=== PATIENT | male | born 1980 | race Caucasian/White ===

== ENCOUNTER 2019-01-29 00:34 | Emergency (ER) | payer OTHER ==
[2019-01-29 01:32] LABS: Absolute Lymphocytes (CBC) 2.3 K/uL (0.7-4.9); Basophils % 0.7 % (0-1.3); Hematocrit 38.7 % (39.6-49.0); Lymphocytes % 13.3 % (15.3-44.8); MPV 9.1 fL (7.6-11.3); RBC Red Blood Cell Count 4.36 M/uL (4.33-5.43)
[2019-01-29 01:44] LABS: Potassium 3.6 mmol/L (3.5-5.1)
[2019-01-29] MEDS ORDERED: PANTOPRAZOLE 40 MG INJ ONE (01:46)
[2019-01-29 01:56] LABS: Urine Blood NEGATIVE (NEG); Urine Glucose NEGATIVE (NEG); Urine Protein 1+ (NEG); Urine Specific Gravity 1.015 (1.005-1.030); Urine pH 8.5 (5.0-7.0)
[2019-01-29] MEDS ORDERED: METOCLOPRAMIDE 10 MG/2mL INJ ONE (01:59)
[2019-01-29 02:20] LABS: Barbiturates NEGATIVE (NEGATIVE); Benzodiazepines POSITIVE (NEGATIVE); Cocaine NEGATIVE (NEGATIVE); METHAMPHETAM NEGATIVE (NEGATIVE); Methadone NEGATIVE (NEGATIVE); Opiates POSITIVE (NEGATIVE); Phencyclidine NEGATIVE (NEGATIVE); THC Cannibis NEGATIVE (NEGATIVE)
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
[2019-01-29 04:40] VITALS: BP 139/108; TEMP 99.5; O2SAT 96
--- NOTE | 2019-01-29 08:23 | RAD REPORT ---
EXAM DESCRIPTION: RAD - Chest Single View - 01/29/2019 2:14 am CLINICAL HISTORY: somnolenty Chest pain. COMPARISON: No comparisons FINDINGS: Portable technique limits examination quality. The lungs are grossly clear. The heart is normal in size. No displaced fractures. IMPRESSION: No acute intrathoracic process suspected.
--- NOTE | 2019-01-29 09:53 | RAD REPORT ---
EXAM DESCRIPTION: CT Abdomen and Pelvis With Intravenous Contrast CLINICAL HISTORY: The patient is 38 years old and is Male; GI BLEED -- VOMITING BLOOD TECHNIQUE: Axial computed tomography images of the abdomen and pelvis with intravenous contrast. S agittal and coronal reformatted images were created and reviewed. This CT exam was performed using one or more of the following dose reduction techniques: automated exposure control, adjustment of t he mA and/or kV according to patient size, and/or use of iterative reconstruction technique. COMPARISON: No relevant prior studies available. FINDINGS: LUNG BASES: Unremarkable. No mass. No consolidation. ABDOMEN: LIVER: There is a diffuse decrease in hepatic parenchymal density, consistent with fatty infiltr ation. The liver is enlarged. GALLBLADDER AND BILE DUCTS: No calcified stones. No ductal dilation. PANCREAS: No ductal dilation. No mass. SPLEEN: Unremarkable. ADRENALS: Unremarkable. No mass. KIDNEYS AND URETERS: Right renal cysts are present, the largest of which measures 2.6 cm. No fol low-up imaging is recommended. The kidneys enhance symmetrically. No hydronephrosis or hydroureter of either kidney. No obstructing renal or ureteral calculus. STOMACH AND BOWEL: The stomach is minimally fluid filled. The small bowel is normal in caliber. A moderate amount of stool is present throughout the colon. There is no mucosal thickening or evidenc e of bowel obstruction. PELVIS: APPENDIX: No findings to suggest acute appendicitis. BLADDER: Unremarkable. No mass. REPRODUCTIVE: Unremarkable as visualized. ABDOMEN and PELVIS: INTRAPERITONEAL SPACE: Unremarkable. No free air. No significant fluid collection. BONES/JOINTS: No acute fracture. SOFT TISSUES: The soft tissues are normal. VASCULATURE: Unremarkable. No abdominal aortic aneurysm. LYMPH NODES: Unremarkable. No enlarged lymph nodes. IMPRESSION: No acute findings on this contrasted CT of the abdomen and pelvis to explain the patient 's symptoms. Electronically signed by: Macarena Argueta MD 01/29/2019 4:23 AM CDT Due to temporary technical issues with the PACS/Fluency reporting system, reports are being signed by the in house radiologist as a courtesy to ensure prompt reporting. The interpreting radiologist is f ully responsible for the content of the report.
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
--- NOTE | 2019-01-29 11:37 | EKG ---
Test Date: 2019-01-29 Test Time: 00:58:46 [employer] Clerk: MAXIM MEASUREMENT RESULTS: Intervals: Rate: 120 MI: 126 QRSD: 84 QT: 322 QTc: 455 Ovalo: P: 71 MI: 126 QRS: 27 T: -11 INTERPRETIVE STATEMENTS: Sinus tachycardia ST & T wave abnormality, consider inferior ischemia Abnormal ECG Compared to ECG 09/30/1997 17:26:00 ST (T wave) deviation now present Possible ischemia now present Sinus rhythm no longer present Electronically Signed On 01-29-19 11:36:18 CDT by Mikael Brewster
== END 2019-01-29 04:25 | disposition home or self-care (01) ==
LOC: ER 00:34
DX: K92.0 Hematemesis (principal); T45.525A Adverse effect of antithrombotic drugs, initial encounter; R94.02 Abnormal brain scan; N28.1 Cyst of kidney, acquired; F17.210 Nicotine dependence, cigarettes, uncomplicated; I10 Essential (primary) hypertension
CPT/HCPCS: 93005; 85025; 80048; 36415; 80320; 86900; 86850; 86901; 82962; 80307 ×8; 81003; 70450; 72125; 74177; 71045; 96375; 96374; 99285; Q9967; J2765; C9113

== ENCOUNTER 2021-10-21 13:00 | Emergency (ER) | payer SELFPAY ==
[2021-10-21] MEDS ORDERED: ROCURONIUM 50 MG/5 ML VIAL IV ONE (13:01)
[2021-10-21] MEDS ORDERED: ETOMIDATE 20 MG/10 ML VIAL IV ONE (13:01)
[2021-10-21] MEDS ORDERED: SUCCINYLCHOLINE 20 MG/ML (10 ML) IV ONE (13:01)
[2021-10-21] MEDS ORDERED: RSI MEDICATION KIT IV ONE ×2 (13:12→13:27)
[2021-10-21] MEDS ORDERED: FENTANYL CITR 100 MCG/2 ML ONE ×3 (13:13→17:28)
[2021-10-21] MEDS ORDERED: MIDAZOLAM HCL 2 MG/2 ML INJ ONE ×4 (13:13→17:27)
[2021-10-21] MEDS ORDERED: propofoL 1,000 MG/100 ML VIAL IV ONE (13:35)
[2021-10-21 13:49] LABS: Absolute Lymphocytes (CBC) 0.8 K/uL (0.7-4.9); Hematocrit 48.1 % (39.6-49.0); Lymphocytes % 3.8 % (15.3-44.8); MCV 80.1 fL (80-100); MPV 8.5 fL (7.6-11.3)
[2021-10-21] MEDS ORDERED: PANTOPRAZOLE 40 MG INJ ONE (13:49)
[2021-10-21 13:52] LABS: Protime INR 0.98
[2021-10-21] MEDS ORDERED: NA CHLORIDE 0.9% 50 ML ONE (14:01)
[2021-10-21] MEDS ORDERED: CEFTRIAXONE 1000 MG/VIAL ONE (14:01)
[2021-10-21 14:07] LABS: Albumin 3.7 g/dL (3.4-5.0); Bilirubin Total 0.6 mg/dL (0.2-1.0); Potassium 4.1 mmol/L (3.5-5.1); Protein, Total 7.7 g/dL (6.4-8.2); Troponin High Sensitivity 26.9 pg/mL (<58.9)
[2021-10-21 14:16] LABS: Urine Blood 3+ (Negative); Urine Glucose Negative (Negative); Urine Protein 2+ (Negative); Urine Specific Gravity 1.015 (1.005-1.030); Urine pH 5.5 (5.0-7.0)
--- NOTE | 2021-10-21 14:23 | RAD REPORT ---
EXAM DESCRIPTION: RAD - Chest Single View - 10/21/2021 2:09 pm CLINICAL HISTORY: POST ETT COMPARISON: Chest Single View dated 01/29/2019 FINDINGS: Lines: Endotracheal tube at the aortic arch. Lungs: Bilateral interstitial and airspace disease, slightly worse on the right . Pleural: No significant pleural effusions or pneumothorax. Cardiac: The heart size is within normal limits. Bones: No acute fractures. Other: IMPRESSION: Bilateral airspace disease which may reflect multifocal pneumonia or pneumonitis such as from aspiration. Edema less likely. The endotracheal tube is in satisfactory position.
[2021-10-21 14:38] LABS: Blood Morphology Comment NOTED (NOT SEEN); Platelet Estimate ADEQ
[2021-10-21] MEDS ORDERED: OCTREOTIDE 500 MCG in NA CHLORIDE 0.9% 500 ML IV SCH (15:00)
[2021-10-21] MEDS ORDERED: PANTOPRAZOLE INJ 80 MG in NA CHLORIDE 0.9% 250 ML IV SCH (15:00)
--- NOTE | 2021-10-21 15:17 | RAD REPORT ---
EXAM DESCRIPTION: CT - Head C Spine Cap Wo Con - 10/21/2021 3:03 pm CLINICAL HISTORY: Hematemesis COMPARISON: No comparisonsNo comparisons TECHNIQUE: CT head without contrast. CT cervical spine without contrast with coronal and sagittal reformatted images. CT chest, abdomen and pelvis with coronal and sagittal reformatted images of the spine. All CT scans are performed using dose optimization technique as appropriate and may include automated exposure control or mA/KV adjustment according to patient size. FINDINGS: CT HEAD WITHOUT CONTRAST: No intracranial hemorrhage, hydrocephalus or extra-axial fluid collection. No acute large vascular te rritory infarct. Air-fluid levels are present within the maxillary sinuses and sphenoid sinuses. The calvarium is intact. CT CERVICAL SPINE WITHOUT CONTRAST: No fracture or subluxation. The prevertebral soft tissues are normal in thickness.Very mild cervical spondylosis . CT CHEST, ABDOMEN, PELVIS: Thorax: Chest Wall: No abnormal mass Lungs: Dependent consolidation. Patchy ground-glass opacities are present within the right upper lobe . Pleura: Mild bilateral effusions. Carina/Mediastinum: No lymphadenopathy. Aorta/Pulmonary Arteries: Unremarkable Heart: Normal size. Abdomen/Pelvis: Liver: No acute abnormality or suspicious lesions. Biliary: No biliary ductal dilatation. Stomach: Distended stomach. Duodenum: No significant focal abnormality. Pancreas: No significant abnormality. Spleen: No significant abnormality. Adrenal: No suspicious lesions. Kidney/ureter: No hydronephrosis. No renal calculi. Retroperitoneum: No retroperitoneal adenopathy. Vascular: No aneurysm. Bowel: No significant focal abnormality. Peritoneum: No ascites or free air. Bladder: The bladder is decompressed around a Phillip catheter. Reproductive: No adnexal masses. Bones: No acute fracture. Other: Right femoral vein catheter present. IMPRESSION: 1. Dependent lung consolidation and scattered ground-glass opacities concerning for aspi ration pneumonitis. 2. No acute intra-abdominal abnormality. 3. No acute intracranial abnormality. 4. No acute fracture traumatic malalignment of cervical spine.
--- NOTE | 2021-10-21 15:43 | EDPHYS ---
Physician Documentation [facility] Name: Noe Hartman Age: 41 yrs Sex: Male : 1980 Arrival Date: 10/21/2021 Time: 13:02 Bed 2 Private MD: ED Physician Uriel Nielson Historical: - PMHx: 10/21 13:11 Hypertension; ss - Immunization history:: Adult Immunizations up to date, Client reports having NOT received the Covid vaccine. - Social history:: Smoking status: Patient reports the use of cigarette tobacco products, smokes three packs cigarettes per day. Vital Signs: 13:05 BP 88 / 67; Pulse 136; Resp 64; ss 14:36 BP 130 / 71; Pulse 154; Pulse Ox 92% on ETT vent; ss 14:37 BP 130 / 71; Pulse 154; Resp 20; Temp 98.6(R); Pulse Ox 92% on ETT vent; odonnell 15:43 BP 118 / 78; Pulse 156; Resp 28; Pulse Ox 94% on 100% FiO2 ETT vent; odonnell 16:08 BP 144 / 88; Pulse 156; Resp 28; Pulse Ox 97% on 100% FiO2 ETT vent; odonnell 16:34 Weight 86.18 kg; Height 5 ft. 10 in. (177.80 cm); odonnell 16:47 BP 131 / 89; Pulse 160; Resp 28; Pulse Ox 92% on 100% FiO2 ETT vent; odonnell 16:34 Body Mass Index 27.26 (86.18 kg, 177.80 cm) odonnell Ventilator: 13:57 Fi02: 100%; Rate: 20min; T.V.: 412ml; Peep: 5cm; ET tube: 7.5 fr (Oral); odonnell MDM: 15:42 Patient medically screened. kdr 10/21 13:34 Order name: CBC with Diff; Complete Time: 15:29 vg1 10/21 13:34 Order name: CMP; Complete Time: 14:31 vg1 10/21 13:34 Order name: Lipase; Complete Time: 14:31 vg1 10/21 13:34 Order name: Type And Screen; Complete Time: 14:31 vg1 10/21 13:34 Order name: Troponin HS; Complete Time: 14:31 vg1 10/21 13:34 Order name: PT-INR; Complete Time: 14:31 vg1 10/21 13:35 Order name: AMMONIA; Complete Time: 14:31 vg1 02 13:35 Order name: Lactate; Complete Time: 15:29 vg1 02 13:35 Order name: Blood Culture Adult (2) 1 10/21 13:42 Order name: SARS-COV-2 RT PCR (Document "Date of Onset" if Symptomatic); Complete Time: eb 16:58 02 13:55 Order name: Manual Differential; Complete Time: 15:29 EDMS 10/21 14:16 Order name: Urine Dipstick-Ancillary; Complete Time: 14:31 EDMS 07 14:35 Order name: CBC with Diff; Complete Time: 16:58 kdr 02 14:37 Order name: ETOH Level; Complete Time: 15:29 kdr 02 13:46 Order name: Chest Single View XRAY; Complete Time: 14:31 ph 07/02 14:37 Order name: UDS; Complete Time: 16:58 kdr 02 14:58 Order name: Head C Spine Cap Wo Con; Complete Time: 15:29 EDMS 02 15:51 Order name: ABG Arterial Blood Gas; Complete Time: 16:58 EDMS 02 13:34 Order name: IV Saline Lock; Complete Time: 13:57 vg1 10/21 13:34 Order name: Labs collected and sent; Complete Time: 13:57 vg1 02 15:41 Order name: Labs - recollect needed: recollect cbc/ getting weird intervals; Complete eb Time: 16:06 Administered Medications: 13:10 Drug: fentaNYL (PF) 25 mcg Route: IVP; Site: left antecubital; odonnell 13:54 Follow up: Response: No adverse reaction odonnell 13:11 Drug: Etomidate 20 mg Route: IVP; Site: left antecubital; odonnell 13:54 Follow up: Response: No adverse reaction odonnell 13:11 Drug: Succinylcholine 100 mg Route: IVP; Site: left antecubital; odonnell 13:54 Follow up: Response: No adverse reaction odonnell 13:18 Drug: fentaNYL (PF) 50 mcg Route: IVP; Site: left antecubital; odonnell 13:54 Follow up: Response: No adverse reaction odonnell 13:18 Drug: Midazolam 2 mg Route: IVP; Site: left antecubital; odonnell 13:54 Follow up: Response: No adverse reaction odonnell 13:19 Drug: Succinylcholine 100 mg Route: IVP; Site: left antecubital; odonnell 13:54 Follow up: Response: No adverse reaction odonnell 13:25 Drug: fentaNYL (PF) 50 mcg Route: IVP; Site: left antecubital; odonnell 13:54 Follow up: Response: No adverse reaction odonnell 13:28 Drug: Midazolam 4 mg Route: IVP; Site: left antecubital; odonnell 13:54 Follow up: Response: No adverse reaction odonnell 13:28 Drug: Succinylcholine 100 mg Route: IVP; Site: left antecubital; odonnell 13:55 Follow up: Response: No adverse reaction odonnell 13:32 Drug: Cipro (ciprofloxacin) 400 mg Volume: 200 ml; Route: IVPB; Infused Over: 60 mins; odonnell Site: right antecubital; 16:07 Follow up: IV Status: Completed infusion odonnell 13:40 Drug: ProTONIX (pantoprazole) 80 mg Route: IVP; Site: left antecubital; odonnell 13:47 Follow up: Response: No adverse reaction odonnell 13:41 Drug: Rocuronium 50 mg Route: IVP; Site: left antecubital; odonnell 13:56 Follow up: Response: No adverse reaction odonnell 14:01 Drug: Rocephin - (cefTRIAXone) 1 grams Route: IVPB; Infused Over: 30 mins; Site: right ph antecubital; 16:35 Follow up: IV Status: Completed infusion odonnell 14:26 Drug: ProTONIX (pantoprazole) 8 mg/hr Route: IV; Rate: 25 ml/hr; Site: right femoral; odonnell 14:41 Drug: Octreotide Infusion (50 mcg/hr) - (Octreotide 500 mcg, NS 0.9% 500 ml) Route: IV; odonnell Rate: 50 ml/hr; Site: right femoral; 15:23 Drug: Rocuronium 100 mg Route: IVP; Site: left antecubital; odonnell 15:52 Follow up: Response: No adverse reaction odonnell 16:07 Drug: Flagyl (metroNIDAZOLE) 500 mg Volume: 100 ml; Route: IVPB; Rate: 200 ml/hr; odonnell Infused Over: 30 mins; Site: right antecubital; 16:07 Follow up: IV Status: Completed infusion odonnell 16:07 Drug: NS 0.9% 1000 ml Route: IV; Rate: 1 bolus; Site: right antecubital; odonnell 16:07 Follow up: IV Status: Completed infusion odonnell 17:18 Drug: Rocuronium 50 mg Route: IVP; Site: left antecubital; odonnell 17:24 Follow up: Response: No adverse reaction odonnell 17:21 Drug: fentaNYL (PF) 50 mcg Route: IVP; Site: left antecubital; odonnell 17:24 Follow up: Response: No adverse reaction odonnell 17:22 Drug: Midazolam 2 mg Route: IVP; Site: left antecubital; odonnell 17:24 Follow up: Response: No adverse reaction odonnell Disposition Summary: 10/21/21 15:42 Transfer Ordered Reason: Higher level of care kdr Condition: Critical kdr Problem: new kdr Symptoms: are unchanged kdr Transfer Location: [facility](10/21/21 17:00) kdr Accepting Physician: Rama(10/21/21 17:49) odonnell Diagnosis - Upper GI Bleed kdr - Altered mental status, unspecified kdr Forms: - Medication Reconciliation Form kdr - SBAR form kdr Signatures: Dispatcher [employer] EDMS Uriel Nielson MD MD kdr Oralia Davis, RN RN ss Esmer Rainey RN RN Sandra Vasquez Victoria RN RN vg1 Cara-StagerMel RN RN odonnell Corrections: (The following items were deleted from the chart) 14:48 14:33 Chest Abdomen Pelvis W Con+CT.RAD.BRZ ordered. EDMS EDMS 14:58 14:48 Chest Abd Pelvis Wo Con ordered. EDMS EDMS 17:00 15:42 x kdr kdr 17:00 15:42 [facility] kdr kdr 17:49 17:00 Ziandrei kdr odonnell
--- NOTE | 2021-10-21 15:43 | ER ---
Nurse's Notes [facility] Name: Noe Hartman Age: 41 yrs Sex: Male : 1980 Arrival Date: 10/21/2021 Time: 13:02 Bed 2 Private MD: Diagnosis: Upper GI Bleed;Altered mental status, unspecified Presentation: 10/21 13:05 Chief complaint: EMS states: abd pain, N/V with black emesis and not feeling well that ss began today. Coronavirus screen: Client denies travel out of the [place] in the last 14 days. Ebola Screen: Patient denies exposure to infectious person. Patient denies travel to an Ebola-affected area in the 21 days before illness onset. Initial Sepsis Screen: Does the patient meet any 2 criteria? RR > 20 per min. Altered Mental Status. HR > 90 bpm. Does the patient have a suspected source of infection? No. Patient's initial sepsis screen is negative. Risk Assessment: Do you want to hurt yourself or someone else? Patient reports no desire to harm self or others. Onset of symptoms was October 21, 2021. Care prior to arrival: IV initiated. 18 GA, in the left forearm. 13:05 Method Of Arrival: EMS: [facility] ss 13:05 Acuity: JOHNSON 1 ss Triage Assessment: 14:01 General: Appears uncomfortable, Behavior is cooperative, anxious. odonnell Historical: - PMHx: 13:11 Hypertension; ss - Immunization history:: Adult Immunizations up to date, Client reports having NOT received the Covid vaccine. - Social history:: Smoking status: Patient reports the use of cigarette tobacco products, smokes three packs cigarettes per day. Screenin:57 Abuse screen: Denies threats or abuse. Denies injuries from another. Nutritional odonnell screening: No deficits noted. Tuberculosis screening: No symptoms or risk factors identified. Fall Risk None identified. Assessment: 13:57 Pain: Complains of pain in abdomen. Neuro: Level of Consciousness is awake, obeys odonnell commands, Oriented to person, place, time, situation. GI: Reports nausea, Pain is 7 out of 10 on a pain scale. vomiting, coffee grounds emesis. Vital Signs: 13:05 BP 88 / 67; Pulse 136; Resp 64; ss 14:36 BP 130 / 71; Pulse 154; Pulse Ox 92% on ETT vent; ss 14:37 BP 130 / 71; Pulse 154; Resp 20; Temp 98.6(R); Pulse Ox 92% on ETT vent; odonnell 15:43 BP 118 / 78; Pulse 156; Resp 28; Pulse Ox 94% on 100% FiO2 ETT vent; odonnell 16:08 BP 144 / 88; Pulse 156; Resp 28; Pulse Ox 97% on 100% FiO2 ETT vent; odonnell 16:34 Weight 86.18 kg; Height 5 ft. 10 in. (177.80 cm); odonnell 16:47 BP 131 / 89; Pulse 160; Resp 28; Pulse Ox 92% on 100% FiO2 ETT vent; odonnell 16:34 Body Mass Index 27.26 (86.18 kg, 177.80 cm) odonnell ED Course: 13:02 Patient arrived in ED. eb 13:06 Triage completed. ss 13:24 Uriel Nielosn MD is Attending Physician. eb 13:47 Mel Choe RN is Primary Nurse. odonnell 13:57 Patient has correct armband on for positive identification. Bed in low position. odonnell 13:57 Assisted provider with central line placement. Set up central line tray. Line placed by blas Nielson MD Dressed with Blood was collected. Inserted saline lock: 18 gauge in right in left antecubital area, using aseptic technique. 14:02 Arm band placed on. odonnell 14:02 Phillip cath inserted, using sterile technique, 16 Fr., by ED staff, balloon inflated. odonnell 14:11 Chest Single View XRAY In Process Unspecified. EDMS 14:43 initiated a transfer with Oswaldo Cueva from the [facility] Transfer Center. eb 15:05 Head C Spine Cap Wo Con In Process Unspecified. EDMS 15:17 per Oswaldo Cueva Transfer Center they will have to decline the patient in transfer/ eb [facility], [facility], [facility] and the [facility] are at capacity/ he called the [facility] and asked if they had beds and they do. Oswaldo says we need to initiate with the hospital because they do not do transfers to that facility. 15:18 initiated a transfer with Ernie from the [facility] in [place]/ Ernie eb will call me back once he knows they do have capacity. 15:26 Ernie from [facility] called/ Dr. Nielson is to call the Attending Dr. Dennis at [phone] Johnson at [phone]. 15:45 initiated a transfer with Nadien from the [facility]. 15:46 Ernie from [facility] was informed that the transfer was denied by the cargoman. 16:03 Nadine from the [facility] called to decline the transfer at [facility]/ she will try [facility]. 16:42 Nadine from [facility] called to decline the patient at the [facility] due to the facility being at capacity. / She will try [facility]. 16:44 intiated a transfer with Kamlesh from the [facility] Transfer Center. 16:53 connected the cargoman director of regional sales for [facility] with Dr. Nielson for patient transfer consultation/. 17:01 administrative approval given by Kamlesh Koehler/ patient has been accepted to [facility] IC [phone]/ Dr. Phelan has accepted the patient in transfer/ report to be called to [phone]. 17:49 Patient transferred, IV remains in place. odonnell Administered Medications: 13:10 Drug: fentaNYL (PF) 25 mcg Route: IVP; Site: left antecubital; odonnell 13:54 Follow up: Response: No adverse reaction odonnell 13:11 Drug: Etomidate 20 mg Route: IVP; Site: left antecubital; odonnell 13:54 Follow up: Response: No adverse reaction odonnell 13:11 Drug: Succinylcholine 100 mg Route: IVP; Site: left antecubital; odonnell 13:54 Follow up: Response: No adverse reaction odonnell 13:18 Drug: fentaNYL (PF) 50 mcg Route: IVP; Site: left antecubital; odonnell 13:54 Follow up: Response: No adverse reaction odonnell 13:18 Drug: Midazolam 2 mg Route: IVP; Site: left antecubital; odonnell 13:54 Follow up: Response: No adverse reaction odonnell 13:19 Drug: Succinylcholine 100 mg Route: IVP; Site: left antecubital; odonnell 13:54 Follow up: Response: No adverse reaction odonnell 13:25 Drug: fentaNYL (PF) 50 mcg Route: IVP; Site: left antecubital; odonnell 13:54 Follow up: Response: No adverse reaction odonnell 13:28 Drug: Midazolam 4 mg Route: IVP; Site: left antecubital; odonnell 13:54 Follow up: Response: No adverse reaction odonnell 13:28 Drug: Succinylcholine 100 mg Route: IVP; Site: left antecubital; odonnell 13:55 Follow up: Response: No adverse reaction odonnell 13:32 Drug: Cipro (ciprofloxacin) 400 mg Volume: 200 ml; Route: IVPB; Infused Over: 60 mins; odonnell Site: right antecubital; 16:07 Follow up: IV Status: Completed infusion odonnell 13:40 Drug: ProTONIX (pantoprazole) 80 mg Route: IVP; Site: left antecubital; odonnell 13:47 Follow up: Response: No adverse reaction odonnell 13:41 Drug: Rocuronium 50 mg Route: IVP; Site: left antecubital; odonnell 13:56 Follow up: Response: No adverse reaction odonnell 14:01 Drug: Rocephin - (cefTRIAXone) 1 grams Route: IVPB; Infused Over: 30 mins; Site: right ph antecubital; 16:35 Follow up: IV Status: Completed infusion odonnell 14:26 Drug: ProTONIX (pantoprazole) 8 mg/hr Route: IV; Rate: 25 ml/hr; Site: right femoral; odonnell 14:41 Drug: Octreotide Infusion (50 mcg/hr) - (Octreotide 500 mcg, NS 0.9% 500 ml) Route: IV; odonnell Rate: 50 ml/hr; Site: right femoral; 15:23 Drug: Rocuronium 100 mg Route: IVP; Site: left antecubital; odonnell 15:52 Follow up: Response: No adverse reaction odonnell 16:07 Drug: Flagyl (metroNIDAZOLE) 500 mg Volume: 100 ml; Route: IVPB; Rate: 200 ml/hr; odonnell Infused Over: 30 mins; Site: right antecubital; 16:07 Follow up: IV Status: Completed infusion odonnell 16:07 Drug: NS 0.9% 1000 ml Route: IV; Rate: 1 bolus; Site: right antecubital; odonnell 16:07 Follow up: IV Status: Completed infusion odonnell 17:18 Drug: Rocuronium 50 mg Route: IVP; Site: left antecubital; odonnell 17:24 Follow up: Response: No adverse reaction odonnell 17:21 Drug: fentaNYL (PF) 50 mcg Route: IVP; Site: left antecubital; odonnell 17:24 Follow up: Response: No adverse reaction odonnell 17:22 Drug: Midazolam 2 mg Route: IVP; Site: left antecubital; odonnell 17:24 Follow up: Response: No adverse reaction odonnell Medication: 13:57 VIS not applicable for this client. odonnell Ventilator: 13:57 Fi02: 100%; Rate: 20min; T.V.: 412ml; Peep: 5cm; ET tube: 7.5 fr (Oral); odonnell Outcome: 15:42 ER care complete, transfer ordered by . kdr 17:48 Transferred by helicopter to [facility]. odonnell 17:48 Condition: stable 17:48 Instructed on the need for transfer. 17:49 Patient left the ED. odonnell Signatures: Dispatcher [employer] EDMS Uriel Nielson MD MD [facility] Oralia Davis RN RN Esmer Rainey RN RN Sandra Vasquez Heather, RN RN Josie Hopikns RN RN kr3 Corrections: (The following items were deleted from the chart) 15:43 14:37 BP 130 / 71; Pulse 154bpm; Resp 20bpm; Pulse Ox 92% ET / Ventilator; kr3 odonnell
[2021-10-21 15:46] LABS: Barbiturates NEGATIVE (NEGATIVE); Benzodiazepines POSITIVE (NEGATIVE); Cocaine NEGATIVE (NEGATIVE); METHAMPHETAM NEGATIVE (NEGATIVE); Methadone NEGATIVE (NEGATIVE); Opiates POSITIVE (NEGATIVE); Phencyclidine NEGATIVE (NEGATIVE); THC Cannibis NEGATIVE (NEGATIVE)
[2021-10-21 15:50] LABS: Arterial Blood Carboxyhemoglob 1.9 % (0-1.5); Blood O2 Saturation 80.7 % (92-98.5)
[2021-10-21] MEDS ORDERED: METRONIDAZOLE 500mg IVPB 500 MG/100 ML BAG IV ONE (16:08)
[2021-10-21 16:30] LABS: Absolute Lymphocytes (CBC) 0.8 K/uL (0.7-4.9); Lymphocytes % 9.8 % (15.3-44.8); MPV 8.5 fL (7.6-11.3); RBC Red Blood Cell Count 5.88 M/uL (4.33-5.43)
[2021-10-21 18:04] VITALS: TEMP 98.6
[2021-10-21 18:09] VITALS: BP 131/89; O2SAT 92
--- NOTE | 2021-10-24 12:49 | EKG ---
Test Date: 2021-10-21 Test Time: 13:09:50 [employer]: [place] MEASUREMENT RESULTS: Intervals: Rate: 135 SC: 120 QRSD: 74 QT: 284 QTc: 426 [place]: P: 83 SC: 120 QRS: 67 T: 30 INTERPRETIVE STATEMENTS: Sinus tachycardia ST abnormality, possible digitalis effect Abnormal ECG Compared to ECG 01/29/2019 00:58:46 Possible ischemia no longer present ST (T wave) deviation still present Electronically Signed On 10-24-21 12:47:41 CDT by Puma Pedroza
== END 2021-10-21 17:49 | disposition short-term general hospital (02) ==
LOC: ER 13:00
DX: K92.2 Gastrointestinal hemorrhage, unspecified (principal); R41.82 Altered mental status, unspecified; F17.210 Nicotine dependence, cigarettes, uncomplicated; I10 Essential (primary) hypertension; Z20.822 Contact with and (suspected) exposure to COVID-19
CPT/HCPCS: 36415; 51702; 70450; 71045; 71250; 72125; 80053; 80307; 80320; 81003; 82140; 82805; 83605; 83690; 84484; 85025; 85610; 86850; 86900; 86901; 87040; 93005; 94002; 94003; 99291; 99292; C9113; J0330; J2250; J2354; J2704; J3010; J3490; J7040; J7050; U0003

== ENCOUNTER → 2023-05-24 | Emergency (ER) | payer SELFPAY ==
[~2023-05-24] MED LIST: POTASSIUM CL SA 10 MEQ TAB PO ONE; TDAP (DIPHTH,PERTUSS(ACELL),TET VAC) 0.5 ML VIAL IMVAC ONE
--- OUTSIDE RECORDS SUMMARY | 2023-05-24 21:05 | XMS REPORT | Continuity of Care Document ---
Author Name Unknown Address [address] [place] [address] [facility] thconnect Address [address] [place] [address] Care Team Providers Care Mental Health Worker Name Role Phone Cara MartinezAzaelRandy Primary Care Physician [phone] Yu Wells DO Attending Clinician [phone] Bruna Quezada LVN Attending Clinician [phone] BLAKE BRIONES Attending Clinician Unavailable Blake Briones MD Attending Clinician [phone] Jessi Sanchez RN Attending Clinician [phone] Doctor Unassigned, [place] Attending Clinician U marci Turner MD, Mike Sahu Attending Clinician BETZAIDA HENAO Attending Clinician Unavailshona Phelan MD, Jim Michaud Attending Clinician [phone] Artur Valencia MD Attending Clinician [phone] Dilcia Campbell MD Attending Clinician + [phone] Betzaida Henao MD Attending Clinician + [phone] Edson Kyle DO Attending Clinician [phone] BLAKE BRIONES Admitting Clinician Unavailable Albaeni MD, Aiham Admitting Clinician ARTRU VALENCIA Admitting Clinician Unavailable Artur Valencia MD Admitting Clinician [phone] Problems Condition Name Condition Details Condition Category Status Onset Date Resolution Date Last Treatment Date Treating Clinician Comments Source Unstable angina Unstable angina Disease Active 2022-04 0- 00:00: 00 [facility] Chest pain, unspecifie d type Chest pain, unspecifie d type Disease Active 2022-04 007 00:00: 00 [facility] Altered mental status, unspecifie d altered mental status type Altered mental status, unspecifie d altered mental status type Disease Active 7 00:00: 00 [facility] Allergies, Adverse Reactions, Alerts Allergy Name Allergy Type Status Severity Reaction(s) Onset Date Inactive Date Treating Clinician Comments Source LORAZEPA M DRUG INGREDI Active High Anxiety 2022-04 008 00:00: 00 [facility] Lorazepa m Drug Intolera nce Active Anxiety 2022-04 008 00:00: 00 [facility] NO KNOWN ALLERGIE S Drug Class Active [facility] Social History Social Habit Start Date Stop Date Quantity Comments Source Sexual orientation U [facility] History of tobacco use Passive smoker [facility] History of Social function 2023-01-28 00:00:00 2023-01-28 00:00:00 [facility] Tobacco use and exposure 2023-01-26 00:00:00 2023-01-26 00:00:00 Smokeless tobacco non-user [facility] Exposure to SARS-CoV-2 (event) 2021-10-16 00:00:00 2021-10-26 18:18:00 Not sure [facility] Sex Assigned At 1980 00:00:00 1980 00:00:00 [facility] Smoking Status Start Date Stop Date Source Smokes tobacco daily 2023-01-26 00:00:00 [facility] Never smoked tobacco [facility] Medications Ordered Medication Name Filled Medication Name Start Date Stop Date Current Medication? Ordering Clinician Indication Dosage Frequency Signature (SIG) Comments Components Source metoprolol succinate XL 25 mg 24 hr tablet 2022-04 00:00: 00 Yes [id number] 25mg Take 1 tablet by mouth in the morning. [facility] metoprolol succinate XL 25 mg 24 hr tablet 2022-04 00:00: 00 Yes [id number] 25mg Take 1 tablet by mouth in the morning. [facility] metoprolol succinate XL 25 mg 24 hr tablet 2022-04 00:00: 00 Yes [id number] 25mg Take 1 tablet by mouth in the morning. [facility] metoprolol succinate XL 25 mg 24 hr tablet 2022-04 00:00: 00 Yes [id number] 25mg Take 1 tablet by mouth in the morning. [facility] dicyclomine 20 mg tablet 2022-04 19:57: 49 Yes 20mg Take 1 tablet by mouth 4 (four) times daily. [facility] melatonin 3 mg tablet 2022-04 19:57: 49 Yes 3mg Take 1 tablet by mouth at bedtime. [facility] Pantoprazol e 40 mg delayed-rel ease suspension 2022-04 19:57: 49 Yes 40mg Take 40 mg by mouth in the morning. [facility] losartan-hy drochloroth iazide 100-25 mg per tablet 2022-04 19:57: 49 Yes 1{tbl} Take 1 tablet by mouth in the morning. [facility] ALPRAZolam 1 mg tablet 2022-04 19:57: 49 Yes 1mg Take 1 tablet by mouth at bedtime as needed (sleep). [facility] traZODone 50 mg tablet 2022-04 19:57: 49 Yes 50mg Take 1 tablet by mouth at bedtime as needed for Insomnia. [facility] dicyclomine 20 mg tablet 2022-04 19:57: 49 Yes 20mg Take 1 tablet by mouth 4 (four) times daily. [facility] melatonin 3 mg tablet 2022-04 19:57: 49 Yes 3mg Take 1 tablet by mouth at bedtime. [facility] Pantoprazol e 40 mg delayed-rel ease suspension 2022-04 19:57: 49 Yes 40mg Take 40 mg by mouth in the morning. [facility] losartan-hy drochloroth iazide 100-25 mg per tablet 2022-04 19:57: 49 Yes 1{tbl} Take 1 tablet by mouth in the morning. [facility] ALPRAZolam 1 mg tablet 2022-04 19:57: 49 Yes 1mg Take 1 tablet by mouth at bedtime as needed (sleep). [facility] traZODone 50 mg tablet 2022-04 19:57: 49 Yes 50mg Take 1 tablet by mouth at bedtime as needed for Insomnia. [facility] dicyclomine 20 mg tablet 2022-04 19:57: 49 Yes 20mg Take 1 tablet by mouth 4 (four) times daily. [facility] melatonin 3 mg tablet 2022-04 19:57: 49 Yes 3mg Take 1 tablet by mouth at bedtime. [facility] Pantoprazol e 40 mg delayed-rel ease suspension 2022-04 19:57: 49 Yes 40mg Take 40 mg by mouth in the morning. [facility] losartan-hy drochloroth iazide 100-25 mg per tablet 2022-04 19:57: 49 Yes 1{tbl} Take 1 tablet by mouth in the morning. [facility] ALPRAZolam 1 mg tablet 2022-04 19:57: 49 Yes 1mg Take 1 tablet by mouth at bedtime as needed (sleep). [facility] traZODone 50 mg tablet 2022-04 19:57: 49 Yes 50mg Take 1 tablet by mouth at bedtime as needed for Insomnia. [facility] dicyclomine 20 mg tablet 2022-04 19:57: 49 Yes 20mg Take 1 tablet by mouth 4 (four) times daily. [facility] melatonin 3 mg tablet 2022-04 19:57: 49 Yes 3mg Take 1 tablet by mouth at bedtime. [facility] Pantoprazol e 40 mg delayed-rel ease suspension 2022-04 19:57: 49 Yes 40mg Take 40 mg by mouth in the morning. [facility] losartan-hy drochloroth iazide 100-25 mg per tablet 2022-04 19:57: 49 Yes 1{tbl} Take 1 tablet by mouth in the morning. [facility] ALPRAZolam 1 mg tablet 2022-04 19:57: 49 Yes 1mg Take 1 tablet by mouth at bedtime as needed (sleep). [facility] traZODone 50 mg tablet 2022-04 19:57: 49 Yes 50mg Take 1 tablet by mouth at bedtime as needed for Insomnia. [facility] metoprolol succinate XL 25 mg 24 hr tablet 2022-04 19:57: 46 01-28 00:00 :00 No 25mg Take 1 tablet by mouth in the morning. [facility] lisinopriL 5 mg tablet 2022-04 19:57: 46 01-28 00:00 :00 No 5mg Take 1 tablet by mouth in the morning. [facility] hydroCHLORO thiazide 25 mg tablet 2022-04 19:57: 46 01-28 00:00 :00 No 25mg Take 1 tablet by mouth in the morning. [facility] metoprolol tartrate 25 mg tablet 2022-04 19:57: 46 01-26 00:00 :00 No 25mg Take 1 tablet by mouth in the morning and 1 tablet in the evening. [facility] magnesium sulfate in water 2 gram/50 mL (4 %) infusion 2 g 2022-04 12:00: 00 01-28 13:47 :00 No 2g 2 g, IV Piggyback, Administer over 60 Minutes, ONCE, 1 dose, On Sat01/28/23 at 0700, Routine [facility] KCL (KLOR-CON M20) tablet 80 mEq 2022-04 12:00: 00 01-28 12:53 :00 No 80meq 80 mEq, Oral, ONCE, 1 dose, On 01/28/23 at 0700, Routine [facility] hydrOXYzine (ATARAX) tablet 25 mg 2022-04 01:00: 00 Yes 25mg 25 mg, Oral, BID, First dose (after last modificati on) on 01/27/23 at 2000, Until Discontinu ed, Routine [facility] atorvastati n 40 mg tablet 2022-04 00:00: 00 Yes [id number] 40mg Take 1 tablet by mouth every evening. [facility] atorvastati n 40 mg tablet 2022-04 00:00: 00 Yes [id number] 40mg Take 1 tablet by mouth every evening. [facility] atorvastati n 40 mg tablet 2022-04 00:00: 00 Yes [id number] 40mg Take 1 tablet by mouth every evening. [facility] atorvastati n 40 mg tablet 2022-04 00:00: 00 Yes [id number] 40mg Take 1 tablet by mouth every evening. [facility] sulfur hexafluorid e microsphr (LUMASON) injection 5 mL 2022-04 15:00: 00 01-27 15:00 :00 No [id number] 5mL 5 mL, Intravenou s, ONCE, 1 dose, On 01/27/23 at 1000, Routine
warehouse team member approving Restricted medication : BLAKE BRIONES [facility] lisinopriL (PRINIVIL,Z ESTRIL) tablet 5 mg 2022-04 14:00: 00 Yes 5mg 5 mg, Oral, DAILY, First dose on 01/27/23 at 0900, Until Discontinu ed, Routine [facility] metoprolol succinate XL (TOPROL XL) tablet 25 mg 2022-04 14:00: 00 Yes 25mg 25 mg, Oral, DAILY, First dose on 01/27/23 at 0900, Until Discontinu ed, Routine [facility] foLIC acid (FOLATE) tablet 1 mg 2022-04 14:00: 00 Yes 1mg 1 mg, Oral, DAILY, First dose on 01/27/23 at 0900, Until Discontinu ed, Routine [facility] thiamine (VITAMIN B1) tablet 100 mg 2022-04 14:00: 00 Yes 100mg 100 mg, Oral, DAILY, First dose on 01/27/23 at 0900, Until Discontinu ed, Routine [facility] KCL (KLOR-CON M20) tablet 40 mEq 2022-04 08:15: 00 01-27 07:39 :00 No 40meq 40 mEq, Oral, ONCE, 1 dose, On 01/27/23 at 0315, Routine [facility] melatonin (MELATIN) tablet 3 mg 2022-04 02:00: 00 Yes 3mg 3 mg, Oral, QHS, First dose on 01/26/23 at 2100, Until Discontinu ed, Routine [facility] hydrOXYzine (ATARAX) tablet 10 mg 2022-04 20:49: 00 01-27 13:06 :40 No 10mg 10 mg, Oral, Q6HPRN, Starting on 01/26/23 at 1549, Until 01/27/23 at 0806, Routine, Anxiety [facility] furosemide (LASIX) injection 40 mg 2022-04 15:00: 00 01-26 13:48 :24 No 40mg 40 mg, Slow IV Push, DAILY, First dose on 01/26/23 at 1000, Until Discontinu ed, Routine [facility] oxazepam (SERAX) capsule 15 mg 2022-04 14:13: 35 Yes 15mg 15 mg, Oral, Q4HPRN, Starting on 01/26/23 at 0913, Until Discontinu ed, Routine, Only while awake for DBP equal to or greater than 100, HR equal to or greater than 100. [facility] pantoprazol e (PROTONIX) EC tablet 40 mg 2022-04 14:00: 00 Yes 40mg 40 mg, Oral, DAILY, First dose on 01/26/23 at 0900, Until Discontinu ed, Routine [facility] aspirin chewable tablet 81 mg 2022-04 14:00: 00 Yes 81mg 81 mg, Oral, DAILY, First dose on 01/26/23 at 0900, Until Discontinu ed, Routine [facility] metoprolol tartrate (LOPRESSOR) tablet 25 mg 2022-04 14:00: 00 01-26 17:41 :11 No 25mg 25 mg, Oral, BID, First dose on 01/26/23 at 0900, Until Discontinu ed, Routine [facility] heparin 25,000 Units/250 mL (Premixed Bag) in 0.45 % NS 2022-04 12:59: 58 01-26 13:48 :15 No 12U/kg/ h 12 Units/kg/h r ?79.8 kg (9.576 mL/hr, rounded to 9.58 mL/hr), IV Infusion, TITRATE, Parameters in Admin. Instr., Starting on 01/26/23 at 0759
CA UTION - If LMWH given in ER, AVOID bolus and start next dose/drip 12 hrs after ER dosage.&nb sp; M ust program rate using programmab le infusion pump.&nbsp ; Parris ck with the ordering provider first prior to any administra tion should the patient be on existing/a dditional anticoagul ant therapy.&n bsp; Range, Dosing and Testing&nb sp; - aPTT < 40: & nbsp;Bolus 3000 units, increase rate 100 units/hr.& nbsp;- aPTT 40-49:&nbs p; In crease rate 50 units/hr. - aPTT 50-70:&nbs p; NO CHANGE.&nb sp;- aPTT 71-85:&nbs p; De crease rate 50 units/hr.& nbsp;- aPTT 86-100:&nb sp; H old 30 minutes, decrease rate 100 units/hr.& nbsp;- aPTT 101-150:&n bsp; Hold 60 minutes, decrease rate 150 units/hr.& nbsp;- aPTT > 150: Hold 60 minutes, decrease rate 300 units/hr.& nbsp;&nbsp ;Check aPTT 6 hours after initiation , then Q6H after every change, aPTT Q12H once therapeuti c levels are reached.&n bsp; DO NOT ADJUST INITIAL BOLUS OR INITIAL INFUSION RATE.
[facility] atorvastati n (LIPITOR) tablet 80 mg 2022-04 12:30: 00 Yes 80mg 80 mg, Oral, QPM, First dose on 01/26/23 at 0730, Until Discontinu ed, Routine
warehouse team member approving Restricted medication : STEPHANIE [facility] nitroglycer in (NITROSTAT) sublingual tablet 0.4 mg 2022-04 12:23: 12 Yes .4mg 0.4 mg, Sublingual , Q5MIN PRN, Starting on 01/26/23 at 0723, Until Discontinu ed, Routine, Chest pain [facility] heparin (1,000 unit/mL, 10 mL vial) for Rebolusing 2022-04 12:23: 12 Yes 3000U FOR REBOLUSING , Starting on 01/26/23 at 0723, Until Discontinu ed, Routine
Dosing based on aPTT testing parameters (refer to continuous heparin drip order).
[facility] acetaminoph en (TYLENOL) tablet 650 mg 2022-04 12:23: 12 Yes 650mg 650 mg, Oral, Q6HPRN, Starting on 01/26/23 at 0723, Until Discontinu ed, Routine, Pain (scale 1-3) [facility] lisinopriL 5 mg tablet 10-29 00:00: 00 01-28 04:59 :00 No [id number] 5mg Take 1 tablet by mouth daily for 90 days. [facility] metoprolol succinate XL 25 mg 24 hr tablet 10-29 00:00: 00 01-28 04:59 :00 No [id number] 25mg Take 1 tablet by mouth daily for 90 days. [facility] lisinopriL 5 mg tablet 2021-0 7-10 00:00: 00 01-28 04:59 :00 No [id number] 5mg Take 1 tablet by mouth daily for 90 days. [facility] metoprolol succinate XL 25 mg 24 hr tablet 2021-0 7-10 00:00: 00 01-28 04:59 :00 No [id number] 25mg Take 1 tablet by mouth daily for 90 days. [facility] lisinopriL 5 mg tablet 2021-0 7-10 00:00: 00 01-28 04:59 :00 No [id number] 5mg Take 1 tablet by mouth daily for 90 days. [facility] metoprolol succinate XL 25 mg 24 hr tablet 2021-0 7-10 00:00: 00 01-28 04:59 :00 No [id number] 25mg Take 1 tablet by mouth daily for 90 days. [facility] lisinopriL 5 mg tablet 2021-0 7-10 00:00: 00 01-28 04:59 :00 No [id number] 5mg Take 1 tablet by mouth daily for 90 days. [facility] metoprolol succinate XL 25 mg 24 hr tablet 2021-0 7-10 00:00: 00 01-28 04:59 :00 No [id number] 25mg Take 1 tablet by mouth daily for 90 days. [facility] lisinopriL 5 mg tablet 2021-0 7-10 00:00: 00 01-28 04:59 :00 No [id number] 5mg Take 1 tablet by mouth daily for 90 days. [facility] metoprolol succinate XL 25 mg 24 hr tablet 2021-0 7-10 00:00: 00 01-28 04:59 :00 No [id number] 25mg Take 1 tablet by mouth daily for 90 days. [facility] lisinopriL 5 mg tablet 2021-0 7-10 00:00: 00 01-28 04:59 :00 No [id number] 5mg Take 1 tablet by mouth daily for 90 days. [facility] metoprolol succinate XL 25 mg 24 hr tablet 10-29 00:00: 00 01-28 04:59 :00 No [id number] 25mg Take 1 tablet by mouth daily for 90 days. [facility] lisinopriL 5 mg tablet 10-29 00:00: 00 01-28 04:59 :00 No [id number] 5mg Take 1 tablet by mouth daily for 90 days. [facility] metoprolol succinate XL 25 mg 24 hr tablet 10-29 00:00: 00 01-28 04:59 :00 No [id number] 25mg Take 1 tablet by mouth daily for 90 days. [facility] ALPRAZOLAM (XANAX ORAL) 10-28 15:59: 04 10-28 00:00 :00 No .5mg Take 0.5 mg by mouth as needed. [facility] lidocaine (LIDODERM) 5 % (700 mg/patch) patch 1 Patch 10-28 02:15: 00 10-28 14:05 :00 No 1{patch } 1 Patch, Topical, Administer over 12 Hours, ONCE, 1 dose, On Sat10/27/21 at 2115, Routine [facility] hydroCHLORO thiazide 25 mg tablet 10-28 00:00: 00 01-27 04:59 :00 No [id number] 25mg Take 1 tablet by mouth daily for 90 days. [facility] pantoprazol e 40 mg EC tablet 10-28 00:00: 00 01-27 04:59 :00 No [id number] 40mg Take 1 tablet by mouth daily for 90 days. [facility] hydroCHLORO thiazide 25 mg tablet 10-28 00:00: 00 01-27 04:59 :00 No [id number] 25mg Take 1 tablet by mouth daily for 90 days. [facility] pantoprazol e 40 mg EC tablet 10-28 00:00: 01-27 04:59 :00 No [id number] 40mg Take 1 tablet by mouth daily for 90 days. [facility] hydroCHLORO thiazide 25 mg tablet 10-28 00:00: 00 01-27 04:59 :00 No [id number] 25mg Take 1 tablet by mouth daily for 90 days. [facility] pantoprazol e 40 mg EC tablet 10-28 00:00: 00 01-27 04:59 :00 No [id number] 40mg Take 1 tablet by mouth daily for 90 days. [facility] hydroCHLORO thiazide 25 mg tablet 10-28 00:00: 00 01-27 04:59 :00 No [id number] 25mg Take 1 tablet by mouth daily for 90 days. [facility] pantoprazol e 40 mg EC tablet 10-28 00:00: 01-27 04:59 :00 No [id number] 40mg Take 1 tablet by mouth daily for 90 days. [facility] hydroCHLORO thiazide 25 mg tablet 10-28 00:00: 00 01-27 04:59 :00 No [id number] 25mg Take 1 tablet by mouth daily for 90 days. [facility] pantoprazol e 40 mg EC tablet 10-28 00:00: 00 01-27 04:59 :00 No [id number] 40mg Take 1 tablet by mouth daily for 90 days. [facility] hydroCHLORO thiazide 25 mg tablet 10-28 00:00: 00 01-27 04:59 :00 No [id number] 25mg Take 1 tablet by mouth daily for 90 days. [facility] pantoprazol e 40 mg EC tablet 10-28 00:00: 00 01-27 04:59 :00 No [id number] 40mg Take 1 tablet by mouth daily for 90 days. [facility] hydroCHLORO thiazide 25 mg tablet 10-28 00:00: 00 01-27 04:59 :00 No [id number] 25mg Take 1 tablet by mouth daily for 90 days. [facility] pantoprazol e 40 mg EC tablet 10-28 00:00: 00 01-27 04:59 :00 No [id number] 40mg Take 1 tablet by mouth daily for 90 days. [facility] dicyclomine 20 mg tablet 10-28 00:00: 00 11-28 04:59 :00 No [id number] 20mg Take 1 tablet by mouth 4 (four) times daily for 30 days. [facility] dicyclomine 20 mg tablet 10-28 00:00: 00 11-28 04:59 :00 No [id number] 20mg Take 1 tablet by mouth 4 (four) times daily for 30 days. [facility] melatonin 3 mg tablet 10-28 00:00: 00 11-28 04:59 :00 No [id number] 3mg Take 1 tablet by mouth at bedtime for 30 days. [facility] melatonin 3 mg tablet 10-28 00:00: 00 11-28 04:59 :00 No [id number] 3mg Take 1 tablet by mouth at bedtime for 30 days. [facility] dicyclomine 20 mg tablet 10-28 00:00: 00 11-28 04:59 :00 No [id number] 20mg Take 1 tablet by mouth 4 (four) times daily for 30 days. [facility] melatonin 3 mg tablet 10-28 00:00: 00 11-28 04:59 :00 No [id number] 3mg Take 1 tablet by mouth at bedtime for 30 days. [facility] dicyclomine 20 mg tablet 10-28 00:00: 00 11-28 04:59 :00 No [id number] 20mg Take 1 tablet by mouth 4 (four) times daily for 30 days. [facility] melatonin 3 mg tablet 10-28 00:00: 00 11-28 04:59 :00 No [id number] 3mg Take 1 tablet by mouth at bedtime for 30 days. [facility] dicyclomine 20 mg tablet 10-28 00:00: 00 11-28 04:59 :00 No [id number] 20mg Take 1 tablet by mouth 4 (four) times daily for 30 days. [facility] melatonin 3 mg tablet 10-28 00:00: 00 11-28 04:59 :00 No [id number] 3mg Take 1 tablet by mouth at bedtime for 30 days. [facility] dicyclomine 20 mg tablet 10-28 00:00: 00 11-28 04:59 :00 No [id number] 20mg Take 1 tablet by mouth 4 (four) times daily for 30 days. [facility] melatonin 3 mg tablet 10-28 00:00: 00 11-28 04:59 :00 No [id number] 3mg Take 1 tablet by mouth at bedtime for 30 days. [facility] lidocaine 5 % (700 mg/patch) patch 10-28 00:00: 00 10-29 04:59 :00 No [id number] 1{patch } Apply 1 Patch to area(s) once now for 1 dose. [facility] metoprolol succinate XL (TOPROL XL) tablet 25 mg 10-27 14:00: 00 Yes 25mg 25 mg, Oral, DAILY, First dose (after last modificati on) on Sat10/27/21 at 0900, Until Discontinu ed, Routine [facility] KCL (KLOR-CON M20) tablet 40 mEq 10-27 11:45: 00 10-27 11:11 :00 No 40meq 40 mEq, Oral, ONCE, 1 dose, On Sat10/27/21 at 0645, Routine [facility] lidocaine (LIDODERM) 5 % (700 mg/patch) patch 1 Patch 10-27 06:15: 00 10-27 17:28 :00 No 1{patch } 1 Patch, Topical, Administer over 12 Hours, ONCE, 1 dose, On Sat10/27/21 at 0115, Routine [facility] ampicillin- sulbactam (UNASYN) 3 g in NaCl 0.9% (NS) 100 mL MINI-BAG 10-27 02:00: 00 10-27 02:03 :00 No 3g 3 g, IV Piggyback, Q6H ABX, 1 dose, First dose (after last modificati on) on Sat10/26/21 at 2100, Administer over 30 Minutes, 100 mL
Reas on for Anti-Infec tive: Documented Infection< br>Documen julio cesar Infection Site: Respirator y
Durat ion of Therapy: 7 days [facility] lidocaine (LIDODERM) 5 % (700 mg/patch) patch 1 Patch 10-26 19:30: 00 10-27 05:06 :18 No 1{patch } 1 Patch, Topical, Administer over 12 Hours, ONCE, 1 dose, On Sat10/26/21 at 1430, Routine [facility] KCL (KLOR-CON M20) tablet 40 mEq 10-26 15:45: 00 10-26 15:04 :00 No 40meq 40 mEq, Oral, ONCE, 1 dose, On Sat10/26/21 at 1045, Routine [facility] lisinopriL (PRINIVIL,Z ESTRIL) tablet 5 mg 10-26 15:15: 00 Yes 5mg 5 mg, Oral, DAILY, First dose on Sat10/26/21 at 1015, Until Discontinu ed, Routine [facility] potassium chloride 20 mEq/100 mL (KCL) 20 mEq/100 mL RTU IVPB 20 mEq 10-26 13:30: 00 10-26 14:33 :09 No 20meq 20 mEq, IV Piggyback, Q2H ES, 2 doses, First dose on Sat10/26/21 at 0830, Last dose on Sat10/26/21 at 1030, 100 mL [facility] lidocaine (LIDODERM) 5 % (700 mg/patch) patch 1 Patch 10-26 10:30: 00 10-26 22:01 :00 No 1{patch } 1 Patch, Topical, Administer over 12 Hours, ONCE, 1 dose, On Sat10/26/21 at 0530, Routine [facility] simethicone (GAS RELIEF (SIMETHICON E)) 40 mg/0.6 mL drops 80 mg 10-26 06:00: 00 Yes 80mg 80 mg, Oral, PC+HS, First dose on Sat10/26/21 at 0100, Until Discontinu ed, Routine [facility] melatonin (MELATIN) tablet 3 mg 10-26 04:00: 00 Yes 3mg 3 mg, Oral, QHS, First dose on Sat10/25/21 at 2300, Until Discontinu ed, Routine [facility] dicyclomine (BENTYL) tablet 20 mg 10-26 04:00: 00 Yes 20mg 20 mg, Oral, QID, First dose on Sat10/25/21 at 2300, Until Discontinu ed, [facility]XANAX[facility] 0.5 mg 10-26 01:19: 00 10-26 02:05 :00 No .5mg 0.5 mg, Oral, ONCE, 1 dose, On Sat10/25/21 at 2030, Routine [facility] acetaminoph en (TYLENOL) tablet 650 mg 10-25 20:41: 15 Yes 650mg 650 mg, Oral, Q6HPRN, Starting on Sat10/25/21 at 1541, Until Discontinu ed, Routine, Temp > 38.5 C [facility] KCL (KLOR-CON M20) tablet 40 mEq 10-25 20:15: 00 10-25 19:45 :00 No 40meq 40 mEq, Oral, ONCE, 1 dose, On Sat10/25/21 at 1515, Routine [facility] potassium chloride in water (KCL) 40 mEq/100 mL 40 mEq piggyback 10-25 06:45: 00 10-25 13:10 :00 No 40meq 40 mEq, IV Piggyback, ONCE, 1 dose, On Sat10/25/21 at 0145 [facility] KCL (KLOR-CON M20) tablet 40 mEq 10-25 06:45: 00 10-25 09:10 :00 No 40meq 40 mEq, Oral, ONCE, 1 dose, On Sat10/25/21 at 0145, Routine [facility] acetaminoph en ADULT (OFIRMEV) injection 1,000 mg 10-25 03:30: 00 10-25 03:08 :00 No 1000mg 1,000 mg, IV Infusion, at 400 mL/hr Administer over 15 Minutes, ONCE, 1 dose, On Sat10/24/21 at 2230, Routine
Indicatio n: Non-periop erative Patient
Approved by: Per Policy (NPO Status) [facility] LORazepam (ATIVAN) injection 0.5 mg 10-25 03:30: 00 10-25 02:53 :00 No .5mg 0.5 mg, Slow IV Push, ONCE, 1 dose, On Sat10/24/21 at 2230, Routine
Is the medication being used for status epilepticu s? No [facility] proMETHazin e (PHENERGAN) 12.5 mg in NS 50 mL IV piggyback (CNR) 10-25 02:45: 00 10-25 02:25 :00 No 12.5mg 12.5 mg, IV Piggyback, at 200 mL/hr Administer over 15 Minutes, ONCE NOW, 1 dose, On Sat10/24/21 at 2145, Routine [facility] pantoprazol e (PROTONIX) EC tablet 40 mg 10-25 01:00: 00 Yes 40mg 40 mg, Oral, BID, First dose on Sat10/24/21 at 2000, Until Discontinu ed, Routine [facility] metoprolol succinate XL (TOPROL XL) tablet 12.5 mg 10-24 22:15: 00 10-26 15:13 :00 No 12.5mg 12.5 mg, Oral, DAILY, First dose on Sat10/24/21 at 1715, Until Discontinu ed, Routine [facility] ALPRAZolam (XANAX) tablet 0.5 mg 10-24 21:25: 17 Yes .5mg 0.5 mg, Oral, TIDPRN, Starting on Sat10/24/21 at 1625, Until Discontinu ed, agitation [facility] potassium chloride in water (KCL) 40 mEq/100 mL 40 mEq piggyback 10-24 11:45: 00 10-24 14:57 :00 No 40meq 40 mEq, IV Piggyback, ONCE, 1 dose, On Sat10/24/21 at 0645 [facility] sodium chloride 7% (HYPER-VANESSA) nebulizer solution 4 mL 10-24 05:00: 00 10-24 23:31 :00 No 4mL 4 mL, Inhalation , BID, First dose on Sat10/24/21 at 0000, Until Discontinu ed, Routine [facility] FENTanyl PF (SUBLIMAZE (PF)) injection 50 mcg 10-24 03:30: 00 10-24 02:46 :00 No 50ug 50 mcg, Slow IV Push, ONCE, 1 dose, On Sat10/23/21 at 2230, Routine [facility] midazolam (VERSED) injection 1 mg 10-24 02:40: 30 10-24 08:34 :00 No 1mg 1 mg, IV Push, PRN - SEE INSTRUCTIO NS, 2 doses, Starting on Sat10/23/21 at 2140, Until Discontinu ed, Routine, Anxiety, Agitation [facility] acetaminoph en ADULT (OFIRMEV) injection 1,000 mg 10-24 02:16: 26 10-24 23:31 :00 No 1000mg 1,000 mg, IV Infusion, at 400 mL/hr Administer over 15 Minutes, BIDPRN, Starting on Sat10/23/21 at 2116, Until Sat10/24/21 at 1831, Routine, Needed for fever
I ndication: Non-periop erative Patient
Approved by: Per Policy (NPO Status) [facility] HYDROcodone -acetaminop hen (HYCET) 7.5-325 mg/15 mL solution 2.5 mg 10-23 23:30: 00 10-23 23:42 :00 No 2.5mg 2.5 mg, Enteral, ONCE, 1 dose, On Sat10/23/21 at 1830, Routine [facility] sulfur hexafluorid e microsphr (LUMASON) injection 5 mL 10-23 16:45: 00 10-23 16:45 :00 No [id number] 5mL 5 mL, Intravenou s, ONCE, 1 dose, On Sat10/23/21 at 1145, Routine
warehouse team member approving Restricted medication : BENEDICT BRANCH [facility] meropenem (MERREM) 1,000 mg in NaCl 0.9% (NS) 50 mL MINI-BAG 10-23 11:00: 00 10-25 05:56 :35 No 1000mg 1,000 mg, IV Piggyback, Q12H ABX, First dose on Sat10/23/21 at 0600, Until Discontinu ed, Administer over 3 Hours, 50 mL
Rest ricted use approved by: YUAN 8TH FLOOR
R joe for Anti-Infec tive: Empiric Therapy for Suspected Infection< br>Empiric Therapy Site: Blood
D uration of therapy: 7 days [facility] lactated ringers IV infusion 1,000 mL 10-23 00:45: 00 10-22 23:44 :00 No 1000mL at 999 mL/hr, 1,000 mL, Intravenou s, ONCE, 1 dose, On Sat10/22/21 at 1945, Routine [facility] vancomycin 1,250 mg in NaCl 0.9% (NS) 250 mL VIAL-MATE IV piggyback 10-22 23:30: 00 10-24 21:27 :41 No 15mg/kg 1,250 mg (rounded from 1,200 mg = 15 mg/kg ?80 kg), IV Piggyback, Q24H ABX, First dose on Sat10/22/21 at 1830, Until Discontinu ed, Administer over 90 Minutes, 250 mL
Reas on for Anti-Infec tive: Empiric Therapy for Suspected Infection< br>Empiric Therapy Site: Blood
D uration of therapy: 7 days [facility] meropenem (MERREM) 1,000 mg in NaCl 0.9% (NS) 50 mL MINI-BAG 10-22 23:30: 00 10-22 23:19 :00 No 1000mg 1,000 mg, IV Piggyback, ONCE, 1 dose, On Sat10/22/21 at 1830, Administer over 30 Minutes, 50 mL
Rest ricted use approved by: YUAN 8TH FLOOR
R joe for Anti-Infec tive: Empiric Therapy for Suspected Infection< br>Empiric Therapy Site: Blood
D uration of therapy: 7 days [facility] acetaminoph en ADULT (OFIRMEV) injection 1,000 mg 10-22 19:59: 14 10-23 19:58 :14 No 1000mg 1,000 mg, IV Infusion, at 400 mL/hr Administer over 15 Minutes, BIDPRN, Starting on Sat10/22/21 at 1459, Until Sat10/23/21 at 1458, Routine, Needed for fever
I ndication: Non-periop erative Patient
Approved by: Per Policy (NPO Status) [facility] ipratropium -albuteroL (DUONEB) 0.5 mg-3 mg(2.5 mg base)/3 mL nebulizer solution 3 mL 10-22 19:00: 00 10-24 23:41 :43 No 3mL 3 mL, Inhalation , TID, First dose on Sat10/22/21 at 1400, Until Discontinu ed, Routine [facility] lactated ringers IV infusion 1,000 mL 10-22 15:15: 00 10-22 15:06 :00 No 1000mL at 999 mL/hr, 1,000 mL, IV Infusion, ONCE, 1 dose, On Sat10/22/21 at 1015, Routine [facility] azithromyci n (ZITHROMAX) 500 mg in NaCl 0.9% (NS) 250 mL VIAL-MATE IV piggyback 10-22 15:15: 00 10-22 22:28 :15 No 500mg 500 mg, IV Piggyback, Q24H ABX, 2 doses, First dose on Sat10/22/21 at 1015, Last dose on Sat10/23/21 at 1015, Administer over 60 Minutes, 250 mL
Reas on for Anti-Infec tive: Documented Infection& lt;br>Docu mented Infection Site: Respirator y
Durat ion of Therapy: 7 days [facility] cefTRIAXone (ROCEPHIN) 1,000 mg in NaCl 0.9% (NS) 50 mL MINI-BAG 10-22 15:15: 00 10-22 22:28 :15 No 1000mg 1,000 mg, Intravenou s, Q24H ABX, 4 doses, First dose on Sat10/22/21 at 1015, Last dose on Sat10/25/21 at 1015, Administer over 30 Minutes, 50 mL
Reas on for Anti-Infec tive: Documented Infection& lt;br>Docu mented Infection Site: Respirator y
Durat ion of Therapy: 7 days [facility] magnesium sulfate in water 2 gram/50 mL (4 %) infusion 2 g 10-22 15:00: 00 10-22 17:50 :00 No 2g 2 g, IV Piggyback, Administer over 60 Minutes, Q1H, 2 doses, First dose on Sat10/22/21 at 1000, Last dose on Sat10/22/21 at 1100, Routine [facility] artificial tears(hypro mellose) (ISOPTO-TEA RS) 0.5 % ophthalmic drops 2 Drop 10-22 14:11: 27 Yes 2[drp] 2 Drop, Both Eyes, PRN, Starting on Sat10/22/21 at 0911, Until Discontinu ed, Routine, Dry eyes [facility] lactated ringers IV infusion 1,000 mL 10-22 13:45: 00 10-22 14:06 :25 No 1000mL at 125 mL/hr, 1,000 mL, IV Infusion, CONTINUOUS , Starting on [place] 10/22/21 at 0845, Until [place] 10/22/21 at 0906, Routine [facility] ampicillin- sulbactam (UNASYN) 1.5 g in NaCl 0.9% (NS) 50 mL MINI-BAG 10-22 13:30: 00 10-22 14:17 :28 No 1.5g 1.5 g, IV Piggyback, Q6H ABX, First dose on [place] 10/22/21 at 0830, Until Discontinu ed, Administer over 30 Minutes, 50 mL
Reas on for Anti-Infec tive: Documented Infection< br>Documen julio cesar Infection Site: Respirator y
Durat ion of Therapy: 7 days [facility] lactated ringers IV infusion 1,000 mL 10-22 04:15: 00 10-22 05:00 :00 No 1000mL at 999 mL/hr, 1,000 mL, Intravenou s, ONCE, 1 dose, On 10/21/21 at 2315, Routine [facility] lactated ringers IV infusion 1,000 mL 10-22 02:45: 00 10-22 03:38 :00 No 1000mL at 999 mL/hr, 1,000 mL, IV Infusion, ONCE, 1 dose, On 10/21/21 at 2145, Routine [facility] NORepinephr ine 16 mg in NS 250 mL infusion RTU 10-22 02:41: 53 10-24 21:14 :31 No .05ug/k g/min 0.05-1.5 mcg/kg/min ?80 kg (3.75-112. 5 mL/hr), IV Infusion, TITRATE, MAP Goal > or = 65 mmHg, Starting on 10/21/21 at 2141
In itiate titration at 0.05 mcg/kg/min . &nb sp;Increas e by 0.1 mcg/kg/min every 30 seconds to 5 minutes as needed to reach and maintain goal blood pressure.& nbsp;&nbsp ;Maximum dose = 1.5 mcg/kg/min . &nb sp;If goal not maintained at maximum allowed dose, contact prescriber .
[facility] lactated ringers IV infusion 1,000 mL 10-22 02:30: 00 10-22 01:38 :51 No 1000mL at 999 mL/hr, 1,000 mL, IV Infusion, CONTINUOUS , Starting on 10/21/21 at 0, Until 10/21/21 at 2037, Routine [facility] acetaminoph en ADULT (OFIRMEV) injection 1,000 mg 10-22 02:00: 00 10-22 01:19 :00 No 1000mg 1,000 mg, IV Infusion, at 400 mL/hr Administer over 15 Minutes, ONCE, 1 dose, On 10/21/21 at 2100, Routine
Indicatio n: Non-periop erative Patient
Approved by: Per Policy (NPO Status) [facility] sodium chloride 7% (HYPER-VANESSA) nebulizer solution 4 mL 10-22 01:45: 00 10-22 14:12 :29 No 4mL 4 mL, Inhalation , BID, First dose on 10/21/21 at 2044, Until Discontinu ed, Routine [facility] fentaNYL PF (SUBLIMAZE) STD 2,500 mcg in NaCl 0.9% (NS) 250 mL infusion RTU 10-22 01:19: 39 10-23 16:25 :38 No 25ug/h 25-200 mcg/hr (2.5-20 mL/hr), IV Infusion, TITRATE, CPOT/Pain Scale Goals Determined by Provider, Starting on 10/21/21 at 2018
In itiate infusion at 25 mcg/hr. Titrate by 25 mcg/hr every 1 minute to 15 minutes to identified goal pain and/or sedation scores. Maximum dose = 200 mcg/hr. If goal not maintained at maximum allowed dose, contact prescriber .
[facility] midazolam (VERSED) STD 50mg in NaCl 0.9% (NS) 50 mL infusion RTU 10-22 01:15: 08 10-23 16:25 :38 No 1mg/h 1-10 mg/hr (1-10 mL/hr), IV Infusion, TITRATE, Sedation-R ASS score (0 to -1), Sedation-R ASS score (-2 to -3), Starting on 10/21/21 at 2014
In itiate infusion at 1 mg/hr and titrate by 1 mg/hr every 3 minutes to 10 minutes to goal sedation score. Maximum dose = 10 mg/hr.&nbs p; If goal not maintained at maximum allowed dose, contact prescriber .
[facility] meropenem (MERREM) 1,000 mg in NaCl 0.9% (NS) 50 mL MINI-BAG 10-22 01:00: 00 10-22 02:08 :00 No 1000mg 1,000 mg, IV Piggyback, ONCE, 1 dose, On 10/21/21 at 1999, Administer over 30 Minutes, 50 mL
Rest ricted use approved by: YUAN 8TH FLOOR
R joe for Anti-Infec tive: Empiric Therapy for Suspected Infection< br>Empiric Therapy Site: Blood
D uration of therapy: 7 days [facility] vancomycin (VANCOCIN) 1,000 mg in NaCl 0.9% (NS) 250 mL VIAL-MATE IV piggyback 10-22 01:00: 00 10-22 03:09 :00 No 1000mg 1,000 mg, IV Piggyback, ONCE, 1 dose, On 10/21/21 at 1999, Administer over 60 Minutes, 250 mL
Reas on for Anti-Infec tive: Documented Infection< br>Documen julio cesar Infection Site: Abdominal< br>Duratio n of Therapy: 7 days [facility] lactated ringers IV infusion 1,000 mL 10-22 00:45: 10-22 01:04 :00 No 1000mL at 999 mL/hr, 1,000 mL, Intravenou s, ONCE, 1 dose, On 10/21/21 at 1945, Routine [facility] dexMEDEtomi dine 200 mcg in 0.9 % NaCl 50 mL (PRECEDEX) RTU IV infusion 10-22 00:36: 46 10-24 21:10 :24 No .2ug/kg /h 0.2-1.5 mcg/kg/hr ?1 kg (0.05-0.37 5 mL/hr, rounded to 0.05-0.38 mL/hr), IV Infusion, TITRATE, Sedation-R ASS score (0 to -1), Starting on 10/21/21 at 1936
In itiate infusion at 0.2 mcg/kg/hr and titrate by 0.1 mcg/kg/hr every 30 minutes to goal sedation score. Maximum dose = 1.5 mcg/kg/hr. If goal not maintained at maximum allowed dose, contact prescriber .
[facility] midazolam (VERSED) injection 2 mg 10-22 00:18: 33 10-23 16:25 :38 No 2mg 2 mg, Slow IV Push, Q1HPRN, Starting on 10/21/21 at 1918, Until 10/23/21 at 1125, Routine, Agitation [facility] acetaminoph en-codeine 300-30 mg tablet 2018-04 00:00: 00 10-28 00:00 :00 No [id number] 1{tbl} Take 1 tablet by mouth every 6 (six) hours as needed for Pain (scale 4-6) for up to 30 doses. [facility] ibuprofen 800 mg tablet 2018-04 00:00: 00 10-28 00:00 :00 No [id number] 800mg Take 1 tablet by mouth every 6 (six) hours as needed for Pain (scale 4-6) for up to 30 doses. [facility] ondansetron 4 mg disintegrat ing tablet 2016-04 00:00: 00 10-28 00:00 :00 No 4mg Take 1 tablet by mouth every 8 (eight) hours as needed for Nausea and Vomiting (N/V). [facility] acetaminoph en-codeine 300-30 mg tablet 2016-04 00:00: 00 10-28 00:00 :00 No 1{tbl} Take 1 tablet by mouth every 4 (four) hours as needed for Pain (scale 7-10). [facility] naproxen sodium (ANAPROX DS) 550 mg tablet 2016-04 00:00: 00 10-28 00:00 :00 No 550mg Take 1 tablet by mouth 2 (two) times daily with meals. [facility] Immunizations Ordered Immunization Name Filled Immunization Name Date Status Comments Source TDAP (ADACEL) VACCINE 2019-01-25 00:00:00 Completed [facility] TDAP (ADACEL) VACCINE 2019-01-25 00:00:00 Completed [facility] TDAP (ADACEL) VACCINE 2019-01-25 00:00:00 Completed [facility] TDAP (ADACEL) VACCINE 2019-01-25 00:00:00 Completed [facility] TDAP (ADACEL) VACCINE 2019-01-25 00:00:00 Completed [facility] TDAP (ADACEL) VACCINE 2019-01-25 00:00:00 Completed [facility] TDAP (ADACEL) VACCINE 2019-01-25 00:00:00 Completed [facility] TDAP (ADACEL) VACCINE Unknown Completed [facility] TDAP (ADACEL) VACCINE Unknown Completed [facility] TDAP (ADACEL) VACCINE Unknown Completed [facility] TDAP (ADACEL) VACCINE Unknown Completed [facility] TDAP (ADACEL) VACCINE Unknown Completed [facility] Vital Signs Vital Name Observation Time Observation Value Comments S ource Systolic blood pressure 2023-01-28 19:58:00 127 mm[Hg] [facility] Diastolic blood pressure 2023-01-28 19:58:00 87 mm[Hg] [facility] Respiratory rate 2023-01-28 19:58:00 10 /min [facility] Oxygen saturation in Arterial blood by Pulse oximetry 2023-01-28 19:58:00 99 /min [facility] Heart rate 2023-01-28 18:51:46 58 /min [facility] Body temperature 2023-01-28 16:21:00 35.83 [place] [facility] Body weight 2023-01-28 08:07:00 82.373 kg actual wt on the regular scale [facility] BMI 2023-01-28 08:07:00 26.06 kg/m2 [facility] Body height 2023-01-27 02:37:00 177.8 cm [facility] Systolic blood pressure 2021-10-28 16:26:00 151 mm[Hg] [facility] Diastolic blood pressure 2021-10-28 16:26:00 88 mm[Hg] [facility] Heart rate 2021-10-28 16:26:00 93 /min [facility] Body temperature 2021-10-28 16:26:00 37.39 [place] [facility] Respiratory rate 2021-10-28 16:26:00 18 /min [facility] Oxygen saturation in Arterial blood by Pulse oximetry 2021-10-28 16:26:00 94 /min [facility] Body height 2021-10-26 15:35:00 177.8 cm [facility] Body weight 2021-10-26 15:35:00 79.833 kg [facility] BMI 2021-10-26 15:35:00 25.25 kg/m2 [facility] Procedures Procedure Date / Time Performed Performing Clinician Source ACTIVATED PARTIAL THRMPLAS POORNIMA 2023-01-28 21:28:00 Luna Alba [facility] CATH PROCEDURE LOG 2023-01-28 18:55:48 Blake Briones [facility] MAGNESIUM 2023-01-28 16:42:00 Luna Alba [facility] BASIC METABOLIC PANEL (NA, K, CL, CO2, GLUCOSE, BUN, CREATININE, CA) 2023-01-28 16:42:00 Luna Alba [facility] MAGNESIUM 2023-01-28 09:47:00 Luna Alba [facility] BASIC METABOLIC PANEL (NA, K, CL, CO2, GLUCOSE, BUN, CREATININE, CA) 2023-01-28 09:47:00 Luna Alba Isela [facility] CBC WITH DIFF 2023-01-28 09:47:00 Luna Alba Isela [facility] URINALYSIS 2023-01-27 21:34:00 Yu Wells [facility] CBC WITHOUT DIFF 2023-01-27 21:15:00 Luna Alba [facility] BLOOD CULTURE SCREEN 2023-01-27 15:09:00 Rafaela Wells [facility] TROPONIN I 2023-01-27 15:09:00 Yu Wells [facility] EBV-MONONUCLEOSIS SCREEN 2023-01-27 15:09:00 Baudilio nagel [facility] GALV ONLY - INFLUENZA A B RSV PCR 2023-01-27 15:09:00 Russell [facility] PROCALCITONIN 2023-01-27 15:09:00 Russell [facility] COVID-19 (ID NOW RAPID TESTING) 2023-01-27 15:09:00 Russell [facility] LAB ONLY COVID INTERPRETATION 2023-01-27 15:09:00 Russell [facility] TRANSTHORACIC ECHO (TTE) COMPLETE W/ CONTRAST 2023-01-27 14:54:42 Russell [facility] MAGNESIUM 2023-01-27 06:23:00 Yu Wells [facility] TROPONIN I 2023-01-27 06:23:00 Yu Wells [facility] BASIC METABOLIC PANEL (NA, K, CL, CO2, GLUCOSE, BUN, CREATININE, CA) 2023-01-27 06:23:00 Russell [facility] SEDIMENTATION RATE 2023-01-27 06:23:00 Karnkowska, Bar [facility] CBC WITH DIFF 2023-01-27 06:23:00 Russell [facility] URINE DRUG (IMMUNOASSAY) - COMPREHENSIVE DRUG SCREEN 2023-01-27 01:25:00 Russell [facility] TROPONIN I 2023-01-26 22:40:00 Yu Wells [facility] XR CHEST 1 VW 2023-01-26 19:22:00 Russell [facility] HB ECG ROUTINE & RHYTHM STRIP 2023-01-26 12:58:32 Russell [facility] TROPONIN I 2023-01-26 12:50:00 Yu Wells [facility] THYROID STIMULATING HORMONE 2023-01-26 12:50:00 Russell [facility] HEPATIC FUNCTION PANEL ([id number]) (ALB,T.PRO,BILI T,BU/BC,ALT,AST,ALK PHOS) 2023-01-26 12:50:00 Russell [facility] BASIC METABOLIC PANEL (NA, K, CL, CO2, GLUCOSE, BUN, CREATININE, CA) 2023-01-26 12:50:00 Russell [facility] LIPID PANEL ([id number])(TOTAL CHOLESTEROL, TRIGLYCERIDES, HDL) 2023-01-26 12:50:00 Russell [facility] ETHANOL 2023-01-26 12:50:00 Yu Wells [facility] CBC WITH DIFF 2023-01-26 12:50:00 Russell [facility] GLYCOSYLATED HEMOGLOBIN (A1C) 2023-01-26 12:50:00 Russell [facility] PROTHROMBIN TIME / INR 2023-01-26 12:50:00 Russell [facility] ACTIVATED PARTIAL THRMPLAS POORNIMA 2023-01-26 12:50:00 Russell [facility] N-TERMINAL PRO-BNP 2023-01-26 12:50:00 Ihsan Wells [facility] LOW-DENSITY LIPOPROTEIN, DIRECT 2023-01-26 12:50:00 Yu Wells [facility] EXTERNAL PROVIDER RECORDS 2021-11-09 05:01:00 Do ctor Unassigned, [place] [facility] BASIC METABOLIC PANEL (NA, K, CL, CO2, GLUCOSE, BUN, CREATININE, CA) 2021-10-28 09:41:00 Mike Turner [facility] CBC WITHOUT DIFF 2021-10-28 09:41:00 Daniel Turner [facility] PROTEIN CREAT RATIO URINE RANDOM 2021-10-27 16:45:00 [facility] 2021-10-27 16:45:00 Ang [facility] FECAL PATHOGENS BY PCR 2021-10-27 13:23:00 Hernando Eric [facility] BASIC METABOLIC PANEL (NA, K, CL, CO2, GLUCOSE, BUN, CREATININE, CA) 2021-10-27 10:51:00 Lara Fry [facility] MAGNESIUM 2021-10-26 10:31:00 Rick Eric [facility] BASIC METABOLIC PANEL (NA, K, CL, CO2, GLUCOSE, BUN, CREATININE, CA) 2021-10-26 10:31:00 Rick Eric [facility] CBC WITHOUT DIFF 2021-10-26 10:31:00 Rick Eric [facility] FECES CULTURE 2021-10-26 02:32:[address] [facility] MAGNESIUM 2021-10-25 16:47:00 [facility] BASIC METABOLIC PANEL (NA, K, CL, CO2, GLUCOSE, BUN, CREATININE, CA) 2021-10-25 16:47:00 Agus [facility] CLOSTRIDIUM DIFFICILE TOXIN 2021-10-25 11:35:00 Warren Crowder [facility] CBC WITH DIFF 2021-10-25 10:35:[address] [facility] MAGNESIUM 2021-10-25 04:44:00 Vel [facility] BASIC METABOLIC PANEL (NA, K, CL, CO2, GLUCOSE, BUN, CREATININE, CA) 2021-10-25 04:44:00 Vel [facility] AC PANEL 20 + LACTIC ACID 2021-10-25 04:44:00 Ana Crowder [facility] XR CHEST 1 VW 2021-10-25 04:14:00 Vel [facility] XR KUB 2021-10-25 04:14:00 Agus [facility] CERVICAL SPINE WO CONTRAST 2021-10-24 16:24:24 Agus [facility] CT HEAD WO CONTRAST 2021-10-24 16:03:35 Rich Goldsmith [facility] MAGNESIUM 2021-10-24 09:22:00 Rick Eric [facility] BASIC METABOLIC PANEL (NA, K, CL, CO2, GLUCOSE, BUN, CREATININE, CA) 2021-10-24 09:22:00 Rick Eric [facility] CBC WITHOUT DIFF 2021-10-24 09:22:00 Rick Eric [facility] SPUTUM CULTURE 2021-10-23 22:44:00 Rick Eric [facility] CBC WITHOUT DIFF 2021-10-23 20:33:00 Rick Eric [facility] TRANSTHORACIC ECHO (TTE) COMPLETE W/ CONTRAST 2021-10-23 16:30:53 Meera Ayers [facility] MAGNESIUM 2021-10-23 08:46:00 Rick Eric [facility] BASIC METABOLIC PANEL (NA, K, CL, CO2, GLUCOSE, BUN, CREATININE, CA) 2021-10-23 08:46:00 Rick Eric [facility] CBC WITHOUT DIFF 2021-10-23 08:46:00 Rick Eric [facility] AC PANEL 20 + LACTIC ACID 2021-10-23 08:45:00 Azeb Deshpande [facility] TROPONIN I 2021-10-23 05:22:00 Rick Eric [facility] TROPONIN I 2021-10-22 23:07:00 Rick Eric [facility] CBC WITHOUT DIFF 2021-10-22 23:07:00 Eric Reid [facility] TROPONIN I 2021-10-22 16:48:00 Rick Eric [facility] VANCOMYCIN RANDOM LEVEL 2021-10-22 16:48:00 Arabella Eric [facility] CBC WITHOUT DIFF 2021-10-22 16:48:00 Eric Reid [facility] AC PANEL 20 + LACTIC ACID 2021-10-22 15:02:00 Charlee [facility] HB ECG ROUTINE & RHYTHM STRIP 2021-10-22 13:43:44 Rick Eric [facility] PHOSPHORUS 2021-10-22 12:15:00 Eric Reid [facility] MAGNESIUM 2021-10-22 12:15:00 Franklin Eric [facility] BASIC METABOLIC PANEL (NA, K, CL, CO2, GLUCOSE, BUN, CREATININE, CA) 2021-10-22 12:15:[address] [facility] URINE DRUG (IMMUNOASSAY) - COMPREHENSIVE DRUG SCREEN 2021-10-22 10:59:[address] [facility] TROPONIN I 2021-10-22 10:53:00 [facility] CBC WITHOUT DIFF 2021-10-22 10:53:00 Eric Reid [facility] AC PANEL 20 + LACTIC ACID 2021-10-22 06:28:00 [facility] 2021-10-22 06:19:00 [facility] CBC WITHOUT DIFF 2021-10-22 06:19:00 Franklin Eric [facility] RESPIRATORY PANEL BY PCR 2021-10-22 04:50:00 Lanny Reid [facility] URINE CULTURE 2021-10-22 02:56:00 Meera Ayers [facility] AC PANEL 20 + LACTIC ACID 2021-10-22 02:29:00 Meera Ayers [facility] CREATINE KINASE 2021-10-22 00:50:00 [facility] 2021-10-22 00:50:00 Meera Ayers [facility] ETHANOL 2021-10-22 00:50:00 Rich Goldsmith [facility] CBC WITHOUT DIFF 2021-10-22 00:50:00 [facility] ACTIVATED PARTIAL THRMPLAS POORNIMA 2021-10-22 00:50:00 Meera Ayers [facility] FIBRINOGEN 2021-10-22 00:50:00 Meera Ayers [facility] URINE DRUG (IMMUNOASSAY) - COMPREHENSIVE DRUG SCREEN 2021-10-22 00:43[facility] 2021-10-22 00:43:00 Meera Ayers [facility] CREATININE, URINE RANDOM 2021-10-22 00:43:00 Miriam [facility] [facility] UREA NITROGEN, URINE RANDOM 2021-10-22 00:43:00 Eitan Ayersssica [facility] SODIUM, URINE RANDOM 2021-10-22 00:43:00 Myah Ayers [facility] URINE DRUG (LCMSMS) - SYNTHETIC OPIATES PANEL 2021-10-22 00:43:00 [facility] URINE DRUG (LCMSMS) - BENZODIAZEPINES PANEL 2021-10-22 00:43:00 [facility] COVID-19 (MOLECULAR TESTING NUCLEIC ACID AMPLIFICATION) 2021-10-22 00:42:00 Franklin Eric [facility] LAB ONLY COVID INTERPRETATION 2021-10-22 00:42:[address] [facility] COVID-19 (ID NOW RAPID TESTING) 2021-10-22 00:41:00 Franklin Eric [facility] LAB ONLY COVID INTERPRETATION 2021-10-22 00:41:00 Eric Reid [facility] MRSA / MSSA SCREEN BY PCR, ASH 2021-10-22 00:38:00 Andria [facility] BLOOD CULTURE SCREEN 2021-10-22 00:29:00 Myah Ayers [facility] XR ABDOMEN 1 VW 2021-10-22 00:10:00 Rick Eric [facility] XR CHEST 1 VW 2021-10-22 00:10:00 Andria [facility] MAGNESIUM 2021-10-22 00:07:00 Andria [facility] TROPONIN I 2021-10-22 00:07:00 Andria [facility] HEPATIC FUNCTION PANEL (50588) (ALB,T.PRO,BILI T,BU/BC,ALT,AST,ALK PHOS) 2021-10-22 00:07:00 Andria [facility] BASIC METABOLIC PANEL (NA, K, CL, CO2, GLUCOSE, BUN, CREATININE, CA) 2021-10-22 00:07:00 Andria [facility] CBC WITH DIFF 2021-10-22 00:07:00 Andria [facility] PROTHROMBIN TIME / INR 2021-10-22 00:07:00 Chichi Ayers [facility] ABG+COOX+NA+K+GLU+CA2+ 2021-10-21 23:52:00 Jim Nelson [facility] Encounters Start Date/Time End Date/Time Encounter Type Admission Type Attending Clinicians Care Facility Care Department Encounter ID Source 2023-02-11 00:00:00 2023-02-11 00:00:00 Yu Boothe [facility] .2.840.114 350.1.13.10 4.2.7.2.686 [id number] [facility] 2023-01-29 00:00:00 2023-01-29 00:00:00 Transition of Care Bruna Quezada .2.840.114 350.1.13.10 4.2.7.2.686 [id number] [facility] 2023-01-26 07:11:00 2023-01-28 19:57:00 Inpatient U [facility] [id number] [facility] 2023-01-26 07:11:00 2023-01-28 19:57:00 Hospital Encounter Blake Briones [facility] 1.2.840.114 350.1.13.10 4.2.7.2.686 [id number] [facility] 2021-12-11 00:00:00 2021-12-11 00:00:00 Patient Outreach LauraJessi CASTILLO JULIANNILIANA 1.2.840.114 350.1.13.10 4.2.7.2.686 [id number] [facility] 2021-11-12 00:00:00 2021-11-12 00:00:00 Patient Secure Msg Doctor Unassigned, [place] [facility] 1.2.840.114 350.1.13.10 4.2.7.2.686 [id number] [facility] 2021-11-09 00:00:00 2021-11-09 00:00:00 Orders Only Doctor Unassigned, [place] [facility] 1.2.840.114 350.1.13.10 4.2.7.2.686 [id number] [facility] 2021-11-07 00:00:00 2021-11-07 00:00:00 Mike Leonard [facility] 1.2.840.114 350.1.13.10 4.2.7.2.686 [id number] [facility] 2021-11-06 00:00:00 2021-11-06 00:00:00 Transition of Care Bruna Quezada 1.2.840.114 350.1.13.10 4.2.7.2.686 [id number] [facility] 2021-11-03 00:00:00 2021-11-03 00:00:00 Patient Outreach Jessi Sanchez 1.2.840.114 350.1.13.10 4.2.7.2.686 [id number] [facility] 2021-10-31 00:00:00 2021-10-31 00:00:00 Transition of Care Bruna Quezada 1.2.840.114 350.1.13.10 4.2.7.2.686 [id number] [facility] 2021-10-21 18:30:00 2021-10-28 16:39:00 Inpatient U BETZAIDA HENAO [facility] [id number] [facility] 2021-10-21 18:30:00 2021-10-28 16:39:00 Hospital Encounter Jim Phelan, Artur Campbell, Dilcia Henao, Betzaida Kyle, [facility] 1.2.840.114 350.1.13.10 4.2.7.2.686 [id number] [facility] Results Test Description Test Time Test Comments Results Result Co mments Source [facility] (NA, K, CL, CO2, GLUCOSE, BUN, CREATININE, CA)2023-01-28 10:27:59* Test Item Value Reference Range Interpretation Comme nts NA (test code = 1922123100) 142 mmol/L 135-145 K (test code = 3617302282) 3.2 mmol/L 3.5-5.0 L CL (test code = 8081818880) 112 mmol/L 98-108 H CO2 TOTAL (test code = 3268295962) 26 mmol/L 23-31 AGAP (test code = 4775341442) 4 2-16 BUN (test code = 9511336554) 24 mg/dL 7-23 H GLUCOSE (test code = 9888997558) 89 mg/dL 70-110 CREATININE (test code = 4213085391) 0.93 mg/dL 0.60-1.25 CALCIUM (test code = 5709277946) 8.3 mg/dL 8.6-10.6 L eGFR (test code = 7769443342) 88.3 mL/min/1.73m2 JENNIFER (test code = JENNIFER) Association of Glomerular Filtration Rate (GFR) and Staging of Kidney Disease* + --+ --+ ------+| GFR (mL/min/1.73 m2) ?| With Kidney Damage ?| ?Without Kidney Damage+ --------+ --------+ +| ?>90 ?| ?Stage one ?| ? Normal ?+ ---+ ---+ -------+| ?60-89 ?| ?Stage two ?| ? Decreased GFR ? + --+ --+ ------+| ?30-59 ?| ?Stage three ?| ? Stage three ? + --+ --+ ------+| ?15-29 ?| ?Stage four ? | ? Stage four ?+ ---+ ---+ -------+| ?<15 (or dialysis) ? ?| ?Stage five ? | ? Stage five ?+ ---+ ---+ -------+ *Each stage assumes the associated GFR level has been in effect for at least three months. ?Stages 1 to 5, with or without kidney disease, indicate chronic kidney disease. Notes: Determination of stages one and two (with eGFR >59mL/min/1.73 m2) requires estimation of kidney damage for at least three months as defined by structural or functional abnormalities of the kidney, manifested by either:Pathological abnormalities or Markers of kidney damage (including abnormalities in the composition of the blood or urine or abnormalities in imaging tests). Lab Interpretation (test code = 50049-7) Abnormal [facility] WITH [id number] 10:11:15* Test Item Value Reference Range Interpretation Comme nts WBC (test code = 6690-2) 10.03 See_Comment [Automated NeuMoDx Molecular] The system which generated this result transmitted reference range: 4.20 - 10.70 10*3/?L. The reference range was not used to interpret this result as normal/abnormal. RBC (test code = 789-8) 4.27 See_Comment [Automated messa ge] The system which generated this result transmitted reference range: 4.26 - 5.52 10*6/?L. The reference range was not used to interpret this result as normal/abnormal. HGB (test code = 718-7) 12.8 g/dL 12.2-16.4 HCT (test code = 4544-3) 40.1 % 38.4-49.3 MCV (test code = 787-2) 93.9 fL 81.7-95.6 MCH (test code = 785-6) 30.0 pg 26.1-32.7 MCHC (test code = 786-4) 31.9 g/dL 31.2-35.0 RDW-SD (test code = 64752-9) 57.8 fL 38.5-51.6 H RDW-CV (test code = 788-0) 16.5 % 12.1-15.4 H PLT (test code = 777-3) 204 See_Comment [Automated messa ge] The system which generated this result transmitted reference range: 150 - 328 10*3/?L. The reference range was not used to interpret this result as normal/abnormal. MPV (test code = 09352-3) 10.1 fL 9.8-13.0 NRBC/100 WBC (test code = 2190575889) 0.0 See_Comment [Automated BuddyBet ssage] The system which generated this result transmitted reference range: 0.0 - 10.0 /100 WBCs. The reference range was not used to interpret this result as normal/abnormal. NRBC x10^3 (test code = 4938807148) See_Comment [Automated ActiveEona ge] The system which generated this result transmitted reference range: 10*3/?L. The reference range was not used to interpret this result as normal/abnormal. GRAN MAT (NEUT) % (test code = 770-8) 63.2 % IMM GRAN % (test code = 6481915456) 0.40 % LYMPH % (test code = 736-9) 27.1 % MONO % (test code = 5905-5) 6.9 % EOS % (test code = 713-8) 1.7 % BASO % (test code = 706-2) 0.7 % GRAN MAT x10^3(ANC) (test code = 5365768726) 6.34 10*3/uL 1.99-6.95 IMM GRAN x10^3 (test code = 6449076214) 0.04 10*3/uL 0.00-0.06 LYMPH x10^3 (test code = 731-0) 2.72 10*3/uL 1.09-3.23 MONO x10^3 (test code = 742-7) 0.69 10*3/uL 0.36-1.02 EOS x10^3 (test code = 711-2) 0.17 10*3/uL 0.06-0.53 BASO x10^3 (test code = 704-7) 0.07 10*3/uL 0.01-0.09 Lab Interpretation (test code = 52957-2) [facility]23-[facility]27 19:45:52* Test Item Value Reference Range Interpretation Comme nts Height (test code = 3508504330) 70 in Weight (test code = 6190629684) 175 lbs Systolic BP (test code = 6916083956) 124 mmHg Diastolic BP (test code = 5094331469) 84 mmHg Heart Rate (test code = 7865901361) 67 bpm BSA (test code = 6869436475) 1.97 m2 LVIDD (test code = 1963967941) 5.10 cm Left Ventricular End Diastolic Volume by Teichholz Method (test code = 6244352) 121.1 mL IVS (test code = 5985286809) 0.77 cm Interventricular Septum Diastolic Thickness by 2D (test code = 5439148) 0.77 cm LVPWD (test code = 3278647406) 0.77 cm PW (test code = 8346369729) 0.77 cm 0.6-1.1 EF(Teich) (test code = 0588666722) 46.40 % LVIDS (test code = 3794126070) 3.90 cm Left Ventricular End Systolic Volume by Teichholz Method (test code = 2737034) 65.0 mL FS (test code = 6999569457) 23 % EF - 2D (test code = 91314186) 46.40 % LVOT diameter (test code = 9420758745) 1.82 cm LVOT area (test code = 2200815845) 2.60 cm2 Ao root diam (test code = 0024430630) 3.10 cm Aortic root (test code = 6040457817) 3.1 cm Ao root annulus (test code = 2578175101) 3.1 cm LA size (test code = 9322409654) 2.6 cm ACS (test code = 2345779681) 1.92 cm PV REGURGITATION PEAK GRADIENT (test code = 1150153531) 10.6 mmHg MV Peak E Jose (test code = 9184555392) 69.0 cm/s MV Peak A Jose (test code = 8989015141) 67.3 cm/s E/A ratio (test code = 2809206316) 1.03 ratio E wave decelartion time (test code = 0406930861) 0.17 s MV E/e' septal (test code = 7495065924) 9.5 cm/s LVOT stroke volume (test code = 9017736421) 53.00 cm3 LVOT peak jose (test code = 2664904772) 90.4 cm/s LVOT mn grad (test code = 2854051188) 1.6 mmHg AV LVOT peak gradient (test code = 1883313345) 3.3 mmHg LVOT peak VTI (test code = 7020564111) 20.3 cm LV V1 mean (test code = 2934312886) 57.70 cm/s Aortic valve mean velocity (test code = 0583952939) 71.7 cm/s Ao peak jose (test code = 2782918767) 108.6 cm/s Ao VTI (test code = 2102278403) 21.0 cm AV area by cont VTI (test code = 6322856997) 2.5 cm2 AV area peak jose (test code = 2826627685) 2.2 cm2 Ao max PG (test code = 8445371070) 4.70 mm[Hg] AV peak gradient (test code = 0637483967) 4.7 mmHg AV valve area (test code = 5907620016) 2.50 cm2 AV mean gradient (test code = 6265846551) 2.35 mmHg Tapse (test code = 5929568764) 2.26 cm LAV(MOD-sp4) (test code = 1891717878) 53.50 mL LA Volume Index (BP) (test code = 0151073743) 28.7 mL/m2 LA volume (BP) (test code = 2305438251) 56.7 mL LAV(MOD-sp2) (test code = 5291350777) 47.40 mL IVC Diam Exp(MM) (test code = 6881136969) 1.31 cm IVC Diam Ins(MM) (test code = 1352567337) 0.49 cm Radiology Study observation (narrative) (test code = 24480-0) JENNIFER (test code = JENNIFER) ?Left?Ventricle: Left ventricle size is normal. Normal wall thickness. Normal wall motion. Low normal systolic function with a visually estimated EF of 50 - 55%. Normal diastolic function. ?Right?Ventricle: Right ventricle size is normal. Normal systolic function. Left VentricleLeft ventricle size is normal. Normal wall thickness. Normal wall motion. Low normal systolic function with a visually estimated EF of 50 - 55%. Normal diastolic function.Right VentricleRight ventricle size is normal. Normal systolic function.Left AtriumLeft atrium size is normal.Right AtriumRight atrium size is normal.IVC/SVCIVC diameter is less than or equal to 21 mm and decreases greater than 50% during inspiration; therefore the estimated right atrial pressure is normal (~0-5 mmHg). SVC was not assessed.Mitral ValveMitral valve structure is normal. Trace transvalvular regurgitation. No stenosis.Tricuspid ValveTricuspid valve structure is normal. Trace transvalvular regurgitation. Insufficient tricuspid regurgitation jet to estimate RVSP . No stenosis.Aortic ValveAortic valve opens well. Trace transvalvular regurgitation. No hemodynamically significant .Pulmonic ValveNot well visualized.Ascending AortaNot well visualized.Pericardium No pericardial effusion.Study DetailsStudy quality was adequate. A complete echocardiogram was performed using 2D, color flow Doppler and spectral Doppler. The apical, parasternal and subcostal views were obtained. 5 mL of Lumason ultrasound enhancing agent used. [facility] METABOLIC PANEL (NA, K, CL, CO2, GLUCOSE, BUN, CREATININE, CA)2021-10-28 10:23:41* Test Item Value Reference Range Interpretation Comme nts NA (test code = 6311946721) 144 mmol/L 135-145 K (test code = 0458358427) 3.3 mmol/L 3.5-5.0 L CL (test code = 9603465108) 113 mmol/L 98-108 H CO2 TOTAL (test code = 5963232925) 23 mmol/L 23-31 AGAP (test code = 0323867279) 2-16 BUN (test code = 9230351871) 16 mg/dL 7-23 GLUCOSE (test code = 1528581754) 94 mg/dL 70-110 CREATININE (test code = 2499947409) 1.11 mg/dL 0.60-1.25 CALCIUM (test code = 6940955067) 8.9 mg/dL 8.6-10.6 eGFR (test code = 9882976455) mL/min/1.73m2 JENNIFER (test code = JENNIFER) Association of Glomerular Filtration Rate (GFR) and Staging of Kidney Disease* + --+ --+ ------+| GFR (mL/min/1.73 m2) ?| With Kidney Damage ?| ?Without Kidney Damage+ --------+ --------+ +| ?>90 ?| ?Stage one ?| ? Normal ?+ ---+ ---+ -------+| ?60-89 ?| ?Stage two ?| ? Decreased GFR ? + --+ --+ ------+| ?30-59 ?| ?Stage three ?| ? Stage three ? + --+ --+ ------+| ?15-29 ?| ?Stage four ? | ? Stage four ?+ ---+ ---+ -------+| ?<15 (or dialysis) ? ?| ?Stage five ? | ? Stage five ?+ ---+ ---+ -------+ *Each stage assumes the associated GFR level has been in effect for at least three months. ?Stages 1 to 5, with or without kidney disease, indicate chronic kidney disease. Notes: Determination of stages one and two (with eGFR >59mL/min/1.73 m2) requires estimation of kidney damage for at least three months as defined by structural or functional abnormalities of the kidney, manifested by either:Pathological abnormalities or Markers of kidney damage (including abnormalities in the composition of the blood or urine or abnormalities in imaging tests). Lab Interpretation (test code = 11415-4) Abnormal [facility] WITHOUT [id number] 10:16:39* Test Item Value Reference Range Interpretation Comme nts WBC (test code = 6690-2) See_Comment [Automated message] The system which generated this result transmitted reference range: 4.20 - 10.70 10*3/?L. The reference range was not used to interpret this result as normal/abnormal. RBC (test code = 789-8) See_Comment L [Automated message] The system which generated this result transmitted reference range: 4.26 - 5.52 10*6/?L. The reference range was not used to interpret this result as normal/abnormal. HGB (test code = 718-7) 9.7 g/dL 12.2-16.4 L HCT (test code = 4544-3) 29.7 % 38.4-49.3 L MCH (test code = 785-6) 26.0 pg 26.1-32.7 L MCV (test code = 787-2) 79.6 fL 81.7-95.6 L MCHC (test code = 786-4) 32.7 g/dL 31.2-35.0 PLT (test code = 777-3) See_Comment H [Automated message] The system which generated this result transmitted reference range: 150 - 328 10*3/?L. The reference range was not used to interpret this result as normal/abnormal. MPV (test code = 74871-5) 11.5 fL 9.8-13.0 RDW-CV (test code = 788-0) 19.2 % 12.1-15.4 H RDW-SD (test code = 88808-9) 51.7 fL 38.5-51.6 H NRBC x10^3 (test code = 9532277159) <0.01 See_Comment [Automated messa ge] The system which generated this result transmitted reference range: 10*3/?L. The reference range was not used to interpret this result as normal/abnormal. NRBC/100 WBC (test code = 5499279628) See_Comment [Automated messa ge] The system which generated this result transmitted reference range: 0.0 - 10.0 /100 WBCs. The reference range was not used to interpret this result as normal/abnormal. IPF % (test code = 9803124293) Lab Interpretation (test code = 22659-6) Abnormal [facility] METABOLIC PANEL (NA, K, CL, CO2, GLUCOSE, BUN, CREATININE, CA)2021-10-27 12:14:18* Test Item Value Reference Range Interpretation Comme nts NA (test code = 2549718312) 141 mmol/L 135-145 K (test code = 4884507690) 4.4 mmol/L 3.5-5.0 Slight hemolysis CL (test code = 8393899516) 115 mmol/L 98-108 H CO2 TOTAL (test code = 5750973105) 13 mmol/L 23-31 L AGAP (test code = 4225926790) 2-16 BUN (test code = 4327820291) 18 mg/dL 7-23 Slight hemolysis GLUCOSE (test code = 1687375906) 84 mg/dL 70-110 CREATININE (test code = 9545220693) 1.12 mg/dL 0.60-1.25 CALCIUM (test code = 6263577030) 9.2 mg/dL 8.6-10.6 eGFR (test code = 2639155898) mL/min/1.73m2 JENNIFER (test code = JENNIFER) Association of Glomerular Filtration Rate (GFR) and Staging of Kidney Disease* + -----+ --------+ +| GFR (mL/min/1.73 m2) ?| With Kidney Damage ?| ?Without Kidney Damage+ +------- +---- --+| ?>90 ?| ?Stage one ?| ? Normal ?+ ------+ ---------+--------- +| ?60-89 ?| ?Stage two ?| ? Decreased GFR ? + -----+ --------+ +| ?30-59 ?| ?Stage three ?| ? Stage three ? + -----+ --------+ +| ?15-29 ?| ?Stage four ? | ? Stage four ?+ ------+ ---------+--------- +| ?<15 (or dialysis) ? ?| ?Stage five ? | ? Stage five ?+ ------+ ---------+--------- + *Each stage assumes the associated GFR level has been in effect for at least three months. ?Stages 1 to 5, with or without kidney disease, indicate chronic kidney disease. Notes: Determination of stages one and two (with eGFR >59mL/min/1.73 m2) requires estimation of kidney damage for at least three months as defined by structural or functional abnormalities of the kidney, manifested by either:Pathological abnormalities or Markers of kidney damage (including abnormalities in the composition of the blood or urine or abnormalities in imaging tests). Lab Interpretation (test code = 99235-9) Abnormal [facility] Culture - Peripheral Vein # 02:01:33* Test Item Value Reference Range Interpretation Comme [facility] Blood Culture-Aerobic (test code = 55398-0) No organisms isolated No growth Previous preliminary verified result was Culture In Progress on 10/22/2021 at 0001 CDTPrevious preliminary verified result was No growth at 24 hours on 10/22/2021 at 2101 CDTPrevious preliminary verified result was No growth at 48 hours on 10/23/2021 at 2101 CDTPrevious preliminary verified result was No growth at 72 hours on 10/24/2021 at 2101 CDT Blood Culture-Anaerobic (test code = 13160-0) No organisms isolated No growth Previous preliminary verified result was Culture In Progress on 10/22/2021 at 0001 CDTPrevious preliminary verified result was No growth at 24 hours on 10/22/2021 at 2101 CDTPrevious preliminary verified result was No growth at 48 hours on 10/23/2021 at 2101 CDTPrevious preliminary verified result was No growth at 72 hours on 10/24/2021 at 2101 CDT Lab Interpretation (test code = 76693-1) Normal [facility] Culture - Peripheral [id number] 02:01:32* Test Item Value Reference Range Interpretation Comme [facility] Blood Culture-Aerobic (test code = 68307-2) No organisms isolated No growth Previous preliminary verified result was Culture In Progress on 10/22/2021 at 0001 CDTPrevious preliminary verified result was No growth at 24 hours on 10/22/2021 at 2101 CDTPrevious preliminary verified result was No growth at 48 hours on 10/23/2021 at 2101 CDTPrevious preliminary verified result was No growth at 72 hours on 10/24/2021 at 2101 CDT Blood Culture-Anaerobic (test code = 86446-6) No organisms isolated No growth Previous preliminary verified result was Culture In Progress on 10/22/2021 at 0001 CDTPrevious preliminary verified result was No growth at 24 hours on 10/22/2021 at 2101 CDTPrevious preliminary verified result was No growth at 48 hours on 10/23/2021 at 2101 CDTPrevious preliminary verified result was No growth at 72 hours on 10/24/2021 at 2101 CDT Lab Interpretation (test code = 95926-6) [facility] 11:12:08* Test Item Value Reference Range Interpretation Comme nts MAGNESIUM (test code = 4906527166) 2.0 mg/dL 1.7-2.4 Lab Interpretation (test cod e = 40898-7) Normal [facility] (NA, K, CL, CO2, GLUCOSE, BUN, CREATININE, CA)2021-10-26 11:12:07* Test Item Value Reference Range Interpretation Comme nts NA (test code = 4571322279) 146 mmol/L 135-145 H K (test code = 8439334694) 3.3 mmol/L 3.5-5.0 L CL (test code = 3685461117) 117 mmol/L 98-108 H CO2 TOTAL (test code = 5250497358) 25 mmol/L 23-31 AGAP (test code = 4547211573) 2-16 BUN (test code = 3027936773) 19 mg/dL 7-23 GLUCOSE (test code = 5170146717) 96 mg/dL 70-110 CREATININE (test code = 2442687652) 1.25 mg/dL 0.60-1.25 CALCIUM (test code = 1192210924) 9.3 mg/dL 8.6-10.6 eGFR (test code = 9754167269) mL/min/1.73m2 JENNIFER (test code = JENNIFER) Association of Glomerular Filtration Rate (GFR) and Staging of Kidney Disease* + --+ --+ ------+| GFR (mL/min/1.73 m2) ?| With Kidney Damage ?| ?Without Kidney Damage+ --------+ --------+ +| ?>90 ?| ?Stage one ?| ? Normal ?+ ---+ ---+ -------+| ?60-89 ?| ?Stage two ?| ? Decreased GFR ? + --+ --+ ------+| ?30-59 ?| ?Stage three ?| ? Stage three ? + --+ --+ ------+| ?15-29 ?| ?Stage four ? | ? Stage four ?+ ---+ ---+ -------+| ?<15 (or dialysis) ? ?| ?Stage five ? | ? Stage five ?+ ---+ ---+ -------+ *Each stage assumes the associated GFR level has been in effect for at least three months. ?Stages 1 to 5, with or without kidney disease, indicate chronic kidney disease. Notes: Determination of stages one and two (with eGFR >59mL/min/1.73 m2) requires estimation of kidney damage for at least three months as defined by structural or functional abnormalities of the kidney, manifested by either:Pathological abnormalities or Markers of kidney damage (including abnormalities in the composition of the blood or urine or abnormalities in imaging tests). Lab Interpretation (test code = 30628-8) Abnormal [facility] WITHOUT [id number] 10:51:05* Test Item Value Reference Range Interpretation Comme nts WBC (test code = 6690-2) See_Comment H [Automated message] The system which generated this result transmitted reference range: 4.20 - 10.70 10*3/?L. The reference range was not used to interpret this result as normal/abnormal. RBC (test code = 789-8) See_Comment L [Automated message] The system which generated this result transmitted reference range: 4.26 - 5.52 10*6/?L. The reference range was not used to interpret this result as normal/abnormal. HGB (test code = 718-7) 9.8 g/dL 12.2-16.4 L HCT (test code = 4544-3) 29.4 % 38.4-49.3 L MCH (test code = 785-6) 25.9 pg 26.1-32.7 L MCV (test code = 787-2) 77.6 fL 81.7-95.6 L MCHC (test code = 786-4) 33.3 g/dL 31.2-35.0 PLT (test code = 777-3) See_Comment [Automated message] The system which generated this result transmitted reference range: 150 - 328 10*3/?L. The reference range was not used to interpret this result as normal/abnormal. MPV (test code = 91802-1) 10.9 fL 9.8-13.0 RDW-CV (test code = 788-0) 18.9 % 12.1-15.4 H RDW-SD (test code = 43020-2) 51.5 fL 38.5-51.6 NRBC x10^3 (test code = 3945738289) See_Comment [Automated ActiveEona ge] The system which generated this result transmitted reference range: 10*3/?L. The reference range was not used to interpret this result as normal/abnormal. NRBC/100 WBC (test code = 3417625408) See_Comment [Automated [employer]Eona ge] The system which generated this result transmitted reference range: 0.0 - 10.0 /100 WBCs. The reference range was not used to interpret this result as normal/abnormal. IPF % (test code = 1429747099) Lab Interpretation (test code = 55004-7) Abnormal [facility] METABOLIC PANEL (NA, K, CL, CO2, GLUCOSE, BUN, CREATININE, CA)2021-10-25 18:19:54* Test Item Value Reference Range Interpretation Comme nts NA (test code = 1254459718) 148 mmol/L 135-145 H K (test code = 1426469236) 3.5 mmol/L 3.5-5.0 Slight hemolysis CL (test code = 3223097206) 118 mmol/L 98-108 H CO2 TOTAL (test code = 5098256478) 25 mmol/L 23-31 AGAP (test code = 5216754017) 2-16 BUN (test code = 0666478173) 24 mg/dL 7-23 H Slight hemolysis GLUCOSE (test code = 6938070194) 107 mg/dL 70-110 CREATININE (test code = 8744892938) 1.32 mg/dL 0.60-1.25 H CALCIUM (test code = 9085053538) 9.3 mg/dL 8.6-10.6 eGFR (test code = 8620815737) mL/min/1.73m2 JENNIFER (test code = JENNIFER) Association of Glomerular Filtration Rate (GFR) and Staging of Kidney Disease* + -----+ --------+ +| GFR (mL/min/1.73 m2) ?| With Kidney Damage ?| ?Without Kidney Damage+ +------- +---- --+| ?>90 ?| ?Stage one ?| ? Normal ?+ ------+ ---------+--------- +| ?60-89 ?| ?Stage two ?| ? Decreased GFR ? + -----+ --------+ +| ?30-59 ?| ?Stage three ?| ? Stage three ? + -----+ --------+ +| ?15-29 ?| ?Stage four ? | ? Stage four ?+ ------+ ---------+--------- +| ?<15 (or dialysis) ? ?| ?Stage five ? | ? Stage five ?+ ------+ ---------+--------- + *Each stage assumes the associated GFR level has been in effect for at least three months. ?Stages 1 to 5, with or without kidney disease, indicate chronic kidney disease. Notes: Determination of stages one and two (with eGFR >59mL/min/1.73 m2) requires estimation of kidney damage for at least three months as defined by structural or functional abnormalities of the kidney, manifested by either:Pathological abnormalities or Markers of kidney damage (including abnormalities in the composition of the blood or urine or abnormalities in imaging tests). Lab Interpretation (test code = 10988-1) [facility]:19[facility]* Test Item Value Reference Range Interpretation Comme nts MAGNESIUM (test code = 3757264096) 2.3 mg/dL 1.7-2.4 Slight hemolysis Lab Interpretation (test code = 26937-6) Normal [facility] WITH [id number] 11:26:06* Test Item Value Reference Range Interpretation Comme nts WBC (test code = 6690-2) See_Comment H [Automated message] The system which generated this result transmitted reference range: 4.20 - 10.70 10*3/?L. The reference range was not used to interpret this result as normal/abnormal. RBC (test code = 789-8) See_Comment L [Automated message] The system which generated this result transmitted reference range: 4.26 - 5.52 10*6/?L. The reference range was not used to interpret this result as normal/abnormal. HGB (test code = 718-7) 10.2 g/dL 12.2-16.4 L HCT (test code = 4544-3) 30.4 % 38.4-49.3 L MCV (test code = 787-2) 77.7 fL 81.7-95.6 L MCH (test code = 785-6) 26.1 pg 26.1-32.7 MCHC (test code = 786-4) 33.6 g/dL 31.2-35.0 RDW-SD (test code = 99360-4) 51.6 fL 38.5-51.6 RDW-CV (test code = 788-0) 19.3 % 12.1-15.4 H PLT (test code = 777-3) See_Comment [Automated message] The system which generated this result transmitted reference range: 150 - 328 10*3/?L. The reference range was not used to interpret this result as normal/abnormal. MPV (test code = 13808-0) 11.7 fL 9.8-13.0 NRBC/100 WBC (test code = 5433998718) See_Comment [Automated message] The system which generated this result transmitted reference range: 0.0 - 10.0 /100 WBCs. The reference range was not used to interpret this result as normal/abnormal. NRBC x10^3 (test code = 4271841719) <0.01 See_Comment [Automated message] The system which generated this result transmitted reference range: 10*3/?L. The reference range was not used to interpret this result as normal/abnormal. GRAN MAT (NEUT) % (test code = 770-8) 86.4 % IMM GRAN % (test code = 9334970268) 0.50 % LYMPH % (test code = 736-9) 7.2 % MONO % (test code = 5905-5) 4.8 % EOS % (test code = 713-8) 0.8 % BASO % (test code = 706-2) 0.3 % GRAN MAT x10^3(ANC) (test code = 6765932902) 15.13 10*3/uL 1.99-6.95 H IMM GRAN x10^3 (test code = 4420079228) 0.09 10*3/uL 0.00-0.06 H LYMPH x10^3 (test code = 731-0) 1.27 10*3/uL 1.09-3.23 MONO x10^3 (test code = 742-7) 0.85 10*3/uL 0.36-1.02 EOS x10^3 (test code = 711-2) 0.14 10*3/uL 0.06-0.53 BASO x10^3 (test code = 704-7) 0.05 10*3/uL 0.01-0.09 TARGET CELLS (test code = 41159-1) 2+ See_Comment A [Automated message] The system which generated this result transmitted reference range: (none). The reference range was not used to interpret this result as normal/abnormal. DOHLE BODIES (test code = 7792-5) Present A Lab Interpretation (test code = 36698-1) Abnormal [facility] METABOLIC PANEL (NA, K, CL, CO2, GLUCOSE, BUN, CREATININE, CA)2021-10-25 05:26:46* Test Item Value Reference Range Interpretation Comme nts NA (test code = 7709608368) 148 mmol/L 135-145 H K (test code = 6024831545) 3.0 mmol/L 3.5-5.0 L CL (test code = 9499313105) 118 mmol/L 98-108 H CO2 TOTAL (test code = 3712353658) 25 mmol/L 23-31 AGAP (test code = 6213498989) 2-16 BUN (test code = 8563318690) 28 mg/dL 7-23 H GLUCOSE (test code = 0511729620) 103 mg/dL 70-110 CREATININE (test code = 5193671871) 1.50 mg/dL 0.60-1.25 H CALCIUM (test code = 7033577850) 9.2 mg/dL 8.6-10.6 eGFR (test code = 1814875159) mL/min/1.73m2 JENNIFER (test code = JENNIFER) Association of Glomerular Filtration Rate (GFR) and Staging of Kidney Disease* + --+ --+ ------+| GFR (mL/min/1.73 m2) ?| With Kidney Damage ?| ?Without Kidney Damage+ --------+ --------+ +| ?>90 ?| ?Stage one ?| ? Normal ?+ ---+ ---+ -------+| ?60-89 ?| ?Stage two ?| ? Decreased GFR ? + --+ --+ ------+| ?30-59 ?| ?Stage three ?| ? Stage three ? + --+ --+ ------+| ?15-29 ?| ?Stage four ? | ? Stage four ?+ ---+ ---+ -------+| ?<15 (or dialysis) ? ?| ?Stage five ? | ? Stage five ?+ ---+ ---+ -------+ *Each stage assumes the associated GFR level has been in effect for at least three months. ?Stages 1 to 5, with or without kidney disease, indicate chronic kidney disease. Notes: Determination of stages one and two (with eGFR >59mL/min/1.73 m2) requires estimation of kidney damage for at least three months as defined by structural or functional abnormalities of the kidney, manifested by either:Pathological abnormalities or Markers of kidney damage (including abnormalities in the composition of the blood or urine or abnormalities in imaging tests). Lab Interpretation (test code = 31335-2) [facility] 05:26:46* Test Item Value Reference Range Interpretation Comme nts MAGNESIUM (test code = 3074209428) 2.5 mg/dL 1.7-2.4 H Lab Interpretation (test cod e = 72152-8) [facility] + Lactic [id number] 04:56:07* Test Item Value Reference Range Interpretation Comme nts PH (test code = 2) 7.35-7.45 H PCO2 (test code = 4238750976) See_Comment L [Automated [employer]] The system which generated this result transmitted reference range: 35 - 45 mmHg. The reference range was not used to interpret this result as normal/abnormal. PO2 (test code = 5208301534) See_Comment L [Automated messa ge] The system which generated this result transmitted reference range: 80 - 100 mmHg. The reference range was not used to interpret this result as normal/abnormal. HCO3 (test code = 3218653462) See_Comment [Automated messa ge] The system which generated this result transmitted reference range: 22 - 26 mEq/L. The reference range was not used to interpret this result as normal/abnormal. BE (test code = 7305730038) See_Comment [Automated messa ge] The system which generated this result transmitted reference range: -3.0 - 3.0 mEq/L. The reference range was not used to interpret this result as normal/abnormal. THB (test code = 1422932248) 11.3 g/dL 13.5-18.0 L %O2HB (test code = 4659811256) 92.8 % 94.0-99.0 L %COHB ART (test code = 4217640510) 0.8 % 0.0-1.5 %METHB ART (test code = 7994814676) 0.3 % 0.4-1.5 L VOL%O2 ART (test code = 6907421520) 14.8 % 15.0-23.0 L NA (test code = 9746514145) 148 mmol/L 135-145 H K+ (test code = 4553608011) 3.1 mmol/L 3.5-5.0 L AC CA IONZ (test code = 7042134244) 5.20 mg/dL 4.50-5.30 GLUCOSE (test code = 8853010853) 99 mg/dL 70-110 LACTIC ACID (test code = 3957698516) 1.41 mmol/L 0.50-2.20 Lab Interpretation (test code = 43146-4) [facility] (NA, K, CL, CO2, GLUCOSE, BUN, CREATININE, CA)2021-10-24 10:27:09* Test Item Value Reference Range Interpretation Comme nts NA (test code = 6530967024) 149 mmol/L 135-145 H K (test code = 1179821838) 3.2 mmol/L 3.5-5.0 L CL (test code = 7310577467) 118 mmol/L 98-108 H CO2 TOTAL (test code = 1141752107) 23 mmol/L 23-31 AGAP (test code = 1616420824) 2-16 BUN (test code = 9980280730) 29 mg/dL 7-23 H GLUCOSE (test code = 9965209064) 125 mg/dL 70-110 H CREATININE (test code = 0110240267) 1.57 mg/dL 0.60-1.25 H CALCIUM (test code = 8529424315) 8.3 mg/dL 8.6-10.6 L eGFR (test code = 6551953498) mL/min/1.73m2 JENNIFER (test code = JENINFER) Association of Glomerular Filtration Rate (GFR) and Staging of Kidney Disease* + --+ --+ ------+| GFR (mL/min/1.73 m2) ?| With Kidney Damage ?| ?Without Kidney Damage+ --------+ --------+ +| ?>90 ?| ?Stage one ?| ? Normal ?+ ---+ ---+ -------+| ?60-89 ?| ?Stage two ?| ? Decreased GFR ? + --+ --+ ------+| ?30-59 ?| ?Stage three ?| ? Stage three ? + --+ --+ ------+| ?15-29 ?| ?Stage four ? | ? Stage four ?+ ---+ ---+ -------+| ?<15 (or dialysis) ? ?| ?Stage five ? | ? Stage five ?+ ---+ ---+ -------+ *Each stage assumes the associated GFR level has been in effect for at least three months. ?Stages 1 to 5, with or without kidney disease, indicate chronic kidney disease. Notes: Determination of stages one and two (with eGFR >59mL/min/1.73 m2) requires estimation of kidney damage for at least three months as defined by structural or functional abnormalities of the kidney, manifested by either:Pathological abnormalities or Markers of kidney damage (including abnormalities in the composition of the blood or urine or abnormalities in imaging tests). Lab Interpretation (test code = 89122-1) [facility] 10:27:09* Test Item Value Reference Range Interpretation Comme nts MAGNESIUM (test code = 6112330488) 2.6 mg/dL 1.7-2.4 H Lab Interpretation (test cod e = 17879-9) Abnormal [facility] WITHOUT [id number] 09:52:04* Test Item Value Reference Range Interpretation Comme nts WBC (test code = 6690-2) See_Comment H [Automated message] The system which generated this result transmitted reference range: 4.20 - 10.70 10*3/?L. The reference range was not used to interpret this result as normal/abnormal. RBC (test code = 789-8) See_Comment L [Automated message] The system which generated this result transmitted reference range: 4.26 - 5.52 10*6/?L. The reference range was not used to interpret this result as normal/abnormal. HGB (test code = 718-7) 10.4 g/dL 12.2-16.4 L HCT (test code = 4544-3) 32.0 % 38.4-49.3 L MCH (test code = 785-6) 25.9 pg 26.1-32.7 L MCV (test code = 787-2) 79.6 fL 81.7-95.6 L MCHC (test code = 786-4) 32.5 g/dL 31.2-35.0 PLT (test code = 777-3) See_Comment [Automated message] The system which generated this result transmitted reference range: 150 - 328 10*3/?L. The reference range was not used to interpret this result as normal/abnormal. MPV (test code = 53758-5) 10.9 fL 9.8-13.0 RDW-CV (test code = 788-0) 18.7 % 12.1-15.4 H RDW-SD (test code = 69331-1) 53.1 fL 38.5-51.6 H NRBC x10^3 (test code = 8804653154) <0.01 See_Comment [Automated messa ge] The system which generated this result transmitted reference range: 10*3/?L. The reference range was not used to interpret this result as normal/abnormal. NRBC/100 WBC (test code = 1367417709) See_Comment [Automated messa ge] The system which generated this result transmitted reference range: 0.0 - 10.0 /100 WBCs. The reference range was not used to interpret this result as normal/abnormal. IPF % (test code = 4467759018) Lab Interpretation (test code = 56999-8) Abnormal [facility] WITHOUT [id number] 20:47:29* Test Item Value Reference Range Interpretation Comme nts WBC (test code = 6690-2) See_Comment H [Automated message] The system which generated this result transmitted reference range: 4.20 - 10.70 10*3/?L. The reference range was not used to interpret this result as normal/abnormal. RBC (test code = 789-8) See_Comment L [Automated message] The system which generated this result transmitted reference range: 4.26 - 5.52 10*6/?L. The reference range was not used to interpret this result as normal/abnormal. HGB (test code = 718-7) 10.8 g/dL 12.2-16.4 L HCT (test code = 4544-3) 32.2 % 38.4-49.3 L MCH (test code = 785-6) 26.7 pg 26.1-32.7 MCV (test code = 787-2) 79.7 fL 81.7-95.6 L MCHC (test code = 786-4) 33.5 g/dL 31.2-35.0 PLT (test code = 777-3) See_Comment [Automated message] The system which generated this result transmitted reference range: 150 - 328 10*3/?L. The reference range was not used to interpret this result as normal/abnormal. MPV (test code = 05051-3) 10.2 fL 9.8-13.0 RDW-CV (test code = 788-0) 18.8 % 12.1-15.4 H RDW-SD (test code = 63334-7) 53.3 fL 38.5-51.6 H NRBC x10^3 (test code = 1543355182) <0.01 See_Comment [Automated messa ge] The system which generated this result transmitted reference range: 10*3/?L. The reference range was not used to interpret this result as normal/abnormal. NRBC/100 WBC (test code = 2159844839) See_Comment [Automated messa ge] The system which generated this result transmitted reference range: 0.0 - 10.0 /100 WBCs. The reference range was not used to interpret this result as normal/abnormal. IPF % (test code = 5611731581) Lab Interpretation (test code = 49481-8) [facility]normal [facility]2021-[facility]-23 19:51:27* Test Item Value Reference Range Interpretation Comme nts Height (test code = 9242578805) in Weight (test code = 2239332666) lbs Systolic BP (test code = 1949657044) mmHg Diastolic BP (test code = 0261881366) mmHg Heart Rate (test code = 1059684955) bpm LVOT stroke volume (test code = 7441284921) 36.50 cm3 EF(Teich) (test code = 5818633241) 36.50 % LVIDD (test code = 3085376548) 4.90 cm LVIDS (test code = 6092019302) 4.10 cm IVS (test code = 5937862162) 0.84 cm LVPWD (test code = 6409230386) 0.85 cm LVOT diameter (test code = 8068020139) 2.05 cm FS (test code = 3215207445) 18 % MV Peak E Jose (test code = 3657085702) 59.6 cm/s MV Peak A Jose (test code = 3058362009) 58.6 cm/s E/A ratio (test code = 1464315202) ratio E wave decelartion time (test code = 0104233805) 0.13 s MV E/e' septal (test code = 5624911624) 7.2 cm/s LA Volume Index (BP) (test code = 9492214473) 19.2 mL/m2 LA volume (BP) (test code = 0220377312) 38.0 mL LVOT peak jose (test code = 8104492014) 61.0 cm/s LVOT mn grad (test code = 7832319132) mmHg BSA (test code = 3836421069) 1.98 m2 LA size (test code = 3212234903) 3.4 cm LAV(MOD-sp2) (test code = 6160162880) 28.30 mL LAV(MOD-sp4) (test code = 7214590429) 43.40 mL TASV (test code = 9680326038) 11.5 cm/s Tapse (test code = 7221136541) 1.66 cm AV LVOT peak gradient (test code = 7590647909) mmHg LVOT peak VTI (test code = 3611801244) 11.0 cm LV V1 mean (test code = 1794727363) 39.60 cm/s TR Peak Jose (test code = 3516728130) 191.8 cm/s Triscuspid Valve Regurgitation Peak Gradient (test code = 4259634090) mmHg Ao root annulus (test code = 0585884884) 3.3 cm Ao root diam (test code = 7108469685) 3.30 cm Aortic root (test code = 5420811471) 3.3 cm PW (test code = 4385175883) 0.85 cm 0.6-1.1 EF - 2D (test code = 51491962) 36.50 % Interventricular Septum Diastolic Thickness by 2D (test code = 0219580) 0.84 cm Aortic valve mean velocity (test code = 8206180133) 60.7 cm/s Ao peak jose (test code = 9977050949) 97.7 cm/s Ao VTI (test code = 9663914439) 16.9 cm AV area by cont VTI (test code = 1844607915) 2.2 cm2 AV area peak jose (test code = 0654067579) 2.1 cm2 Ao max PG (test code = 2201283450) 3.80 mm[Hg] AV peak gradient (test code = 5493009116) mmHg AV valve area (test code = 8893107026) 2.16 cm2 AV mean gradient (test code = 4630414350) mmHg LV Diastolic Volume (BP) (test code = 4020276258) 143.4 mL EF(MOD-bp) (test code = 2046784216) 40.30 % LV Systolic Volume (BP) (test code = 1218614295) 85.6 mL SV(MOD-bp) (test code = 2820078254) 57.70 mL EF (test code = 1981535393) 40 % Left Ventricular Stroke Volume by 2-D Biplane-MOD (test code = 0392969) 57.7 mL Radiology Study observation (narrative) (test code = 24839-1) JENNIFER (test code = JENNIFER) ?Left?Ventricle: Left ventricle size is normal. Normal wall thickness. Moderate global hypokinesis present. Moderately reduced systolic function with a visually estimated EF of 35 - 40%. Unable to assess diastolic function due to poor image quality. ?Right?Ventricle: Right ventricle size is normal. Normal systolic function. ?Tricuspid?Valve: Insufficient tricuspid regurgitation jet to estimate RVSP.Mild transvalvular regurgitation. ?Aorta: Sinus of Valsalva is normal in size. ?Pericardium: Trivial pericardial effusion present. [facility] METABOLIC PANEL (NA, K, CL, CO2, GLUCOSE, BUN, CREATININE, CA)2021-10-23 09:19:36* Test Item Value Reference Range Interpretation Comme nts NA (test code = 3058356790) 144 mmol/L 135-145 K (test code = 8695804441) 3.7 mmol/L 3.5-5.0 CL (test code = 3344873248) 114 mmol/L 98-108 H CO2 TOTAL (test code = 9167013680) 23 mmol/L 23-31 AGAP (test code = 8758001560) 2-16 BUN (test code = 0622390420) 38 mg/dL 7-23 H GLUCOSE (test code = 0629092043) 154 mg/dL 70-110 H CREATININE (test code = 8050892834) 2.05 mg/dL 0.60-1.25 H CALCIUM (test code = 5636019535) 7.8 mg/dL 8.6-10.6 L eGFR (test code = 0668876068) mL/min/1.73m2 JENNIFER (test code = JENNIFER) Association of Glomerular Filtration Rate (GFR) and Staging of Kidney Disease* + --+ --+ ------+| GFR (mL/min/1.73 m2) ?| With Kidney Damage ?| ?Without Kidney Damage+ --------+ --------+ +| ?>90 ?| ?Stage one ?| ? Normal ?+ ---+ ---+ -------+| ?60-89 ?| ?Stage two ?| ? Decreased GFR ? + --+ --+ ------+| ?30-59 ?| ?Stage three ?| ? Stage three ? + --+ --+ ------+| ?15-29 ?| ?Stage four ? | ? Stage four ?+ ---+ ---+ -------+| ?<15 (or dialysis) ? ?| ?Stage five ? | ? Stage five ?+ ---+ ---+ -------+ *Each stage assumes the associated GFR level has been in effect for at least three months. ?Stages 1 to 5, with or without kidney disease, indicate chronic kidney disease. Notes: Determination of stages one and two (with eGFR >59mL/min/1.73 m2) requires estimation of kidney damage for at least three months as defined by structural or functional abnormalities of the kidney, manifested by either:Pathological abnormalities or Markers of kidney damage (including abnormalities in the composition of the blood or urine or abnormalities in imaging tests). Lab Interpretation (test code = 39292-7) [facility] 09:19:36* Test Item Value Reference Range Interpretation Comme nts MAGNESIUM (test code = 2949577520) 2.9 mg/dL 1.7-2.4 H Lab Interpretation (test cod e = 47302-3) Abnormal [facility] WITHOUT [id number] 08:52:54* Test Item Value Reference Range Interpretation Comme nts WBC (test code = 6690-2) See_Comment H [Automated message] The system which generated this result transmitted reference range: 4.20 - 10.70 10*3/?L. The reference range was not used to interpret this result as normal/abnormal. RBC (test code = 789-8) See_Comment [Automated message] The system which generated this result transmitted reference range: 4.26 - 5.52 10*6/?L. The reference range was not used to interpret this result as normal/abnormal. HGB (test code = 718-7) 11.1 g/dL 12.2-16.4 L HCT (test code = 4544-3) 34.7 % 38.4-49.3 L MCH (test code = 785-6) 25.9 pg 26.1-32.7 L MCV (test code = 787-2) 81.1 fL 81.7-95.6 L MCHC (test code = 786-4) 32.0 g/dL 31.2-35.0 PLT (test code = 777-3) See_Comment [Automated message] The system which generated this result transmitted reference range: 150 - 328 10*3/?L. The reference range was not used to interpret this result as normal/abnormal. MPV (test code = 01833-3) 10.2 fL 9.8-13.0 RDW-CV (test code = 788-0) 19.2 % 12.1-15.4 H RDW-SD (test code = 92860-4) 55.0 fL 38.5-51.6 H NRBC x10^3 (test code = 8533222901) <0.01 See_Comment [Automated messa ge] The system which generated this result transmitted reference range: 10*3/?L. The reference range was not used to interpret this result as normal/abnormal. NRBC/100 WBC (test code = 8297753270) See_Comment [Automated messa ge] The system which generated this result transmitted reference range: 0.0 - 10.0 /100 WBCs. The reference range was not used to interpret this result as normal/abnormal. IPF % (test code = 7484978946) Lab Interpretation (test code = 64804-8) [facility] + Lactic [id number] 08:51:54* Test Item Value Reference Range Interpretation Comme nts PH (test code = 2) 7.35-7.45 PCO2 (test code = 6373432830) See_Comment [Automated messa ge] The system which generated this result transmitted reference range: 35 - 45 mmHg. The reference range was not used to interpret this result as normal/abnormal. PO2 (test code = 5385702244) See_Comment [Automated messa ge] The system which generated this result transmitted reference range: 80 - 100 mmHg. The reference range was not used to interpret this result as normal/abnormal. HCO3 (test code = 8326087912) See_Comment L [Automated messa ge] The system which generated this result transmitted reference range: 22 - 26 mEq/L. The reference range was not used to interpret this result as normal/abnormal. BE (test code = 6860618431) See_Comment L [Automated messa ge] The system which generated this result transmitted reference range: -3.0 - 3.0 mEq/L. The reference range was not used to interpret this result as normal/abnormal. THB (test code = 3538277605) 12.1 g/dL 13.5-18.0 L %O2HB (test code = 6325172348) 96.2 % 94.0-99.0 %COHB ART (test code = 2257541478) 0.4 % 0.0-1.5 %METHB ART (test code = 0249407949) 0.3 % 0.4-1.5 L VOL%O2 ART (test code = 7230158910) 16.5 % 15.0-23.0 NA (test code = 7638332219) 142 mmol/L 135-145 K+ (test code = 4971070675) 3.7 mmol/L 3.5-5.0 AC CA IONZ (test code = 4645355299) 4.60 mg/dL 4.50-5.30 GLUCOSE (test code = 4598155281) 155 mg/dL 70-110 H LACTIC ACID (test code = 9865770997) 1.78 mmol/L 0.50-2.20 Lab Interpretation (test code = 59161-4) [facility] [id number] 06:04:07* Test Item Value Reference Range Interpretation Comments TROPONIN I (test code = 2781386119) 0.162 ng/mL See_Comment H [Automated message] The system which generated this result transmitted reference range: <=0.034. The reference range was not used to interpret this result as normal/abnormal. JENNIFER (test code = JENNIFER) Reference (Normal) Range (defined by the 99th percentile reference limit): <= 0.034 ng/mL Note: Cardiac troponin begins to rise 3-4 hours after the onset of ischemia. Repeat in 4-6 hours if the sample was drawn within 3-4 hours of the onset of the symptom and found normal. Diagnosis of myocardial injury is made with acute changes in cTn concentrations with at least one serial sample above the 99th percentile upper reference limit (URL), taken together with the patient's clinical presentation. Biotin has been reported to cause a negative bias, interpret results relative to patient's use of biotin. Lab Interpretation (test code = 92211-5) [facility]normal [facility] [id number] 23:40:33* Test Item Value Reference Range Interpretation Comments TROPONIN I (test code = 5559412057) 0.258 ng/mL See_Comment H [Automated message] The system which generated this result transmitted reference range: <=0.034. The reference range was not used to interpret this result as normal/abnormal. JENNIFER (test code = JENNIFER) Reference (Normal) Range (defined by the 99th percentile reference limit): <= 0.034 ng/mL Note: Cardiac troponin begins to rise 3-4 hours after the onset of ischemia. Repeat in 4-6 hours if the sample was drawn within 3-4 hours of the onset of the symptom and found normal. Diagnosis of myocardial injury is made with acute changes in cTn concentrations with at least one serial sample above the 99th percentile upper reference limit (URL), taken together with the patient's clinical presentation. Biotin has been reported to cause a negative bias, interpret results relative to patient's use of biotin. Lab Interpretation (test code = 31186-9) [facility] [id number] 23:27:50* Test Item Value Reference Range Interpretation Comme nts WBC (test code = 6690-2) See_Comment H [Automated message] The system which generated this result transmitted reference range: 4.20 - 10.70 10*3/?L. The reference range was not used to interpret this result as normal/abnormal. RBC (test code = 789-8) See_Comment [Automated message] The system which generated this result transmitted reference range: 4.26 - 5.52 10*6/?L. The reference range was not used to interpret this result as normal/abnormal. HGB (test code = 718-7) 11.3 g/dL 12.2-16.4 L HCT (test code = 4544-3) 34.4 % 38.4-49.3 L MCH (test code = 785-6) 26.2 pg 26.1-32.7 MCV (test code = 787-2) 79.8 fL 81.7-95.6 L MCHC (test code = 786-4) 32.8 g/dL 31.2-35.0 PLT (test code = 777-3) See_Comment [Automated message] The system which generated this result transmitted reference range: 150 - 328 10*3/?L. The reference range was not used to interpret this result as normal/abnormal. MPV (test code = 38832-4) 10.2 fL 9.8-13.0 RDW-CV (test code = 788-0) 18.6 % 12.1-15.4 H RDW-SD (test code = 24991-8) 52.1 fL 38.5-51.6 H NRBC x10^3 (test code = 3667656494) <0.01 See_Comment [Automated [employer]] The system which generated this result transmitted reference range: 10*3/?L. The reference range was not used to interpret this result as normal/abnormal. NRBC/100 WBC (test code = 3167599303) See_Comment [Automated [employer]] The system which generated this result transmitted reference range: 0.0 - 10.0 /100 WBCs. The reference range was not used to interpret this result as normal/abnormal. IPF % (test code = 5599406384) Lab Interpretation (test code = 43042-2) [facility]normal [facility] [id number] 18:28:38* Test Item Value Reference Range Interpretation Comments TROPONIN I (test code = 3090269782) 0.251 ng/mL See_Comment H [Automated message] The system which generated this result transmitted reference range: <=0.034. The reference range was not used to interpret this result as normal/abnormal. JENNIFER (test code = JENNIFER) Reference (Normal) Range (defined by the 99th percentile reference limit): <= 0.034 ng/mL Note: Cardiac troponin begins to rise 3-4 hours after the onset of ischemia. Repeat in 4-6 hours if the sample was drawn within 3-4 hours of the onset of the symptom and found normal. Diagnosis of myocardial injury is made with acute changes in cTn concentrations with at least one serial sample above the 99th percentile upper reference limit (URL), taken together with the patient's clinical presentation. Biotin has been reported to cause a negative bias, interpret results relative to patient's use of biotin. Lab Interpretation (test code = 84689-5) [facility]normal [facility] CampusVancomycin Random Clktj4503-66-12 18:19:57* Test Item Value Reference Range Interpretation Comme nts VANCO RANDOM (test code = 9606666583) 7.6 ug/mL [facility] [id number] 16:55:38* Test Item Value Reference Range Interpretation Comme nts WBC (test code = 6690-2) See_Comment H [Automated message] The system which generated this result transmitted reference range: 4.20 - 10.70 10*3/?L. The reference range was not used to interpret this result as normal/abnormal. RBC (test code = 789-8) See_Comment [Automated message] The system which generated this result transmitted reference range: 4.26 - 5.52 10*6/?L. The reference range was not used to interpret this result as normal/abnormal. HGB (test code = 718-7) 11.7 g/dL 12.2-16.4 L HCT (test code = 4544-3) 35.5 % 38.4-49.3 L MCH (test code = 785-6) 26.6 pg 26.1-32.7 MCV (test code = 787-2) 80.7 fL 81.7-95.6 L MCHC (test code = 786-4) 33.0 g/dL 31.2-35.0 PLT (test code = 777-3) See_Comment [Automated message] The system which generated this result transmitted reference range: 150 - 328 10*3/?L. The reference range was not used to interpret this result as normal/abnormal. MPV (test code = 23916-1) 9.9 fL 9.8-13.0 RDW-CV (test code = 788-0) 18.9 % 12.1-15.4 H RDW-SD (test code = 65539-8) 53.5 fL 38.5-51.6 H NRBC x10^3 (test code = 6263362257) <0.01 See_Comment [Automated messa ge] The system which generated this result transmitted reference range: 10*3/?L. The reference range was not used to interpret this result as normal/abnormal. NRBC/100 WBC (test code = 5529964885) See_Comment [Automated messa ge] The system which generated this result transmitted reference range: 0.0 - 10.0 /100 WBCs. The reference range was not used to interpret this result as normal/abnormal. IPF % (test code = 8174684870) Lab Interpretation (test code = 93502-9) [facility]normal [facility] + Lactic [id number] 15:11:13* Test Item Value Reference Range Interpretation Comme nts PH (test code = 2) 7.35-7.45 PCO2 (test code = 1197238229) See_Comment [Automated messa ge] The system which generated this result transmitted reference range: 35 - 45 mmHg. The reference range was not used to interpret this result as normal/abnormal. PO2 (test code = 5037499408) See_Comment L [Automated messa ge] The system which generated this result transmitted reference range: 80 - 100 mmHg. The reference range was not used to interpret this result as normal/abnormal. HCO3 (test code = 6489170793) See_Comment [Automated messa ge] The system which generated this result transmitted reference range: 22 - 26 mEq/L. The reference range was not used to interpret this result as normal/abnormal. BE (test code = 8017687781) See_Comment [Automated messa ge] The system which generated this result transmitted reference range: -3.0 - 3.0 mEq/L. The reference range was not used to interpret this result as normal/abnormal. THB (test code = 1051253040) 12.2 g/dL 13.5-18.0 L %O2HB (test code = 6482215798) 91.4 % 94.0-99.0 L %COHB ART (test code = 4837382933) 0.8 % 0.0-1.5 %METHB ART (test code = 3436351725) 0.0 % 0.4-1.5 L VOL%O2 ART (test code = 0601534906) 15.7 % 15.0-23.0 NA (test code = 8290445769) 140 mmol/L 135-145 K+ (test code = 8267423043) 4.1 mmol/L 3.5-5.0 AC CA IONZ (test code = 3319346157) 4.40 mg/dL 4.50-5.30 L GLUCOSE (test code = 5438192152) 130 mg/dL 70-110 H LACTIC ACID (test code = 7288493925) 2.21 mmol/L 0.50-2.20 H Lab Interpretation (test code = 60846-7) [facility]normal [facility] [id number] 12:38:20* Test Item Value Reference Range Interpretation Comments TROPONIN I (test code = 3078111894) 0.128 ng/mL See_Comment H [Automated message] The system which generated this result transmitted reference range: <=0.034. The reference range was not used to interpret this result as normal/abnormal. JENNIFER (test code = JENNIFER) Reference (Normal) Range (defined by the 99th percentile reference limit): <= 0.034 ng/mL Note: Cardiac troponin begins to rise 3-4 hours after the onset of ischemia. Repeat in 4-6 hours if the sample was drawn within 3-4 hours of the onset of the symptom and found normal. Diagnosis of myocardial injury is made with acute changes in cTn concentrations with at least one serial sample above the 99th percentile upper reference limit (URL), taken together with the patient's clinical presentation. Biotin has been reported to cause a negative bias, interpret results relative to patient's use of biotin. Lab Interpretation (test code = 64834-9) [facility]normal [facility] [id number] 12:08:41* Test Item Value Reference Range Interpretation Comme nts WBC (test code = 6690-2) See_Comment H [Automated message] The system which generated this result transmitted reference range: 4.20 - 10.70 10*3/?L. The reference range was not used to interpret this result as normal/abnormal. RBC (test code = 789-8) See_Comment [Automated message] The system which generated this result transmitted reference range: 4.26 - 5.52 10*6/?L. The reference range was not used to interpret this result as normal/abnormal. HGB (test code = 718-7) 12.0 g/dL 12.2-16.4 L HCT (test code = 4544-3) 37.1 % 38.4-49.3 L MCH (test code = 785-6) 26.3 pg 26.1-32.7 MCV (test code = 787-2) 81.2 fL 81.7-95.6 L MCHC (test code = 786-4) 32.3 g/dL 31.2-35.0 PLT (test code = 777-3) See_Comment [Automated message] The system which generated this result transmitted reference range: 150 - 328 10*3/?L. The reference range was not used to interpret this result as normal/abnormal. MPV (test code = 55888-8) 10.7 fL 9.8-13.0 RDW-CV (test code = 788-0) 19.3 % 12.1-15.4 H RDW-SD (test code = 67724-2) 54.9 fL 38.5-51.6 H NRBC x10^3 (test code = 8571822823) <0.01 See_Comment [Automated [employer]] The system which generated this result transmitted reference range: 10*3/?L. The reference range was not used to interpret this result as normal/abnormal. NRBC/100 WBC (test code = 4889265956) See_Comment [Automated [employer]] The system which generated this result transmitted reference range: 0.0 - 10.0 /100 WBCs. The reference range was not used to interpret this result as normal/abnormal. IPF % (test code = 4657482357) Lab Interpretation (test code = 46208-8) Abnormal [facility] [id number] 07:08:43* Test Item Value Reference Range Interpretation Comments TROPONIN I (test code = 4776632451) 0.061 ng/mL See_Comment H [Automated message] The system which generated this result transmitted reference range: <=0.034. The reference range was not used to interpret this result as normal/abnormal. JENNIFER (test code = JENNIFER) Reference (Normal) Range (defined by the 99th percentile reference limit): <= 0.034 ng/mL Note: Cardiac troponin begins to rise 3-4 hours after the onset of ischemia. Repeat in 4-6 hours if the sample was drawn within 3-4 hours of the onset of the symptom and found normal. Diagnosis of myocardial injury is made with acute changes in cTn concentrations with at least one serial sample above the 99th percentile upper reference limit (URL), taken together with the patient's clinical presentation. Biotin has been reported to cause a negative bias, interpret results relative to patient's use of biotin. Lab Interpretation (test code = 44909-1) Abnormal [facility] WITHOUT [id number] 06:34:57* Test Item Value Reference Range Interpretation Comme nts WBC (test code = 6690-2) See_Comment [Automated message] The system which generated this result transmitted reference range: 4.20 - 10.70 10*3/?L. The reference range was not used to interpret this result as normal/abnormal. RBC (test code = 789-8) See_Comment [Automated message] The system which generated this result transmitted reference range: 4.26 - 5.52 10*6/?L. The reference range was not used to interpret this result as normal/abnormal. HGB (test code = 718-7) 12.1 g/dL 12.2-16.4 L HCT (test code = 4544-3) 37.1 % 38.4-49.3 L MCH (test code = 785-6) 26.4 pg 26.1-32.7 MCV (test code = 787-2) 80.8 fL 81.7-95.6 L MCHC (test code = 786-4) 32.6 g/dL 31.2-35.0 PLT (test code = 777-3) See_Comment [Automated message] The system which generated this result transmitted reference range: 150 - 328 10*3/?L. The reference range was not used to interpret this result as normal/abnormal. MPV (test code = 88051-4) 10.0 fL 9.8-13.0 RDW-CV (test code = 788-0) 19.2 % 12.1-15.4 H RDW-SD (test code = 32206-5) 54.9 fL 38.5-51.6 H NRBC x10^3 (test code = 5297995586) <0.01 See_Comment [Automated messa ge] The system which generated this result transmitted reference range: 10*3/?L. The reference range was not used to interpret this result as normal/abnormal. NRBC/100 WBC (test code = 6526176420) See_Comment [Automated messa ge] The system which generated this result transmitted reference range: 0.0 - 10.0 /100 WBCs. The reference range was not used to interpret this result as normal/abnormal. IPF % (test code = 6144588899) Lab Interpretation (test code = 30464-7) [facility]normal [facility] + Lactic [id number] 06:31:36* Test Item Value Reference Range Interpretation Comme nts PH (test code = 2) 7.35-7.45 L PCO2 (test code = 9062033213) See_Comment [Automated messa ge] The system which generated this result transmitted reference range: 35 - 45 mmHg. The reference range was not used to interpret this result as normal/abnormal. PO2 (test code = 0739675780) See_Comment [Automated messa ge] The system which generated this result transmitted reference range: 80 - 100 mmHg. The reference range was not used to interpret this result as normal/abnormal. HCO3 (test code = 4053910610) See_Comment [Automated messa ge] The system which generated this result transmitted reference range: 22 - 26 mEq/L. The reference range was not used to interpret this result as normal/abnormal. BE (test code = 7034805960) See_Comment [Automated messa ge] The system which generated this result transmitted reference range: -3.0 - 3.0 mEq/L. The reference range was not used to interpret this result as normal/abnormal. THB (test code = 3434045455) 12.8 g/dL 13.5-18.0 L %O2HB (test code = 1055889961) 95.6 % 94.0-99.0 %COHB ART (test code = 6237494438) 0.7 % 0.0-1.5 %METHB ART (test code = 7517333372) 0.1 % 0.4-1.5 L VOL%O2 ART (test code = 5618271346) 17.3 % 15.0-23.0 NA (test code = 6026008140) 141 mmol/L 135-145 K+ (test code = 6511938094) 4.3 mmol/L 3.5-5.0 AC CA IONZ (test code = 4751643410) 4.40 mg/dL 4.50-5.30 L GLUCOSE (test code = 7763463969) 139 mg/dL 70-110 H LACTIC ACID (test code = 8728427042) 2.54 mmol/L 0.50-2.20 H Lab Interpretation (test code = 23886-2) [facility]normal [facility]ETHANOL2022-[facility] 04:16:53* Test Item Value Reference Range Interpretation Comme nts ALCOHOL (test code = 2125252469) <10 mg/dL JENNIFER (test code = JENNIFER) Toxic Greater than or equal to 80 mg/dL. NOTE: Whole blood values are approximately 10% to 15% lower than serum and plasma. [facility] + Lactic Qnux6315-65-63 02:32:20* Test Item Value Reference Range Interpretation Comme nts PH (test code = 2) 7.35-7.45 L PCO2 (test code = 4033581699) See_Comment [Automated messa ge] The system which generated this result transmitted reference range: 35 - 45 mmHg. The reference range was not used to interpret this result as normal/abnormal. PO2 (test code = 7395293402) See_Comment H [Automated messa ge] The system which generated this result transmitted reference range: 80 - 100 mmHg. The reference range was not used to interpret this result as normal/abnormal. HCO3 (test code = 8267595557) See_Comment L [Automated messa ge] The system which generated this result transmitted reference range: 22 - 26 mEq/L. The reference range was not used to interpret this result as normal/abnormal. BE (test code = 8688352257) See_Comment L [Automated messa ge] The system which generated this result transmitted reference range: -3.0 - 3.0 mEq/L. The reference range was not used to interpret this result as normal/abnormal. THB (test code = 0262685941) 12.7 g/dL 13.5-18.0 L %O2HB (test code = 2584573327) 98.2 % 94.0-99.0 %COHB ART (test code = 0269699524) 0.4 % 0.0-1.5 %METHB ART (test code = 5113268993) 0.1 % 0.4-1.5 L VOL%O2 ART (test code = 8964892283) 17.8 % 15.0-23.0 NA (test code = 5801799899) 139 mmol/L 135-145 K+ (test code = 0650257660) 4.0 mmol/L 3.5-5.0 AC CA IONZ (test code = 5375333548) 4.40 mg/dL 4.50-5.30 L GLUCOSE (test code = 3091283855) 121 mg/dL 70-110 H LACTIC ACID (test code = 5861633985) 2.29 mmol/L 0.50-2.20 H Lab Interpretation (test code = 26932-4) [facility]normal [facility]usaPTT2022-07-[facility] 01:16:16* Test Item Value Reference Range Interpretation Comme nts APTT Patient (test code = 3173-2) See_Comment [Automated messa ge] The system which generated this result transmitted reference range: 26 - 36 Seconds. The reference range was not used to interpret this result as normal/abnormal. Lab Interpretation (test code = 65461-8) Normal [facility] CampusFibrinogen Emcza6539-69-89 01:16:16* Test Item Value Reference Range Interpretation Comme [facility] Fibrinogen (test code = 3238802273) 391 mg/dL 167-453 Lab Interpretation (test cod e = 42014-9) Normal [facility] CampusCREATINE JPUMBK3709-80-65 01:13:01* Test Item Value Reference Range Interpretation Comme nts CK (test code = 8073144398) 443 U/L 33-194 H Lab Interpretation (test cod e = 05343-1) Abnormal [facility] CampusLIPASE2022-07-03 01:13:01* Test Item Value Reference Range Interpretation Comme nts LIPASE (test code = 8556387315) 21 U/L 0-220 Lab Interpretation (test cod e = 68475-9) Normal [facility] CampusProfile / Ksbswbzr8440-67-82 01:05:20* Test Item Value Reference Range Interpretation Comme nts WBC (test code = 6690-2) See_Comment [Automated message] The system which generated this result transmitted reference range: 4.20 - 10.70 10*3/?L. The reference range was not used to interpret this result as normal/abnormal. RBC (test code = 789-8) See_Comment [Automated message] The system which generated this result transmitted reference range: 4.26 - 5.52 10*6/?L. The reference range was not used to interpret this result as normal/abnormal. HGB (test code = 718-7) 13.5 g/dL 12.2-16.4 HCT (test code = 4544-3) 42.5 % 38.4-49.3 MCH (test code = 785-6) 25.9 pg 26.1-32.7 L MCV (test code = 787-2) 81.6 fL 81.7-95.6 L MCHC (test code = 786-4) 31.8 g/dL 31.2-35.0 PLT (test code = 777-3) See_Comment [Automated message] The system which generated this result transmitted reference range: 150 - 328 10*3/?L. The reference range was not used to interpret this result as normal/abnormal. MPV (test code = 99068-8) 10.0 fL 9.8-13.0 RDW-CV (test code = 788-0) 19.4 % 12.1-15.4 H RDW-SD (test code = 42248-3) 54.6 fL 38.5-51.6 H NRBC x10^3 (test code = 9294565162) <0.01 See_Comment [Automated messa ge] The system which generated this result transmitted reference range: 10*3/?L. The reference range was not used to interpret this result as normal/abnormal. NRBC/100 WBC (test code = 0503098248) See_Comment [Automated messa ge] The system which generated this result transmitted reference range: 0.0 - 10.0 /100 WBCs. The reference range was not used to interpret this result as normal/abnormal. IPF % (test code = 6413899292) Lab Interpretation (test code = 05184-5) Abnormal [facility] with Ltdazsyvockr0373-56-01 00:56:25* Test Item Value Reference Range Interpretation Comme nts WBC (test code = 6690-2) See_Comment L [Automated message] The system which generated this result transmitted reference range: 4.20 - 10.70 10*3/?L. The reference range was not used to interpret this result as normal/abnormal. RBC (test code = 789-8) See_Comment [Automated message] The system which generated this result transmitted reference range: 4.26 - 5.52 10*6/?L. The reference range was not used to interpret this result as normal/abnormal. HGB (test code = 718-7) 14.0 g/dL 12.2-16.4 HCT (test code = 4544-3) 43.7 % 38.4-49.3 MCV (test code = 787-2) 81.8 fL 81.7-95.6 MCH (test code = 785-6) 26.2 pg 26.1-32.7 MCHC (test code = 786-4) 32.0 g/dL 31.2-35.0 RDW-SD (test code = 61763-7) 55.3 fL 38.5-51.6 H RDW-CV (test code = 788-0) 19.5 % 12.1-15.4 H PLT (test code = 777-3) See_Comment [Automated message] The system which generated this result transmitted reference range: 150 - 328 10*3/?L. The reference range was not used to interpret this result as normal/abnormal. MPV (test code = 79981-3) 9.8 fL 9.8-13.0 NRBC/100 WBC (test code = 9230039675) See_Comment [Automated message] The system which generated this result transmitted reference range: 0.0 - 10.0 /100 WBCs. The reference range was not used to interpret this result as normal/abnormal. NRBC x10^3 (test code = 5226544375) <0.01 See_Comment [Automated message] The system which generated this result transmitted reference range: 10*3/?L. The reference range was not used to interpret this result as normal/abnormal. GRAN MAT (NEUT) % (test code = 770-8) 86.5 % IMM GRAN % (test code = 4907069557) 0.60 % LYMPH % (test code = 736-9) 6.7 % MONO % (test code = 5905-5) 5.6 % EOS % (test code = 713-8) 0.0 % BASO % (test code = 706-2) 0.6 % GRAN MAT x10^3(ANC) (test code = 7868344572) 3.10 10*3/uL 1.99-6.95 IMM GRAN x10^3 (test code = 7257318627) <0.03 0.00-0.06 LYMPH x10^3 (test code = 731-0) 0.24 10*3/uL 1.09-3.23 L MONO x10^3 (test code = 742-7) 0.20 10*3/uL 0.36-1.02 L EOS x10^3 (test code = 711-2) <0.03 0.06-0.53 L BASO x10^3 (test code = 704-7) <0.03 0.01-0.09 BANDS (test code = 2207211741) MARKED INCREASED A Lab Interpretation (test code = 09537-1) [facility]normal [facility]TR[facility] [id number] 00:44:19* Test Item Value Reference Range Interpretation Comments TROPONIN I (test code = 0916414794) 0.037 ng/mL See_Comment H [Automated message] The system which generated this result transmitted reference range: <=0.034. The reference range was not used to interpret this result as normal/abnormal. JENNIFER (test code = JENNIFER) Reference (Normal) Range (defined by the 99th percentile reference limit): <= 0.034 ng/mL Note: Cardiac troponin begins to rise 3-4 hours after the onset of ischemia. Repeat in 4-6 hours if the sample was drawn within 3-4 hours of the onset of the symptom and found normal. Diagnosis of myocardial injury is made with acute changes in cTn concentrations with at least one serial sample above the 99th percentile upper reference limit (URL), taken together with the patient's clinical presentation. Biotin has been reported to cause a negative bias, interpret results relative to patient's use of biotin. Lab Interpretation (test code = 87459-8) Abnormal [facility] CampusProthrombin Time / [id number] 00:35:38* Test Item Value Reference Range Interpretation Comme nts PROTIME PATIENT (test code = 5964-2) See_Comment [Automated [employer]] The system which generated this result transmitted reference range: 10.1 - 12.6 Seconds. The reference range was not used to interpret this result as normal/abnormal. INR (test code = 6301-6) Normal INR <1.1; Warfarin Therapeutic range 2.0 to 3.0 or 2.5 to 3.5, depending upon the indications. Lab Interpretation (test code = 61561-7) Normal [facility] Metabolic Panel (NA, K, CL, CO2, Glucose, BUN, Creatinine, CA)2021-10-22 00:28:57* Test Item Value Reference Range Interpretation Comme nts NA (test code = 8663759211) 142 mmol/L 135-145 K (test code = 0884562787) 4.5 mmol/L 3.5-5.0 CL (test code = 9332368981) 110 mmol/L 98-108 H CO2 TOTAL (test code = 4798438503) 21 mmol/L 23-31 L AGAP (test code = 8084639566) 2-16 BUN (test code = 8628915374) 46 mg/dL 7-23 H GLUCOSE (test code = 7842066756) 144 mg/dL 70-110 H CREATININE (test code = 5052293762) 3.90 mg/dL 0.60-1.25 H CALCIUM (test code = 1721480361) 8.0 mg/dL 8.6-10.6 L eGFR (test code = 7896588909) mL/min/1.73m2 JENNIFER (test code = JENNIFER) Association of Glomerular Filtration Rate (GFR) and Staging of Kidney Disease* + --+ --+ ------+| GFR (mL/min/1.73 m2) ?| With Kidney Damage ?| ?Without Kidney Damage+ --------+ --------+ +| ?>90 ?| ?Stage one ?| ? Normal ?+ ---+ ---+ -------+| ?60-89 ?| ?Stage two ?| ? Decreased GFR ? + --+ --+ ------+| ?30-59 ?| ?Stage three ?| ? Stage three ? + --+ --+ ------+| ?15-29 ?| ?Stage four ? | ? Stage four ?+ ---+ ---+ -------+| ?<15 (or dialysis) ? ?| ?Stage five ? | ? Stage five ?+ ---+ ---+ -------+ *Each stage assumes the associated GFR level has been in effect for at least three months. ?Stages 1 to 5, with or without kidney disease, indicate chronic kidney disease. Notes: Determination of stages one and two (with eGFR >59mL/min/1.73 m2) requires estimation of kidney damage for at least three months as defined by structural or functional abnormalities of the kidney, manifested by either:Pathological abnormalities or Markers of kidney damage (including abnormalities in the composition of the blood or urine or abnormalities in imaging tests). Lab Interpretation (test code = 63810-0) [facility]normal [facility] [id number] 00:28:57* Test Item Value Reference Range Interpretation Comme nts MAGNESIUM (test code = 6555778234) 1.9 mg/dL 1.7-2.4 Lab Interpretation (test cod e = 17579-6) Normal [facility] (ALB, T.PRO, BILI T, BU/BC, ALT, AST, ALK, PHOS)2021-10-22 00:28:57* Test Item Value Reference Range Interpretation Comme nts TOTAL BILI (test code = 9807979733) 0.4 mg/dL 0.1-1.1 BILI UNCON (test code = 5030395318) 0.3 mg/dL 0.1-1.1 BILI CONJ (test code = 1671700104) 0.0 mg/dL 0.0-0.3 T PROTEIN (test code = 9053616389) 6.6 g/dL 6.3-8.2 ALBUMIN (test code = 9313764411) 3.7 g/dL 3.5-5.0 ALK PHOS (test code = 3326932316) 49 U/L 34-122 ALTv (test code = 1742-6) 22 U/L 5-50 AST(SGOT) (test code = 0570418847) 32 U/L 13-40 Lab Interpretation (test cod e = 93080-0) Normal [facility]+COOX+NA+K+GLU+CA2+2021-10-22 00:01:49* Test Item Value Reference Range Interpretation Comme nts PH (test code = 2) 7.35-7.45 LL PCO2 (test code = 1802050237) See_Comment H [Automated messa ge] The system which generated this result transmitted reference range: 35 - 45 mmHg. The reference range was not used to interpret this result as normal/abnormal. PO2 (test code = 9080458094) See_Comment L [Automated messa ge] The system which generated this result transmitted reference range: 80 - 100 mmHg. The reference range was not used to interpret this result as normal/abnormal. HCO3 (test code = 6959736911) See_Comment [Automated messa ge] The system which generated this result transmitted reference range: 22 - 26 mEq/L. The reference range was not used to interpret this result as normal/abnormal. BE (test code = 9733341291) See_Comment L [Automated messa ge] The system which generated this result transmitted reference range: -3.0 - 3.0 mEq/L. The reference range was not used to interpret this result as normal/abnormal. THB (test code = 7264868103) 15.2 g/dL 13.5-18.0 %O2HB (test code = 4685349674) 84.9 % 94.0-99.0 L %COHB ART (test code = 6376346795) 1.4 % 0.0-1.5 %METHB ART (test code = 9763988700) 0.2 % 0.4-1.5 L VOL%O2 ART (test code = 8232614431) 18.1 % 15.0-23.0 NA (test code = 9054317622) 141 mmol/L 135-145 K+ (test code = 3737441172) 4.7 mmol/L 3.5-5.0 AC CA IONZ (test code = 9398809015) 4.80 mg/dL 4.50-5.30 GLUCOSE (test code = 3483693494) 151 mg/dL 70-110 H Lab Interpretation (test code = 15149-7) Abnormal [facility]"
[2023-05-24 21:52] LABS: Absolute Lymphocytes (CBC) 3.8 K/uL (0.7-4.9); Hematocrit 48.5 % (39.6-49.0); Lymphocytes % 28.4 % (15.3-44.8); MCV 89.1 fL (80-100); MPV 8.1 fL (7.6-11.3); Platelets 293 thou/uL (152-406); RBC Red Blood Cell Count 5.44 M/uL (4.33-5.43)
[2023-05-24 21:58] LABS: ALT/SGPT 47 U/L (16-61); AST/SGOT 19 U/L (15-37); Albumin 4.2 g/dL (3.4-5.0); Alkaline Phosphatase 105 U/L (45-117); BUN Blood Urea Nitrogen 15 mg/dL (7-18); Bicarbonate 26 mEq/L (21-32); Bilirubin Direct < 0.1 mg/dL (0-0.2); Bilirubin Indirect, Calculated ND mg/dL (0.2-0.8); Bilirubin Total 0.2 mg/dL (0.2-1.0); Glomerular Filtration Rate 90 ml/min (=/>90); Glucose Level 98 mg/dL (74-106); Potassium 3.1 mEq/L (3.5-5.1); Protein, Total 7.8 g/dL (6.4-8.2); Sodium Level 142 mEq/L (136-145)
--- NOTE | 2023-05-24 22:04 | RAD REPORT ---
EXAM DESCRIPTION: Shanique Single View05/24/2023 9:57 pm CLINICAL HISTORY: Chest pain COMPARISON: 2022 FINDINGS: Area scarring left lung base. The lungs appear clear of acute infiltrate. The heart is normal size IMPRESSION: No acute abnormalities displayed
[2023-05-24 22:06] LABS: Protime INR 0.95
--- NOTE | 2023-05-24 22:18 | RAD REPORT ---
EXAM DESCRIPTION: CT - Head C Spine Mpr Wo Con - 05/24/2023 10:08 pm CLINICAL HISTORY: Head and neck injury status post fall. Head and neck pain COMPARISON: January 2023 TECHNIQUE: Computed axial tomography of the head and cervical spine was obtained. Sagittal and coronal reconstruction was performed. All CT scans are performed using dose optimization technique as appropriate and may include automated exposure control or mA/KV adjustment according to patient size. FINDINGS: Left parietal scalp hematoma. An intracranial bleed is not seen. The ventricles are normal in caliber. No significant hypodensity within the brain. An extra-axial fluid collection is not noted. Fluid within the visualized sinuses and mastoids is not seen A cervical fracture is not visualized. No dislocation is noted. IMPRESSION: No acute intracranial abnormality is seen. A cervical fracture is not visualized. If the patient continues to have symptoms to suggest intracranial /spinal cord pathology then MRI wou ld be recommended
--- NOTE | 2023-05-24 22:19 | RAD REPORT ---
EXAM DESCRIPTION: RAD - Pelvis - 05/24/2023 9:57 pm CLINICAL HISTORY: Pelvic pain status post injury FINDINGS: No fracture or dislocation is seen. If the patient continues to have symptoms to suggest an occult fracture then MRI would be recommended
[2023-05-24 22:21] LABS: Barbiturates NEGATIVE (NEGATIVE); Benzodiazepines POSITIVE (NEGATIVE); Cocaine NEGATIVE (NEGATIVE); METHAMPHETAM NEGATIVE (NEGATIVE); Methadone NEGATIVE (NEGATIVE); Opiates NEGATIVE (NEGATIVE); Phencyclidine NEGATIVE (NEGATIVE); THC Cannibis NEGATIVE (NEGATIVE)
--- NOTE | 2023-05-24 23:30 | ER ---
Nurse's Notes [facility] Name: Noe Hartman Age: 42 yrs Sex: Male : 1980 Arrival Date: 05/24/2023 Time: 20:59 Bed IW10 Private MD: Diagnosis: Alcohol abuse with intoxication;Hypokalemia;Unspecified injury of head, initial encounter;Abrasion of right ear Presentation: 05/24 21:05 Chief complaint: EMS states: Patient fell down and hit the back of his head and has a jw7 laceration to his right ear. Coronavirus screen: At this time, the client does not indicate any symptoms associated with coronavirus-19. Ebola Screen: No symptoms or risks identified at this time. Initial Sepsis Screen: Does the patient meet any 2 criteria? No. Patient's initial sepsis screen is negative. Does the patient have a suspected source of infection? No. Patient's initial sepsis screen is negative. Risk Assessment: Do you want to hurt yourself or someone else? Patient reports no desire to harm self or others. Onset of symptoms was May 24, 2023. Care prior to arrival: IV initiated. in the right forearm. 21:05 Method Of Arrival: EMS: [place] [address] 21:05 Acuity: JOHNSON 3 jw7 Triage Assessment: 21:05 General: Appears in no apparent distress. comfortable, Behavior is calm, cooperative. jw7 Pain: Denies pain. EENT: Laceration to right ear. Neuro: Level of Consciousness is awake, alert, obeys commands, Oriented to person, place. Cardiovascular: Capillary refill < 3 seconds Patient's skin is warm and dry. Respiratory: Airway is patent Trachea midline Respiratory effort is even, unlabored, Respiratory pattern is regular, symmetrical. GI: Abdomen is flat, non-distended. : No deficits noted. No signs and/or symptoms were reported regarding the genitourinary system. Derm: Skin is healthy with good turgor, Skin is dry, Skin is normal, Skin temperature is warm Wound noted right ear Wound is laceration. Musculoskeletal: Circulation, motion, and sensation intact. Range of motion: intact in all extremities. Historical: - Allergies: 21:40 No Known Allergies; jw7 - Home Meds: 21:40 Metoprolol Tartrate Oral [Active]; pantoprazole oral [Active]; Trazodone Oral [Active]; jw7 - PMHx: 21:40 Hypertension; Myocardial infarction; Kidney disease; jw7 - PSHx: 21:40 Appendectomy; jw7 - Immunization history:: Adult Immunizations unknown. - Social history:: Smoking status: Patient reports the use of cigarette tobacco products, smokes two packs cigarettes per day. Patient uses alcohol, on a daily basis. Patient/guardian denies using street drugs. - History obtained from: EMS. Screenin:05 [facility] ED Fall Risk Assessment (Adult) History of falling in the last 3 months, jw7 including since admission Yes- single mechanical fall (1 pt) Confusion or Disorientation No (0 pts) Intoxicated or Sedated Yes (3 pts) Impaired Gait Yes (1 pt) Mobility Assist Device Used No (0 pt) Altered Elimination No (0 pt) Score/Fall Risk Level 3 or more points = High Risk Oriented to surroundings, Maintained a safe environment, Educated pt \T\ family on fall prevention, incl call for assistance when getting out of bed, Provided non-skid footwear. Abuse screen: Denies threats or abuse. Denies injuries from another. Nutritional screening: No deficits noted. Tuberculosis screening: No symptoms or risk factors identified. Assessment: 21:10 General: See Triage Assessment. jw7 22:00 Reassessment: Patient appears in no apparent distress at this time. No changes from jw7 previously documented assessment. Patient and/or family updated on plan of care and expected duration. Pain level reassessed. Patient is alert, oriented x 3, equal unlabored respirations, skin warm/dry/pink. 22:10 Reassessment: Pt adamant about smoking a cigarette, IV removed. jw7 22:20 Reassessment: Pt Returned to Room. jw7 23:00 Reassessment: Patient appears in no apparent distress at this time. No changes from jw7 previously documented assessment. Patient and/or family updated on plan of care and expected duration. Pain level reassessed. Patient is alert, oriented x 3, equal unlabored respirations, skin warm/dry/pink. 23:04 Reassessment: Called Deb Hartman (sister) per pt request to inform them of jb4 pending discharge and for pt ride home. 05/25 00:03 Reassessment: Patient appears in no apparent distress at this time. No changes from jw7 previously documented assessment. Patient and/or family updated on plan of care and expected duration. Pain level reassessed. Patient is alert, oriented x 3, equal unlabored respirations, skin warm/dry/pink. Vital Signs: 05/24 21:05 BP 122 / 78; Pulse 87; Resp 19 S; Temp 98.3(TE); Pulse Ox 93% on R/A; Weight 80.74 kg; jw7 Height 5 ft. 10 in. ; Pain 0/10; 22:15 BP 112 / 73; Pulse 84; Resp 25 S; Pulse Ox 94% on R/A; jw7 23:40 BP 99 / 73; Pulse 87; Resp 14 S; Pulse Ox 96% on R/A; jw7 21:05 Body Mass Index 25.54 (80.74 kg, 177.8 cm) jw7 21:05 Pain Scale: Adult [facility] ED Course: 21:02 Patient arrived in ED. as6 21:03 Brent Verma is Attending Physician. ci 21:05 Arm band placed on. jw7 21:05 Patient has correct armband on for positive identification. Bed in low position. Call [facility] light in reach. Side rails up X2. 21:37 LizsDaina, RN is Primary Nurse. jw7 21:40 Triage completed. jw7 21:59 XRAY Chest (1 view) In Process Unspecified. EDMS 21:59 XRAY Pelvis In Process Unspecified. EDMS 22:10 CT Head C Spine In Process Unspecified. EDMS 02/ 00:05 No provider procedures requiring assistance completed. IV discontinued, intact, jw7 bleeding controlled, No redness/swelling at site. Pressure dressing applied. 00:06 Provided Education on: Discharge and ETOH . [facility] Administered Medications: 05/24 22:52 Not Given (Product Out of Stock): tetanus-diphtheria toxoidadult 0.5 ml IM once; [facility] Provide Vaccine Information Statement (VIS). 23:00 Drug: Potassium Chloride PO 40 mEq PO once Route: PO; tm6 05/25 00:05 Follow up: Response: No adverse reaction [facility] 05/24 23:00 Drug: Boostrix Tdap IM 0.5 ml IM once; as a single dose Route: IM; Site: right deltoid; 6 05/25 00:05 Follow up: Response: No adverse reaction jw7 Medication: 00:06 VIS not applicable for this client. Vaccine Information Statement (VIS) provided today. jw7 Questions and/or concerns addressed. VIS edition date: November 25, 2020. Outcome: 05/24 23:29 Discharge ordered by . ci 05/25 00:05 Discharged to home ambulatory, with family, jw7 Condition: stable Discharge instructions given to patient, family, Instructed on discharge instructions, follow up and referral plans. Demonstrated understanding of instructions, follow-up care, 00:09 Patient left the ED. jw7 Signatures: Dispatcher [employer] EDMS Robert Mccracken RN RN jb4 Anup Velasquez RN RN as6 Daina Grullon RN RN jw7 Brent Verma Tawney, RN RN tm6 Corrections: (The following items were deleted from the chart) 05/24 21:23 21:20 Immunization history: Last tetanus immunization: ci ci 21:46 21:40 General: Appears in no apparent distress. comfortable, Behavior is calm, jw7 cooperative, jw7 :46 21:40 Pain: Denies pain. jw7 jw7 21:46 21:40 EENT: Laceration to right ear. jw7 jw7 21:46 21:40 Neuro: Level of Consciousness is awake, alert, obeys commands, Oriented to 7 person, place, jw7 :46 21:40 Cardiovascular: Capillary refill < 3 seconds Patient's skin is warm and dry. jw7 jw7 21:46 21:40 Respiratory: Airway is patent Trachea midline Respiratory effort is even, jw7 unlabored, Respiratory pattern is regular, symmetrical, jw7 :46 21:40 GI: Abdomen is flat, non-distended, jw7 jw7 21:46 21:40 : No deficits noted. No signs and/or symptoms were reported regarding the jw7 genitourinary system. jw7 :46 21:40 Derm: Skin is healthy with good turgor, Skin is dry, Skin is normal, Skin jw7 temperature is warm Wound noted right ear Wound is laceration jw7 21:46 21:40 Musculoskeletal: Circulation, motion, and sensation intact. Range of motion: jw7 intact in all extremities, jw7 02/03 00:03 02/02 22:10 Reassessment: Pt Returned to Room jw7 jw7
--- NOTE | 2023-05-24 23:30 | EDPHYS ---
Physician Documentation [facility] Name: Noe Hartman Age: 42 yrs Sex: Male : 1980 Arrival Date: 05/24/2023 Time: 20:59 Bed IW10 Private MD: ED Physician Brent Verma HPI: 05/24 21:20 This 42 yrs old Male presents to ER via Unassigned with complaints of Intoxication. ci 21:20 Patient is a 42-year-old male with PMH hypertension, CHF, CAD, alcoholism, RI, GI bleed ci who presents with intoxication. Patient's found patient on the floor intoxicated, was on the floor for about an hour. Noted hematoma to head. Patient did not want to come to the hospital and was combative with EMS. Patient is intoxicated, denies any complaints.. Historical: - Allergies: 21:40 No Known Allergies; jw7 - Home Meds: 21:40 Metoprolol Tartrate Oral [Active]; pantoprazole oral [Active]; Trazodone Oral [Active]; jw7 - PMHx: 21:40 Hypertension; Myocardial infarction; Kidney disease; jw7 - PSHx: 21:40 Appendectomy; jw7 - Immunization history:: Adult Immunizations unknown. - Social history:: Smoking status: Patient reports the use of cigarette tobacco products, smokes two packs cigarettes per day. Patient uses alcohol, on a daily basis. Patient/guardian denies using street drugs. - History obtained from: EMS. ROS: 21:20 Constitutional: Negative for fever, chills, and weight loss, ci 21:20 Constitutional: Negative for body aches, fatigue, fever, 21:20 ENT: Positive for 21:20 Cardiovascular: Negative for chest pain, edema, orthopnea, 21:20 Respiratory: Negative for cough, shortness of breath, wheezing, 21:20 Abdomen/GI: Negative for abdominal pain, nausea, vomiting, and diarrhea, 21:20 Skin: Positive for abrasion(s), 21:20 Neuro: Positive for Vital Signs: 21:05 BP 122 / 78; Pulse 87; Resp 19 S; Temp 98.3(TE); Pulse Ox 93% on R/A; Weight 80.74 kg; jw7 Height 5 ft. 10 in. ; Pain 0/10; 22:15 BP 112 / 73; Pulse 84; Resp 25 S; Pulse Ox 94% on R/A; jw7 23:40 BP 99 / 73; Pulse 87; Resp 14 S; Pulse Ox 96% on R/A; jw7 21:05 Body Mass Index 25.54 (80.74 kg, 177.8 cm) jw7 21:05 Pain Scale: Adult jw7 MDM: 21:03 Patient medically screened. ci 02/02 21:05 Order name: Basic Metabolic Panel; Complete Time: 22:01 ci 02/02 22:01 Interpretation: K 3.1. ci 02/02 21:05 Order name: CBC with Diff; Complete Time: 22:01 ci 02/02 22:01 Interpretation: WBC 13.20. ci 02/02 21:05 Order name: ETOH Level; Complete Time: 22:01 ci 02/02 22:01 Interpretation: ETOH 300. ci 02/02 21:05 Order name: Hepatic Function; Complete Time: 22:01 ci 02 21:05 Order name: PT-INR; Complete Time: 22:47 ci 0202 21:05 Order name: Ptt, Activated; Complete Time: 22:47 ci 02/02 21:05 Order name: Urine Drug Screen; Complete Time: 22:47 ci 02/02 22:47 Interpretation: BZO POSITIVE. ci 02/ 21:05 Order name: CT Head C Spine; Complete Time: 22:47 ci 02/02 22:47 Interpretation: Per Radiologist's finding(s): IMPRESSION: No acute intracranial ci abnormality is seen. 05/24 21:05 Order name: XRAY Chest (1 view); Complete Time: 22:47 ci 0202 22:48 Interpretation: No acute disease. ci 02/02 21:05 Order name: XRAY Pelvis; Complete Time: 22:47 ci 0202 22:48 Interpretation: No acute disease. ci 02/02 21:05 Order name: EKG; Complete Time: 21:06 ci 02 21:05 Order name: EKG - Nurse/Tech; Complete Time: 21:42 ci 02/02 21:05 Order name: IV Saline Lock; Complete Time: 21:31 ci 02 21:05 Order name: Labs collected and sent; Complete Time: 21:31 ci 05/24 21:05 Order name: Suicide Screening ([place]); Complete Time: 21:42 ci 02 21:05 Order name: Cardiac monitoring; Complete Time: 21:31 ci 02 21:05 Order name: O2 Per Protocol; Complete Time: 21:31 ci 05/24 21:05 Order name: O2 Sat Monitoring; Complete Time: 21:31 ci Administered Medications: 22:52 Not Given (Product Out of Stock): tetanus-diphtheria toxoidadult 0.5 ml IM once; jw7 Provide Vaccine Information Statement (VIS). 23:00 Drug: Potassium Chloride PO 40 mEq PO once Route: PO; tm6 05/25 00:05 Follow up: Response: No adverse reaction jw7 05/24 23:00 Drug: Boostrix Tdap IM 0.5 ml IM once; as a single dose Route: IM; Site: right deltoid; tm6 05/25 00:05 Follow up: Response: No adverse reaction jw7 Disposition Summary: 05/24/23 23:29 Discharge Ordered Notes: Location: Home ci Problem: chronic ci Symptoms: are unchanged ci Condition: Stable ci Diagnosis - Alcohol abuse with intoxication ci - Hypokalemia ci - Unspecified injury of head, initial encounter ci - Abrasion of right ear ci Followup: ci - With: Private Physician - When: 1 - 2 days - Reason: Recheck today's complaints, Re-evaluation by your physician Discharge Instructions: - Discharge Summary Sheet ci - Alcohol Intoxication, Autj-up-Izsp ci - Abrasion, [id number]-Fodx ci - Head Injury, Adult, Ebfd-cz-Umah ci - Hypokalemia ci Forms: - Medication Reconciliation Form ci - Thank You Letter ci - Antibiotic Education ci - Prescription Opioid Use ci - Patient Portal Instructions ci - Leadership Thank You Letter ci Signatures: Dispatcher [employer] Daina Brock RN RN jw7 Brent Verma Tawney RN RN tm6 Corrections: (The following items were deleted from the chart) 05/24 21:23 21:20 Immunization history: Last tetanus immunization: ci ci
[2023-05-25 00:57] VITALS: BP 99/73; TEMP 98.3; O2SAT 96
--- NOTE | 2023-05-27 15:07 | EKG ---
Test Date: 2023-05-24 Test Time: 21:40:21 [employer] Technical Officer: MEASUREMENT RESULTS: Intervals: Rate: 83 AR: 146 QRSD: 78 QT: 396 QTc: 465 [place]: P: 80 AR: 146 QRS: 53 T: 40 INTERPRETIVE STATEMENTS: Normal sinus rhythm Normal ECG Compared to ECG 01/26/2023 00:58:01 ST (T wave) deviation no longer present Electronically Signed On 05-27-23 15:01:36 DETAILER by Puma Pedroza
== END ==
LOC: ER 20:59
DX: F10.229 Alcohol dependence with intoxication, unspecified (principal); E87.6 Hypokalemia; S00.411A Abrasion of right ear, initial encounter; S00.93XA Contusion of unspecified part of head, initial encounter; F17.210 Nicotine dependence, cigarettes, uncomplicated
CPT/HCPCS: 36415; 70450; 71045; 72125; 72170; 80048; 80076; 80307; 82077; 85025; 85610; 85730; 93005

== ENCOUNTER → 2023-07-13 | Emergency (ER) | payer SELFPAY ==
[~2023-07-13] MED LIST changes: +NICOTINE 21 MG/PAT TD ONE; -POTASSIUM CL SA 10 MEQ TAB PO ONE; +Ringers Lactate 1,000 ML IV ONE; -TDAP (DIPHTH,PERTUSS(ACELL),TET VAC) 0.5 ML VIAL IMVAC ONE
--- OUTSIDE RECORDS SUMMARY | 2023-07-13 02:08 | XMS REPORT | Continuity of Care Document ---
Author Name Unknown Address [address] [facility] [address] [place] [address] [facility] thconnect Address [address] [facility] [place] [address] Care Team Providers Care Online Community Manager Name Role Phone Casper Martinez Primary Care Physician [phone] Vikas De La Vega Attending Clinician UnavailYu Moreira DO Attending Clinician [phone] Bruna Quezada LVN Attending Clinician [phone] ROMA BRIONES Attending Clinician Unavailable Roma Briones MD Attending Clinician [phone] Jessi Sanchez RN Attending Clinician [phone] Doctor Unassigned, [place] Attending Clinician Castillo Turner MD, Mike Sahu Attending Clinician LUKAS HENAO Attending Clinician Unavailshona Phelan MD, Jim Michaud Attending Clinician [phone] Artur Valencia MD Attending Clinician [phone] Dilcia Campbell MD Attending Clinician +- [phone] Lukas Henao MD Attending Clinician + [phone] Edson Kyle DO Attending Clinician [phone] Physician, No Primary or Family Admitting Clinic larissa Unavailable ROMA BRIONES Admitting Clinician Unavailable Roma Briones MD Admitting Clinician [phone] ARTUR VALENCIA Admitting Clinician Unavailable Artur Valencia MD Admitting Clinician [phone] Payers Payer Name Policy Type Policy Number Effective Date Expirati on Date Source Problems Condition Name Condition Details Condition Category Status Onset Date Resolution Date Last Treatment Date Treating Clinician Comments Source Unstable angina Unstable angina Disease Active 2022-04 0 00:00: 00 [facility] Chest pain, unspecifie d type Chest pain, unspecifie d type Disease Active 2022-04 0 00:00: 00 [facility] Altered mental status, unspecifie d altered mental status type Altered mental status, unspecifie d altered mental status type Disease Active 7 00:00: 00 [facility] Allergies, Adverse Reactions, Alerts Allergy Name Allergy Type Status Severity Reaction(s) Onset Date Inactive Date Treating Clinician Comments Source No Allergy Informat ion Availabl e DA Active U 3-05 00:00: 00 JULEE morillo [facility] LORAZEPA M DRUG INGREDI Active High Anxiety 2022-04 0 00:00: 00 [facility] Lorazepa m Drug Intolera nce Active Anxiety 2022-04 0 00:00: 00 [facility] NO KNOWN ALLERGIE S Drug Class Active [facility] Social History Social Habit Start Date Stop Date Quantity Comments Source [facility] of tobacco use Passive smoker [facility] History of Social function 2023-01-28 00:00:00 2023-01-28 00:00:00 [facility] Tobacco use and exposure 2023-01-26 00:00:00 2023-01-26 00:00:00 Smokeless tobacco non-user [facility] Exposure to SARS-CoV-2 (event) 2021-10-16 00:00:00 2021-10-26 18:18:00 Not sure [facility] Sex Assigned At 1980 00:00:00 1980 00:00:00 [facility] Smoking Status Start Date Stop Date Source Smokes tobacco daily 2023-01-26 00:00:00 [facility] Never smoked tobacco [facility] Medications Ordered Medication Name Filled Medication Name Start Date Stop Date Current Medication? Ordering Clinician Indication Dosage Frequency Signature (SIG) Comments Components Source metoprolol succinate XL 25 mg 24 hr tablet 2022-04 00:00: 00 Yes [id number] 25mg Take 1 tablet by mouth in the morning. [facility] metoprolol succinate XL 25 mg 24 hr tablet 2022-04 00:00: 00 Yes [id number] 25mg Take 1 tablet by mouth in the morning. [facility] metoprolol succinate XL 25 mg 24 hr tablet 2022-04 00:00: 00 Yes [id number] 25mg Take 1 tablet by mouth in the morning. [facility] metoprolol succinate XL 25 mg 24 hr tablet 2022-04 00:00: 00 Yes [id number] 25mg Take 1 tablet by mouth in the morning. [facility] dicyclomine 20 mg tablet 2022-04 19:57: 49 Yes 20mg Take 1 tablet by mouth 4 (four) times daily. [facility] melatonin 3 mg tablet 2022-04 19:57: 49 Yes 3mg Take 1 tablet by mouth at bedtime. [facility] Pantoprazol e 40 mg delayed-rel ease suspension 2022-04 19:57: 49 Yes 40mg Take 40 mg by mouth in the morning. [facility] losartan-hy drochloroth iazide 100-25 mg per tablet 2022-04 19:57: 49 Yes 1{tbl} Take 1 tablet by mouth in the morning. [facility] ALPRAZolam 1 mg tablet 2022-04 19:57: 49 Yes 1mg Take 1 tablet by mouth at bedtime as needed (sleep). [facility] traZODone 50 mg tablet 2022-04 19:57: 49 Yes 50mg Take 1 tablet by mouth at bedtime as needed for Insomnia. [facility] dicyclomine 20 mg tablet 2022-04 19:57: 49 Yes 20mg Take 1 tablet by mouth 4 (four) times daily. [facility] melatonin 3 mg tablet 2022-04 19:57: 49 Yes 3mg Take 1 tablet by mouth at bedtime. [facility] Pantoprazol e 40 mg delayed-rel ease suspension 2022-04 19:57: 49 Yes 40mg Take 40 mg by mouth in the morning. [facility] losartan-hy drochloroth iazide 100-25 mg per tablet 2022-04 19:57: 49 Yes 1{tbl} Take 1 tablet by mouth in the morning. [facility] ALPRAZolam 1 mg tablet 2022-04 19:57: 49 Yes 1mg Take 1 tablet by mouth at bedtime as needed (sleep). [facility] traZODone 50 mg tablet 2022-04 19:57: 49 Yes 50mg Take 1 tablet by mouth at bedtime as needed for Insomnia. [facility] dicyclomine 20 mg tablet 2022-04 19:57: 49 Yes 20mg Take 1 tablet by mouth 4 (four) times daily. [facility] melatonin 3 mg tablet 2022-04 19:57: 49 Yes 3mg Take 1 tablet by mouth at bedtime. [facility] Pantoprazol e 40 mg delayed-rel ease suspension 2022-04 19:57: 49 Yes 40mg Take 40 mg by mouth in the morning. [facility] losartan-hy drochloroth iazide 100-25 mg per tablet 2022-04 19:57: 49 Yes 1{tbl} Take 1 tablet by mouth in the morning. [facility] ALPRAZolam 1 mg tablet 2022-04 19:57: 49 Yes 1mg Take 1 tablet by mouth at bedtime as needed (sleep). [facility] traZODone 50 mg tablet 2022-04 19:57: 49 Yes 50mg Take 1 tablet by mouth at bedtime as needed for Insomnia. [facility] dicyclomine 20 mg tablet 2022-04 19:57: 49 Yes 20mg Take 1 tablet by mouth 4 (four) times daily. [facility] melatonin 3 mg tablet 2022-04 19:57: 49 Yes 3mg Take 1 tablet by mouth at bedtime. [facility] Pantoprazol e 40 mg delayed-rel ease suspension 2022-04 19:57: 49 Yes 40mg Take 40 mg by mouth in the morning. [facility] losartan-hy drochloroth iazide 100-25 mg per tablet 2022-04 19:57: 49 Yes 1{tbl} Take 1 tablet by mouth in the morning. [facility] ALPRAZolam 1 mg tablet 2022-04 19:57: 49 Yes 1mg Take 1 tablet by mouth at bedtime as needed (sleep). [facility] traZODone 50 mg tablet 2022-04 19:57: 49 Yes 50mg Take 1 tablet by mouth at bedtime as needed for Insomnia. [facility] metoprolol succinate XL 25 mg 24 hr tablet 2022-04 19:57: 46 01-28 00:00 :00 No 25mg Take 1 tablet by mouth in the morning. [facility] lisinopriL 5 mg tablet 2022-04 19:57: 46 01-28 00:00 :00 No 5mg Take 1 tablet by mouth in the morning. [facility] hydroCHLORO thiazide 25 mg tablet 2022-04 19:57: 46 01-28 00:00 :00 No 25mg Take 1 tablet by mouth in the morning. [facility] metoprolol tartrate 25 mg tablet 2022-04 19:57: 46 01-26 00:00 :00 No 25mg Take 1 tablet by mouth in the morning and 1 tablet in the evening. [facility] magnesium sulfate in water 2 gram/50 mL (4 %) infusion 2 g 2022-04 12:00: 00 01-28 13:47 :00 No 2g 2 g, IV Piggyback, Administer over 60 Minutes, ONCE, 1 dose, On Sat01/28/23 at 0700, Routine [facility] KCL (KLOR-CON M20) tablet 80 mEq 2022-04 12:00: 00 01-28 12:53 :00 No 80meq 80 mEq, Oral, ONCE, 1 dose, On Sat01/28/23 at 0700, Routine [facility] hydrOXYzine (ATARAX) tablet 25 mg 2022-04 01:00: 00 Yes 25mg 25 mg, Oral, BID, First dose (after last modificati on) on Sat01/27/23 at 2000, Until Discontinu ed, Routine [facility] atorvastati n 40 mg tablet 2022-04 00:00: 00 Yes [id number] 40mg Take 1 tablet by mouth every evening. [facility] atorvastati n 40 mg tablet 2022-04 00:00: 00 Yes [id number] 40mg Take 1 tablet by mouth every evening. [facility] atorvastati n 40 mg tablet 2022-04 00:00: 00 Yes [id number] 40mg Take 1 tablet by mouth every evening. [facility] atorvastati n 40 mg tablet 2022-04 00:00: 00 Yes [id number] 40mg Take 1 tablet by mouth every evening. [facility] sulfur hexafluorid e microsphr (LUMASON) injection 5 mL 2022-04 15:00: 00 01-27 15:00 :00 No [id number] 5mL 5 mL, Intravenou s, ONCE, 1 dose, On Sat01/27/23 at 1000, Routine
service member approving Restricted medication : ROMA BRIONES [facility] lisinopriL (PRINIVIL,Z ESTRIL) tablet 5 mg 2022-04 008 14:00: 00 Yes 5mg 5 mg, Oral, DAILY, First dose on 01/27/23 at 0900, Until Discontinu ed, Routine [facility] metoprolol succinate XL (TOPROL XL) tablet 25 mg 2022-04 008 14:00: 00 Yes 25mg 25 mg, Oral, DAILY, First dose on 01/27/23 at 0900, Until Discontinu ed, Routine [facility] foLIC acid (FOLATE) tablet 1 mg 2022-04 008 14:00: 00 Yes 1mg 1 mg, Oral, DAILY, First dose on 01/27/23 at 0900, Until Discontinu ed, Routine [facility] thiamine (VITAMIN B1) tablet 100 mg 2022-04 0 14:00: 00 Yes 100mg 100 mg, Oral, DAILY, First dose on 01/27/23 at 0900, Until Discontinu ed, Routine [facility] KCL (KLOR-CON M20) tablet 40 mEq 2022-0408 08:15: 00 01-27 07:39 :00 No 40meq 40 mEq, Oral, ONCE, 1 dose, On 01/27/23 at 0315, Routine [facility] melatonin (MELATIN) tablet 3 mg 2022-04 008 02:00: 00 Yes 3mg 3 mg, Oral, QHS, First dose on 01/26/23 at 2100, Until Discontinu ed, Routine [facility] hydrOXYzine (ATARAX) tablet 10 mg 2022-04 007 20:49: 00 01-27 13:06 :40 No 10mg 10 mg, Oral, Q6HPRN, Starting on 01/26/23 at 1549, Until 01/27/23 at 0806, Routine, Anxiety [facility] furosemide (LASIX) injection 40 mg 2022-04 0-07 15:00: 00 01-26 13:48 :24 No 40mg 40 mg, Slow IV Push, DAILY, First dose on 01/26/23 at 1000, Until Discontinu ed, Routine [facility] oxazepam (SERAX) capsule 15 mg 2022-04 14:13: 35 Yes 15mg 15 mg, Oral, Q4HPRN, Starting on 01/26/23 at 0913, Until Discontinu ed, Routine, Only while awake for DBP equal to or greater than 100, HR equal to or greater than 100. [facility] pantoprazol e (PROTONIX) EC tablet 40 mg 2022-04 14:00: 00 Yes 40mg 40 mg, Oral, DAILY, First dose on 01/26/23 at 0900, Until Discontinu ed, Routine [facility] aspirin chewable tablet 81 mg 2022-04 14:00: 00 Yes 81mg 81 mg, Oral, DAILY, First dose on 01/26/23 at 0900, Until Discontinu ed, Routine [facility] metoprolol tartrate (LOPRESSOR) tablet 25 mg 2022-04 14:00: 00 01-26 17:41 :11 No 25mg 25 mg, Oral, BID, First dose on 01/26/23 at 0900, Until Discontinu ed, Routine [facility] heparin 25,000 Units/250 mL (Premixed Bag) in [...] ADJUST INITIAL BOLUS OR INITIAL INFUSION RATE.
[facility] atorvastati n (LIPITOR) tablet 80 mg 2022-04 12:30: 00 Yes 80mg 80 mg, Oral, QPM, First dose on 01/26/23 at 0730, Until Discontinu ed, Routine
service member approving Restricted medication : MCAWHITE [facility] nitroglycer in (NITROSTAT) sublingual tablet 0.4 mg 2022-04 12:23: 12 Yes .4mg 0.4 mg, Sublingual , Q5MIN PRN, Starting on 01/26/23 at 0723, Until Discontinu ed, Routine, Chest pain [facility] heparin (1,000 unit/mL, 10 mL vial) for Rebolusing 2022-04 12:23: 12 Yes 3000U FOR REBOLUSING , Starting on 01/26/23 at 0723, Until Discontinu ed, Routine
Dosing based on aPTT testing parameters (refer to continuous heparin drip order).
[facility] acetaminoph en (TYLENOL) tablet 650 mg 2022-04 12:23: 12 Yes 650mg 650 mg, Oral, Q6HPRN, Starting on 01/26/23 at 0723, Until Discontinu ed, Routine, Pain (scale 1-3) [facility] lisinopriL 5 mg tablet 0 7-10 00:00: 00 01-28 04:59 :00 No [id number] 5mg Take 1 tablet by mouth daily for 90 days. [facility] metoprolol succinate XL 25 mg 24 hr tablet 10-29 00:00: 00 01-28 04:59 :00 No [id number] 25mg Take 1 tablet by mouth daily for 90 days. [facility] lisinopriL 5 mg tablet 10-29 00:00: 00 01-28 04:59 :00 No [id number] 5mg Take 1 tablet by mouth daily for 90 days. [facility] metoprolol succinate XL 25 mg 24 hr tablet 10-29 00:00: 00 01-28 04:59 :00 No [id number] 25mg Take 1 tablet by mouth daily for 90 days. [facility] lisinopriL 5 mg tablet 0 10-29 00:00: 00 01-28 04:59 :00 No [id number] 5mg Take 1 tablet by mouth daily for 90 days. [facility] metoprolol succinate XL 25 mg 24 hr tablet 0 10 00:00: 00 01-28 04:59 :00 No [id number] 25mg Take 1 tablet by mouth daily for 90 days. [facility] lisinopriL 5 mg tablet 0 10 00:00: 00 01-28 04:59 :00 No [id number] 5mg Take 1 tablet by mouth daily for 90 days. [facility] metoprolol succinate XL 25 mg 24 hr tablet 0 7-10 00:00: 00 01-28 04:59 :00 No [id number] 25mg Take 1 tablet by mouth daily for 90 days. [facility] lisinopriL 5 mg tablet 2022-0 7-10 00:00: 00 2022- 10-09 04:59 :00 No [id number] 5mg Take 1 tablet by mouth daily for 90 days. [facility] metoprolol succinate XL 25 mg 24 hr tablet 10-29 00:00: 00 01-28 04:59 :00 No [id number] 25mg Take 1 tablet by mouth daily for 90 days. [facility] lisinopriL 5 mg tablet 10-29 00:00: 00 01-28 04:59 :00 No [id number] 5mg Take 1 tablet by mouth daily for 90 days. [facility] metoprolol succinate XL 25 mg 24 hr tablet 10-29 00:00: 00 01-28 04:59 :00 No [id number] 25mg Take 1 tablet by mouth daily for 90 days. [facility] lisinopriL 5 mg tablet 10-29 00:00: 00 01-28 04:59 :00 No [id number] 5mg Take 1 tablet by mouth daily for 90 days. [facility] metoprolol succinate XL 25 mg 24 hr tablet 10-29 00:00: 00 01-28 04:59 :00 No [id number] 25mg Take 1 tablet by mouth daily for 90 days. [facility] ALPRAZOLAM (XANAX ORAL) 10-28 15:59: 04 10-28 00:00 :00 No .5mg Take 0.5 mg by mouth as needed. [facility] lidocaine (LIDODERM) 5 % (700 mg/patch) patch 1 Patch 10-28 02:15: 00 10-28 14:05 :00 No 1{patch } 1 Patch, Topical, Administer over 12 Hours, ONCE, 1 dose, On Sat10/27/21 at 2115, Routine [facility] hydroCHLORO thiazide 25 mg tablet 10-28 00:00: 00 01-27 04:59 :00 No [id number] 25mg Take 1 tablet by mouth daily for 90 days. [facility] pantoprazol e 40 mg EC tablet 10-28 00:00: 00 01-27 04:59 :00 No [id number] 40mg Take 1 tablet by mouth daily for 90 days. [facility] hydroCHLORO thiazide 25 mg tablet 10-28 00:00: 00 01-27 04:59 :00 No [id number] 25mg Take 1 tablet by mouth daily for 90 days. [facility] pantoprazol e 40 mg EC tablet 10-28 00:00: 00 01-27 04:59 :00 No [id number] 40mg Take 1 tablet by mouth daily for 90 days. [facility] hydroCHLORO thiazide 25 mg tablet 10-28 00:00: 00 01-27 04:59 :00 No [id number] 25mg Take 1 tablet by mouth daily for 90 days. [facility] pantoprazol e 40 mg EC tablet 10-28 00:00: 00 01-27 04:59 :00 No [id number] 40mg Take 1 tablet by mouth daily for 90 days. [facility] hydroCHLORO thiazide 25 mg tablet 10-28 00:00: 00 01-27 04:59 :00 No [id number] 25mg Take 1 tablet by mouth daily for 90 days. [facility] pantoprazol e 40 mg EC tablet 10-28 00:00: 00 01-27 04:59 :00 No [id number] 40mg Take 1 tablet by mouth daily for 90 days. [facility] hydroCHLORO thiazide 25 mg tablet 10-28 00:00: 00 01-27 04:59 :00 No [id number] 25mg Take 1 tablet by mouth daily for 90 days. [facility] pantoprazol e 40 mg EC tablet 10-28 00:00: 00 01-27 04:59 :00 No [id number] 40mg Take 1 tablet by mouth daily for 90 days. [facility] hydroCHLORO thiazide 25 mg tablet 10-28 00:00: 00 01-27 04:59 :00 No [id number] 25mg Take 1 tablet by mouth daily for 90 days. [facility] pantoprazol e 40 mg EC tablet 10-28 00:00: 00 01-27 04:59 :00 No [id number] 40mg Take 1 tablet by mouth daily for 90 days. [facility] hydroCHLORO thiazide 25 mg tablet 10-28 00:00: 00 01-27 04:59 :00 No [id number] 25mg Take 1 tablet by mouth daily for 90 days. [facility] pantoprazol e 40 mg EC tablet 10-28 00:00: 00 01-27 04:59 :00 No [id number] 40mg Take 1 tablet by mouth daily for 90 days. [facility] dicyclomine 20 mg tablet 10-28 00:00: 00 11-28 04:59 :00 No [id number] 20mg Take 1 tablet by mouth 4 (four) times daily for 30 days. [facility] dicyclomine 20 mg tablet 10-28 00:00: 00 11-28 04:59 :00 No [id number] 20mg Take 1 tablet by mouth 4 (four) times daily for 30 days. [facility] melatonin 3 mg tablet 10-28 00:00: 00 11-28 04:59 :00 No [id number] 3mg Take 1 tablet by mouth at bedtime for 30 days. [facility] melatonin 3 mg tablet 10-28 00:00: 00 11-28 04:59 :00 No [id number] 3mg Take 1 tablet by mouth at bedtime for 30 days. [facility] dicyclomine 20 mg tablet 10-28 00:00: 00 11-28 04:59 :00 No [id number] 20mg Take 1 tablet by mouth 4 (four) times daily for 30 days. [facility] melatonin 3 mg tablet 10-28 00:00: 00 11-28 04:59 :00 No [id number] 3mg Take 1 tablet by mouth at bedtime for 30 days. [facility] dicyclomine 20 mg tablet 10-28 00:00: 00 11-28 04:59 :00 No [id number] 20mg Take 1 tablet by mouth 4 (four) times daily for 30 days. [facility] melatonin 3 mg tablet 10-28 00:00: 00 11-28 04:59 :00 No [id number] 3mg Take 1 tablet by mouth at bedtime for 30 days. [facility] dicyclomine 20 mg tablet 10-28 00:00: 00 11-28 04:59 :00 No [id number] 20mg Take 1 tablet by mouth 4 (four) times daily for 30 days. [facility] melatonin 3 mg tablet 10-28 00:00: 00 11-28 04:59 :00 No [id number] 3mg Take 1 tablet by mouth at bedtime for 30 days. [facility] dicyclomine 20 mg tablet 10-28 00:00: 00 11-28 04:59 :00 No [id number] 20mg Take 1 tablet by mouth 4 (four) times daily for 30 days. [facility] melatonin 3 mg tablet 10-28 00:00: 00 11-28 04:59 :00 No [id number] 3mg Take 1 tablet by mouth at bedtime for 30 days. [facility] lidocaine 5 % (700 mg/patch) patch 10-28 00:00: 00 10-29 04:59 :00 No [id number] 1{patch } Apply 1 Patch to area(s) once now for 1 dose. [facility] metoprolol succinate XL (TOPROL XL) tablet 25 mg 10-27 14:00: 00 Yes 25mg 25 mg, Oral, DAILY, First dose (after last modificati on) on Sat10/27/21 at 0900, Until Discontinu ed, Routine [facility] KCL (KLOR-CON M20) tablet 40 mEq 10-27 11:45: 00 10-27 11:11 :00 No 40meq 40 mEq, Oral, ONCE, 1 dose, On Sat10/27/21 at 0645, Routine [facility] lidocaine (LIDODERM) 5 % (700 mg/patch) patch 1 Patch 10-27 06:15: 00 10-27 17:28 :00 No 1{patch } 1 Patch, Topical, Administer over 12 Hours, ONCE, 1 dose, On Sat10/27/21 at 0115, Routine [facility] ampicillin- sulbactam (UNASYN) 3 g in NaCl [...] ion of Therapy: 7 days [facility] lidocaine (LIDODERM) 5 % (700 mg/patch) patch 1 Patch 10-26 19:30: 00 10-27 05:06 :18 No 1{patch } 1 Patch, Topical, Administer over 12 Hours, ONCE, 1 dose, On Sat10/26/21 at 1430, Routine [facility] KCL (KLOR-CON M20) tablet 40 mEq 10-26 15:45: 00 10-26 15:04 :00 No 40meq 40 mEq, Oral, ONCE, 1 dose, On Sat10/26/21 at 1045, Routine [facility] lisinopriL (PRINIVIL,Z ESTRIL) tablet 5 mg 10-26 15:15: 00 Yes 5mg 5 mg, Oral, DAILY, First dose on Sat10/26/21 at 1015, Until Discontinu ed, Routine [facility] potassium chloride 20 mEq/100 mL (KCL) 20 mEq/100 mL RTU IVPB 20 mEq 10-26 13:30: 00 10-26 14:33 :09 No 20meq 20 mEq, IV Piggyback, Q2H ES, 2 doses, First dose on Sat10/26/21 at 0830, Last dose on Sat10/26/21 at 1030, 100 mL [facility] lidocaine (LIDODERM) 5 % (700 mg/patch) patch 1 Patch 10-26 10:30: 00 10-26 22:01 :00 No 1{patch } 1 Patch, Topical, Administer over 12 Hours, ONCE, 1 dose, On Sat10/26/21 at 0530, Routine [facility] simethicone (GAS RELIEF (SIMETHICON E)) 40 mg/0.6 mL drops 80 mg 10-26 06:00: 00 Yes 80mg 80 mg, Oral, PC+HS, First dose on Sat10/26/21 at 0100, Until Discontinu ed, Routine [facility] melatonin (MELATIN) tablet 3 mg 10-26 04:00: 00 Yes 3mg 3 mg, Oral, QHS, First dose on Sat10/25/21 at 2300, Until Discontinu ed, Routine [facility] dicyclomine (BENTYL) tablet 20 mg 10-26 04:00: 00 Yes 20mg 20 mg, Oral, QID, First dose on Sat10/25/21 at 2300, Until Discontinu ed, Routine [facility] ALPRAZolam (XANAX) tablet 0.5 mg 10-26 01:19: 00 10-26 02:05 :00 No .5mg 0.5 mg, Oral, ONCE, 1 dose, On Sat10/25/21 at 2030, Routine [facility] acetaminoph en (TYLENOL) tablet 650 mg 10-25 20:41: 15 Yes 650mg 650 mg, Oral, Q6HPRN, Starting on Sat10/25/21 at 1541, Until Discontinu ed, Routine, Temp > 38.5 C [facility] KCL (KLOR-CON M20) tablet 40 mEq 10-25 20:15: 00 10-25 19:45 :00 No 40meq 40 mEq, Oral, ONCE, 1 dose, On Sat10/25/21 at 1515, Routine [facility] potassium chloride in water (KCL) 40 mEq/100 mL 40 mEq piggyback 10-25 06:45: 00 10-25 13:10 :00 No 40meq 40 mEq, IV Piggyback, ONCE, 1 dose, On Sat10/25/21 at 0145 [facility] KCL (KLOR-CON M20) tablet 40 mEq 10-25 06:45: 00 10-25 09:10 :00 No 40meq 40 mEq, Oral, ONCE, 1 dose, On Sat10/25/21 at 0145, Routine [facility] acetaminoph en ADULT (OFIRMEV) injection 1,000 mg 10-25 03:30: 00 10-25 03:08 :00 No 1000mg 1,000 mg, IV Infusion, at 400 mL/hr Administer over 15 Minutes, ONCE, 1 dose, On Sat10/24/21 at 2230, Routine
Indicatio n: Non-periop erative Patient
Approved by: Per Policy (NPO Status) [facility] LORazepam (ATIVAN) injection 0.5 mg 10-25 03:30: 00 10-25 02:53 :00 No .5mg 0.5 mg, Slow IV Push, ONCE, 1 dose, On Sat10/24/21 at 2230, Routine
Is the medication being used for status epilepticu s? No [facility] proMETHazin e (PHENERGAN) 12.5 mg in NS 50 mL IV piggyback (CNR) 10-25 02:45: 00 10-25 02:25 :00 No 12.5mg 12.5 mg, IV Piggyback, at 200 mL/hr Administer over 15 Minutes, ONCE NOW, 1 dose, On Sat10/24/21 at 2145, Routine [facility] pantoprazol e (PROTONIX) EC tablet 40 mg 10-25 01:00: 00 Yes 40mg 40 mg, Oral, BID, First dose on Sat10/24/21 at 2000, Until Discontinu ed, Routine [facility] metoprolol succinate XL (TOPROL XL) tablet 12.5 mg 10-24 22:15: 00 10-26 15:13 :00 No 12.5mg 12.5 mg, Oral, DAILY, First dose on Sat10/24/21 at 1715, Until Discontinu ed, Routine [facility] ALPRAZolam (XANAX) tablet 0.5 mg 10-24 21:25: 17 Yes .5mg 0.5 mg, Oral, TIDPRN, Starting on Sat10/24/21 at 1625, Until Discontinu ed, agitation [facility] potassium chloride in water (KCL) 40 mEq/100 mL 40 mEq piggyback 10-24 11:45: 00 10-24 14:57 :00 No 40meq 40 mEq, IV Piggyback, ONCE, 1 dose, On Sat10/24/21 at 0645 [facility] sodium chloride 7% (HYPER-VANESSA) nebulizer solution 4 mL 10-24 05:00: 00 10-24 23:31 :00 No 4mL 4 mL, Inhalation , BID, First dose on Sat10/24/21 at 0000, Until Discontinu ed, Routine [facility] FENTanyl PF (SUBLIMAZE (PF)) injection 50 mcg 10-24 03:30: 00 10-24 02:46 :00 No 50ug 50 mcg, Slow IV Push, ONCE, 1 dose, On Sat10/23/21 at 2230, Routine [facility] midazolam (VERSED) injection 1 mg 10-24 02:40: 30 10-24 08:34 :00 No 1mg 1 mg, IV Push, PRN - SEE INSTRUCTIO NS, 2 doses, Starting on Sat10/23/21 at 2140, Until Discontinu ed, Routine, Anxiety, Agitation [facility] acetaminoph en ADULT (OFIRMEV) injection 1,000 mg 10-24 02:16: 26 10-24 23:31 :00 No 1000mg 1,000 mg, IV Infusion, at 400 mL/hr Administer over 15 Minutes, BIDPRN, Starting on Sat10/23/21 at 2116, Until Sat10/24/21 at 1831, Routine, Needed for fever
I ndication: Non-periop erative Patient
Approved by: Per Policy (NPO Status) [facility] HYDROcodone -acetaminop hen (HYCET) 7.5-325 mg/15 mL solution 2.5 mg 10-23 23:30: 00 10-23 23:42 :00 No 2.5mg 2.5 mg, Enteral, ONCE, 1 dose, On Sat10/23/21 at 1830, Routine [facility] sulfur hexafluorid e microsphr (LUMASON) injection 5 mL 10-23 16:45: 00 10-23 16:45 :00 No [id number] 5mL 5 mL, Intravenou s, ONCE, 1 dose, On Sat10/23/21 at 1145, Routine
service member approving Restricted medication : BENEDICT BRANCH [facility] meropenem (MERREM) 1,000 mg in NaCl 0.9% [...] Blood
D uration of therapy: 7 days [facility] lactated ringers IV infusion 1,000 mL 10-23 00:45: 00 10-22 23:44 :00 No 1000mL at 999 mL/hr, 1,000 mL, Intravenou s, ONCE, 1 dose, On Sat10/22/21 at 1945, Routine [facility] vancomycin 1,250 mg in NaCl 0.9% (NS) [...] Blood
D uration of therapy: 7 days [facility] meropenem (MERREM) 1,000 mg in NaCl 0.9% [...] Blood
D uration of therapy: 7 days [facility] acetaminoph en ADULT (OFIRMEV) injection 1,000 mg 10-22 19:59: 14 10-23 19:58 :14 No 1000mg 1,000 mg, IV Infusion, at 400 mL/hr Administer over 15 Minutes, BIDPRN, Starting on Sat10/22/21 at 1459, Until Sat10/23/21 at 1458, Routine, Needed for fever
I ndication: Non-periop erative Patient
Approved by: Per Policy (NPO Status) [facility] ipratropium -albuteroL (DUONEB) 0.5 mg-3 mg(2.5 mg base)/3 mL nebulizer solution 3 mL 10-22 19:00: 00 10-24 23:41 :43 No 3mL 3 mL, Inhalation , TID, First dose on Sat10/22/21 at 1400, Until Discontinu ed, Routine [facility] lactated ringers IV infusion 1,000 mL 10-22 15:15: 00 10-22 15:06 :00 No 1000mL at 999 mL/hr, 1,000 mL, IV Infusion, ONCE, 1 dose, On Sat10/22/21 at 1015, Routine [facility] azithromyci n (ZITHROMAX) 500 mg in NaCl [...] y
Durat ion of Therapy: 7 days [facility] cefTRIAXone (ROCEPHIN) 1,000 mg in NaCl 0.9% [...] y
Durat ion of Therapy: 7 days [facility] magnesium sulfate in water 2 gram/50 mL (4 %) infusion 2 g 10-22 15:00: 00 10-22 17:50 :00 No 2g 2 g, IV Piggyback, Administer over 60 Minutes, Q1H, 2 doses, First dose on Sat10/22/21 at 1000, Last dose on Sat10/22/21 at 1100, Routine [facility] artificial tears(hypro mellose) (ISOPTO-TEA RS) 0.5 % ophthalmic drops 2 Drop 10-22 14:11: 27 Yes 2[drp] 2 Drop, Both Eyes, PRN, Starting on Sat10/22/21 at 0911, Until Discontinu ed, Routine, Dry eyes [facility] lactated ringers IV infusion 1,000 mL 10-22 13:45: 00 10-22 14:06 :25 No 1000mL at 125 mL/hr, 1,000 mL, IV Infusion, CONTINUOUS , Starting on Sat10/22/21 at 0845, Until Sat10/22/21 at 0906, Routine [facility] ampicillin- sulbactam (UNASYN) 1.5 g in NaCl 0.9% (NS) 50 mL MINI-BAG 10-22 13:30: 00 10-22 14:17 :28 No 1.5g 1.5 g, IV Piggyback, Q6H ABX, First dose on Sat10/22/21 at 0830, Until Discontinu ed, Administer over 30 Minutes, 50 mL
Reas on for Anti-Infec tive: Documented Infection< br>Documen julio cesar Infection Site: Respirator y
Durat ion of Therapy: 7 days [facility] lactated ringers IV infusion 1,000 mL 10-22 04:15: 00 10-22 05:00 :00 No 1000mL at 999 mL/hr, 1,000 mL, Intravenou s, ONCE, 1 dose, On 10/21/21 at 2315, Routine [facility] lactated ringers IV infusion 1,000 mL 10-22 02:45: 00 10-22 03:38 :00 No 1000mL at 999 mL/hr, 1,000 mL, IV Infusion, ONCE, 1 dose, On 10/21/21 at 2144, Routine [facility] NORepinephr ine 16 mg in NS 250 mL infusion RTU 10-22 02:41: 53 10-24 21:14 :31 No .05ug/k g/min 0.05-1.5 mcg/kg/min ?80 kg (3.75-112. 5 mL/hr), IV Infusion, TITRATE, MAP Goal > or = 65 mmHg, Starting on 10/21/21 at 2140
In itiate titration at 0.05 mcg/kg/min . &nb sp;Increas e by 0.1 mcg/kg/min every 30 seconds to 5 minutes as needed to reach and maintain goal blood pressure.& nbsp;&nbsp ;Maximum dose = 1.5 mcg/kg/min . &nb sp;If goal not maintained at maximum allowed dose, contact prescriber .
[facility] lactated ringers IV infusion 1,000 mL 10-22 02:30: 00 10-22 01:38 :51 No 1000mL at 999 mL/hr, 1,000 mL, IV Infusion, CONTINUOUS , Starting on 10/21/21 at 2129, Until 10/21/21 at 2037, Routine [facility] acetaminoph en ADULT (OFIRMEV) injection 1,000 mg 10-22 02:00: 00 10-22 01:19 :00 No 1000mg 1,000 mg, IV Infusion, at 400 mL/hr Administer over 15 Minutes, ONCE, 1 dose, On 10/21/21 at 2100, Routine
Indicatio n: Non-periop erative Patient
Approved by: Per Policy (NPO Status) [facility] sodium chloride 7% (HYPER-VANESSA) nebulizer solution 4 mL 10-22 01:45: 00 10-22 14:12 :29 No 4mL 4 mL, Inhalation , BID, First dose on 10/21/21 at 2044, Until Discontinu ed, Routine [facility] fentaNYL PF (SUBLIMAZE) STD 2,500 mcg in [...] at maximum allowed dose, contact prescriber .
[facility] midazolam (VERSED) STD 50mg in NaCl 0.9% [...] at maximum allowed dose, contact prescriber .
[facility] meropenem (MERREM) 1,000 mg in NaCl 0.9% (NS) 50 mL MINI-BAG 10-22 01:00: 00 10-22 02:08 :00 No 1000mg 1,000 mg, IV Piggyback, ONCE, 1 dose, On 10/21/21 at 2000, Administer over 30 Minutes, 50 mL
Rest ricted use approved by: YUAN 8TH FLOOR
R joe for Anti-Infec tive: Empiric Therapy for Suspected Infection< br>Empiric Therapy Site: Blood
D uration of therapy: 7 days [facility] vancomycin (VANCOCIN) 1,000 mg in NaCl 0.9% (NS) 250 mL VIAL-MATE IV piggyback 10-22 01:00: 00 10-22 03:09 :00 No 1000mg 1,000 mg, IV Piggyback, ONCE, 1 dose, On 10/21/21 at 2000, Administer over 60 Minutes, 250 mL
Reas on for Anti-Infec tive: Documented Infection< br>Documen julio cesar Infection Site: Abdominal< br>Duratio n of Therapy: 7 days [facility] lactated ringers IV infusion 1,000 mL 10-22 00:45: 00 10-22 01:04 :00 No 1000mL at 999 mL/hr, 1,000 mL, Intravenou s, ONCE, 1 dose, On 10/21/21 at 1945, Routine [facility] dexMEDEtomi dine 200 mcg in 0.9 % [...] at maximum allowed dose, contact prescriber .
[facility] midazolam (VERSED) injection 2 mg 10-22 00:18: 33 10-23 16:25 :38 No 2mg 2 mg, Slow IV Push, Q1HPRN, Starting on 10/21/21 at 1918, Until 10/23/21 at 1125, Routine, Agitation [facility] acetaminoph en-codeine 300-30 mg tablet 2018-04 006 00:00: 00 10-28 00:00 :00 No [id number] 1{tbl} Take 1 tablet by mouth every 6 (six) hours as needed for Pain (scale 4-6) for up to 30 doses. [facility] ibuprofen 800 mg tablet 2018-04 00:00: 00 10-28 00:00 :00 No [id number] 800mg Take 1 tablet by mouth every 6 (six) hours as needed for Pain (scale 4-6) for up to 30 doses. [facility] ondansetron 4 mg disintegrat ing tablet 2016-04 00:00: 00 10-28 00:00 :00 No 4mg Take 1 tablet by mouth every 8 (eight) hours as needed for Nausea and Vomiting (N/V). [facility] acetaminoph en-codeine 300-30 mg tablet 2016-04 00:00: 00 10-28 00:00 :00 No 1{tbl} Take 1 tablet by mouth every 4 (four) hours as needed for Pain (scale 7-10). [facility] naproxen sodium (ANAPROX DS) 550 mg tablet 2016-04 00:00: 00 10-28 00:00 :00 No 550mg Take 1 tablet by mouth 2 (two) times daily with meals. [facility] Immunizations Ordered Immunization Name Filled Immunization Name Date Status Comments Source TDAP (ADACEL) VACCINE 2019-01-25 00:00:00 Completed [facility] TDAP (ADACEL) VACCINE 2019-01-25 00:00:00 Completed [facility] TDAP (ADACEL) VACCINE 2019-01-25 00:00:00 Completed [facility] TDAP (ADACEL) VACCINE 2019-01-25 00:00:00 Completed [facility] TDAP (ADACEL) VACCINE 2019-01-25 00:00:00 Completed [facility] TDAP (ADACEL) VACCINE 2019-01-25 00:00:00 Completed [facility] TDAP (ADACEL) VACCINE 2019-01-25 00:00:00 Completed [facility] TDAP (ADACEL) VACCINE Unknown Completed [facility] TDAP (ADACEL) VACCINE Unknown Completed [facility] TDAP (ADACEL) VACCINE Unknown Completed [facility] TDAP (ADACEL) VACCINE Unknown Completed [facility] TDAP (ADACEL) VACCINE Unknown Completed [facility] Vital Signs Vital Name Observation Time Observation Value Comments Delano tracey Systolic blood pressure 2023-01-28 19:58:00 127 mm[Hg] [facility] Diastolic blood pressure 2023-01-28 19:58:00 87 mm[Hg] [facility] Respiratory rate 2023-01-28 19:58:00 10 /min [facility] Oxygen saturation in Arterial blood by Pulse oximetry 2023-01-28 19:58:00 99 /min [facility] Heart rate 2023-01-28 18:51:46 58 /min [facility] Body temperature 2023-01-28 16:21:00 35.83 Coty [facility] Body weight 2023-01-28 08:07:00 82.373 kg actual wt on the regular scale [facility] BMI 2023-01-28 08:07:00 26.06 kg/m2 [facility] Body height 2023-01-27 02:37:00 177.8 cm [facility] Systolic blood pressure 2021-10-28 16:26:00 151 mm[Hg] [facility] Diastolic blood pressure 2021-10-28 16:26:00 88 mm[Hg] [facility] Heart rate 2021-10-28 16:26:00 93 /min [facility] Body temperature 2021-10-28 16:26:00 37.39 Coty [facility] Respiratory rate 2021-10-28 16:26:00 18 /min [facility] Oxygen saturation in Arterial blood by Pulse oximetry 2021-10-28 16:26:00 94 /min [facility] Body height 2021-10-26 15:35:00 177.8 cm [facility] Body weight 2021-10-26 15:35:00 79.833 kg [facility] BMI 2021-10-26 15:35:00 25.25 kg/m2 [facility] Procedures Procedure Date / Time Performed Performing Clinician Source ACTIVATED PARTIAL THRMPLAS POORNIMA 2023-01-28 21:28:00 Luna Alba [facility] CATH PROCEDURE LOG 2023-01-28 18:55:48 Roma Briones [facility] MAGNESIUM 2023-01-28 16:42:00 Luna Alba [facility] BASIC METABOLIC PANEL (NA, K, CL, CO2, GLUCOSE, BUN, CREATININE, CA) 2023-01-28 16:42:00 Luna Alba Isela [facility] MAGNESIUM 2023-01-28 09:47:00 Luna Alba Isela [facility] BASIC METABOLIC PANEL (NA, K, CL, CO2, GLUCOSE, BUN, CREATININE, CA) 2023-01-28 09:47:00 Luna Alba Isela [facility] CBC WITH DIFF 2023-01-28 09:47:00 Luna Alba Isela [facility] URINALYSIS 2023-01-27 21:34:00 Yu Wells [facility] CBC WITHOUT DIFF 2023-01-27 21:15:00 Luna Alba Isela [facility] BLOOD CULTURE SCREEN 2023-01-27 15:09[facility]-27 15:09:00 Yu Wells [facility] EBV-MONONUCLEOSIS SCREEN 2023-01-27 15:09:00 Baudilio nagel [facility] GALV ONLY - INFLUENZA A B RSV PCR 2023-01-27 15:09:00 Russell [facility] PROCALCITONIN 2023-01-27 15:09:00 Russell [facility] COVID-19 (ID NOW RAPID TESTING) 2023-01-27 15:09:00 Russell [facility] LAB ONLY COVID INTERPRETATION 2023-01-27 15:09:00 Russell [facility] TRANSTHORACIC ECHO (TTE) COMPLETE W/ CONTRAST 2023-01-27 14:54:42 Russell [facility] MAGNESIUM 2023-01-27 06:23:00 Yu Wells [facility] TROPONIN I 2023-01-27 06:23:00 Russell Yu [facility] BASIC METABOLIC PANEL (NA, K, CL, CO2, GLUCOSE, BUN, CREATININE, CA) 2023-01-27 06:23:00 Russell [facility] SEDIMENTATION RATE 2023-01-27 06:23:00 Ihsan Wells [facility] CBC WITH DIFF 2023-01-27 06:23:00 Russell [facility] URINE DRUG (IMMUNOASSAY) - COMPREHENSIVE DRUG SCREEN 2023-01-27 01:25:00 Russell [facility] TROPONIN I 2023-01-26 22:40:00 Russell [facility] XR CHEST 1 VW 2023-01-26 19:22:00 Russell [facility] HB ECG ROUTINE & RHYTHM STRIP 2023-01-26 12:58:32 Russell [facility] TROPONIN I 2023-01-26 12:50:00 Russell [facility] THYROID STIMULATING HORMONE 2023-01-26 12:50:00 Russell [facility] HEPATIC FUNCTION PANEL (69043) (ALB,T.PRO,BILI T,BU/BC,ALT,AST,ALK PHOS) 2023-01-26 12:50:00 Russell [facility] BASIC METABOLIC PANEL (NA, K, CL, CO2, GLUCOSE, BUN, CREATININE, CA) 2023-01-26 12:50:00 Russell [facility] LIPID PANEL ([id number])(TOTAL CHOLESTEROL, TRIGLYCERIDES, HDL) 2023-01-26 12:50:00 Russell [facility] ETHANOL 2023-01-26 12:50:00 Yu Wells [facility] CBC WITH DIFF 2023-01-26 12:50:00 Russell [facility] GLYCOSYLATED HEMOGLOBIN (A1C) 2023-01-26 12:50:00 Russell [facility] PROTHROMBIN TIME / INR 2023-01-26 12:50:00 Russell [facility] ACTIVATED PARTIAL THRMPLAS POORNIMA 2023-01-26 12:50:00 Russell [facility] N-TERMINAL PRO-BNP 2023-01-26 12:50:00 Ihsan Wells [facility] LOW-DENSITY LIPOPROTEIN, DIRECT 2023-01-26 12:50:00 Russell [facility] EXTERNAL PROVIDER RECORDS 2021-11-09 05:01:00 Do ctor Unassigned, [place] [facility] BASIC METABOLIC PANEL (NA, K, CL, CO2, GLUCOSE, BUN, CREATININE, CA) 2021-10-28 09:41:00 Mike Turner [facility] CBC WITHOUT DIFF 2021-10-28 09:41:00 Daniel Turner [facility] PROTEIN CREAT RATIO URINE RANDOM 2021-10-27 16:45:00 [facility] 2021-10-27 16:45:00 Ang [facility] FECAL PATHOGENS BY PCR 2021-10-27 13:23:00 Hernando Eric [facility] BASIC METABOLIC PANEL (NA, K, CL, CO2, GLUCOSE, BUN, CREATININE, CA) 2021-10-27 10:51:00 Lara Fry [facility] MAGNESIUM 2021-10-26 10:31:00 Rick Eric [facility] BASIC METABOLIC PANEL (NA, K, CL, CO2, GLUCOSE, BUN, CREATININE, CA) 2021-10-26 10:31:00 Rick Eric [facility] CBC WITHOUT DIFF 2021-10-26 10:31:00 Rick Eric [facility] FECES CULTURE 2021-10-26 02:32:00 Agus [facility] MAGNESIUM 2021-10-25 16:47:00 [facility] BASIC METABOLIC PANEL (NA, K, CL, CO2, GLUCOSE, BUN, CREATININE, CA) 2021-10-25 16:47:00 Agus [facility] CLOSTRIDIUM DIFFICILE TOXIN 2021-10-25 11:35:00 Vel [facility] CBC WITH DIFF 2021-10-25 10:35:00 Agus [facility] MAGNESIUM 2021-10-25 04:44:00 Vel [facility] BASIC METABOLIC PANEL (NA, K, CL, CO2, GLUCOSE, BUN, CREATININE, CA) 2021-10-25 04:44:00 Vel [facility] AC PANEL 20 + LACTIC ACID 2021-10-25 04:44:00 Ana Crowder [facility] XR CHEST 1 VW 2021-10-25 04:14:00 Vel [facility] XR KUB 2021-10-25 04:14:[facility] CONTRAST 2021-10-24 16:24:[address] [facility] [address] HEAD WO CONTRAST 2021-10-24 16:03:35 Rich Goldsmith [facility] MAGNESIUM 2021-10-24 09:22:00 Rick Eric [facility] BASIC METABOLIC PANEL (NA, K, CL, CO2, GLUCOSE, BUN, CREATININE, CA) 2021-10-24 09:22:00 Rick Eric [facility] CBC WITHOUT DIFF 2021-10-24 09:22:00 Rick Eric [facility] SPUTUM CULTURE 2021-10-23 22:44:00 Rick Eric [facility] CBC WITHOUT DIFF 2021-10-23 20:33:00 Rick Eric [facility] TRANSTHORACIC ECHO (TTE) COMPLETE W/ CONTRAST 2021-10-23 16:30:53 [facility] 2021-10-23 08:46:00 Rick Eric [facility] BASIC METABOLIC PANEL (NA, K, CL, CO2, GLUCOSE, BUN, CREATININE, CA) 2021-10-23 08:46:00 Rick Eric [facility] CBC WITHOUT DIFF 2021-10-23 08:46:00 Rick Eric [facility] AC PANEL 20 + LACTIC ACID 2021-10-23 08:45:00 [facility] 2021-10-23 05:22:00 Rick Eric [facility] TROPONIN I 2021-10-22 23:07:00 iRck Eric [facility] CBC WITHOUT DIFF 2021-10-22 23:07:00 Eric Reid [facility] TROPONIN I 2021-10-22 16:48:00 Rick Eric [facility] VANCOMYCIN RANDOM LEVEL 2021-10-22 16:48:00 Arabella Eric [facility] CBC WITHOUT DIFF 2021-10-22 16:48:00 [facility] AC PANEL 20 + LACTIC ACID 2021-10-22 15:02:00 Azeb Deshpande [facility] HB ECG ROUTINE & RHYTHM STRIP 2021-10-22 13:43:44 Rick Eric [facility] PHOSPHORUS 2021-10-22 12:15:00 Eric Reid [facility] MAGNESIUM 2021-10-22 12:15:00 Eric Ried [facility] BASIC METABOLIC PANEL (NA, K, CL, CO2, GLUCOSE, BUN, CREATININE, CA) 2021-10-22 12:15:00 Franklin [facility] URINE DRUG (IMMUNOASSAY) - COMPREHENSIVE DRUG SCREEN 2021-10-22 10:59:00 Franklin [facility] TROPONIN I 2021-10-22 10:53:00 Meera Ayers [facility] CBC WITHOUT DIFF 2021-10-22 10:53:00 Franklin Eric [facility] AC PANEL 20 + LACTIC ACID 2021-10-22 06:28:00 Azeb Deshpande [facility] TROPONIN I 2021-10-22 06:19:00 Meera Ayers [facility] CBC WITHOUT DIFF 2021-10-22 06:19:00 Eric Reid [facility] RESPIRATORY PANEL BY PCR 2021-10-22 04:50:00 Lanny Reid [facility] URINE CULTURE 2021-10-22 02:56:00 Meera Ayers [facility] AC PANEL 20 + LACTIC ACID 2021-10-22 02:29:00 Meera Ayers [facility] CREATINE KINASE 2021-10-22 00:50:00 [facility] 2021-10-22 00:50:00 Meera Ayers [facility] ETHANOL 2021-10-22 00:50:00 Rich Goldsmith [facility] CBC WITHOUT DIFF 2021-10-22 00:50:00 [facility] ACTIVATED PARTIAL THRMPLAS POORNIMA 2021-10-22 00:50:00 Meera Ayers [facility] FIBRINOGEN 2021-10-22 00:50:00 [facility] URINE DRUG (IMMUNOASSAY) - COMPREHENSIVE DRUG SCREEN 2021-10-22 00:43:00 [facility] 2021-10-22 00:43:00 Meera Ayers [facility] CREATININE, URINE RANDOM 2021-10-22 00:43:00 Miriam Ayers [facility] UREA NITROGEN, URINE RANDOM 2021-10-22 00:43:00 Meera Ayers [facility] SODIUM, URINE RANDOM 2021-10-22 00:43:00 Myah Ayers [facility] URINE DRUG (LCMSMS) - SYNTHETIC OPIATES PANEL 2021-10-22 00:43:00 Rich Goldsmith [facility] URINE DRUG (LCMSMS) - BENZODIAZEPINES PANEL 2021-10-22 00:43:00 Rich Goldsmith [facility] COVID-19 (MOLECULAR TESTING NUCLEIC ACID AMPLIFICATION) 2021-10-22 00:42:00 Franklin [facility] LAB ONLY COVID INTERPRETATION 2021-10-22 00:42:00 Franklin [facility] COVID-19 (ID NOW RAPID TESTING) 2021-10-22 00:41:00 Franklin Eric [facility] LAB ONLY COVID INTERPRETATION 2021-10-22 00:41:00 Franklin [facility] MRSA / MSSA SCREEN BY PCR, NARES 2021-10-22 00:38:00 Eitan Ayersssica [facility] BLOOD CULTURE SCREEN 2021-10-22 00:29:00 Myah Ayers [facility] XR ABDOMEN 1 VW 2021-10-22 00:10:00 Rick Eric [facility] XR CHEST 1 VW 2021-10-22 00:10:00 Meera Ayers [facility] MAGNESIUM 2021-10-22 00:07:00 [facility] TROPONIN I 2021-10-22 00:07:00 [facility] HEPATIC FUNCTION PANEL ([id number]) (ALB,T.PRO,BILI T,BU/BC,ALT,AST,ALK PHOS) 2021-10-22 00:07:00 Meera Ayers [facility] BASIC METABOLIC PANEL (NA, K, CL, CO2, GLUCOSE, BUN, CREATININE, CA) 2021-10-22 00:07:00 Meera Ayers [facility] CBC WITH DIFF 2021-10-22 00:07:00 Andria [facility] PROTHROMBIN TIME / INR 2021-10-22 00:07:00 Chichi Ayers [facility] ABG+COOX+NA+K+GLU+CA2+ 2021-10-21 23:52:00 Jim Nelson [facility] Encounters Start Date/Time End Date/Time Encounter Type Admission Type Attending Clinicians Care Facility Care Department Encounter ID Source 2023-06-25 22:02:00 2023-06-26 22:42:00 [id number] 2023-02-11 00:00:00 2023-02-11 00:00:[address] [facility] [id number] [facility] 2023-01-29 00:00:00 2023-01-29 00:00:00 Transition of Care Bruna Quezada [id number] [facility] 2023-01-26 07:11:00 2023-01-28 19:57:00 Inpatient U [facility] [id number] [facility] 2023-01-26 07:11:00 2023-01-28 19:57:00 [facility] [id number] [id number] [facility] 2021-12-11 00:00:00 2021-12-11 00:00:00 Patient Outreach Jessi Sanchez [id number] [facility] 2021-11-12 00:00:00 2021-11-12 00:00:00 Patient Secure Msg Doctor Unassigned, [place] [facility] [id number] [facility] 2021-11-09 00:00:00 2021-11-09 00:00:00 Orders Only Doctor Unassigned, [place] [facility] [id number] [facility] 2021-11-07 00:00:00 2021-11-07 00:00:[address] [facility] [id number] [facility] 2021-11-06 00:00:00 2021-11-06 00:00:00 Transition of Care Bruna Quezada 1.2.840.114 350.1.13.10 4.2.7.2.686 [id number] [facility] 2021-11-03 00:00:00 2021-11-03 00:00:00 Patient Outreach Jessi Sanchez 1.2.840.114 350.1.13.10 4.2.7.2.686 [id number] [facility] 2021-10-31 00:00:00 2021-10-31 00:00:00 Transition of Care Bruna Quezada 1.2.840.114 350.1.13.10 4.2.7.2.686 [id number] [facility] 2021-10-21 18:30:00 2021-10-28 16:39:00 [address] [facility] AISHA [id number] [facility] 2021-10-21 18:30:00 2021-10-28 16:39:00 Hospital Encounter Jim Phelan, Artur Campbell, Dilcia Henao, Lukas Kyle, Edson [facility] 1.20.114 350.1.13.10 4.2.7.2.686 [id number] [facility] Results Test Description Test Time Test Comments Results Result Co mments Source [id number] 07:57:00* Test Item Value Reference Range Interpretation Comme nts ALCOHOL (test code = ALC) 0.24 gm/dL 0.00-0.00 H ETHYL ALCOHOL RATNA RON - INTERPRETATION: 0.050 GM/DL - NOT INTOXICATED 0.100 GM/DL - INTOXICATED 0.350-0.450 GM/DL - SEVERELY INTOXICATED 0.550 GM/DL- FATAL INTOXICATION HEPATIC FUNCTION PANEL [id number] 07:47:00* Test Item Value Reference Range Interpretation Comme nts TOTAL PROTEIN (test code = PROT) 8.2 gm/dL 6.4-8.2 N ALBUMIN (test code = ALB) 4.5 gm/dl 3.2-4.7 N BILIRUBIN TOTAL (test code = BILT) 0.3 mg/dl 0.0-1.0 N BILIRUBIN DIRECT (test code = BILD) 0.1 mg/dl 0.0-0.3 N SGOT/AST (test code = AST) 26 Units/L 15-37 N SGPT/ALT (test code = ALT) 54 Units/L 12.0-78.0 N ALKALINE PHOSPHATASE TOTAL ( test code = ALKP) 83 Units/L 50.0-136.0 N [id number] 07:41:00* Test Item Value Reference Range Interpretation Comme nts ACETAMINOPHEN (test code = ACET) <2.0 mcg/ml 10.0-30.0 L Result is in Microgram per milliliter. [id number] 07:41:00* Test Item Value Reference Range Interpretation Comme nts SALICYLATE (test code = VANESSA) 13.4 mg/dl 2.8-20.0 N CBC W/AUTO [id number] 02:52:00* Test Item Value Reference Range Interpretation Comme nts WHITE BLOOD CELL (test code = WBC) 18.2 K/mm3 4.5-11.0 H RED BLOOD CELL (test code = RBC) 5.68 M/mm3 4.40-5.90 N HEMOGLOBIN (test code = HGB) 16.5 gm/dL 13.0-17.0 N HEMATOCRIT (test code = HCT) 49.1 % 36.0-48.0 H MEAN CELL VOLUME (test code = MCV) 86.4 UM3 80.0-94.0 N MEAN CELL HGB (test code = MCH) 29.0 UUG 25.5-32.5 N MEAN CELL HGB CONCETRATION (test code = MCHC) 33.6 gm/dL 29.0-35.5 N RED CELL DISTRIBUTION WIDTH (test code = RDW) 17.9 % 11.5-15.0 H RED CELL DISTRIBUTION WIDTH SD (test code = RDW-SD) 53.6 fL 34.8-50.2 H PLATELET COUNT (test code = PLT) 348 K/mm3 150-400 N MEAN PLATELET VOLUME (test code = MPV) 9.7 fl 7.4-10.4 N NEUTROPHIL % (test code = NT%) 54.9 % 49.0-76.0 N IMMATURE GRANULOCYTE % (test code = IG%) 0.8 % 0.0-0.4 H LYMPHOCYTE % (test code = LY%) 36.0 % 23.0-38.0 N MANY APPEAR ATYPICAL/REACTIVE LYMPHS ON CBC SMEAR SCAN MONOCYTE % (test code = MO%) 5.3 % 1.0-10.0 N EOSINOPHIL % (test code = EO%) 2.3 % 1.0-5.0 N BASOPHIL % (test code = BA%) 0.7 % 0.0-1.0 N NUCLEATED RBC % (test code = NRBC%) 0.0 % 0.0-0.1 N NEUTROPHIL # (test code = NT#) 10.0 K/mm3 2.4-6.3 H IMMATURE GRANULOCYTE # (test code = IG#) 0.15 x10 3/uL 0.00-0.07 H LYMPHOCYTE # (test code = LY#) 6.6 K/mm3 1.2-4.0 H MONOCYTE # (test code = MO#) 1.0 K/mm3 0.0-0.6 H EOSINOPHIL # (test code = EO#) 0.4 K/MM3 0.0-0.7 N BASOPHIL # (test code = BA#) 0.1 K/mm3 0.0-0.2 N NUCLEATED RBC # (test code = NRBC#) 0.00 X10 3uL 0.00-0.01 N MORPHOLOGY COMMENT (test code = MOC) NM PLATELET ESTIMATE (test code = PLTEST) ADQ DRUGS OF ABUSE SCREEN [id number] 00:10:00* Test Item Value Reference Range Interpretation Comments URN COCAINE (test code = COCAURN) NEGATIVE NEGATIVE Cocaine cut-off concentration: 300 ng/mL URN CANNABINOIDS (test code = CANNABURN) NEGATIVE NEGATIVE Cannabinoids cut -off concentration: 50 ng/mL URN AMPHETAMINE (test code = AMPHETURN) NEGATIVE NEGATIVE Amphetamine cut- off concentration: 1000 ng/mL URN BARBITURATE (test code = BARBITURN) NEGATIVE NEGATIVE Barbiturate cut- off concentration: 200 ng/mL URN BENZODIAZEPINE (test code = BENZOURN) POSITIVE NEGATIVE A UNCONFIRMED INIT IAL SCREENING ONLY; SUGGEST ADDITIONALCONFIRMATORY TESTING.Benzodiazepine cut-off concentration: 200 ng/mL URN OPIATES (test code = OPIATURN) NEGATIVE NEGATIVE Opiates cut-off concentration: 2000 ng/mL URN PHENCYCLIDINE (PCP) (test code = PHENCURN) NEGATIVE NEGATIVE Phencyclidine(PC P) cut-off concentration: 25 ng/ml URN METHADONE (test code = METHAURN) NEGATIVE NEGATIVE Methadone cut-o ff concentration: 300 ng/mL WHAT DRUGS HAVE BEEN TAKEN? [id number] 10:28:00* Test Item Value Reference Range Interpretation Comme nts MAGNESIUM (test code = 0344362963) 1.8 mg/dL 1.7-2.4 Lab Interpretation (test cod e = 49273-7) [facility] (NA, K, CL, CO2, GLUCOSE, BUN, CREATININE, CA)2023-01-28 10:27:59* Test Item Value Reference Range Interpretation Comme nts NA (test code = 9826708977) 142 mmol/L 135-145 K (test code = 2998305052) 3.2 mmol/L 3.5-5.0 L CL (test code = 7474133235) 112 mmol/L 98-108 H CO2 TOTAL (test code = 7011228459) 26 mmol/L 23-31 AGAP (test code = 9885523687) 4 2-16 BUN (test code = 5779636585) 24 mg/dL 7-23 H GLUCOSE (test code = 5134501106) 89 mg/dL 70-110 CREATININE (test code = 4602594753) 0.93 mg/dL 0.60-1.25 CALCIUM (test code = 2051817842) 8.3 mg/dL 8.6-10.6 L eGFR (test code = 7393560192) 88.3 mL/min/1.73m2 JENNIFER (test code = JENNIFER) [...] imaging tests). Lab Interpretation (test code = 41881-9) Abnormal [facility] acute hospital WITH [id number] 10:11:15* Test Item Value Reference Range Interpretation Comme nts WBC (test code = 6690-2) 10.03 See_Comment [Automated [employer]] The system which generated this result transmitted [...] 31.9 g/dL 31.2-35.0 RDW-SD (test code = 89501-7) 57.8 fL 38.5-51.6 H RDW-CV (test code = 788-0) 16.5 % 12.1-15.4 H PLT (test code = 777-3) 204 See_Comment [Automated messa ge] The system which generated this result transmitted reference range: 150 - 328 10*3/?L. The reference range was not used to interpret this result as normal/abnormal. MPV (test code = 52250-4) 10.1 fL 9.8-13.0 NRBC/100 WBC (test code = 8919282460) 0.0 See_Comment [Automated [employer]] The system which generated this result transmitted reference range: 0.0 - 10.0 /100 WBCs. The reference range was not used to interpret this result as normal/abnormal. NRBC x10^3 (test code = 1250407062) See_Comment [Automated [employer] ge] The system which generated this result transmitted reference range: 10*3/?L. The reference range was not used to interpret this result as normal/abnormal. GRAN MAT (NEUT) % (test code = 770-8) 63.2 % IMM GRAN % (test code = 8376402814) 0.40 % LYMPH % (test code = 736-9) 27.1 % MONO % (test code = 5905-5) 6.9 % EOS % (test code = 713-8) 1.7 % BASO % (test code = 706-2) 0.7 % GRAN MAT x10^3(ANC) (test code = 6979786746) 6.34 10*3/uL 1.99-6.95 IMM GRAN x10^3 (test code = 8614959818) 0.04 10*3/uL 0.00-0.06 LYMPH x10^3 (test code = 731-0) 2.72 10*3/uL 1.09-3.23 MONO x10^3 (test code = 742-7) 0.69 10*3/uL 0.36-1.02 EOS x10^3 (test code = 711-2) 0.17 10*3/uL 0.06-0.53 BASO x10^3 (test code = 704-7) 0.07 10*3/uL 0.01-0.09 Lab Interpretation (test code = 19203-1) [facility] 19:45:52* Test Item Value Reference Range Interpretation Comme nts Height (test code = 2854022923) 70 in Weight (test code = 1998302735) 175 lbs Systolic BP (test code = 4437415122) 124 mmHg Diastolic BP (test code = 7152764974) 84 mmHg Heart Rate (test code = 7323115083) 67 bpm BSA (test code = 9871204318) 1.97 m2 LVIDD (test code = 8435784847) 5.10 cm Left Ventricular End Diastolic Volume by Teichholz Method (test code = 9502981) 121.1 mL IVS (test code = 3980965140) 0.77 cm Interventricular Septum Diastolic Thickness by 2D (test code = 2635159) 0.77 cm LVPWD (test code = 4694415047) 0.77 cm PW (test code = 4249964448) 0.77 cm 0.6-1.1 EF(Teich) (test code = 0105519168) 46.40 % LVIDS (test code = 6590980361) 3.90 cm Left Ventricular End Systolic Volume by Teichholz Method (test code = 0293997) 65.0 mL FS (test code = 3792179376) 23 % EF - 2D (test code = 55018717) 46.40 % LVOT diameter (test code = 6641682106) 1.82 cm LVOT area (test code = 5042985907) 2.60 cm2 Ao root diam (test code = 6783427129) 3.10 cm Aortic root (test code = 4191992888) 3.1 cm Ao root annulus (test code = 3904587202) 3.1 cm LA size (test code = 2106852864) 2.6 cm ACS (test code = 0258679504) 1.92 cm PV REGURGITATION PEAK GRADIENT (test code = 5968345689) 10.6 mmHg MV Peak E Otis (test code = 0411756116) 69.0 cm/s MV Peak A Otis (test code = 2480077262) 67.3 cm/s E/A ratio (test code = 6347585332) 1.03 ratio E wave decelartion time (test code = 2888064759) 0.17 s MV E/e' septal (test code = 9705364808) 9.5 cm/s LVOT stroke volume (test code = 7726752697) 53.00 cm3 LVOT peak tois (test code = 5890769436) 90.4 cm/s LVOT mn grad (test code = 7488162650) 1.6 mmHg AV LVOT peak gradient (test code = 7824051488) 3.3 mmHg LVOT peak VTI (test code = 1424322980) 20.3 cm LV V1 mean (test code = 8731843790) 57.70 cm/s Aortic valve mean velocity (test code = 3278613001) 71.7 cm/s Ao peak otis (test code = 3800039256) 108.6 cm/s Ao VTI (test code = 9701052619) 21.0 cm AV area by cont VTI (test code = 7920429047) 2.5 cm2 AV area peak otis (test code = 9390180001) 2.2 cm2 Ao max PG (test code = 3023821828) 4.70 mm[Hg] AV peak gradient (test code = 0083286757) 4.7 mmHg AV valve area (test code = 3990032068) 2.50 cm2 AV mean gradient (test code = 5669947765) 2.35 mmHg Tapse (test code = 8747391053) 2.26 cm LAV(MOD-sp4) (test code = 1220376711) 53.50 mL LA Volume Index (BP) (test code = 3316044864) 28.7 mL/m2 LA volume (BP) (test code = 1685993309) 56.7 mL LAV(MOD-sp2) (test code = 0869505890) 47.40 mL IVC Diam Exp(MM) (test code = 7916537494) 1.31 cm IVC Diam Ins(MM) (test code = 1845848874) 0.49 cm Radiology Study observation (narrative) (test code = 20737-2) JENNIFER (test code = JENNIFER) ?Left?Ventricle: Left [...] mL of Lumason ultrasound enhancing agent used. [facility] METABOLIC PANEL (NA, K, CL, CO2, GLUCOSE, BUN, CREATININE, CA)2021-10-28 10:23:41* Test Item Value Reference Range Interpretation Comme nts NA (test code = 7369931414) 144 mmol/L 135-145 K (test code = 8157193357) 3.3 mmol/L 3.5-5.0 L CL (test code = 6973404068) 113 mmol/L 98-108 H CO2 TOTAL (test code = 7219750426) 23 mmol/L 23-31 AGAP (test code = 4625740072) 2-16 BUN (test code = 7170254112) 16 mg/dL 7-23 GLUCOSE (test code = 1869329463) 94 mg/dL 70-110 CREATININE (test code = 1030127512) 1.11 mg/dL 0.60-1.25 CALCIUM (test code = 0422116465) 8.9 mg/dL 8.6-10.6 eGFR (test code = 6373710550) mL/min/1.73m2 JENNIFER (test code = JENNIFER) Association [...] imaging tests). Lab Interpretation (test code = 72810-8) Abnormal General acute hospital WITHOUT [id number] 10:16:39* Test Item Value Reference Range Interpretation [...] result as normal/abnormal. MPV (test code = 39280-1) 11.5 fL 9.8-13.0 RDW-CV (test code = 788-0) 19.2 % 12.1-15.4 H RDW-SD (test code = 61048-0) 51.7 fL 38.5-51.6 H NRBC x10^3 (test code = 5319781701) <0.01 See_Comment [Automated messa ge] The system which generated this result transmitted reference range: 10*3/?L. The reference range was not used to interpret this result as normal/abnormal. NRBC/100 WBC (test code = 6411349420) See_Comment [Automated messa ge] The system which generated this result transmitted reference range: 0.0 - 10.0 /100 WBCs. The reference range was not used to interpret this result as normal/abnormal. IPF % (test code = 2568668628) Lab Interpretation (test code = 86478-1) Abnormal [facility] METABOLIC PANEL (NA, K, CL, CO2, GLUCOSE, BUN, CREATININE, CA)2021-10-27 12:14:18* Test Item Value Reference Range Interpretation Comme nts NA (test code = 1214667855) 141 mmol/L 135-145 K (test code = 3690736527) 4.4 mmol/L 3.5-5.0 Slight hemolysis CL (test code = 6319849335) 115 mmol/L 98-108 H CO2 TOTAL (test code = 3115611305) 13 mmol/L 23-31 L AGAP (test code = 7217099225) 2-16 BUN (test code = 4674205384) 18 mg/dL 7-23 Slight hemolysis GLUCOSE (test code = 6663075006) 84 mg/dL 70-110 CREATININE (test code = 7755926722) 1.12 mg/dL 0.60-1.25 CALCIUM (test code = 0922850443) 9.2 mg/dL 8.6-10.6 eGFR (test code = 9047790390) mL/min/1.73m2 JENNIFER (test code = JENNIFER) Association [...] imaging tests). Lab Interpretation (test code = 71106-2) Abnormal [facility] Culture - Peripheral Vein # 02:01:33* Test Item Value Reference Range Interpretation Comme [facility]-Aerobic (test code = 39320-3) No organisms isolated No growth Previous preliminary [...] 2101 CDT Blood Culture-Anaerobic (test code = 77506-1) No organisms isolated No growth Previous preliminary [...] 2101 CDT Lab Interpretation (test code = 84944-1) Normal [facility] Culture - Peripheral [id number] 02:01:32* Test Item Value Reference Range Interpretation Comme [facility] Blood Culture-Aerobic (test code = 65240-3) No organisms isolated No growth Previous preliminary [...] 2101 CDT Blood Culture-Anaerobic (test code = 05444-4) No organisms isolated No growth Previous preliminary [...] 2101 CDT Lab Interpretation (test code = 42646-2) [facility] 11:12:08* Test Item Value Reference Range Interpretation Comme nts MAGNESIUM (test code = 7569793995) 2.0 mg/dL 1.7-2.4 Lab Interpretation (test cod e = 83806-5) [facility] (NA, K, CL, CO2, GLUCOSE, BUN, CREATININE, CA)2021-10-26 11:12:07* Test Item Value Reference Range Interpretation Comme nts NA (test code = 2361149627) 146 mmol/L 135-145 H K (test code = 7791744529) 3.3 mmol/L 3.5-5.0 L CL (test code = 6915062928) 117 mmol/L 98-108 H CO2 TOTAL (test code = 7066244107) 25 mmol/L 23-31 AGAP (test code = 3767299450) 2-16 BUN (test code = 7049964791) 19 mg/dL 7-23 GLUCOSE (test code = 9473730109) 96 mg/dL 70-110 CREATININE (test code = 4224383994) 1.25 mg/dL 0.60-1.25 CALCIUM (test code = 9332525195) 9.3 mg/dL 8.6-10.6 eGFR (test code = 9810578026) mL/min/1.73m2 JENNIFER (test code = JENNIFER) Association [...] imaging tests). Lab Interpretation (test code = 46613-3) [facility] [id number] 10:51:05* Test Item Value Reference Range Interpretation [...] result as normal/abnormal. MPV (test code = 90210-0) 10.9 fL 9.8-13.0 RDW-CV (test code = 788-0) 18.9 % 12.1-15.4 H RDW-SD (test code = 43345-1) 51.5 fL 38.5-51.6 NRBC x10^3 (test code = 7232252490) See_Comment [Automated messa ge] The system which generated this result transmitted reference range: 10*3/?L. The reference range was not used to interpret this result as normal/abnormal. NRBC/100 WBC (test code = 7923870527) See_Comment [Automated [employer]] The system which generated this result transmitted reference range: 0.0 - 10.0 /100 WBCs. The reference range was not used to interpret this result as normal/abnormal. IPF % (test code = 9823081576) Lab Interpretation (test code = 78625-2) Abnormal [facility] METABOLIC PANEL (NA, K, CL, CO2, GLUCOSE, BUN, CREATININE, CA)2021-10-25 18:19:54* Test Item Value Reference Range Interpretation Comme nts NA (test code = 9767564247) 148 mmol/L 135-145 H K (test code = 8090805095) 3.5 mmol/L 3.5-5.0 Slight hemolysis CL (test code = 4372864494) 118 mmol/L 98-108 H CO2 TOTAL (test code = 2253243837) 25 mmol/L 23-31 AGAP (test code = 1175973219) 2-16 BUN (test code = 5209496210) 24 mg/dL 7-23 H Slight hemolysis GLUCOSE (test code = 5226608514) 107 mg/dL 70-110 CREATININE (test code = 3235661657) 1.32 mg/dL 0.60-1.25 H CALCIUM (test code = 1869439220) 9.3 mg/dL 8.6-10.6 eGFR (test code = 5535313636) mL/min/1.73m2 JENNIFER (test code = JENNIFER) Association [...] imaging tests). Lab Interpretation (test code = 13726-2) [facility] 18:19:54* Test Item Value Reference Range Interpretation Comme nts MAGNESIUM (test code = 7330302337) 2.3 mg/dL 1.7-2.4 Slight hemolysis Lab Interpretation (test code = 79728-9) Normal [facility] acute hospital WITH [id number] 11:26:06* Test Item Value Reference Range Interpretation [...] 33.6 g/dL 31.2-35.0 RDW-SD (test code = 20363-6) 51.6 fL 38.5-51.6 RDW-CV (test code = 788-0) 19.3 % 12.1-15.4 H PLT (test code = 777-3) See_Comment [Automated message] The system which generated this result transmitted reference range: 150 - 328 10*3/?L. The reference range was not used to interpret this result as normal/abnormal. MPV (test code = 76620-6) 11.7 fL 9.8-13.0 NRBC/100 WBC (test code = 1903102296) See_Comment [Automated message] The system which generated this result transmitted reference range: 0.0 - 10.0 /100 WBCs. The reference range was not used to interpret this result as normal/abnormal. NRBC x10^3 (test code = 5684036521) <0.01 See_Comment [Automated message] The system which generated this result transmitted reference range: 10*3/?L. The reference range was not used to interpret this result as normal/abnormal. GRAN MAT (NEUT) % (test code = 770-8) 86.4 % IMM GRAN % (test code = 4985887145) 0.50 % LYMPH % (test code = 736-9) 7.2 % MONO % (test code = 5905-5) 4.8 % EOS % (test code = 713-8) 0.8 % BASO % (test code = 706-2) 0.3 % GRAN MAT x10^3(ANC) (test code = 1747344085) 15.13 10*3/uL 1.99-6.95 H IMM GRAN x10^3 (test code = 2079916499) 0.09 10*3/uL 0.00-0.06 H LYMPH x10^3 (test code = 731-0) 1.27 10*3/uL 1.09-3.23 MONO x10^3 (test code = 742-7) 0.85 10*3/uL 0.36-1.02 EOS x10^3 (test code = 711-2) 0.14 10*3/uL 0.06-0.53 BASO x10^3 (test code = 704-7) 0.05 10*3/uL 0.01-0.09 TARGET CELLS (test code = 85325-5) 2+ See_Comment A [Automated message] The system which generated this result transmitted reference range: (none). The reference range was not used to interpret this result as normal/abnormal. DOHLE BODIES (test code = 7792-5) Present A Lab Interpretation (test code = 06676-0) Abnormal [facility] METABOLIC PANEL (NA, K, CL, CO2, GLUCOSE, BUN, CREATININE, CA)2021-10-25 05:26:46* Test Item Value Reference Range Interpretation Comme nts NA (test code = 7722698419) 148 mmol/L 135-145 H K (test code = 4042860198) 3.0 mmol/L 3.5-5.0 L CL (test code = 2937419199) 118 mmol/L 98-108 H CO2 TOTAL (test code = 0573325775) 25 mmol/L 23-31 AGAP (test code = 7197725604) 2-16 BUN (test code = 1811246609) 28 mg/dL 7-23 H GLUCOSE (test code = 1530863784) 103 mg/dL 70-110 CREATININE (test code = 5112619225) 1.50 mg/dL 0.60-1.25 H CALCIUM (test code = 3401789823) 9.2 mg/dL 8.6-10.6 eGFR (test code = 6672162433) mL/min/1.73m2 JENNIFER (test code = JENNIFER) Association [...] imaging tests). Lab Interpretation (test code = 51071-4) [facility] 05:26:46* Test Item Value Reference Range Interpretation Comme nts MAGNESIUM (test code = 6631552289) 2.5 mg/dL 1.7-2.4 H Lab Interpretation (test cod e = 91628-9) [facility] + Lactic [id number] 04:56:07* Test Item Value Reference Range Interpretation Comme nts PH (test code = 2) 7.35-7.45 H PCO2 (test code = 5421438516) See_Comment L [Automated [employer]] The system which generated this result transmitted reference range: 35 - 45 mmHg. The reference range was not used to interpret this result as normal/abnormal. PO2 (test code = 1650477492) See_Comment L [Automated [employer]] The system which generated this result transmitted reference range: 80 - 100 mmHg. The reference range was not used to interpret this result as normal/abnormal. HCO3 (test code = 2508944603) See_Comment [Automated messa ge] The system which generated this result transmitted reference range: 22 - 26 mEq/L. The reference range was not used to interpret this result as normal/abnormal. BE (test code = 9216927960) See_Comment [Automated messa ge] The system which generated this result transmitted reference range: -3.0 - 3.0 mEq/L. The reference range was not used to interpret this result as normal/abnormal. THB (test code = 5255732666) 11.3 g/dL 13.5-18.0 L %O2HB (test code = 5163023128) 92.8 % 94.0-99.0 L %COHB ART (test code = 6838074586) 0.8 % 0.0-1.5 %METHB ART (test code = 3944280872) 0.3 % 0.4-1.5 L VOL%O2 ART (test code = 2091559186) 14.8 % 15.0-23.0 L NA (test code = 0344619428) 148 mmol/L 135-145 H K+ (test code = 3826890590) 3.1 mmol/L 3.5-5.0 L AC CA IONZ (test code = 8585926501) 5.20 mg/dL 4.50-5.30 GLUCOSE (test code = 3461853946) 99 mg/dL 70-110 LACTIC ACID (test code = 1774406159) 1.41 mmol/L 0.50-2.20 Lab Interpretation (test code = 92981-6) Abnormal [facility] METABOLIC PANEL (NA, K, CL, CO2, GLUCOSE, BUN, CREATININE, CA)2021-10-24 10:27:09* Test Item Value Reference Range Interpretation Comme nts NA (test code = 1706451373) 149 mmol/L 135-145 H K (test code = 3763539166) 3.2 mmol/L 3.5-5.0 L CL (test code = 3900700008) 118 mmol/L 98-108 H CO2 TOTAL (test code = 3441587583) 23 mmol/L 23-31 AGAP (test code = 4317253590) 2-16 BUN (test code = 4271895162) 29 mg/dL 7-23 H GLUCOSE (test code = 6813337961) 125 mg/dL 70-110 H CREATININE (test code = 0051499081) 1.57 mg/dL 0.60-1.25 H CALCIUM (test code = 9068924648) 8.3 mg/dL 8.6-10.6 L eGFR (test code = 4220550942) mL/min/1.73m2 JENNIFER (test code = JENNIFER) Association [...] imaging tests). Lab Interpretation (test code = 72101-0) [facility] 10:27:09* Test Item Value Reference Range Interpretation Comme nts MAGNESIUM (test code = 1878383874) 2.6 mg/dL 1.7-2.4 H Lab Interpretation (test cod e = 67918-5) Abnormal General acute hospital WITHOUT [id number] 09:52:04* Test Item Value Reference Range Interpretation [...] result as normal/abnormal. MPV (test code = 03850-7) 10.9 fL 9.8-13.0 RDW-CV (test code = 788-0) 18.7 % 12.1-15.4 H RDW-SD (test code = 70298-4) 53.1 fL 38.5-51.6 H NRBC x10^3 (test code = 5034013474) <0.01 See_Comment [Automated messa ge] The system which generated this result transmitted reference range: 10*3/?L. The reference range was not used to interpret this result as normal/abnormal. NRBC/100 WBC (test code = 8231876384) See_Comment [Automated messa ge] The system which generated this result transmitted reference range: 0.0 - 10.0 /100 WBCs. The reference range was not used to interpret this result as normal/abnormal. IPF % (test code = 1207216377) Lab Interpretation (test code = 54369-7) Abnormal General acute hospital WITHOUT [id number] 20:47:29* Test Item Value Reference Range Interpretation [...] result as normal/abnormal. MPV (test code = 84460-1) 10.2 fL 9.8-13.0 RDW-CV (test code = 788-0) 18.8 % 12.1-15.4 H RDW-SD (test code = 67165-8) 53.3 fL 38.5-51.6 H NRBC x10^3 (test code = 9226986275) <0.01 See_Comment [Automated messa ge] The system which generated this result transmitted reference range: 10*3/?L. The reference range was not used to interpret this result as normal/abnormal. NRBC/100 WBC (test code = 8324556785) See_Comment [Automated messa ge] The system which generated this result transmitted reference range: 0.0 - 10.0 /100 WBCs. The reference range was not used to interpret this result as normal/abnormal. IPF % (test code = 7030516729) Lab Interpretation (test code = 34204-4) [facility] 19:51:27* Test Item Value Reference Range Interpretation Comme nts Height (test code = 1740259526) in Weight (test code = 1880657301) lbs Systolic BP (test code = 7634184051) mmHg Diastolic BP (test code = 1478776350) mmHg Heart Rate (test code = 1930787539) bpm LVOT stroke volume (test code = 3519537241) 36.50 cm3 EF(Teich) (test code = 1355776039) 36.50 % LVIDD (test code = 6279880437) 4.90 cm LVIDS (test code = 6521847343) 4.10 cm IVS (test code = 0079867103) 0.84 cm LVPWD (test code = 2119505296) 0.85 cm LVOT diameter (test code = 3105695797) 2.05 cm FS (test code = 7162365714) 18 % MV Peak E Otis (test code = 5659160533) 59.6 cm/s MV Peak A Otis (test code = 8129462826) 58.6 cm/s E/A ratio (test code = 6481346602) ratio E wave decelartion time (test code = 9802118124) 0.13 s MV E/e' septal (test code = 3737727086) 7.2 cm/s LA Volume Index (BP) (test code = 3500399246) 19.2 mL/m2 LA volume (BP) (test code = 5420806091) 38.0 mL LVOT peak otis (test code = 2812777833) 61.0 cm/s LVOT mn grad (test code = 2635751709) mmHg BSA (test code = 0245222765) 1.98 m2 LA size (test code = 2187306602) 3.4 cm LAV(MOD-sp2) (test code = 8042580536) 28.30 mL LAV(MOD-sp4) (test code = 4988963158) 43.40 mL TASV (test code = 6937518884) 11.5 cm/s Tapse (test code = 5322879329) 1.66 cm AV LVOT peak gradient (test code = 0759717719) mmHg LVOT peak VTI (test code = 4670669277) 11.0 cm LV V1 mean (test code = 7213736141) 39.60 cm/s TR Peak Otis (test code = 4641467141) 191.8 cm/s Triscuspid Valve Regurgitation Peak Gradient (test code = 4539303224) mmHg Ao root annulus (test code = 5121750750) 3.3 cm Ao root diam (test code = 3074855289) 3.30 cm Aortic root (test code = 7234110263) 3.3 cm PW (test code = 8138873194) 0.85 cm 0.6-1.1 EF - 2D (test code = 53702761) 36.50 % Interventricular Septum Diastolic Thickness by 2D (test code = 9411150) 0.84 cm Aortic valve mean velocity (test code = 4027803506) 60.7 cm/s Ao peak otis (test code = 2780660896) 97.7 cm/s Ao VTI (test code = 3178498915) 16.9 cm AV area by cont VTI (test code = 9631948953) 2.2 cm2 AV area peak otis (test code = 1589063582) 2.1 cm2 Ao max PG (test code = 9109186432) 3.80 mm[Hg] AV peak gradient (test code = 9751946185) mmHg AV valve area (test code = 4975728022) 2.16 cm2 AV mean gradient (test code = 7652104044) mmHg LV Diastolic Volume (BP) (test code = 1935281240) 143.4 mL EF(MOD-bp) (test code = 4591978287) 40.30 % LV Systolic Volume (BP) (test code = 4928007229) 85.6 mL SV(MOD-bp) (test code = 0465470099) 57.70 mL EF (test code = 4231204576) 40 % Left Ventricular Stroke Volume by 2-D Biplane-MOD (test code = 1432554) 57.7 mL Radiology Study observation (narrative) (test code = 19361-3) JENNIFER (test code = JENNIFER) ?Left?Ventricle: Left [...] in size. ?Pericardium: Trivial pericardial effusion present. [facility] METABOLIC PANEL (NA, K, CL, CO2, GLUCOSE, BUN, CREATININE, CA)2021-10-23 09:19:36* Test Item Value Reference Range Interpretation Comme nts NA (test code = 8755701783) 144 mmol/L 135-145 K (test code = 6105298894) 3.7 mmol/L 3.5-5.0 CL (test code = 9966094279) 114 mmol/L 98-108 H CO2 TOTAL (test code = 4922637371) 23 mmol/L 23-31 AGAP (test code = 1147414926) 2-16 BUN (test code = 6532480170) 38 mg/dL 7-23 H GLUCOSE (test code = 1539699233) 154 mg/dL 70-110 H CREATININE (test code = 6936762123) 2.05 mg/dL 0.60-1.25 H CALCIUM (test code = 3560508887) 7.8 mg/dL 8.6-10.6 L eGFR (test code = 4370152179) mL/min/1.73m2 JENNIFER (test code = JENNIFER) Association [...] imaging tests). Lab Interpretation (test code = 85540-0) [facility] 09:19:36* Test Item Value Reference Range Interpretation Comme nts MAGNESIUM (test code = 3266106390) 2.9 mg/dL 1.7-2.4 H Lab Interpretation (test cod e = 26900-0) Abnormal [facility] acute hospital WITHOUT TERJ5528-84-04 08:52:54* Test Item Value Reference Range Interpretation [...] result as normal/abnormal. MPV (test code = 35158-4) 10.2 fL 9.8-13.0 RDW-CV (test code = 788-0) 19.2 % 12.1-15.4 H RDW-SD (test code = 10929-8) 55.0 fL 38.5-51.6 H NRBC x10^3 (test code = 3130078185) <0.01 See_Comment [Automated messa ge] The system which generated this result transmitted reference range: 10*3/?L. The reference range was not used to interpret this result as normal/abnormal. NRBC/100 WBC (test code = 4332401760) See_Comment [Automated messa ge] The system which generated this result transmitted reference range: 0.0 - 10.0 /100 WBCs. The reference range was not used to interpret this result as normal/abnormal. IPF % (test code = 4046646807) Lab Interpretation (test code = 40376-1) [facility] + Lactic Huhp2603-66-61 08:51:54* Test Item Value Reference Range Interpretation Comme nts PH (test code = 2) 7.35-7.45 PCO2 (test code = 1252704834) See_Comment [Automated messa ge] The system which generated this result transmitted reference range: 35 - 45 mmHg. The reference range was not used to interpret this result as normal/abnormal. PO2 (test code = 5149450007) See_Comment [Automated messa ge] The system which generated this result transmitted reference range: 80 - 100 mmHg. The reference range was not used to interpret this result as normal/abnormal. HCO3 (test code = 4723032124) See_Comment L [Automated messa ge] The system which generated this result transmitted reference range: 22 - 26 mEq/L. The reference range was not used to interpret this result as normal/abnormal. BE (test code = 5738942700) See_Comment L [Automated messa ge] The system which generated this result transmitted reference range: -3.0 - 3.0 mEq/L. The reference range was not used to interpret this result as normal/abnormal. THB (test code = 7530610656) 12.1 g/dL 13.5-18.0 L %O2HB (test code = 1225961560) 96.2 % 94.0-99.0 %COHB ART (test code = 4789759566) 0.4 % 0.0-1.5 %METHB ART (test code = 4448643135) 0.3 % 0.4-1.5 L VOL%O2 ART (test code = 5287835845) 16.5 % 15.0-23.0 NA (test code = 7617657880) 142 mmol/L 135-145 K+ (test code = 1241017157) 3.7 mmol/L 3.5-5.0 AC CA IONZ (test code = 2920303662) 4.60 mg/dL 4.50-5.30 GLUCOSE (test code = 7953525129) 155 mg/dL 70-110 H LACTIC ACID (test code = 1256031165) 1.78 mmol/L 0.50-2.20 Lab Interpretation (test code = 69027-2) Abnormal [facility] [id number] 06:04:07* Test Item Value Reference Range Interpretation Comments TROPONIN I (test code = 1706725242) 0.162 ng/mL See_Comment H [Automated message] The [...] of biotin. Lab Interpretation (test code = 43505-9) Abnormal [facility] Q6063-94-07 23:40:33* Test Item Value Reference Range Interpretation Comments TROPONIN I (test code = 6640722637) 0.258 ng/mL See_Comment H [Automated message] The [...] of biotin. Lab Interpretation (test code = 69498-9) Abnormal General acute hospital WITHOUT [id number] 23:27:50* Test Item Value Reference Range Interpretation [...] result as normal/abnormal. MPV (test code = 94143-5) 10.2 fL 9.8-13.0 RDW-CV (test code = 788-0) 18.6 % 12.1-15.4 H RDW-SD (test code = 77065-1) 52.1 fL 38.5-51.6 H NRBC x10^3 (test code = 4269624632) <0.01 See_Comment [Automated [employer]] The system which generated this result transmitted reference range: 10*3/?L. The reference range was not used to interpret this result as normal/abnormal. NRBC/100 WBC (test code = 6744367616) See_Comment [Automated [employer]] The system which generated this result transmitted reference range: 0.0 - 10.0 /100 WBCs. The reference range was not used to interpret this result as normal/abnormal. IPF % (test code = 8974086668) Lab Interpretation (test code = 96007-6) [facility] M6939-48-33 18:28:38* Test Item Value Reference Range Interpretation Comments TROPONIN I (test code = 6420069273) 0.251 ng/mL See_Comment H [Automated message] The [...] of biotin. Lab Interpretation (test code = 03242-1) [facility]normal [facility] CenterVancomycin Random Bhftw3275-39-11 18:19:57* Test Item Value Reference Range Interpretation Comme nts VANCO RANDOM (test code = 4384303791) 7.6 ug/mL [facility] WITHOUT AWRY0187-68-35 16:55:38* Test Item Value Reference Range Interpretation [...] result as normal/abnormal. MPV (test code = 78240-9) 9.9 fL 9.8-13.0 RDW-CV (test code = 788-0) 18.9 % 12.1-15.4 H RDW-SD (test code = 40202-5) 53.5 fL 38.5-51.6 H NRBC x10^3 (test code = 8905174115) <0.01 See_Comment [Automated messa ge] The system which generated this result transmitted reference range: 10*3/?L. The reference range was not used to interpret this result as normal/abnormal. NRBC/100 WBC (test code = 2235453163) See_Comment [Automated messa ge] The system which generated this result transmitted reference range: 0.0 - 10.0 /100 WBCs. The reference range was not used to interpret this result as normal/abnormal. IPF % (test code = 7977266364) Lab Interpretation (test code = 33080-2) [facility] + Lactic Ehgd7677-77-67 15:11:13* Test Item Value Reference Range Interpretation Comme nts PH (test code = 2) 7.35-7.45 PCO2 (test code = 5764054501) See_Comment [Automated messa ge] The system which generated this result transmitted reference range: 35 - 45 mmHg. The reference range was not used to interpret this result as normal/abnormal. PO2 (test code = 1056797253) See_Comment L [Automated messa ge] The system which generated this result transmitted reference range: 80 - 100 mmHg. The reference range was not used to interpret this result as normal/abnormal. HCO3 (test code = 9069230184) See_Comment [Automated messa ge] The system which generated this result transmitted reference range: 22 - 26 mEq/L. The reference range was not used to interpret this result as normal/abnormal. BE (test code = 9700193590) See_Comment [Automated messa ge] The system which generated this result transmitted reference range: -3.0 - 3.0 mEq/L. The reference range was not used to interpret this result as normal/abnormal. THB (test code = 8230633925) 12.2 g/dL 13.5-18.0 L %O2HB (test code = 1383008713) 91.4 % 94.0-99.0 L %COHB ART (test code = 9681975672) 0.8 % 0.0-1.5 %METHB ART (test code = 7914272280) 0.0 % 0.4-1.5 L VOL%O2 ART (test code = 6006868382) 15.7 % 15.0-23.0 NA (test code = 4291135881) 140 mmol/L 135-145 K+ (test code = 4357164706) 4.1 mmol/L 3.5-5.0 AC CA IONZ (test code = 6871498412) 4.40 mg/dL 4.50-5.30 L GLUCOSE (test code = 4103789055) 130 mg/dL 70-110 H LACTIC ACID (test code = 4678049206) 2.21 mmol/L 0.50-2.20 H Lab Interpretation (test code = 50338-0) [facility] K4178-82-71 12:38:20* Test Item Value Reference Range Interpretation Comments TROPONIN I (test code = 6696781493) 0.128 ng/mL See_Comment H [Automated message] The [...] of biotin. Lab Interpretation (test code = 08430-1) [facility]normal [facility] WITHOUT [id number] 12:08:41* Test Item Value Reference Range Interpretation [...] result as normal/abnormal. MPV (test code = 32678-7) 10.7 fL 9.8-13.0 RDW-CV (test code = 788-0) 19.3 % 12.1-15.4 H RDW-SD (test code = 46594-6) 54.9 fL 38.5-51.6 H NRBC x10^3 (test code = 8427667297) <0.01 See_Comment [Automated [employer]] The system which generated this result transmitted reference range: 10*3/?L. The reference range was not used to interpret this result as normal/abnormal. NRBC/100 WBC (test code = 3090105471) See_Comment [Automated [employer]] The system which generated this result transmitted reference range: 0.0 - 10.0 /100 WBCs. The reference range was not used to interpret this result as normal/abnormal. IPF % (test code = 6376998733) Lab Interpretation (test code = 96691-2) Abnormal [facility] [id number] 07:08:43* Test Item Value Reference Range Interpretation Comments TROPONIN I (test code = 8492917999) 0.061 ng/mL See_Comment H [Automated message] The [...] of biotin. Lab Interpretation (test code = 82229-3) Abnormal General acute hospital WITHOUT [id number] 06:34:57* Test Item Value Reference Range Interpretation [...] result as normal/abnormal. MPV (test code = 97448-2) 10.0 fL 9.8-13.0 RDW-CV (test code = 788-0) 19.2 % 12.1-15.4 H RDW-SD (test code = 24879-3) 54.9 fL 38.5-51.6 H NRBC x10^3 (test code = 9331843779) <0.01 See_Comment [Automated messa ge] The system which generated this result transmitted reference range: 10*3/?L. The reference range was not used to interpret this result as normal/abnormal. NRBC/100 WBC (test code = 8899863444) See_Comment [Automated messa ge] The system which generated this result transmitted reference range: 0.0 - 10.0 /100 WBCs. The reference range was not used to interpret this result as normal/abnormal. IPF % (test code = 1844028704) Lab Interpretation (test code = 04616-0) [facility] + Lactic Ubcb3004-71-02 06:31:36* Test Item Value Reference Range Interpretation Comme nts PH (test code = 2) 7.35-7.45 L PCO2 (test code = 3681066628) See_Comment [Automated messa ge] The system which generated this result transmitted reference range: 35 - 45 mmHg. The reference range was not used to interpret this result as normal/abnormal. PO2 (test code = 5129729693) See_Comment [Automated messa ge] The system which generated this result transmitted reference range: 80 - 100 mmHg. The reference range was not used to interpret this result as normal/abnormal. HCO3 (test code = 8641926008) See_Comment [Automated messa ge] The system which generated this result transmitted reference range: 22 - 26 mEq/L. The reference range was not used to interpret this result as normal/abnormal. BE (test code = 5619483607) See_Comment [Automated messa ge] The system which generated this result transmitted reference range: -3.0 - 3.0 mEq/L. The reference range was not used to interpret this result as normal/abnormal. THB (test code = 3051342385) 12.8 g/dL 13.5-18.0 L %O2HB (test code = 1852358746) 95.6 % 94.0-99.0 %COHB ART (test code = 3821571844) 0.7 % 0.0-1.5 %METHB ART (test code = 7305364194) 0.1 % 0.4-1.5 L VOL%O2 ART (test code = 7983139362) 17.3 % 15.0-23.0 NA (test code = 2919778786) 141 mmol/L 135-145 K+ (test code = 6229049066) 4.3 mmol/L 3.5-5.0 AC CA IONZ (test code = 1596849024) 4.40 mg/dL 4.50-5.30 L GLUCOSE (test code = 5113807990) 139 mg/dL 70-110 H LACTIC ACID (test code = 8610398186) 2.54 mmol/L 0.50-2.20 H Lab Interpretation (test code = 42083-0) [facility]normal [facility] CenterETHANOL20[facility] 04:16:53* Test Item Value Reference Range Interpretation Comme nts ALCOHOL (test code = 7423481990) <10 mg/dL JENNIFER (test code = JENNIFER) Toxic Greater than or equal to 80 mg/dL. NOTE: Whole blood values are approximately 10% to 15% lower than serum and plasma. [facility] + Lactic Tgzs3789-96-10 02:32:20* Test Item Value Reference Range Interpretation Comme nts PH (test code = 2) 7.35-7.45 L PCO2 (test code = 2363192997) See_Comment [Automated messa ge] The system which generated this result transmitted reference range: 35 - 45 mmHg. The reference range was not used to interpret this result as normal/abnormal. PO2 (test code = 1769483276) See_Comment H [Automated messa ge] The system which generated this result transmitted reference range: 80 - 100 mmHg. The reference range was not used to interpret this result as normal/abnormal. HCO3 (test code = 6401611435) See_Comment L [Automated messa ge] The system which generated this result transmitted reference range: 22 - 26 mEq/L. The reference range was not used to interpret this result as normal/abnormal. BE (test code = 6560532924) See_Comment L [Automated messa ge] The system which generated this result transmitted reference range: -3.0 - 3.0 mEq/L. The reference range was not used to interpret this result as normal/abnormal. THB (test code = 9781826297) 12.7 g/dL 13.5-18.0 L %O2HB (test code = 4897159855) 98.2 % 94.0-99.0 %COHB ART (test code = 1491609222) 0.4 % 0.0-1.5 %METHB ART (test code = 2773717901) 0.1 % 0.4-1.5 L VOL%O2 ART (test code = 5848786379) 17.8 % 15.0-23.0 NA (test code = 7724259960) 139 mmol/L 135-145 K+ (test code = 9661458172) 4.0 mmol/L 3.5-5.0 AC CA IONZ (test code = 6979539081) 4.40 mg/dL 4.50-5.30 L GLUCOSE (test code = 3367195861) 121 mg/dL 70-110 H LACTIC ACID (test code = 2006242191) 2.29 mmol/L 0.50-2.20 H Lab Interpretation (test code = 80454-3) [facility]normal [facility]eraPTT[facility] 01:16:16* Test Item Value Reference Range Interpretation Comme nts APTT Patient (test code = 3173-2) See_Comment [Automated messa ge] The system which generated this result transmitted reference range: 26 - 36 Seconds. The reference range was not used to interpret this result as normal/abnormal. Lab Interpretation (test code = 58307-0) Normal [facility] CenterFibrinogen Ljiij0903-74-13 01:16:16* Test Item Value Reference Range Interpretation Comme nts Fibrinogen (test code = 8023839554) 391 mg/dL 167-453 Lab Interpretation (test cod e = 66663-4) Normal [facility] CenterCREATINE XJZBGP1853-65-92 01:13:01* Test Item Value Reference Range Interpretation Comme nts CK (test code = 4190015802) 443 U/L 33-194 H Lab Interpretation (test cod e = 44568-7) Abnormal [facility] CenterLIPASE2022-07-[facility] 01:13:01* Test Item Value Reference Range Interpretation Comme nts LIPASE (test code = 4455164386) 21 U/L 0-220 Lab Interpretation (test cod e = 38874-6) Normal [facility] CenterProfile / Pbcymryq5393-21-28 01:05:20* Test Item Value Reference Range Interpretation [...] result as normal/abnormal. MPV (test code = 52544-3) 10.0 fL 9.8-13.0 RDW-CV (test code = 788-0) 19.4 % 12.1-15.4 H RDW-SD (test code = 41209-5) 54.6 fL 38.5-51.6 H NRBC x10^3 (test code = 6102865244) <0.01 See_Comment [Automated messa ge] The system which generated this result transmitted reference range: 10*3/?L. The reference range was not used to interpret this result as normal/abnormal. NRBC/100 WBC (test code = 6867369870) See_Comment [Automated messa ge] The system which generated this result transmitted reference range: 0.0 - 10.0 /100 WBCs. The reference range was not used to interpret this result as normal/abnormal. IPF % (test code = 1872936076) Lab Interpretation (test code = 18837-9) Abnormal General acute hospital with Tcjhkudrscah0226-84-84 00:56:25* Test Item Value Reference Range Interpretation [...] 32.0 g/dL 31.2-35.0 RDW-SD (test code = 52492-3) 55.3 fL 38.5-51.6 H RDW-CV (test code = 788-0) 19.5 % 12.1-15.4 H PLT (test code = 777-3) See_Comment [Automated message] The system which generated this result transmitted reference range: 150 - 328 10*3/?L. The reference range was not used to interpret this result as normal/abnormal. MPV (test code = 29902-2) 9.8 fL 9.8-13.0 NRBC/100 WBC (test code = 1427668017) See_Comment [Automated message] The system which generated this result transmitted reference range: 0.0 - 10.0 /100 WBCs. The reference range was not used to interpret this result as normal/abnormal. NRBC x10^3 (test code = 6340018927) <0.01 See_Comment [Automated message] The system which generated this result transmitted reference range: 10*3/?L. The reference range was not used to interpret this result as normal/abnormal. GRAN MAT (NEUT) % (test code = 770-8) 86.5 % IMM GRAN % (test code = 1531330473) 0.60 % LYMPH % (test code = 736-9) 6.7 % MONO % (test code = 5905-5) 5.6 % EOS % (test code = 713-8) 0.0 % BASO % (test code = 706-2) 0.6 % GRAN MAT x10^3(ANC) (test code = 2898916988) 3.10 10*3/uL 1.99-6.95 IMM GRAN x10^3 (test code = 2096186022) <0.03 0.00-0.06 LYMPH x10^3 (test code = 731-0) 0.24 10*3/uL 1.09-3.23 L MONO x10^3 (test code = 742-7) 0.20 10*3/uL 0.36-1.02 L EOS x10^3 (test code = 711-2) <0.03 0.06-0.53 L BASO x10^3 (test code = 704-7) <0.03 0.01-0.09 BANDS (test code = 0561498709) MARKED INCREASED A Lab Interpretation (test code = 61397-9) [facility]normal [facility] CenterTROPONIN Y8408-15-29 00:44:19* Test Item Value Reference Range Interpretation Comments TROPONIN I (test code = 8869093508) 0.037 ng/mL See_Comment H [Automated message] The [...] of biotin. Lab Interpretation (test code = 96862-4) Abnormal [facility] CenterProthrombin Time / YKA0940-21-08 00:35:38* Test Item Value Reference Range Interpretation Comme nts PROTIME PATIENT (test code = 5964-2) See_Comment [Automated [employer]] The system which generated this result transmitted reference range: 10.1 - 12.6 Seconds. The reference range was not used to interpret this result as normal/abnormal. INR (test code = 6301-6) Normal INR <1.1; Warfarin Therapeutic range 2.0 to 3.0 or 2.5 to 3.5, depending upon the indications. Lab Interpretation (test code = 62304-6) Normal [facility] Metabolic Panel (NA, K, CL, CO2, Glucose, BUN, Creatinine, CA)2021-10-22 00:28:57* Test Item Value Reference Range Interpretation Comme nts NA (test code = 5602418872) 142 mmol/L 135-145 K (test code = 2413345152) 4.5 mmol/L 3.5-5.0 CL (test code = 2904709407) 110 mmol/L 98-108 H CO2 TOTAL (test code = 4090768251) 21 mmol/L 23-31 L AGAP (test code = 3804656460) 2-16 BUN (test code = 0926793416) 46 mg/dL 7-23 H GLUCOSE (test code = 0656151992) 144 mg/dL 70-110 H CREATININE (test code = 8294654108) 3.90 mg/dL 0.60-1.25 H CALCIUM (test code = 7558904155) 8.0 mg/dL 8.6-10.6 L eGFR (test code = 8877607251) mL/min/1.73m2 JENNIFER (test code = JENNIFER) Association [...] imaging tests). Lab Interpretation (test code = 77232-7) Abnormal [facility] CenterMagnesium Evnwb9096-88-40 00:28:57* Test Item Value Reference Range Interpretation Comme nts MAGNESIUM (test code = 8738332413) 1.9 mg/dL 1.7-2.4 Lab Interpretation (test cod e = 24769-9) Normal [facility] CenterHepatic Function Panel (ALB, T.PRO, BILI T, BU/BC, ALT, AST, ALK, PHOS)2021-10-22 00:28:57* Test Item Value Reference Range Interpretation Comme nts TOTAL BILI (test code = 6742187203) 0.4 mg/dL 0.1-1.1 BILI UNCON (test code = 9767952932) 0.3 mg/dL 0.1-1.1 BILI CONJ (test code = 6986067875) 0.0 mg/dL 0.0-0.3 T PROTEIN (test code = 9343100507) 6.6 g/dL 6.3-8.2 ALBUMIN (test code = 5693232442) 3.7 g/dL 3.5-5.0 ALK PHOS (test code = 6988689655) 49 U/L 34-122 ALTv (test code = 1742-6) 22 U/L 5-50 AST(SGOT) (test code = 5826941511) 32 U/L 13-40 Lab Interpretation (test cod e = 78931-4) Normal [facility] CenterABG+COOX+NA+K+GLU+CA2+2021-10-22 00:01:49* Test Item Value Reference Range Interpretation Comme nts PH (test code = 2) 7.35-7.45 LL PCO2 (test code = 8044089500) See_Comment H [Automated messa ge] The system which generated this result transmitted reference range: 35 - 45 mmHg. The reference range was not used to interpret this result as normal/abnormal. PO2 (test code = 3047983629) See_Comment L [Automated messa ge] The system which generated this result transmitted reference range: 80 - 100 mmHg. The reference range was not used to interpret this result as normal/abnormal. HCO3 (test code = 9506211193) See_Comment [Automated messa ge] The system which generated this result transmitted reference range: 22 - 26 mEq/L. The reference range was not used to interpret this result as normal/abnormal. BE (test code = 2164019805) See_Comment L [Automated messa ge] The system which generated this result transmitted reference range: -3.0 - 3.0 mEq/L. The reference range was not used to interpret this result as normal/abnormal. THB (test code = 8003513908) 15.2 g/dL 13.5-18.0 %O2HB (test code = 0228164646) 84.9 % 94.0-99.0 L %COHB ART (test code = 9718895846) 1.4 % 0.0-1.5 %METHB ART (test code = 6819841858) 0.2 % 0.4-1.5 L VOL%O2 ART (test code = 1715677368) 18.1 % 15.0-23.0 NA (test code = 1903367880) 141 mmol/L 135-145 K+ (test code = 2372153281) 4.7 mmol/L 3.5-5.0 AC CA IONZ (test code = 5152720000) 4.80 mg/dL 4.50-5.30 GLUCOSE (test code = 8706262101) 151 mg/dL 70-110 H Lab Interpretation (test code = 99683-9) Abnormal [facility] Notes Date/Time Note Provider Source 2023-06-25 22:58:00 [id number] UdNdAgMWJ+64bGvN36AjbAQ6g2qaq ZhtJ3xUQhieq69buhgN3BVZuOxu2465-35-50X87:58:00 [facility] ([facility] PROVIDER REPORTREPORT#:[id number] REPORT STATUS: SignedDATE:06/25/23 TIME: 2257 PATIENT: DARBY HUGHES UNIT #: [id number]#: [id number] ROOM/BED:AGE: 43 SEX: M PCP PHYS: No Primary or Family PhysicianSERVICE AUTHOR: Peyton Richter DO * ALL edits or amendments must be made on the electronic/computer document * See AddendumHPI-Trauma Multiple Free Text HPI NotesFree Text HPI Notes43 years old male with past medical history of hypertension and dyslipidemia brought in by EMS and police officers intoxicated and agitated, as per EMS patient was walking unsteady and fell and hit the ground with his face left sidewith abrasions left side face. On arrival to the emergency room patient is agitated, combative, trying to punch and kick everyone around not allowing care. Trauma alert called, patient needed medication to allow sedation and allow examand care. GeneralInitial Greet Date/Time 06/25/232201 PresentationChief Complaint alcohol intoxication, fall, head trauma Review of Systems ROS StatementsAll systems rev neg except as marked. Free Text ROS NotesFree Text ROS NotesUnable to obtain review of system at this time secondary to current mental status and intoxication Past Medical History - AdultStated Complaint ETOHAllergiesCoded Allergies:No Allergy Information Available (06/25/23) Physical Exam Vital SignsVital SignsFirst Documented: Result Date Time Pulse Ox 98 06/24 2203 B/P 105/66 06/24 2203 B/P Mean 79 06/24 220 Pulse 88 06/24 2203 Resp 18 06/24 2210 O2 Delivery Nasal cannula 06/24 2319 O2 Flow Rate 2 06/24 2319 Last Documented: Result Date Time Pulse Ox 94 06/25 0718 B/P 104/74 06/25 0718 B/P Mean 84 06/25 0718 Resp 12 06/25 0718 Pulse 84 / 0715 O2 Delivery Room air 06/25 0400 O2 Flow Rate 2 06/25 0029 Review of Vital Signs Reviewed Free Text PE NotesFree Text PE NotesGen/Const: wake, alert, agitated, intoxicated, combative and aggressiveMS Head: normocephalic, superficial abrasion left side face, no laceration, no crepitusNeck: no midline ttpEyes: PERRL b/l; EOM intactEars/Nose/Throat: normal posterior oropharynx, TMs clear b/l Resp/Chest: lungs CTAB; no wheezes, rales, rhonchi, retractions Cardiovascular: rrr; no murmurs, gallops, or rubs; capillary refill less than 2 seconds; no chest ttp Abdomen/GI: soft, nontender, nondistended, bowel sounds equal and reactive MS Upper Extremity: Atraumatic, no abnormalities notedMS Lower Extremity: Atraumatic; no clubbing, cyanosis, or edemaMS Back: No midline tenderness palpation; no step-offs or deformitiesSkin: Normal color; no rash present; no petechiae or purpuraNeurologic: Awake, alert, confused, moving 4 extremities symmetrically Interpretation Diagnostics Lab Results InterpretationResultsLaboratory Tests 06/25/23 2215:[Embedded Image Not Available] 06/25/23 2215:[Embedded Image Not Available]Laboratory Tests: 06/25 06/24 06/24 0741 2349 2215 Chemistry Sodium (134.0 - 147.0 mmol/l) 139 Potassium (3.6 - 5.2 mmol/L) 3.1 L Chloride (98.0 - 107.0 mmol/l) 100 Carbon Dioxide (21.0 - 33.0 mmol/l) 24.4 Anion Gap (0 - 20) 17.7 BUN (7.0 - 18.0 mg/dl) 12 Creatinine (0.60 - 1.30 mg/dL) 0.98 Estimated Creat Clear (>30 mL/min) 95 Glomerular Filtr Rate (mL/min) 97 Glucose (70.0 - 110.0 mg/dl) 91 Calcium (8.0 - 10.5 mg/dl) 9.2 Troponin I High Sens (0 - 76 ng/L) 5 Toxicology Urine Opiates Screen (NEGATIVE) NEGATIVE Urine Methadone Screen (NEGATIVE) NEGATIVE Urine Barbiturates (NEGATIVE) NEGATIVE Ur Phencyclidine Scrn (NEGATIVE) NEGATIVE Ur Amphetamines Screen (NEGATIVE) NEGATIVE U Benzodiazepines Scrn (NEGATIVE) POSITIVE H Urine Cocaine Screen (NEGATIVE) NEGATIVE Urine Cannabinoids (NEGATIVE) NEGATIVE Ethyl Alcohol (0.00 - 0.00 gm/dL) 0.24 H 0.41 *H 06/24 2215 Chemistry Total Bilirubin (0.0 - 1.0 mg/dl) 0.3 Direct Bilirubin (0.0 - 0.3 mg/dl) 0.1 AST (15 - 37 Units/L) 26 ALT (12.0 - 78.0 Units/L) 54 Total Alk Phosphatase (50.0 - 136.0 Units/L) 83 Total Protein (6.4 - 8.2 gm/dL) 8.2 Albumin (3.2 - 4.7 gm/dl) 4.5 Coagulation INR (0.89 - 1.14) 1.0 PTT ([place]) (25.86 - 36.07 SECONDS) 33.30 PT Patient/Control Mix (9.9 - 12.8 SECONDS) 10.6 Hematology WBC (4.5 - 11.0 K/mm3) 18.2 H RBC (4.40 - 5.90 M/mm3) 5.68 Hgb (13.0 - 17.0 gm/dL) 16.5 Hct (36.0 - 48.0 %) 49.1 H MCV (80.0 - 94.0 UM3) 86.4 MCH (25.5 - 32.5 UUG) 29.0 MCHC (29.0 - 35.5 gm/dL) 33.6 RDW (11.5 - 15.0 %) 17.9 H Plt Count (150 - 400 K/mm3) 348 MPV (7.4 - 10.4 fl) 9.7 Neut % (Auto) (49.0 - 76.0 %) 54.9 Lymph % (Auto) (23.0 - 38.0 %) 36.0 [place] % (Auto) (1.0 - 10.0 %) 5.3 Eos % (Auto) (1.0 - 5.0 %) 2.3 Baso % (Auto) (0.0 - 1.0 %) 0.7 Neut # (Auto) (2.4 - 6.3 K/mm3) 10.0 H Lymph # (Auto) (1.2 - 4.0 K/mm3) 6.6 H [place] # (Auto) (0.0 - 0.6 K/mm3) 1.0 H Eos # (Auto) (0.0 - 0.7 K/MM3) 0.4 Baso # (Auto) (0.0 - 0.2 K/mm3) 0.1 Absolute Nucleated RBC (0.00 - 0.01 X10 3uL) 0.00 Immature Gran % (0.0 - 0.4 %) 0.8 H Nucleated RBC % (0.0 - 0.1 %) 0.0 Immature Gran # (0.00 - 0.07 x10 3/uL) 0.15 H Platelet Estimate ADQ Morphology Comment NM Toxicology Salicylates (2.8 - 20.0 mg/dl) 13.4 Acetaminophen (10.0 - 30.0 mcg/ml) <2.0 L Recent Impressions:RADIOLOGY - XR CHEST 1 V 06/24 2226 Report Impression - Status: SIGNED Entered: 06/25/20232235 IMPRESSION:No acute disease.Impression By: Vaishali Gomes M.D.CAT SCAN - CT MAXIFAC W/O CONTRAST 06/24 2305 Report Impression - Status: SIGNED Entered: 06/25/20232346 IMPRESSION: NO ACUTE BONY ABNORMALITY OF THE CERVICAL SPINE. NO ACUTE BONY ABNORMALITY OF THE FACIAL BONES. Dictation/location code: H-100Impression By: Kenneth Clarke, [facility] SCAN - CT C-SPINE W/O CONT 06/24 2305 Report Impression - Status: SIGNED Entered: 06/25/20232346 IMPRESSION: NO ACUTE BONY ABNORMALITY OF THE CERVICAL SPINE. NO ACUTE BONY ABNORMALITY OF THE FACIAL BONES. Dictation/location code: H-100Impression By: Kenneth Clarke, [facility] SCAN - CT HEAD/BRAIN W/O CONT 06/24 2305 Report Impression - Status: SIGNED Entered: 06/25/20232346 IMPRESSION: No acute intracranial abnormality. Dictation/location code: H-100Impression By: Kenneth Clarke, [facility] ABD PELVIS W/CONT 06/24 230 Report Impression - Status: SIGNED Entered: 06/25/20232344 IMPRESSION: No acute findings.Impression By: t.SDCURTIS Tian,[facility] SCAN - CT CHEST W/CONTRAST 06/24 2308 Report Impression - Status: SIGNED Entered: 06/25/20232344 IMPRESSION: No acute findings.Impression By: Jose Tian MD ECG #1 InterpretationText/Dict NoteSinus rhythm 84 bpm, normal axis, no segment elevation, QTc 472 Re-Evaluation MDM Free Text MDM NotesFree Text MDM Notes43 years old male with history of hypertension and dyslipidemia brought in by EMS and police officers intoxicated, agitated, combative with signs of head trauma status post fall to the ground Trauma alert called Trauma labs, trauma luna CT scan Versed, Ativan, Benadryl, IV fluid, cardiac monitoring and respiratory support Sobriety and reevaluation Re-Evaluation/Progress #1Text/Dict NoteLabs remarkable for alcohol level 0.41, drug screen positive for benzodiazepines, white blood cells 18,000, chest x-ray with no acute findings, CT brain, CT cervical spine, CT chest abdomen pelvis with IV contrast with no traumatic injuries, no acute pathology. Patient with stable vitals, pending sobriety and reevaluation Patient awake alert x 4, patient reported that he has history of bipolar and schizophrenia and he wants to kill himself, DARSHANA order placed, will repeat alcohol level, H CAT consult placed as well and patient admitted over to the incoming ER physician Dr. De La Vega at shift change ED CourseMedication(s) OrderedMedication(s) Ordered:Antihistamine Drugs Sig/Mariza Start time Last Medication Dose Route Stop Time Status Admin Diphenhydramine HCl 50 MG X1ED STA 06/25 0149 DC / IV 03/ 0150 0246 Diphenhydramine HCl 50 MG X1ED STA 06/24 2240 DC 03/ IV 06/24 2241 2245 Central Nervous System Agents Sig/Mariza Start time Last Medication Dose Route Stop Time Status Admin Lorazepam 2 MG X1ED STA 06/25 0149 DC / IV / 0150 0246 Lorazepam 4 MG X1ED STA 06/24 2239 DC / IV / 2240 2244 Midazolam HCl 4 MG X1ED STA 06/24 2226 DC / IV 06/25 2227 223 Midazolam HCl 4 MG X1ED STA 06/25 2207 DC 03/05 IV 06/24 220 2215 Diagnostic Agents Sig/Mariza Start time Last Medication Dose Route Stop Time Status Admin Iopamidol 0 .STK-MED ONE 06/24 2246 DC / IV 2322 Electrolytic, Caloric, And Frank Sig/Mariza Start time Last Medication Dose Route Stop Time Status Admin Sodium Chloride 1,000 ML ONCE ONE 06/25 0200 DC / IV 06/25 0201 0246 Sodium Chloride 1,000 ML X1ED STA 06/24 2204 DC / IV 06/24 2304 2216 Patient Discharge Departure Vital Signs/ConditionVital SignsFirst Documented: Result Date Time Pulse Ox 98 06/24 2202 B/P 105/66 06/24 2203 B/P Mean 79 06/24 220 Pulse 88 06/24 2203 Resp 18 06/24 2210 O2 Delivery Nasal cannula 06/24 2319 O2 Flow Rate 2 06/24 2319 Last Documented: Result Date Time Pulse Ox 94 06/25 0718 B/P 104/74 06/25 0718 B/P Mean 84 06/25 0718 Resp 12 06/25 0718 Pulse 84 / 0715 O2 Delivery Room air 06/25 0400 O2 Flow Rate 2 06/25 0029 All vital signs available at the time of this entry have been reviewed. Condition Stable Clinical ImpressionClinical ImpressionPrimary Impression: Alcohol intoxicationSecondary Impressions: Suicidal ideation Pt/Provider Handoff Shift Change NoteThis patient's care has been transferred to the incoming physician. We discussed: the patient's chief complaint; labs and imaging that have been completed and those that are still pending; procedures that have been completed and those remaining to be done; any treatment provided and the patient's response to treatment; input from consultants (if any); the remaining treatment plan. The incoming physician will follow up on all pending labs and imaging, make any necessary changes to the current impression and/or treatment plan and provide a final disposition. at 0759 Addendum 1: 06/26/23 1556 by Vikas De La Vega MD Patient AddendumAddendumPatient is cleared for HCAT at 1556 Addendum 2: 06/26/23 2234 by Peyton Richter DO Suicide Risk Detail Assessment Suicide Risk Detail AssessmentSuicide risk score:The data set between the solid lines has been imported from nursing documentation. Any exceptions have been noted below under Provider comments. Calculated suicide risk level: Low risk Provider comments on imported nursing data: [] Overall risk level-suicide: low riskComments:Patient was evaluated by H CAT, as per psych evaluation patient with no to low risk for suicidal ideation, patient with chronic alcohol use and chronic psychosis but no suicidal risk and patient can be safely discharged for outpatient follow-up, patient will be given resources for outpatient follow-up at 2234RPT #:[id number] OF REPORTEDEmergen department [id number] ilable for patient [id number] HCAMN"
[2023-07-13 02:30] LABS: Absolute Basophils 0.2 K/uL (0-0.5); Absolute Eosinophils 0.3 K/uL (0-0.5); Absolute Lymphocytes (CBC) 5.6 K/uL (0.7-4.9); Basophils % 1.4 % (0-1.3); Eosinophils % 2.2 % (0-4.4); Lymphocytes % 34.6 % (15.3-44.8); MCH 29.6 pg (27.0-35.0); MCHC 32.7 g/dL (32.0-36.0); MCV 90.5 fL (80-100); MPV 7.9 fL (7.6-11.3); Neutrophils % 55.8 % (41.7-73.7); Nucleated Red Blood Cells % 0.1 % (0-0); Platelets 325 thou/uL (152-406); RBC Red Blood Cell Count 5.41 M/uL (4.33-5.43); Red Cell Distribution Width 17.4 % (12.1-15.2)
[2023-07-13 02:49] LABS: Albumin 3.9 g/dL (3.4-5.0); Anion Gap 9.2 mEq/L (5.0-15.0); Bilirubin Direct 0.1 mg/dL (0-0.2); Bilirubin Indirect, Calculated 0.1 mg/dL (0.2-0.8); Bilirubin Total 0.2 mg/dL (0.2-1.0); Globulin 3.9 g/dL (2.3-3.5); Potassium 3.2 mEq/L (3.5-5.1); Protein, Total 7.8 g/dL (6.4-8.2); Troponin High Sensitivity 5.9 pg/mL (<58.9)
--- NOTE | 2023-07-13 04:53 | ER ---
Nurse's Notes [facility] Name: Noe Hartman Age: 43 yrs Sex: Male : 1980 Arrival Date: 07/13/2023 Time: 02:01 Bed 17 Private MD: Diagnosis: Alcohol intoxication;Contusion of face Presentation: 07/12 02:08 Chief complaint: EMS states: Pt had been drinking tonight, fell and hit his head. His jb4 girlfriend found him 2 hours later laying on the ground saying there was a lot of blood.. Pt has a laceration to the right lower eye lid. Coronavirus screen: At this time, the client does not indicate any symptoms associated with coronavirus-19. Ebola Screen: No symptoms or risks identified at this time. Initial Sepsis Screen: Does the patient meet any 2 criteria? No. Patient's initial sepsis screen is negative. Does the patient have a suspected source of infection? No. Patient's initial sepsis screen is negative. Risk Assessment: Do you want to hurt yourself or someone else? Patient reports no desire to harm self or others. Onset of symptoms was July 13, 2023. Transition of care: patient was not received from another setting of care. 02:08 Method Of Arrival: [facility] jb4 02:08 Acuity: JOHNSON 3 jb4 02:10 Note Pt repeatedly states "Bitch, Im going to punch you in your fucking face.". jb4 Triage Assessment: 02:25 General: Appears in no apparent distress. comfortable, Behavior is agitated, jb4 uncooperative, Continuously calling staff "Bitch". Pain: Denies pain. EENT: No signs and/or symptoms were reported regarding the EENT system. Neuro: Level of Consciousness is awake, alert, obeys commands, Oriented to person, place, time, situation. Cardiovascular: Patient's skin is warm and dry. Respiratory: Airway is patent Respiratory effort is even, unlabored, Respiratory pattern is regular, symmetrical. GI: No signs and/or symptoms were reported involving the gastrointestinal system. : No signs and/or symptoms were reported regarding the genitourinary system. Derm: Skin is pink, warm \\T\\ dry. Musculoskeletal: Circulation, motion, and sensation intact. Range of motion: intact in all extremities. Injury Description: Laceration sustained to right lower eyelid is clean, superficial, 0.5 to 2.5 cm long, was sustained 2-4 hours ago. Historical: - Allergies: 02:10 No Known Allergies; jb4 - PMHx: 02:10 Hypertension; kidney disease; Myocardial infarction; jb4 - PSHx: 02:10 Appendectomy; jb4 - Immunization history:: Adult Immunizations up to date. - Family history:: not pertinent. Screenin:10 [facility] ED Fall Risk Assessment (Adult) History of falling in the last 3 months, jb4 including since admission Yes- single mechanical fall (1 pt) Confusion or Disorientation No (0 pts) Intoxicated or Sedated Yes (3 pts) Impaired Gait Yes (1 pt) Mobility Assist Device Used No (0 pt) Altered Elimination No (0 pt) Score/Fall Risk Level 3 or more points = High Risk Oriented to surroundings, Maintained a safe environment. 02:10 Abuse screen: Denies threats or abuse. Nutritional screening: No deficits noted. jb4 Tuberculosis screening: No symptoms or risk factors identified. Assessment: 02:31 Reassessment: see triage note. jb4 03:19 Reassessment: Patient appears in no apparent distress at this time. Patient and/or jb4 family updated on plan of care and expected duration. Pain level reassessed. Patient is alert, oriented x 3, equal unlabored respirations, skin warm/dry/pink. 04:40 Reassessment: Patient appears in no apparent distress at this time. Patient and/or jb4 family updated on plan of care and expected duration. Pain level reassessed. Patient is alert, oriented x 3, equal unlabored respirations, skin warm/dry/pink. 06:00 Reassessment: Patient appears in no apparent distress at this time. Patient and/or jb4 family updated on plan of care and expected duration. Pain level reassessed. Patient is alert, oriented x 3, equal unlabored respirations, skin warm/dry/pink. Pt ambulated to restroom with unsteady gait. 07:17 Reassessment: Pt is A\\T\\Ox3 , threw himself over the bed rail into the floor. Denies jb4 hitting his head on. Pt denies wanting further test. Provider notified, no new orders. 08:04 Reassessment: Patient appears in no apparent distress at this time. Patient is alert, ph oriented x 3, equal unlabored respirations, skin warm/dry/pink. Pt's sister at bedside for ride home, pt d/c home w/ family via wheelchair. Vital Signs: 02:08 BP 93 / 60; Pulse 81; Resp 14; Temp 98.4(O); Pulse Ox 94% on R/A; Pain 0/10; jb4 02:30 BP 85 / 59; Pulse 83; Resp 16; Pulse Ox 95% on R/A; jb4 04:40 BP 98 / 55; Pulse 99; Resp 14; Pulse Ox 96% ; jb4 07:18 BP 112 / 67; Pulse 93; Resp 16; Pulse Ox 95% on R/A; jb4 02:08 Pain Scale: Adult jb4 ED Course: 02:04 Patient arrived in ED. rv1 02:05 Modesto Campos MD is Attending Physician. rt 02:10 Triage completed. jb4 02:10 Arm band placed on right wrist. jb4 02:10 Patient has correct armband on for positive identification. Placed in gown. Bed in low jb4 position. Call light in reach. Side rails up X 1. Provided Education on: Plan of care. 02:26 EKG done, by survey and mapping technician. jr12 02:26 Magnesium Sent. jb4 02:26 Troponin HS Sent. jb4 02:26 LFT's Sent. jb4 02:26 CBC with Diff Sent. jb4 02:26 Basic Metabolic Panel Sent. jb4 03:13 XRAY Chest (1 view) In Process Unspecified. EDMS 03:19 Robert Mccracken, RN is Primary Nurse. jb4 03:21 CT Head C Spine In Process Unspecified. EDMS 05:20 No provider procedures requiring assistance completed. IV discontinued, intact, jb4 bleeding controlled, No redness/swelling at site. Pressure dressing applied. 06:58 Primary Nurse role handed off by Robert Mccracken, RN cm10 Administered Medications: 02:26 Drug: Lactated Ringers Solution IV 1000 ml IV at 100 bolus bolus Route: IV; Rate: 100 jb4 bolus; Site: right antecubital; 05:04 Drug: Nicoderm CQ Transdermal Patch 21 mg/24 hr 21 mg Transdermal once {Note: Left jb4 arm.} Route: Transdermal; Site: affected area; Medication: 05:18 VIS not applicable for this client. jb4 Outcome: 04:53 Discharge ordered by . rt 05:20 Discharged to Pt waiting in room for ride home jb4 05:20 Condition: stable 05:20 Discharge instructions given to patient, Instructed on discharge instructions, follow up and referral plans. Demonstrated understanding of instructions, follow-up care, 08:05 Discharged to home via wheelchair, with family, ph 08:05 Condition: stable 08:05 Discharge instructions given to patient, family, 08:06 Patient left the ED. ph Signatures: Dispatcher [employer] EDEsmer Barfield RN RN ph Robert Mccracken RN RN jb4 Modesto Campos MD MD rt Eryn Ascencio rv1 Gretchen Lowe RN RN cm10 Josephine Guerrero 12 Corrections: (The following items were deleted from the chart) 07:18 05:21 Patient left the ED. jb4 jb4
--- NOTE | 2023-07-13 04:53 | EDPHYS ---
Physician Documentation [facility] Name: Noe Hartman Age: 43 yrs Sex: Male : 1980 Arrival Date: 07/13/2023 Time: 02:01 Bed 17 Private MD: ED Physician Modesto Campos HPI: 07/12 02:58 This 43 yrs old Male presents to ER via EMS with complaints of Head injury. rt 02:58 Patient with history of alcohol abuse presents to the ED with fall from a chair, rt abrasion just above the right eye. Patient is obviously intoxicated, no further history could be obtained. Symptoms are moderate in severity, no other aggravating or alleviating factors.. Historical: - Allergies: 02:10 No Known Allergies; jb4 - PMHx: 02:10 Hypertension; kidney disease; Myocardial infarction; jb4 - PSHx: 02:10 Appendectomy; jb4 - Immunization history:: Adult Immunizations up to date. - Family history:: not pertinent. ROS: 02:58 Unable to obtain ROS due to patient being uncooperative, rt Exam: 02:58 Neck: Trachea midline, no thyromegaly or masses palpated, and no cervical rt lymphadenopathy. Supple, full range of motion without nuchal rigidity, or vertebral point tenderness. No Meningismus. Chest/axilla: Normal chest wall appearance and motion. Nontender with no deformity. No lesions are appreciated. Cardiovascular: Regular rate and rhythm with a normal S1 and S2. No gallops, murmurs, or rubs. Normal PMI, no JVD. No pulse deficits. Respiratory: Lungs have equal breath sounds bilaterally, clear to auscultation and percussion. No rales, rhonchi or wheezes noted. No increased work of breathing, no retractions or nasal flaring. Abdomen/GI: Soft, non-tender, with normal bowel sounds. No distension or tympany. No guarding or rebound. No evidence of tenderness throughout. MS/ Extremity: Pulses equal, no cyanosis. Neurovascular intact. Full, normal range of motion. 02:58 Constitutional: The patient appears Obvious intoxicated, no acute distress 02:58 Head/face: Abrasion above right eye, extraocular muscles are intact. 02:58 ECG was reviewed by the Attending Physician. Vital Signs: 02:08 BP 93 / 60; Pulse 81; Resp 14; Temp 98.4(O); Pulse Ox 94% on R/A; Pain 0/10; jb4 02:30 BP 85 / 59; Pulse 83; Resp 16; Pulse Ox 95% on R/A; jb4 04:40 BP 98 / 55; Pulse 99; Resp 14; Pulse Ox 96% ; jb4 07:18 BP 112 / 67; Pulse 93; Resp 16; Pulse Ox 95% on R/A; jb4 02:08 Pain Scale: Adult jb4 MDM: 02:05 Patient medically screened. rt 05:10 Differential Diagnosis Intoxication, contusion, intracranial hemorrhage. Data reviewed: rt vital signs, nurses notes. Independent interpretation of the following test(s) in the Emergency Department CT Scan: My interpretation is No intracranial hemorrhage seen on interpretation of CT scan images. Care significantly affected by the following chronic conditions: Hypertension. Care significantly affected by the following Social Determinants of Health: Misuse of alcohol and/or drugs. Counseling: I had a detailed discussion with the patient and/or guardian regarding the historical points, exam findings, and any diagnostic results supporting the discharge/admit diagnosis, lab results, radiology results, the need for outpatient follow up, to return to the emergency department if symptoms worsen or persist or if there are any questions or concerns that arise at home. 07/12 02:15 Order name: Basic Metabolic Panel; Complete Time: 02:50 rt 07/12 02:15 Order name: CBC with Diff; Complete Time: 02:50 rt 07/12 02:15 Order name: LFT's; Complete Time: 02:50 rt 07/12 02:15 Order name: Magnesium; Complete Time: 02:50 rt 07/12 02:15 Order name: Troponin HS; Complete Time: 02:50 rt 07/12 02:05 Order name: CT Head C Spine rt 07/12 02:15 Order name: XRAY Chest (1 view) rt 07/12 02:15 Order name: EKG; Complete Time: 02:15 rt 07/12 02:15 Order name: Cardiac monitoring; Complete Time: : rt 07/12 02:15 Order name: EKG - Nurse/Tech; Complete Time: 02: rt 07/12 02:15 Order name: IV Saline Lock; Complete Time: : rt 07/12 02:15 Order name: Labs collected and sent; Complete Time: rt 07/12 02:15 Order name: O2 Per Protocol; Complete Time: rt 07/12 02:15 Order name: O2 Sat Monitoring; Complete Time: rt EC:58 Rate is 84 beats/min. Rhythm is regular, Normal Sinus Rhythm with No ectopy. QRS [place] rt is Normal. [place] interval is normal. QRS interval is normal. QT interval is normal. No Q waves. T waves are Normal. No ST changes noted. Interpreted by me. Administered Medications: Drug: Lactated Ringers Solution IV 1000 ml IV at 100 bolus bolus Route: IV; Rate: 100 jb4 bolus; Site: right antecubital; 05:04 Drug: Nicoderm CQ Transdermal Patch 21 mg/24 hr 21 mg Transdermal once {Note: Left jb4 arm.} Route: Transdermal; Site: affected area; Disposition Summary: 07/13/23 04:53 Discharge Ordered Notes: Location: Home rt Problem: new rt Symptoms: have improved rt Condition: Stable rt Diagnosis - Alcohol intoxication rt - Contusion of face rt Followup: rt - With: Private Physician - When: 2 - 3 days - Reason: Discharge Instructions: - Discharge Summary Sheet rt - Alcohol Intoxication rt - Facial or Scalp Contusion rt Forms: - Medication Reconciliation Form rt - Thank You Letter rt - Antibiotic Education rt - Prescription Opioid Use rt - Patient Portal Instructions rt - Leadership Thank You Letter rt Signatures: Dispatcher [employer] Robert Bill, RN RN jb4 Modesto Campos MD MD rt
[2023-07-13 05:40] VITALS: TEMP 98.4
[2023-07-13 08:31] VITALS: BP 112/67; O2SAT 95
--- NOTE | 2023-07-13 18:04 | RAD REPORT ---
EXAM DESCRIPTION: RAD - Chest Single View - 07/13/2023 3:11 am CLINICAL HISTORY: Hypotension COMPARISON: 01/26/2023 FINDINGS: Single frontal radiograph view of the chest. Cardiomediastinal silhouette: Cardiomegaly. Leads overlie the chest. Lungs: Low lung volumes. No focal consolidation. Minimal bibasilar subsegmental atelectasis. Bones: Degenerative change of the spine. Upper abdomen: No abnormality identified. IMPRESSION: 1. Minimal bibasilar subsegmental atelectasis. 2. Cardiomegaly. Electronically signed by: Noe Aguilar DO 07/13/2023 04:13 AM CDT M Due to temporary technical issues with the PACS/Fluency reporting system, reports are being signed by the in house radiologists without review as a courtesy to insure prompt reporting. The interpreting radiologist is fully responsible for the content of the report.
--- NOTE | 2023-07-13 18:35 | RAD REPORT ---
EXAM DESCRIPTION: CT - Head C Spine Mpr Wo Con - 07/13/2023 6:19 am CLINICAL HISTORY: TRAUMA COMPARISON: 05/24/2023 TECHNIQUE: Axial CT of the head obtained from the skull apex to the skull base without contrast. Axi al CT images of the cervical spine obtained without contrast. This exam was performed according to [facility] departmental dose-optimization program, which includes automated exposure control, adjustment of th e mA and/or kV according to patient size and/or use of iterative reconstruction technique. FINDINGS: Head CT: No acute intracranial hemorrhage identified. No mass, mass effect, shift of the midline, abnormal ext ra-axial fluid collection or CT evidence of acute ischemic change identified. The ventricular system is unremarkable. No acute abnormalities of the supratentorial white matter, basal ganglia, cerebell um, or brainstem. The visualized paranasal sinuses and the mastoids are relatively well aerated. No skull fracture id entified. Visualized orbits and globes are unremarkable. Cervical CT : Alignment of the cervical spine is maintained without evidence of subluxation. The atlantoaxial, at lantodental, and occipitoatlantal intervals are preserved. No fracture identified. Vertebral body h eight preserved. Prevertebral soft tissues are unremarkable. Mild multilevel loss of intervertebral disc height with endplate spondylosis, facet arthropathy, and uncovertebral spurring. Posterior disc osteophyte complex at multiple levels mildly encroach upon the anterior spinal canal. Mild neural foraminal narrowing. Visualized skull base is intact. Visualized mastoid air cells and paranasal sinuses are well aerat ed. Visualized thyroid is unremarkable. No cervical lymphadenopathy. No pneumothorax in the visualized lung apices. IMPRESSION: 1. No acute intracranial abnormality identified. 2. No acute fracture or subluxation of the cervical spine. 3. Mild multilevel degenerative change of the cervical spine. Electronically signed by: Noe Aguilar DO 07/13/2023 04:17 AM CDT M Due to temporary technical issues with the PACS/Fluency reporting system, reports are being signed by the in house radiologists without review as a courtesy to insure prompt reporting. The interpreting radiologist is fully responsible for the content of the report.
--- NOTE | 2023-07-15 14:22 | EKG ---
Test Date: 2023-07-13 Test Time: 01:21:51 [employer] Helper: LUAN MEASUREMENT RESULTS: Intervals: Rate: 84 CT: 142 QRSD: 92 QT: 410 QTc: 484 Hart: P: 84 CT: 142 QRS: 65 T: 18 INTERPRETIVE STATEMENTS: Normal sinus rhythm Prolonged QT Abnormal ECG Compared to ECG 05/24/2023 21:40:21 Prolonged QT interval now present Electronically Signed On 07-15-23 14:15:25 CDT by Puma Pedroza
== END ==
LOC: ER 02:01
DX: F10.129 Alcohol abuse with intoxication, unspecified (principal); S00.83XA Contusion of other part of head, initial encounter
CPT/HCPCS: 36415; 70450; 71045; 72125; 80048; 80076; 83735; 84484; 85025; 93005; 99284; J7120

== ENCOUNTER 2023-10-05 20:31 | Emergency (ER) | payer SELFPAY ==
--- OUTSIDE RECORDS SUMMARY | 2023-10-05 20:36 | XMS REPORT | Continuity of Care Document ---
Author Name Unknown Address [address] [facility] [address] [place] [address] [facility] thconnect Address [address] [place] [address] Care Team Providers Care Mission Worker Name Role Phone Casper Martinez Primary Care Physician [phone] Vikas De La Vega Attending Clinician UnavailYu Moreira DO Attending Clinician + [phone] Bruna Quezada LVN Attending Clinician [phone] ROMA BRIONES Attending Clinician Unavailable Roma Briones MD Attending Clinician [phone] Jessi Sanchez RN Attending Clinician [phone] Doctor Unassigned, [place] Attending Clinician Castillo Turner MD, Mike Sahu Attending Clinician LUKAS HENAO Attending Clinician Unavailshona Phelan MD, Jim Michaud Attending Clinician [phone] Artur Valencia MD Attending Clinician [phone] Dilcia Campbell MD Attending Clinician +- [phone] Lukas Henao MD Attending Clinician + [phone] Edson yKle DO Attending Clinician [phone] Physician, No Primary or Family Admitting Clinic larissa Unavailable ROMA BRIONES Admitting Clinician Unavailable Roma Briones MD Admitting Clinician [phone] ARTUR VALENCIA Admitting Clinician Unavailable Artur Valencia MD Admitting Clinician [phone] Payers Payer Name Policy Type Policy Number Effective Date Expirati on Date Source Problems Condition Name Condition Details Condition Category Status Onset Date Resolution Date Last Treatment Date Treating Clinician Comments Source Unstable angina Unstable angina Disease Active 2022-04 0 00:00: 00 [facility] Chest pain, unspecifie d type Chest pain, unspecifie d type Disease Active 2022-04 0 00:00: 00 [facility] Altered mental status, unspecifie d altered mental status type Altered mental status, unspecifie d altered mental status type Disease Active 10-21 00:00: 00 [facility] Allergies, Adverse Reactions, Alerts Allergy Name Allergy Type Status Severity Reaction(s) Onset Date Inactive Date Treating Clinician Comments Source No Allergy Informat ion Availabl e DA Active U 3-05 00:00: 00 JULEE morillo [facility] LORAZEPA M DRUG INGREDI Active High Anxiety 2022-04 0-08 00:00: 00 [facility] Lorazepa m Drug Intolera nce Active Anxiety 2022-04 008 00:00: 00 [facility] NO KNOWN ALLERGIE S Drug Class Active [facility] Social History Social Habit Start Date Stop Date Quantity Comments Source [facility] of [facility] use Passive smoker [facility] History of Social function 2023-01-28 00:00:00 2023-01-28 00:00:00 [facility] Tobacco use and exposure 2023-01-26 00:00:00 2023-01-26 00:00:00 Smokeless tobacco non-user [facility] Exposure to SARS-CoV-2 (event) 2021-10-16 00:00:00 2021-10-26 18:18:00 Not sure [facility] Sex Assigned At 1980 00:00:00 1980 00:00:00 [facility] Smoking Status Start Date Stop Date Source Smokes tobacco daily 2023-01-26 00:00:00 [facility] Never smoked tobacco [facility] Medications Ordered Medication Name Filled Medication Name Start Date Stop Date Current Medication? Ordering Clinician Indication Dosage Frequency Signature (SIG) Comments Components Source metoprolol succinate XL 25 mg 24 hr tablet 2022-04 00:00: 00 Yes [id number] 25mg Take 1 tablet by mouth in the morning. [facility] dicyclomine 20 mg tablet 2022-04 19:57: 49 Yes 20mg Take 1 tablet by mouth 4 (four) times daily. [facility] melatonin 3 mg tablet 2022-04 19:57: 49 Yes 3mg Take 1 tablet by mouth at bedtime. [facility] Pantoprazol e 40 mg delayed-rel ease suspension 2022-04 19:57: 49 Yes 40mg Take 40 mg by mouth in the morning. [facility] losartan-hy drochloroth iazide 100-25 mg per tablet 2022-04 19:57: 49 Yes 1{tbl} Take 1 tablet by mouth in the morning. [facility] ALPRAZolam 1 mg tablet 2022-04 19:57: 49 Yes 1mg Take 1 tablet by mouth at bedtime as needed (sleep). [facility] traZODone 50 mg tablet 2022-04 19:57: 49 Yes 50mg Take 1 tablet by mouth at bedtime as needed for Insomnia. [facility] metoprolol succinate XL 25 mg 24 hr tablet 2022-04 19:57: 46 01-28 00:00 :00 No 25mg Take 1 tablet by mouth in the morning. [facility] lisinopriL 5 mg tablet 2022-04 19:57: 46 01-28 00:00 :00 No 5mg Take 1 tablet by mouth in the morning. [facility] hydroCHLORO thiazide 25 mg tablet 2022-04 19:57: 46 01-28 00:00 :00 No 25mg Take 1 tablet by mouth in the morning. [facility] metoprolol tartrate 25 mg tablet 2022-04 19:57: 46 01-26 00:00 :00 No 25mg Take 1 tablet by mouth in the morning and 1 tablet in the evening. [facility] magnesium sulfate in water 2 gram/50 mL (4 %) infusion 2 g 2022-04 12:00: 00 01-28 13:47 :00 No 2g 2 g, IV Piggyback, Administer over 60 Minutes, ONCE, 1 dose, On Sat01/28/23 at 0700, Routine [facility] KCL (KLOR-CON M20) tablet 80 mEq 2022-04 12:00: 00 01-28 12:53 :00 No 80meq 80 mEq, Oral, ONCE, 1 dose, On Sat01/28/23 at 0700, Routine [facility] hydrOXYzine (ATARAX) tablet 25 mg 2022-04 01:00: 00 Yes 25mg 25 mg, Oral, BID, First dose (after last modificati on) on 01/27/23 at 2000, Until Discontinu ed, Routine [facility] atorvastati n 40 mg tablet 2022-04 00:00: 00 Yes [id number] 40mg Take 1 tablet by mouth every evening. [facility] sulfur hexafluorid e microsphr (LUMASON) injection 5 mL 2022-04 15:00: 00 01-27 15:00 :00 No [id number] 5mL 5 mL, Intravenou s, ONCE, 1 dose, On Sat01/27/23 at 1000, Routine
cannon crewmember approving Restricted medication : ROMA BRIONES [facility] lisinopriL (PRINIVIL,Z ESTRIL) tablet 5 mg 2022-04 14:00: 00 Yes 5mg 5 mg, Oral, DAILY, First dose on 01/27/23 at 0900, Until Discontinu ed, Routine [facility] metoprolol succinate XL (TOPROL XL) tablet 25 mg 2022-04 14:00: 00 Yes 25mg 25 mg, Oral, DAILY, First dose on 01/27/23 at 0900, Until Discontinu ed, Routine [facility] foLIC acid (FOLATE) tablet 1 mg 2022-04 14:00: 00 Yes 1mg 1 mg, Oral, DAILY, First dose on 01/27/23 at 0900, Until Discontinu ed, [facility] 100 mg 2022-04 14:00: 00 Yes 100mg 100 mg, Oral, DAILY, First dose on 01/27/23 at 0900, Until Discontinu ed, Routine [facility] KCL (KLOR-CON M20) tablet 40 mEq 2022-04 08:15: 00 01-27 07:39 :00 No 40meq 40 mEq, Oral, ONCE, 1 dose, On 01/27/23 at 0315, Routine [facility] melatonin (MELATIN) tablet 3 mg 2022-04 02:00: 00 Yes 3mg 3 mg, Oral, QHS, First dose on 01/26/23 at 2100, Until Discontinu ed, Routine [facility] hydrOXYzine (ATARAX) tablet 10 mg 2022-04 20:49: 00 01-27 13:06 :40 No 10mg 10 mg, Oral, Q6HPRN, Starting on 01/26/23 at 1549, Until 01/27/23 at 0806, Routine, Anxiety [facility] furosemide (LASIX) injection 40 mg 2022-04 15:00: 00 01-26 13:48 :24 No 40mg 40 mg, Slow IV Push, DAILY, First dose on 01/26/23 at 1000, Until Discontinu ed, Routine [facility] oxazepam (SERAX) capsule 15 mg 2022-04 14:13: 35 Yes 15mg 15 mg, Oral, Q4HPRN, Starting on 01/26/23 at 0913, Until Discontinu ed, Routine, Only while awake for DBP equal to or greater than 100, HR equal to or greater than 100. [facility] pantoprazol e (PROTONIX) EC tablet 40 mg 2022-04 14:00: 00 Yes 40mg 40 mg, Oral, DAILY, First dose on 01/26/23 at 0900, Until Discontinu ed, Routine [facility] aspirin chewable tablet 81 mg 2022-04 14:00: 00 Yes 81mg 81 mg, Oral, DAILY, First dose on 01/26/23 at 0900, Until Discontinu ed, Routine [facility] metoprolol tartrate (LOPRESSOR) tablet 25 mg 2022-04 14:00: 00 01-26 17:41 :11 No 25mg 25 mg, Oral, BID, First dose on 01/26/23 at 0900, Until Discontinu ed, Routine [facility] heparin 25,000 Units/250 mL (Premixed Bag) in [...] ADJUST INITIAL BOLUS OR INITIAL INFUSION RATE.
[facility] atorvastati n (LIPITOR) tablet 80 mg 2022-04 12:30: 00 Yes 80mg 80 mg, Oral, QPM, First dose on 01/26/23 at 0730, Until Discontinu ed, Routine
cannon crewmember approving Restricted medication : MCAWHITE [facility] nitroglycer in (NITROSTAT) sublingual tablet 0.4 mg 2022-04 12:23: 12 Yes .4mg 0.4 mg, Sublingual , Q5MIN PRN, Starting on 01/26/23 at 0723, Until Discontinu ed, Routine, Chest pain [facility] heparin (1,000 unit/mL, 10 mL vial) for Rebolusing 2022-04 12:23: 12 Yes 3000U FOR REBOLUSING , Starting on 01/26/23 at 0723, Until Discontinu ed, Routine
Dosing based on aPTT testing parameters (refer to continuous heparin drip order).
[facility] acetaminoph en (TYLENOL) tablet 650 mg 2022-04 12:23: 12 Yes 650mg 650 mg, Oral, Q6HPRN, Starting on 01/26/23 at 0723, Until Discontinu ed, Routine, Pain (scale 1-3) [facility] lisinopriL 5 mg tablet 10-29 00:00: 00 01-28 04:59 :00 No [id number] 5mg Take 1 tablet by mouth daily for 90 days. [facility] metoprolol succinate XL 25 mg 24 hr tablet 10-29 00:00: 00 01-28 04:59 :00 No [id number] 25mg Take 1 tablet by mouth daily for 90 days. [facility] ALPRAZOLAM (XANAX ORAL) 10-28 15:59: 04 10-28 00:00 :00 No .5mg Take 0.5 mg by mouth as needed. [facility] lidocaine (LIDODERM) 5 % (700 mg/patch) patch 1 Patch 10-28 02:15: 00 10-28 14:05 :00 No 1{patch } 1 Patch, Topical, Administer over 12 Hours, ONCE, 1 dose, On Sat10/27/21 at 2115, Routine [facility] hydroCHLORO thiazide 25 mg tablet 10-28 00:00: 00 01-27 04:59 :00 No [id number] 25mg Take 1 tablet by mouth daily for 90 days. [facility] pantoprazol e 40 mg EC tablet 10-28 00:00: 00 01-27 04:59 :00 No [id number] 40mg Take 1 tablet by mouth daily for 90 days. [facility] melatonin 3 mg tablet 10-28 00:00: 00 11-28 04:59 :00 No [id number] 3mg Take 1 tablet by mouth at bedtime for 30 days. [facility] dicyclomine 20 mg tablet 10-28 00:00: 00 11-28 04:59 :00 No [id number] 20mg Take 1 tablet by mouth 4 (four) times daily for 30 days. [facility] lidocaine 5 % (700 mg/patch) patch 10-28 00:00: 00 10-29 04:59 :00 No [id number] 1{patch } Apply 1 Patch to area(s) once now for 1 dose. [facility] metoprolol succinate XL (TOPROL XL) tablet 25 mg 10-27 14:00: 00 Yes 25mg 25 mg, Oral, DAILY, First dose (after last modificati on) on Sat10/27/21 at 0900, Until Discontinu ed, Routine [facility] KCL (KLOR-CON M20) tablet 40 mEq 10-27 11:45: 00 10-27 11:11 :00 No 40meq 40 mEq, Oral, ONCE, 1 dose, On Sat10/27/21 at 0645, Routine [facility] lidocaine (LIDODERM) 5 % (700 mg/patch) patch 1 Patch 10-27 06:15: 00 10-27 17:28 :00 No 1{patch } 1 Patch, Topical, Administer over 12 Hours, ONCE, 1 dose, On Sat10/27/21 at 0115, Routine [facility] ampicillin- sulbactam (UNASYN) 3 g [...] y
Durat ion of Therapy: 7 days [facility] lidocaine (LIDODERM) 5 % (700 mg/patch) patch 1 Patch 10-26 19:30: 00 10-27 05:06 :18 No 1{patch } 1 Patch, Topical, Administer over 12 Hours, ONCE, 1 dose, On Sat10/26/21 at 1430, Routine [facility] KCL (KLOR-CON M20) tablet 40 mEq 10-26 15:45: 00 10-26 15:04 :00 No 40meq 40 mEq, Oral, ONCE, 1 dose, On Sat10/26/21 at 1045, Routine [facility] lisinopriL (PRINIVIL,Z ESTRIL) tablet 5 mg 10-26 15:15: 00 Yes 5mg 5 mg, Oral, DAILY, First dose on Sat10/26/21 at 1015, Until Discontinu ed, Routine [facility] potassium chloride 20 mEq/100 mL (KCL) 20 mEq/100 mL RTU IVPB 20 mEq 10-26 13:30: 00 10-26 14:33 :09 No 20meq 20 mEq, IV Piggyback, Q2H ES, 2 doses, First dose on Sat10/26/21 at 0830, Last dose on Sat10/26/21 at 1030, 100 mL [facility] lidocaine (LIDODERM) 5 % (700 mg/patch) patch 1 Patch 10-26 10:30: 00 10-26 22:01 :00 No 1{patch } 1 Patch, Topical, Administer over 12 Hours, ONCE, 1 dose, On Sat10/26/21 at 0530, Routine [facility] simethicone (GAS RELIEF (SIMETHICON E)) 40 mg/0.6 mL drops 80 mg 10-26 06:00: 00 Yes 80mg 80 mg, Oral, PC+HS, First dose on Sat10/26/21 at 0100, Until Discontinu ed, Routine [facility] melatonin (MELATIN) tablet 3 mg 10-26 04:00: 00 Yes 3mg 3 mg, Oral, QHS, First dose on Sat10/25/21 at 2300, Until Discontinu ed, Routine [facility] dicyclomine (BENTYL) tablet 20 mg 10-26 04:00: 00 Yes 20mg 20 mg, Oral, QID, First dose on Sat10/25/21 at 2300, Until Discontinu ed, Routine [facility] ALPRAZolam (XANAX) tablet 0.5 mg 10-26 01:19: 00 10-26 02:05 :00 No .5mg 0.5 mg, Oral, ONCE, 1 dose, On Sat10/25/21 at 2030, Routine [facility] acetaminoph en (TYLENOL) tablet 650 mg 10-25 20:41: 15 Yes 650mg 650 mg, Oral, Q6HPRN, Starting on Sat10/25/21 at 1541, Until Discontinu ed, Routine, Temp > 38.5 C [facility] KCL (KLOR-CON M20) tablet 40 mEq 10-25 20:15: 00 10-25 19:45 :00 No 40meq 40 mEq, Oral, ONCE, 1 dose, On Sat10/25/21 at 1515, Routine [facility] potassium chloride in water (KCL) 40 mEq/100 mL 40 mEq piggyback 10-25 06:45: 00 10-25 13:10 :00 No 40meq 40 mEq, IV Piggyback, ONCE, 1 dose, On Sat10/25/21 at 0145 [facility] KCL (KLOR-CON M20) tablet 40 mEq 10-25 06:45: 00 10-25 09:10 :00 No 40meq 40 mEq, Oral, ONCE, 1 dose, On Sat10/25/21 at 0145, Routine [facility] acetaminoph en ADULT (OFIRMEV) injection 1,000 mg 10-25 03:30: 00 10-25 03:08 :00 No 1000mg 1,000 mg, IV Infusion, at 400 mL/hr Administer over 15 Minutes, ONCE, 1 dose, On Sat10/24/21 at 2230, Routine
Indicatio n: Non-periop erative Patient
Approved by: Per Policy (NPO Status) [facility] LORazepam (ATIVAN) injection 0.5 mg 10-25 03:30: 00 10-25 02:53 :00 No .5mg 0.5 mg, Slow IV Push, ONCE, 1 dose, On Sat10/24/21 at 2230, Routine
Is the medication being used for status epilepticu s? No [facility] proMETHazin e (PHENERGAN) 12.5 mg in NS 50 mL IV piggyback (CNR) 10-25 02:45: 00 10-25 02:25 :00 No 12.5mg 12.5 mg, IV Piggyback, at 200 mL/hr Administer over 15 Minutes, ONCE NOW, 1 dose, On Sat10/24/21 at 2145, Routine [facility] pantoprazol e (PROTONIX) EC tablet 40 mg 10-25 01:00: 00 Yes 40mg 40 mg, Oral, BID, First dose on Sat10/24/21 at 2000, Until Discontinu ed, Routine [facility] metoprolol succinate XL (TOPROL XL) tablet 12.5 mg 10-24 22:15: 00 10-26 15:13 :00 No 12.5mg 12.5 mg, Oral, DAILY, First dose on Sat10/24/21 at 1715, Until Discontinu ed, Routine [facility] ALPRAZolam (XANAX) tablet 0.5 mg 10-24 21:25: 17 Yes .5mg 0.5 mg, Oral, TIDPRN, Starting on Sat10/24/21 at 1625, Until Discontinu ed, agitation [facility] potassium chloride in water (KCL) 40 mEq/100 mL 40 mEq piggyback 10-24 11:45: 00 10-24 14:57 :00 No 40meq 40 mEq, IV Piggyback, ONCE, 1 dose, On Sat10/24/21 at 0645 [facility] sodium chloride 7% (HYPER-VANESSA) nebulizer solution 4 mL 10-24 05:00: 00 10-24 23:31 :00 No 4mL 4 mL, Inhalation , BID, First dose on Sat10/24/21 at 0000, Until Discontinu ed, Routine [facility] FENTanyl PF (SUBLIMAZE (PF)) injection 50 mcg 10-24 03:30: 00 10-24 02:46 :00 No 50ug 50 mcg, Slow IV Push, ONCE, 1 dose, On Sat10/23/21 at 2230, Routine [facility] midazolam (VERSED) injection 1 mg 10-24 02:40: 30 10-24 08:34 :00 No 1mg 1 mg, IV Push, PRN - SEE INSTRUCTIO NS, 2 doses, Starting on Sat10/23/21 at 2140, Until Discontinu ed, Routine, Anxiety, Agitation [facility] acetaminoph en ADULT (OFIRMEV) injection 1,000 mg 10-24 02:16: 26 10-24 23:31 :00 No 1000mg 1,000 mg, IV Infusion, at 400 mL/hr Administer over 15 Minutes, BIDPRN, Starting on Sat10/23/21 at 2116, Until Sat10/24/21 at 1831, Routine, Needed for fever
I ndication: Non-periop erative Patient
Approved by: Per Policy (NPO Status) [facility] HYDROcodone -acetaminop hen (HYCET) 7.5-325 mg/15 mL solution 2.5 mg 10-23 23:30: 00 10-23 23:42 :00 No 2.5mg 2.5 mg, Enteral, ONCE, 1 dose, On Sat10/23/21 at 1830, Routine [facility] sulfur hexafluorid e microsphr (LUMASON) injection 5 mL 10-23 16:45: 00 10-23 16:45 :00 No [id number] 5mL 5 mL, Intravenou s, ONCE, 1 dose, On Sat10/23/21 at 1145, Routine
cannon crewmember approving Restricted medication : BENEDICT BRANCH [facility] meropenem (MERREM) 1,000 mg in [...] Blood
D uration of therapy: 7 days [facility] lactated ringers IV infusion 1,000 mL 10-23 00:45: 00 10-22 23:44 :00 No 1000mL at 999 mL/hr, 1,000 mL, Intravenou s, ONCE, 1 dose, On Sat10/22/21 at 1945, Routine [facility] vancomycin 1,250 mg in NaCl [...] Blood
D uration of therapy: 7 days [facility] meropenem (MERREM) 1,000 mg in [...] Blood
D uration of therapy: 7 days [facility] acetaminoph en ADULT (OFIRMEV) injection 1,000 mg 10-22 19:59: 14 10-23 19:58 :14 No 1000mg 1,000 mg, IV Infusion, at 400 mL/hr Administer over 15 Minutes, BIDPRN, Starting on Sat10/22/21 at 1459, Until Sat10/23/21 at 1458, Routine, Needed for fever
I ndication: Non-periop erative Patient
Approved by: Per Policy (NPO Status) [facility] ipratropium -albuteroL (DUONEB) 0.5 mg-3 mg(2.5 mg base)/3 mL nebulizer solution 3 mL 10-22 19:00: 00 10-24 23:41 :43 No 3mL 3 mL, Inhalation , TID, First dose on Sat10/22/21 at 1400, Until Discontinu ed, Routine [facility] lactated ringers IV infusion 1,000 mL 10-22 15:15: 00 10-22 15:06 :00 No 1000mL at 999 mL/hr, 1,000 mL, IV Infusion, ONCE, 1 dose, On Sat10/22/21 at 1015, Routine [facility] azithromyci n (ZITHROMAX) 500 mg [...] y
Durat ion of Therapy: 7 days [facility] cefTRIAXone (ROCEPHIN) 1,000 mg in [...] y
Durat ion of Therapy: 7 days [facility] magnesium sulfate in water 2 gram/50 mL (4 %) infusion 2 g 10-22 15:00: 00 10-22 17:50 :00 No 2g 2 g, IV Piggyback, Administer over 60 Minutes, Q1H, 2 doses, First dose on Sat10/22/21 at 1000, Last dose on Sat10/22/21 at 1100, Routine [facility] artificial tears(hypro mellose) (ISOPTO-TEA RS) 0.5 % ophthalmic drops 2 Drop 10-22 14:11: 27 Yes 2[drp] 2 Drop, Both Eyes, PRN, Starting on Sat10/22/21 at 0911, Until Discontinu ed, Routine, Dry eyes [facility] lactated ringers IV infusion 1,000 mL 10-22 13:45: 00 10-22 14:06 :25 No 1000mL at 125 mL/hr, 1,000 mL, IV Infusion, CONTINUOUS , Starting on Sat10/22/21 at 0845, Until Sat10/22/21 at 0906, Routine [facility] ampicillin- sulbactam (UNASYN) 1.5 g in NaCl 0.9% (NS) 50 mL MINI-BAG 10-22 13:30: 00 10-22 14:17 :28 No 1.5g 1.5 g, IV Piggyback, Q6H ABX, First dose on Sat10/22/21 at 0830, Until Discontinu ed, Administer over 30 Minutes, 50 mL
Reas on for Anti-Infec tive: Documented Infection< br>Documen julio cesar Infection Site: Respirator y
Durat ion of Therapy: 7 days [facility] lactated ringers IV infusion 1,000 mL 10-22 04:15: 00 10-22 05:00 :00 No 1000mL at 999 mL/hr, 1,000 mL, Intravenou s, ONCE, 1 dose, On 10/21/21 at 2315, Routine [facility] lactated ringers IV infusion 1,000 mL 10-22 02:45: 00 10-22 03:38 :00 No 1000mL at 999 mL/hr, 1,000 mL, IV Infusion, ONCE, 1 dose, On 10/21/21 at 2145, Routine [facility] NORepinephr ine 16 mg in NS 250 mL infusion RTU 10-22 02:41: 53 10-24 21:14 :31 No .05ug/k g/min 0.05-1.5 mcg/kg/min ?80 kg (3.75-112. 5 mL/hr), IV Infusion, TITRATE, MAP Goal > or = 65 mmHg, Starting on 10/21/21 at 214
In itiate titration at 0.05 mcg/kg/min . &nb sp;Increas e by 0.1 mcg/kg/min every 30 seconds to 5 minutes as needed to reach and maintain goal blood pressure.& nbsp;&nbsp ;Maximum dose = 1.5 mcg/kg/min . &nb sp;If goal not maintained at maximum allowed dose, contact prescriber .
[facility] lactated ringers IV infusion 1,000 mL 10-22 02:30: 00 10-22 01:38 :51 No 1000mL at 999 mL/hr, 1,000 mL, IV Infusion, CONTINUOUS , Starting on 10/21/21 at 2130, Until 10/21/21 at 2037, Routine [facility] acetaminoph en ADULT (OFIRMEV) injection 1,000 mg 10-22 02:00: 00 10-22 01:19 :00 No 1000mg 1,000 mg, IV Infusion, at 400 mL/hr Administer over 15 Minutes, ONCE, 1 dose, On 10/21/21 at 2100, Routine
Indicatio n: Non-periop erative Patient
Approved by: Per Policy (NPO Status) [facility] sodium chloride 7% (HYPER-VANESSA) nebulizer solution 4 mL 10-22 01:45: 00 10-22 14:12 :29 No 4mL 4 mL, Inhalation , BID, First dose on 10/21/21 at 2044, Until Discontinu ed, Routine [facility] fentaNYL PF (SUBLIMAZE) STD 2,500 [...] at maximum allowed dose, contact prescriber .
[facility] midazolam (VERSED) STD 50mg in [...] at maximum allowed dose, contact prescriber .
[facility] meropenem (MERREM) 1,000 mg in [...] Blood
D uration of therapy: 7 days [facility] vancomycin (VANCOCIN) 1,000 mg in NaCl 0.9% (NS) 250 mL VIAL-MATE IV piggyback 10-22 01:00: 00 10-22 03:09 :00 No 1000mg 1,000 mg, IV Piggyback, ONCE, 1 dose, On 10/21/21 at 1999, Administer over 60 Minutes, 250 mL
Reas on for Anti-Infec tive: Documented Infection< br>Documen julio cesar Infection Site: Abdominal< br>Duratio n of Therapy: [address] [facility] lactated ringers IV infusion 1,000 mL 10-22 00:45: 00 10-22 01:04 :00 No 1000mL at 999 mL/hr, 1,000 mL, Intravenou s, ONCE, 1 dose, On 10/21/21 at 1945, Routine [facility] dexMEDEtomi dine 200 mcg in [...] at maximum allowed dose, contact prescriber .
[facility] midazolam (VERSED) injection 2 mg 10-22 00:18: 33 10-23 16:25 :38 No 2mg 2 mg, Slow IV Push, Q1HPRN, Starting on 10/21/21 at 1918, Until 10/23/21 at 1125, Routine, Agitation [facility] acetaminoph en-codeine 300-30 mg tablet 2018-04 00:00: 00 10-28 00:00 :00 No [id number] 1{tbl} Take 1 tablet by mouth every 6 (six) hours as needed for Pain (scale 4-6) for up to 30 doses. [facility] ibuprofen 800 mg tablet 2018-04 00:00: 00 10-28 00:00 :00 No [id number] 800mg Take 1 tablet by mouth every 6 (six) hours as needed for Pain (scale 4-6) for up to 30 doses. [facility] ondansetron 4 mg disintegrat ing tablet 2016-04 00:00: 00 10-28 00:00 :00 No 4mg Take 1 tablet by mouth every 8 (eight) hours as needed for Nausea and Vomiting (N/V). [facility] acetaminoph en-codeine 300-30 mg tablet 2016-04 00:00: 00 10-28 00:00 :00 No 1{tbl} Take 1 tablet by mouth every 4 (four) hours as needed for Pain (scale 7-10). [facility] naproxen sodium (ANAPROX DS) 550 mg tablet 2016-04 00:00: 00 10-28 00:00 :00 No 550mg Take 1 tablet by mouth 2 (two) times daily with meals. [facility] Immunizations Ordered Immunization Name Filled Immunization Name Date Status Comments Source TDAP (ADACEL) VACCINE 2019-01-25 00:00:00 Completed [facility] TDAP (ADACEL) VACCINE 2019-01-25 00:00:00 Completed [facility] TDAP (ADACEL) VACCINE 2019-01-25 00:00:00 Completed [facility] TDAP (ADACEL) VACCINE 2019-01-25 00:00:00 Completed [facility] TDAP (ADACEL) VACCINE 2019-01-25 00:00:00 Completed [facility] TDAP (ADACEL) VACCINE 2019-01-25 00:00:00 Completed [facility] TDAP (ADACEL) VACCINE 2019-01-25 00:00:00 Completed [facility] TDAP (ADACEL) VACCINE Unknown Completed [facility] TDAP (ADACEL) VACCINE Unknown Completed [facility] TDAP (ADACEL) VACCINE Unknown Completed [facility] TDAP (ADACEL) VACCINE Unknown Completed [facility] TDAP (ADACEL) VACCINE Unknown Completed [facility] Vital Signs Vital Name Observation Time Observation Value Comments S ource Systolic blood pressure 2023-01-28 19:58:00 127 mm[Hg] [facility] Diastolic blood pressure 2023-01-28 19:58:00 87 mm[Hg] [facility] Respiratory rate 2023-01-28 19:58:00 10 /min [facility] Oxygen saturation in Arterial blood by Pulse oximetry 2023-01-28 19:58:00 99 /min [facility] Heart rate 2023-01-28 18:51:46 58 /min [facility] Body temperature 2023-01-28 16:21:00 35.83 Coty [facility] Body weight 2023-01-28 08:07:00 82.373 kg actual wt on the regular scale [facility] BMI 2023-01-28 08:07:00 26.06 kg/m2 [facility] Body height 2023-01-27 02:37:00 177.8 cm [facility] Systolic blood pressure 2021-10-28 16:26:00 151 mm[Hg] [facility] Diastolic blood pressure 2021-10-28 16:26:00 88 mm[Hg] [facility] Heart rate 2021-10-28 16:26:00 93 /min [facility] Body temperature 2021-10-28 16:26:00 37.39 Coty [facility] Respiratory rate 2021-10-28 16:26:00 18 /min [facility] Oxygen saturation in Arterial blood by Pulse oximetry 2021-10-28 16:26:00 94 /min [facility] Body height 2021-10-26 15:35:00 177.8 cm [facility] Body weight 2021-10-26 15:35:00 79.833 kg [facility] BMI 2021-10-26 15:35:00 25.25 kg/m2 [facility] Procedures Procedure Date / Time Performed Performing Clinician Source ACTIVATED PARTIAL THRMPLAS POORNIMA 2023-01-28 21:28:00 Luna Alba [facility] CATH PROCEDURE LOG 2023-01-28 18:55:48 Roma Briones [facility] MAGNESIUM 2023-01-28 16:42:00 Luna Alba [facility] BASIC METABOLIC PANEL (NA, K, CL, CO2, GLUCOSE, BUN, CREATININE, CA) 2023-01-28 16:42:00 Luna Alba Isela [facility] MAGNESIUM 2023-01-28 09:47:00 Luna Alba [facility] BASIC METABOLIC PANEL (NA, K, CL, CO2, GLUCOSE, BUN, CREATININE, CA) 2023-01-28 09:47:00 Luna Alba [facility] CBC WITH DIFF 2023-01-28 09:47:00 Luna Alba [facility] URINALYSIS 2023-01-27 21:34:00 Yu Wells [facility] CBC WITHOUT DIFF 2023-01-27 21:15:00 Luna Alba [facility] BLOOD CULTURE SCREEN 2023-01-27 15:09:00 Rafaela Wells [facility] TROPONIN I 2023-01-27 15:09:00 Yu Wells [facility] EBV-MONONUCLEOSIS SCREEN 2023-01-27 15:09:00 Baudilio nagel Yu [facility] GALV ONLY - INFLUENZA A B RSV PCR 2023-01-27 15:09:00 Yu Wells [facility] PROCALCITONIN 2023-01-27 15:09:00 [facility] COVID-19 (ID NOW RAPID TESTING) 2023-01-27 15:09:00 [facility] LAB ONLY COVID INTERPRETATION 2023-01-27 15:09:00 [facility] TRANSTHORACIC ECHO (TTE) COMPLETE W/ CONTRAST 2023-01-27 14:54:42 [facility] MAGNESIUM 2023-01-27 06:23:00 [facility] TROPONIN I 2023-01-27 06:23:00 Russell [facility] BASIC METABOLIC PANEL (NA, K, CL, CO2, GLUCOSE, BUN, CREATININE, CA) 2023-01-27 06:23:00 Russell [facility] SEDIMENTATION RATE 2023-01-27 06:23:00 Ihsan Wells [facility] CBC WITH DIFF 2023-01-27 06:23:00 [facility] URINE DRUG (IMMUNOASSAY) - COMPREHENSIVE DRUG SCREEN 2023-01-27 01:25:00 [facility] TROPONIN I 2023-01-26 22:40:00 Yu [facility] XR CHEST 1 VW 2023-01-26 19:22:00 [facility] HB ECG ROUTINE & RHYTHM STRIP 2023-01-26 12:58:32 [facility] TROPONIN I 2023-01-26 12:50:00 Russell [facility] THYROID STIMULATING HORMONE 2023-01-26 12:50:00 Russell [facility] HEPATIC FUNCTION PANEL (05258) (ALB,T.PRO,BILI T,BU/BC,ALT,AST,ALK PHOS) 2023-01-26 12:50:00 Russell [facility] BASIC METABOLIC PANEL (NA, K, CL, CO2, GLUCOSE, BUN, CREATININE, CA) 2023-01-26 12:50:00 Russell [facility] LIPID PANEL (43318)(TOTAL CHOLESTEROL, TRIGLYCERIDES, HDL) 2023-01-26 12:50:00 [facility] ETHANOL 2023-01-26 12:50:[address] [facility] 2023-01-26 12:50:00 [facility] GLYCOSYLATED HEMOGLOBIN (A1C) 2023-01-26 12:50:00 [facility] PROTHROMBIN TIME / INR 2023-01-26 12:50:00 [facility] ACTIVATED PARTIAL THRMPLAS POORNIMA 2023-01-26 12:50:00 [facility] N-TERMINAL PRO-BNP 2023-01-26 12:50:00 Ihsan Wells [facility] LOW-DENSITY LIPOPROTEIN, DIRECT 2023-01-26 12:50:00 [facility] EXTERNAL PROVIDER RECORDS 2021-11-09 05:01:00 Do ctor Unassigned, [place] [facility] BASIC METABOLIC PANEL (NA, K, CL, CO2, GLUCOSE, BUN, CREATININE, CA) 2021-10-28 09:41:00 Mike [facility] CBC WITHOUT DIFF 2021-10-28 09:41:00 Daniel Turner [facility] PROTEIN CREAT RATIO URINE RANDOM 2021-10-27 16:45:00 Lara Fry [facility] SODIUM, URINE RANDOM 2021-10-27 16:45:00 Lara Fry [facility] FECAL PATHOGENS BY PCR 2021-10-27 13:23:00 Hernando Eric [facility] BASIC METABOLIC PANEL (NA, K, CL, CO2, GLUCOSE, BUN, CREATININE, CA) 2021-10-27 10:51:00 Lara Fry [facility] MAGNESIUM 2021-10-26 10:31:00 Rick Eric [facility] BASIC METABOLIC PANEL (NA, K, CL, CO2, GLUCOSE, BUN, CREATININE, CA) 2021-10-26 10:31:00 Rick Eric [facility] CBC WITHOUT DIFF 2021-10-26 10:31:00 Rick Eric [facility] FECES CULTURE 2021-10-26 02:32:00 Agus [facility] MAGNESIUM 2021-10-25 16:47:00 [facility] BASIC METABOLIC PANEL (NA, K, CL, CO2, GLUCOSE, BUN, CREATININE, CA) 2021-10-25 16:47:00 Agus [facility] CLOSTRIDIUM DIFFICILE TOXIN 2021-10-25 11:35:[address] [facility] CBC WITH DIFF 2021-10-25 10:35:00 Agus [facility] MAGNESIUM 2021-10-25 04:44:00 Vel [facility] BASIC METABOLIC PANEL (NA, K, CL, CO2, GLUCOSE, BUN, CREATININE, CA) 2021-10-25 04:44:[address] [facility] AC PANEL 20 + LACTIC ACID 2021-10-25 04:44:00 Ana [facility] XR CHEST 1 VW 2021-10-25 04:14:00 Vel [facility] XR KUB 2021-10-25 04:14:00 Agus [facility] CT CERVICAL SPINE WO CONTRAST 2021-10-24 16:24:24 Agus [facility] CT HEAD WO CONTRAST 2021-10-24 16:03:35 Rich [facility] MAGNESIUM 2021-10-24 09:22:00 Rick Eric [facility] BASIC METABOLIC PANEL (NA, K, CL, CO2, GLUCOSE, BUN, CREATININE, CA) 2021-10-24 09:22:00 Jeaneth Rick [facility] CBC WITHOUT DIFF 2021-10-24 09:22:00 Rick Eric [facility] SPUTUM CULTURE 2021-10-23 22:44:00 Rick Eric [facility] CBC WITHOUT DIFF 2021-10-23 20:33:00 Rick Eric [facility] TRANSTHORACIC ECHO (TTE) COMPLETE W/ CONTRAST 2021-10-23 16:30:53 Meera Ayers [facility] MAGNESIUM 2021-10-23 08:46:00 Rick Eric [facility] BASIC METABOLIC PANEL (NA, K, CL, CO2, GLUCOSE, BUN, CREATININE, CA) 2021-10-23 08:46:00 Rick Eric [facility] CBC WITHOUT DIFF 2021-10-23 08:46:00 Rick Eric [facility] AC PANEL 20 + LACTIC ACID 2021-10-23 08:45:00 [facility] 2021-10-23 05:22:00 Rick Eric [facility] TROPONIN I 2021-10-22 23:07:00 Rick Eric [facility] CBC WITHOUT DIFF 2021-10-22 23:07:00 Eric Reid [facility] TROPONIN I 2021-10-22 16:48:00 Rick Eric [facility] VANCOMYCIN RANDOM LEVEL 2021-10-22 16:48:00 Arabella Eric [facility] CBC WITHOUT DIFF 2021-10-22 16:48:00 Eric Reid [facility] AC PANEL 20 + LACTIC ACID 2021-10-22 15:02:00 Azeb Deshpande [facility] HB ECG ROUTINE & RHYTHM STRIP 2021-10-22 13:43:44 Rick Eric [facility] PHOSPHORUS 2021-10-22 12:15:00 Eric Reid [facility] MAGNESIUM 2021-10-22 12:15:00 Eric Reid [facility] BASIC METABOLIC PANEL (NA, K, CL, CO2, GLUCOSE, BUN, CREATININE, CA) 2021-10-22 12:15:00 [facility] URINE DRUG (IMMUNOASSAY) - COMPREHENSIVE DRUG SCREEN 2021-10-22 10:59:00 [facility] TROPONIN I 2021-10-22 10:53:00 Meera Ayers [facility] CBC WITHOUT DIFF 2021-10-22 10:53:00 [facility] AC PANEL 20 + LACTIC ACID 2021-10-22 06:28:00 Azeb Deshpande [facility] TROPONIN I 2021-10-22 06:19:00 Meera Ayers [facility] CBC WITHOUT DIFF 2021-10-22 06:19:00 [facility] RESPIRATORY PANEL BY PCR 2021-10-22 04:50:00 Lanny Reid [facility] URINE CULTURE 2021-10-22 02:56:00 Meera Ayers [facility] AC PANEL 20 + LACTIC ACID 2021-10-22 02:29:00 Eitan Ayersssica [facility] CREATINE KINASE 2021-10-22 00:50:[address] [facility]IP[facility] 2021-10-22 00:50:00 Meera Ayers [facility] ETHANOL 2021-10-22 00:50:00 Rich Goldsmith [facility] CBC WITHOUT DIFF 2021-10-22 00:50:[address] [facility] ACTIVATED PARTIAL THRMPLAS POORNIMA 2021-10-22 00:50:00 Meera Ayers [facility] FIBRINOGEN 2021-10-22 00:50:00 Meera Ayers [facility] URINE DRUG (IMMUNOASSAY) - COMPREHENSIVE DRUG SCREEN 2021-10-22 00:43:00 Agus [facility] URINALYSIS 2021-10-22 00:43:00 Meera Ayers [facility] CREATININE, URINE RANDOM 2021-10-22 00:43:00 Miriam Ayers [facility] UREA NITROGEN, URINE RANDOM 2021-10-22 00:43:00 Meera Ayers [facility] SODIUM, URINE RANDOM 2021-10-22 00:43:00 Myah Ayers [facility] URINE DRUG (LCMSMS) - SYNTHETIC OPIATES PANEL 2021-10-22 00:43:00 [facility] URINE DRUG (LCMSMS) - BENZODIAZEPINES PANEL 2021-10-22 00:43:00 [facility] COVID-19 (MOLECULAR TESTING NUCLEIC ACID AMPLIFICATION) 2021-10-22 00:42:00 [facility] LAB ONLY COVID INTERPRETATION 2021-10-22 00:42:00 Franklin Eric [facility] COVID-19 (ID NOW RAPID TESTING) 2021-10-22 00:41:00 [facility] LAB ONLY COVID INTERPRETATION 2021-10-22 00:41:00 Franklin Eric [facility] MRSA / MSSA SCREEN BY PCR, ASH 2021-10-22 00:38:00 [facility] 2021-10-22 00:29:00 Myah Ayers [facility] XR ABDOMEN 1 VW 2021-10-22 00:10:00 Rick Eric [facility] XR CHEST 1 VW 2021-10-22 00:10:00 Andria Meera [facility] MAGNESIUM 2021-10-22 00:07:00 Andria [facility] TROPONIN I 2021-10-22 00:07:00 Andria [facility] HEPATIC FUNCTION PANEL (91820) (ALB,T.PRO,BILI T,BU/BC,ALT,AST,ALK PHOS) 2021-10-22 00:07:00 Andria [facility] BASIC METABOLIC PANEL (NA, K, CL, CO2, GLUCOSE, BUN, CREATININE, CA) 2021-10-22 00:07:00 [facility]FF 2021-10-22 00:07:[address] [facility] PROTHROMBIN TIME / INR 2021-10-22 00:07:00 Chichi Ayers [facility] ABG+COOX+NA+K+GLU+CA2+ 2021-10-21 23:52:00 Jim Nelson [facility] Encounters Start Date/Time End Date/Time Encounter Type Admission Type Attending [facility] Care Facility Care Department Encounter ID Source 2023-06-25 22:02:00 2023-06-26 22:42:00 Emergency EM Vikas De La Vega [facility] [id number] 28 [facility] 2023-02-11 00:00:00 2023-02-11 00:00:00 Yu Boothe [facility] [id number] 350.1.13.10 4.2.7.2.686 [id number] [facility] 2023-01-29 00:00:00 2023-01-29 00:00:00 Transition of Care QuezadaBruna 1.2840.114 350.1.13.10 4.2.7.2.686 [id number] [facility] 2023-01-26 07:11:00 2023-01-28 19:57:00 Inpatient U BECKIECAMERONROMA [facility] [id number] [facility] 2023-01-26 07:11:00 2023-01-28 19:57:00 [facility] 1.2840.114 350.1.13.10 4.2.7.2.686 [id number] [facility] 2021-12-11 00:00:00 2021-12-11 00:00:00 Patient Outreach Jessi Sanchez [facility] [id number] 350.1.13.10 4.2.7.2.686 [id number] [facility] 2021-11-12 00:00:00 2021-11-12 00:00:00 Patient Secure Msg Doctor Unassigned, [place] [facility] [id number] 350.1.13.10 4.2.7.2.686 [id number] [facility] 2021-11-09 00:00:00 2021-11-09 00:00:00 Orders Only Doctor Unassigned, [place] [facility] [id number] 350.1.13.10 4.2.7.2.686 [id number] [facility] 2021-11-07 00:00:00 2021-11-07 00:00:00 Mike Leonard [facility] [id number] 350.1.13.10 4.2.7.2.686 [id number] [facility] 2021-11-06 00:00:00 2021-11-06 00:00:00 Transition of Care Damien Brunanaedr [place] [id number] 350.1.13.10 4.2.7.2.686 [id number] [facility] 2021-11-03 00:00:00 2021-11-03 00:00:00 Patient Outreach Jessi Sanchez ARMANDO [place] [id number] 350.1.13.10 4.2.7.2.686 [id number] [facility] 2021-10-31 00:00:00 2021-10-31 00:00:00 Transition of Care Jesus Quezadanader [place] 1.2.840.114 350.1.13.10 4.2.7.2.686 [id number] [facility] 2021-10-21 18:30:00 2021-10-28 16:39:00 Inpatient U LUKAS HENAO [facility] [id number] [facility] 2021-10-21 18:30:00 2021-10-28 16:39:00 Hospital Encounter Zhane Jim Valencia, Artur Campbell, Dilcia Henao, Lukas Sandra Kyle, Edson [facility] [id number] 350.1.13.10 4.2.7.2.686 [id number] [facility] Results Test Description Test Time Test Comments Results Result Co mments Source [id number] 07:57:00* Test Item Value Reference Range Interpretation Comme nts ALCOHOL (test code = ALC) 0.24 gm/dL 0.00-0.00 H ETHYL ALCOHOL VA LUES - INTERPRETATION: 0.050 GM/DL - NOT INTOXICATED 0.100 GM/DL - INTOXICATED 0.350-0.450 GM/DL - SEVERELY INTOXICATED 0.550 GM/DL- FATAL INTOXICATION HEPATIC FUNCTION PANEL [id number] 07:47:00* Test Item Value Reference Range Interpretation [...] code = ALKP) 83 Units/L 50.0-136.0 N [id number] 07:41:00* Test Item Value Reference Range Interpretation Comme nts ACETAMINOPHEN (test code = ACET) <2.0 mcg/ml 10.0-30.0 L Result is in Microgram per milliliter. [id number] 07:41:00* Test Item Value Reference Range Interpretation Comme nts SALICYLATE (test code = VANESSA) 13.4 mg/dl 2.8-20.0 N CBC W/AUTO [id number] 02:52:00* Test Item Value Reference Range Interpretation [...] = PLTEST) ADQ DRUGS OF ABUSE SCREEN [id number] 00:10:00* Test Item Value Reference Range Interpretation [...] 300 ng/mL WHAT DRUGS HAVE BEEN TAKEN? [id number] 10:28:00* Test Item Value Reference Range Interpretation Comme nts MAGNESIUM (test code = 7122764737) 1.8 mg/dL 1.7-2.4 Lab Interpretation (test cod e = 65843-3) [facility] (NA, K, CL, CO2, GLUCOSE, BUN, CREATININE, CA)2023-01-28 10:27:59* Test Item Value Reference Range Interpretation Comme nts NA (test code = 4411965667) 142 mmol/L 135-145 K (test code = 6354512379) 3.2 mmol/L 3.5-5.0 L CL (test code = 6533941615) 112 mmol/L 98-108 H CO2 TOTAL (test code = 5079958177) 26 mmol/L 23-31 AGAP (test code = 1722879048) 4 2-16 BUN (test code = 3370699663) 24 mg/dL 7-23 H GLUCOSE (test code = 2213175926) 89 mg/dL 70-110 CREATININE (test code = 8198893489) 0.93 mg/dL 0.60-1.25 CALCIUM (test code = 7172999733) 8.3 mg/dL 8.6-10.6 L eGFR (test code = 5339178835) 88.3 mL/min/1.73m2 JENNIFER (test code = JENNIFER) [...] imaging tests). Lab Interpretation (test code = 91091-9) Abnormal [facility] WITH [id number] 10:11:15* Test Item Value Reference Range Interpretation Comme nts WBC (test code = 6690-2) 10.03 See_Comment [Automated messa ge] The system which [...] 31.9 g/dL 31.2-35.0 RDW-SD (test code = 96728-7) 57.8 fL 38.5-51.6 H RDW-CV (test code = 788-0) 16.5 % 12.1-15.4 H PLT (test code = 777-3) 204 See_Comment [Automated messa ge] The system which generated this result transmitted reference range: 150 - 328 10*3/?L. The reference range was not used to interpret this result as normal/abnormal. MPV (test code = 59184-8) 10.1 fL 9.8-13.0 NRBC/100 WBC (test code = 8450039619) 0.0 See_Comment [Automated Palkion ssage] The system which generated this result transmitted reference range: 0.0 - 10.0 /100 WBCs. The reference range was not used to interpret this result as normal/abnormal. NRBC x10^3 (test code = 3977089609) See_Comment [Automated messa ge] The system which generated this result transmitted reference range: 10*3/?L. The reference range was not used to interpret this result as normal/abnormal. GRAN MAT (NEUT) % (test code = 770-8) 63.2 % IMM GRAN % (test code = 7759123800) 0.40 % LYMPH % (test code = 736-9) 27.1 % MONO % (test code = 5905-5) 6.9 % EOS % (test code = 713-8) 1.7 % BASO % (test code = 706-2) 0.7 % GRAN MAT x10^3(ANC) (test code = 2863169121) 6.34 10*3/uL 1.99-6.95 IMM GRAN x10^3 (test code = 7104623966) 0.04 10*3/uL 0.00-0.06 LYMPH x10^3 (test code = 731-0) 2.72 10*3/uL 1.09-3.23 MONO x10^3 (test code = 742-7) 0.69 10*3/uL 0.36-1.02 EOS x10^3 (test code = 711-2) 0.17 10*3/uL 0.06-0.53 BASO x10^3 (test code = 704-7) 0.07 10*3/uL 0.01-0.09 Lab Interpretation (test code = 02071-4) [facility]normal [facility]2023-01-27 19:45:52* Test Item Value Reference Range Interpretation Comme nts Height (test code = 1641213149) 70 in Weight (test code = 6411436662) 175 lbs Systolic BP (test code = 5426899986) 124 mmHg Diastolic BP (test code = 0591397693) 84 mmHg Heart Rate (test code = 7995349157) 67 bpm BSA (test code = 6655538292) 1.97 m2 LVIDD (test code = 1057097307) 5.10 cm Left Ventricular End Diastolic Volume by Teichholz Method (test code = 0785750) 121.1 mL IVS (test code = 4427721875) 0.77 cm Interventricular Septum Diastolic Thickness by 2D (test code = 0241026) 0.77 cm LVPWD (test code = 8131977786) 0.77 cm PW (test code = 0613488292) 0.77 cm 0.6-1.1 EF(Teich) (test code = 4060488998) 46.40 % LVIDS (test code = 2529000645) 3.90 cm Left Ventricular End Systolic Volume by Teichholz Method (test code = 5811581) 65.0 mL FS (test code = 2365469272) 23 % EF - 2D (test code = 63754189) 46.40 % LVOT diameter (test code = 1396572705) 1.82 cm LVOT area (test code = 9697862610) 2.60 cm2 Ao root diam (test code = 5850156915) 3.10 cm Aortic root (test code = 5023685736) 3.1 cm Ao root annulus (test code = 6211075066) 3.1 cm LA size (test code = 8899574247) 2.6 cm ACS (test code = 1427051272) 1.92 cm PV REGURGITATION PEAK GRADIENT (test code = 3264719876) 10.6 mmHg MV Peak E Otis (test code = 2072839364) 69.0 cm/s MV Peak A Otis (test code = 0371826825) 67.3 cm/s E/A ratio (test code = 8868898452) 1.03 ratio E wave decelartion time (test code = 2876466086) 0.17 s MV E/e' septal (test code = 5411391469) 9.5 cm/s LVOT stroke volume (test code = 3337783047) 53.00 cm3 LVOT peak otis (test code = 0414514376) 90.4 cm/s LVOT mn grad (test code = 7374389034) 1.6 mmHg AV LVOT peak gradient (test code = 1610378607) 3.3 mmHg LVOT peak VTI (test code = 0227745556) 20.3 cm LV V1 mean (test code = 4670006997) 57.70 cm/s Aortic valve mean velocity (test code = 2890094330) 71.7 cm/s Ao peak otis (test code = 4559064274) 108.6 cm/s Ao VTI (test code = 4579601783) 21.0 cm AV area by cont VTI (test code = 3220637532) 2.5 cm2 AV area peak otis (test code = 1177655423) 2.2 cm2 Ao max PG (test code = 1452589150) 4.70 mm[Hg] AV peak gradient (test code = 9580907213) 4.7 mmHg AV valve area (test code = 8756824936) 2.50 cm2 AV mean gradient (test code = 8260151620) 2.35 mmHg Tapse (test code = 2717375415) 2.26 cm LAV(MOD-sp4) (test code = 5069727915) 53.50 mL LA Volume Index (BP) (test code = 6524439484) 28.7 mL/m2 LA volume (BP) (test code = 0720146900) 56.7 mL LAV(MOD-sp2) (test code = 5188818906) 47.40 mL IVC Diam Exp(MM) (test code = 6978575665) 1.31 cm IVC Diam Ins(MM) (test code = 2156896953) 0.49 cm Radiology Study observation (narrative) (test code = 25677-3) JENNIFER (test code = JENNIFER) ?Left?Ventricle: Left [...] mL of Lumason ultrasound enhancing agent used. [facility] METABOLIC PANEL (NA, K, CL, CO2, GLUCOSE, BUN, CREATININE, CA)2021-10-28 10:23:41* Test Item Value Reference Range Interpretation Comme nts NA (test code = 6524724827) 144 mmol/L 135-145 K (test code = 0732638457) 3.3 mmol/L 3.5-5.0 L CL (test code = 5107109483) 113 mmol/L 98-108 H CO2 TOTAL (test code = 5343811014) 23 mmol/L 23-31 AGAP (test code = 9556668141) 2-16 BUN (test code = 2915950506) 16 mg/dL 7-23 GLUCOSE (test code = 8916953982) 94 mg/dL 70-110 CREATININE (test code = 2732167971) 1.11 mg/dL 0.60-1.25 CALCIUM (test code = 6333101841) 8.9 mg/dL 8.6-10.6 eGFR (test code = 3841245952) mL/min/1.73m2 JENNIFER (test code = JENNIFER) Association [...] imaging tests). Lab Interpretation (test code = 03830-4) [facility] [id number] 10:16:39* Test Item Value Reference Range Interpretation [...] result as normal/abnormal. MPV (test code = 96245-6) 11.5 fL 9.8-13.0 RDW-CV (test code = 788-0) 19.2 % 12.1-15.4 H RDW-SD (test code = 58235-6) 51.7 fL 38.5-51.6 H NRBC x10^3 (test code = 1996116425) <0.01 See_Comment [Automated [employer]] The system which generated this result transmitted reference range: 10*3/?L. The reference range was not used to interpret this result as normal/abnormal. NRBC/100 WBC (test code = 0859964988) See_Comment [Automated [employer]] The system which generated this result transmitted reference range: 0.0 - 10.0 /100 WBCs. The reference range was not used to interpret this result as normal/abnormal. IPF % (test code = 5812768255) Lab Interpretation (test code = 87174-3) Abnormal [facility] METABOLIC PANEL (NA, K, CL, CO2, GLUCOSE, BUN, CREATININE, CA)2021-10-27 12:14:18* Test Item Value Reference Range Interpretation Comme nts NA (test code = 7917633949) 141 mmol/L 135-145 K (test code = 7797671021) 4.4 mmol/L 3.5-5.0 Slight hemolysis CL (test code = 7184216545) 115 mmol/L 98-108 H CO2 TOTAL (test code = 9920962025) 13 mmol/L 23-31 L AGAP (test code = 8476672457) 2-16 BUN (test code = 4641571124) 18 mg/dL 7-23 Slight hemolysis GLUCOSE (test code = 9897617287) 84 mg/dL 70-110 CREATININE (test code = 6038277684) 1.12 mg/dL 0.60-1.25 CALCIUM (test code = 0761267861) 9.2 mg/dL 8.6-10.6 eGFR (test code = 0549207321) mL/min/1.73m2 JENNIFER (test code = JENNIFER) Association [...] imaging tests). Lab Interpretation (test code = 94656-4) Abnormal [facility] Culture - Peripheral Vein # 02:01:33* Test Item Value Reference Range Interpretation Comme [facility] Blood Culture-Aerobic (test code = 55894-7) No organisms isolated No growth Previous preliminary [...] 2101 CDT Blood Culture-Anaerobic (test code = 93159-9) No organisms isolated No growth Previous preliminary [...] 2101 CDT Lab Interpretation (test code = 80583-6) [facility] Getl2527-71-03 02:01:32* Test Item Value Reference Range Interpretation Comme [facility] Blood Culture-Aerobic (test code = 56890-5) No organisms isolated No growth Previous preliminary [...] 2101 CDT Blood Culture-Anaerobic (test code = 31184-1) No organisms isolated No growth Previous preliminary [...] 2101 CDT Lab Interpretation (test code = 68045-5) [facility] 11:12:08* Test Item Value Reference Range Interpretation Comme nts MAGNESIUM (test code = 6240134343) 2.0 mg/dL 1.7-2.4 Lab Interpretation (test cod e = 49158-2) [facility] (NA, K, CL, CO2, GLUCOSE, BUN, CREATININE, CA)2021-10-26 11:12:07* Test Item Value Reference Range Interpretation Comme nts NA (test code = 4960726614) 146 mmol/L 135-145 H K (test code = 8062194887) 3.3 mmol/L 3.5-5.0 L CL (test code = 2538007816) 117 mmol/L 98-108 H CO2 TOTAL (test code = 1983415955) 25 mmol/L 23-31 AGAP (test code = 6750572034) 2-16 BUN (test code = 0883080260) 19 mg/dL 7-23 GLUCOSE (test code = 0075200088) 96 mg/dL 70-110 CREATININE (test code = 0253228480) 1.25 mg/dL 0.60-1.25 CALCIUM (test code = 6900603097) 9.3 mg/dL 8.6-10.6 eGFR (test code = 9982326183) mL/min/1.73m2 JENNIFER (test code = JENNIFER) Association [...] imaging tests). Lab Interpretation (test code = 66144-7) Abnormal [facility] WITHOUT [id number] 10:51:05* Test Item Value Reference Range Interpretation [...] result as normal/abnormal. MPV (test code = 07608-3) 10.9 fL 9.8-13.0 RDW-CV (test code = 788-0) 18.9 % 12.1-15.4 H RDW-SD (test code = 09445-4) 51.5 fL 38.5-51.6 NRBC x10^3 (test code = 1078094188) See_Comment [Automated [employer] ge] The system which generated this result transmitted reference range: 10*3/?L. The reference range was not used to interpret this result as normal/abnormal. NRBC/100 WBC (test code = 6749293150) See_Comment [Automated [employer] ge] The system which generated this result transmitted reference range: 0.0 - 10.0 /100 WBCs. The reference range was not used to interpret this result as normal/abnormal. IPF % (test code = 4262604240) Lab Interpretation (test code = 85956-8) Abnormal [facility] METABOLIC PANEL (NA, K, CL, CO2, GLUCOSE, BUN, CREATININE, CA)2021-10-25 18:19:54* Test Item Value Reference Range Interpretation Comme nts NA (test code = 9227295134) 148 mmol/L 135-145 H K (test code = 1631714597) 3.5 mmol/L 3.5-5.0 Slight hemolysis CL (test code = 6392809901) 118 mmol/L 98-108 H CO2 TOTAL (test code = 7387174482) 25 mmol/L 23-31 AGAP (test code = 6867385646) 2-16 BUN (test code = 8558157746) 24 mg/dL 7-23 H Slight hemolysis GLUCOSE (test code = 4637956687) 107 mg/dL 70-110 CREATININE (test code = 7419131735) 1.32 mg/dL 0.60-1.25 H CALCIUM (test code = 9882774472) 9.3 mg/dL 8.6-10.6 eGFR (test code = 3121589554) mL/min/1.73m2 JENNIFER (test code = JENNIFER) Association [...] imaging tests). Lab Interpretation (test code = 91643-9) [facility]normal [facility] 18:19:54* Test Item Value Reference Range Interpretation Comme nts MAGNESIUM (test code = 2080105301) 2.3 mg/dL 1.7-2.4 Slight hemolysis Lab Interpretation (test code = 48204-9) Normal [facility] WITH [id number] 11:26:06* Test Item Value Reference Range Interpretation [...] 33.6 g/dL 31.2-35.0 RDW-SD (test code = 72303-3) 51.6 fL 38.5-51.6 RDW-CV (test code = 788-0) 19.3 % 12.1-15.4 H PLT (test code = 777-3) See_Comment [Automated message] The system which generated this result transmitted reference range: 150 - 328 10*3/?L. The reference range was not used to interpret this result as normal/abnormal. MPV (test code = 12573-5) 11.7 fL 9.8-13.0 NRBC/100 WBC (test code = 3629015836) See_Comment [Automated message] The system which generated this result transmitted reference range: 0.0 - 10.0 /100 WBCs. The reference range was not used to interpret this result as normal/abnormal. NRBC x10^3 (test code = 3785240317) <0.01 See_Comment [Automated message] The system which generated this result transmitted reference range: 10*3/?L. The reference range was not used to interpret this result as normal/abnormal. GRAN MAT (NEUT) % (test code = 770-8) 86.4 % IMM GRAN % (test code = 5834457617) 0.50 % LYMPH % (test code = 736-9) 7.2 % MONO % (test code = 5905-5) 4.8 % EOS % (test code = 713-8) 0.8 % BASO % (test code = 706-2) 0.3 % GRAN MAT x10^3(ANC) (test code = 7709437601) 15.13 10*3/uL 1.99-6.95 H IMM GRAN x10^3 (test code = 5310143613) 0.09 10*3/uL 0.00-0.06 H LYMPH x10^3 (test code = 731-0) 1.27 10*3/uL 1.09-3.23 MONO x10^3 (test code = 742-7) 0.85 10*3/uL 0.36-1.02 EOS x10^3 (test code = 711-2) 0.14 10*3/uL 0.06-0.53 BASO x10^3 (test code = 704-7) 0.05 10*3/uL 0.01-0.09 TARGET CELLS (test code = 43708-7) 2+ See_Comment A [Automated message] The system which generated this result transmitted reference range: (none). The reference range was not used to interpret this result as normal/abnormal. DOHLE BODIES (test code = 7792-5) Present A Lab Interpretation (test code = 40266-8) Abnormal [facility] METABOLIC PANEL (NA, K, CL, CO2, GLUCOSE, BUN, CREATININE, CA)2021-10-25 05:26:46* Test Item Value Reference Range Interpretation Comme nts NA (test code = 1212192626) 148 mmol/L 135-145 H K (test code = 4108276218) 3.0 mmol/L 3.5-5.0 L CL (test code = 6065996233) 118 mmol/L 98-108 H CO2 TOTAL (test code = 8744026462) 25 mmol/L 23-31 AGAP (test code = 2469331375) 2-16 BUN (test code = 6985295333) 28 mg/dL 7-23 H GLUCOSE (test code = 1296100417) 103 mg/dL 70-110 CREATININE (test code = 8432151290) 1.50 mg/dL 0.60-1.25 H CALCIUM (test code = 5989410365) 9.2 mg/dL 8.6-10.6 eGFR (test code = 3781133055) mL/min/1.73m2 JENNIFER (test code = JENNIFER) Association [...] imaging tests). Lab Interpretation (test code = 10478-3) [facility] 05:26:46* Test Item Value Reference Range Interpretation Comme nts MAGNESIUM (test code = 5504971255) 2.5 mg/dL 1.7-2.4 H Lab Interpretation (test cod e = 29653-9) [facility]normal [facility] + Lactic [id number] 04:56:07* Test Item Value Reference Range Interpretation Comme nts PH (test code = 2) 7.35-7.45 H PCO2 (test code = 0209239347) See_Comment L [Automated messa ge] The system which generated this result transmitted reference range: 35 - 45 mmHg. The reference range was not used to interpret this result as normal/abnormal. PO2 (test code = 0286517086) See_Comment L [Automated messa ge] The system which generated this result transmitted reference range: 80 - 100 mmHg. The reference range was not used to interpret this result as normal/abnormal. HCO3 (test code = 1286664774) See_Comment [Automated messa ge] The system which generated this result transmitted reference range: 22 - 26 mEq/L. The reference range was not used to interpret this result as normal/abnormal. BE (test code = 1882876770) See_Comment [Automated messa ge] The system which generated this result transmitted reference range: -3.0 - 3.0 mEq/L. The reference range was not used to interpret this result as normal/abnormal. THB (test code = 7811282714) 11.3 g/dL 13.5-18.0 L %O2HB (test code = 3793131942) 92.8 % 94.0-99.0 L %COHB ART (test code = 1530380948) 0.8 % 0.0-1.5 %METHB ART (test code = 7715521185) 0.3 % 0.4-1.5 L VOL%O2 ART (test code = 3324987162) 14.8 % 15.0-23.0 L NA (test code = 0098878709) 148 mmol/L 135-145 H K+ (test code = 0710946583) 3.1 mmol/L 3.5-5.0 L AC CA IONZ (test code = 6328279640) 5.20 mg/dL 4.50-5.30 GLUCOSE (test code = 4252497238) 99 mg/dL 70-110 LACTIC ACID (test code = 3086912310) 1.41 mmol/L 0.50-2.20 Lab Interpretation (test code = 34253-3) Abnormal [facility] METABOLIC PANEL (NA, K, CL, CO2, GLUCOSE, BUN, CREATININE, CA)2021-10-24 10:27:09* Test Item Value Reference Range Interpretation Comme nts NA (test code = 4162238189) 149 mmol/L 135-145 H K (test code = 0094825345) 3.2 mmol/L 3.5-5.0 L CL (test code = 3894519944) 118 mmol/L 98-108 H CO2 TOTAL (test code = 1082688588) 23 mmol/L 23-31 AGAP (test code = 3848998001) 2-16 BUN (test code = 3610422567) 29 mg/dL 7-23 H GLUCOSE (test code = 3396836884) 125 mg/dL 70-110 H CREATININE (test code = 4604359324) 1.57 mg/dL 0.60-1.25 H CALCIUM (test code = 5218466235) 8.3 mg/dL 8.6-10.6 L eGFR (test code = 1840254526) mL/min/1.73m2 JENNIFER (test code = JENNIFER) Association [...] imaging tests). Lab Interpretation (test code = 17284-8) [facility]normal [facility] 10:27:09* Test Item Value Reference Range Interpretation Comme nts MAGNESIUM (test code = 0127890381) 2.6 mg/dL 1.7-2.4 H Lab Interpretation (test cod e = 35286-4) [facility] [id number] 09:52:04* Test Item Value Reference Range Interpretation [...] result as normal/abnormal. MPV (test code = 48176-4) 10.9 fL 9.8-13.0 RDW-CV (test code = 788-0) 18.7 % 12.1-15.4 H RDW-SD (test code = 37971-9) 53.1 fL 38.5-51.6 H NRBC x10^3 (test code = 3871081349) <0.01 See_Comment [Automated messa ge] The system which generated this result transmitted reference range: 10*3/?L. The reference range was not used to interpret this result as normal/abnormal. NRBC/100 WBC (test code = 6575002243) See_Comment [Automated [employer] ge] The system which generated this result transmitted reference range: 0.0 - 10.0 /100 WBCs. The reference range was not used to interpret this result as normal/abnormal. IPF % (test code = 3896780925) Lab Interpretation (test code = 51671-1) Abnormal [facility] WITHOUT [id number] 20:47:29* Test Item Value Reference Range Interpretation [...] result as normal/abnormal. MPV (test code = 83523-7) 10.2 fL 9.8-13.0 RDW-CV (test code = 788-0) 18.8 % 12.1-15.4 H RDW-SD (test code = 68492-4) 53.3 fL 38.5-51.6 H NRBC x10^3 (test code = 6503667281) <0.01 See_Comment [Automated [employer]] The system which generated this result transmitted reference range: 10*3/?L. The reference range was not used to interpret this result as normal/abnormal. NRBC/100 WBC (test code = 1604363718) See_Comment [Automated [employer]] The system which generated this result transmitted reference range: 0.0 - 10.0 /100 WBCs. The reference range was not used to interpret this result as normal/abnormal. IPF % (test code = 7334516229) Lab Interpretation (test code = 43390-4) [facility]2021-10-23 19:51:27* Test Item Value Reference Range Interpretation Comme nts Height (test code = 2286238763) in Weight (test code = 9100068267) lbs Systolic BP (test code = 4608617589) mmHg Diastolic BP (test code = 6114565203) mmHg Heart Rate (test code = 7495753489) bpm LVOT stroke volume (test code = 1647961589) 36.50 cm3 EF(Teich) (test code = 8709081511) 36.50 % LVIDD (test code = 6603353047) 4.90 cm LVIDS (test code = 8046877283) 4.10 cm IVS (test code = 5992770149) 0.84 cm LVPWD (test code = 8106233407) 0.85 cm LVOT diameter (test code = 2445850910) 2.05 cm FS (test code = 4886080065) 18 % MV Peak E Otis (test code = 7840126792) 59.6 cm/s MV Peak A Otis (test code = 2125169378) 58.6 cm/s E/A ratio (test code = 3754724974) ratio E wave decelartion time (test code = 3092722128) 0.13 s MV E/e' septal (test code = 7835909156) 7.2 cm/s LA Volume Index (BP) (test code = 3966373660) 19.2 mL/m2 LA volume (BP) (test code = 1805041948) 38.0 mL LVOT peak otis (test code = 8016153103) 61.0 cm/s LVOT mn grad (test code = 0416083817) mmHg BSA (test code = 0072150844) 1.98 m2 LA size (test code = 1513324735) 3.4 cm LAV(MOD-sp2) (test code = 9522183740) 28.30 mL LAV(MOD-sp4) (test code = 7788616391) 43.40 mL TASV (test code = 9597022815) 11.5 cm/s Tapse (test code = 5305523704) 1.66 cm AV LVOT peak gradient (test code = 5854624229) mmHg LVOT peak VTI (test code = 1114458745) 11.0 cm LV V1 mean (test code = 5571350773) 39.60 cm/s TR Peak Otis (test code = 8991265543) 191.8 cm/s Triscuspid Valve Regurgitation Peak Gradient (test code = 6917601901) mmHg Ao root annulus (test code = 6006220059) 3.3 cm Ao root diam (test code = 8894172740) 3.30 cm Aortic root (test code = 7080558182) 3.3 cm PW (test code = 8910809325) 0.85 cm 0.6-1.1 EF - 2D (test code = 01194130) 36.50 % Interventricular Septum Diastolic Thickness by 2D (test code = 3811753) 0.84 cm Aortic valve mean velocity (test code = 6897310947) 60.7 cm/s Ao peak otis (test code = 2215148210) 97.7 cm/s Ao VTI (test code = 2420633276) 16.9 cm AV area by cont VTI (test code = 9123335796) 2.2 cm2 AV area peak otis (test code = 1154165935) 2.1 cm2 Ao max PG (test code = 8991069928) 3.80 mm[Hg] AV peak gradient (test code = 3919086795) mmHg AV valve area (test code = 1338107894) 2.16 cm2 AV mean gradient (test code = 1009001371) mmHg LV Diastolic Volume (BP) (test code = 5599938339) 143.4 mL EF(MOD-bp) (test code = 6280586313) 40.30 % LV Systolic Volume (BP) (test code = 6712184165) 85.6 mL SV(MOD-bp) (test code = 0067175568) 57.70 mL EF (test code = 1473190204) 40 % Left Ventricular Stroke Volume by 2-D Biplane-MOD (test code = 5981946) 57.7 mL Radiology Study observation (narrative) (test code = 77567-3) JENNIFER (test code = JENNIFER) ?Left?Ventricle: Left [...] in size. ?Pericardium: Trivial pericardial effusion present. [facility] METABOLIC PANEL (NA, K, CL, CO2, GLUCOSE, BUN, CREATININE, CA)2021-10-23 09:19:36* Test Item Value Reference Range Interpretation Comme nts NA (test code = 5264353054) 144 mmol/L 135-145 K (test code = 0584431791) 3.7 mmol/L 3.5-5.0 CL (test code = 3475157778) 114 mmol/L 98-108 H CO2 TOTAL (test code = 7369263954) 23 mmol/L 23-31 AGAP (test code = 4959170156) 2-16 BUN (test code = 5762877618) 38 mg/dL 7-23 H GLUCOSE (test code = 4477608099) 154 mg/dL 70-110 H CREATININE (test code = 1669770282) 2.05 mg/dL 0.60-1.25 H CALCIUM (test code = 2463308443) 7.8 mg/dL 8.6-10.6 L eGFR (test code = 7957589706) mL/min/1.73m2 JENNIFER (test code = JENNIFER) Association [...] imaging tests). Lab Interpretation (test code = 58926-9) [facility] 09:19:36* Test Item Value Reference Range Interpretation Comme nts MAGNESIUM (test code = 2795648428) 2.9 mg/dL 1.7-2.4 H Lab Interpretation (test cod e = 44136-1) [facility]normal [facility] [id number] 08:52:54* Test Item Value Reference Range Interpretation [...] result as normal/abnormal. MPV (test code = 14146-2) 10.2 fL 9.8-13.0 RDW-CV (test code = 788-0) 19.2 % 12.1-15.4 H RDW-SD (test code = 08337-0) 55.0 fL 38.5-51.6 H NRBC x10^3 (test code = 4434955465) <0.01 See_Comment [Automated [employer] ge] The system which generated this result transmitted reference range: 10*3/?L. The reference range was not used to interpret this result as normal/abnormal. NRBC/100 WBC (test code = 4950506711) See_Comment [Automated [employer] ge] The system which generated this result transmitted reference range: 0.0 - 10.0 /100 WBCs. The reference range was not used to interpret this result as normal/abnormal. IPF % (test code = 4758644564) Lab Interpretation (test code = 63441-4) [facility] + Lactic Amic1961-01-74 08:51:54* Test Item Value Reference Range Interpretation Comme nts PH (test code = 2) 7.35-7.45 PCO2 (test code = 2733426804) See_Comment [Automated [employer] ge] The system which generated this result transmitted reference range: 35 - 45 mmHg. The reference range was not used to interpret this result as normal/abnormal. PO2 (test code = 4102685167) See_Comment [Automated [employer] ge] The system which generated this result transmitted reference range: 80 - 100 mmHg. The reference range was not used to interpret this result as normal/abnormal. HCO3 (test code = 4343955082) See_Comment L [Automated messa ge] The system which generated this result transmitted reference range: 22 - 26 mEq/L. The reference range was not used to interpret this result as normal/abnormal. BE (test code = 5042857462) See_Comment L [Automated messa ge] The system which generated this result transmitted reference range: -3.0 - 3.0 mEq/L. The reference range was not used to interpret this result as normal/abnormal. THB (test code = 0149483673) 12.1 g/dL 13.5-18.0 L %O2HB (test code = 0718102692) 96.2 % 94.0-99.0 %COHB ART (test code = 2687052766) 0.4 % 0.0-1.5 %METHB ART (test code = 0060388371) 0.3 % 0.4-1.5 L VOL%O2 ART (test code = 7617081433) 16.5 % 15.0-23.0 NA (test code = 3694085993) 142 mmol/L 135-145 K+ (test code = 9766448301) 3.7 mmol/L 3.5-5.0 AC CA IONZ (test code = 6348174672) 4.60 mg/dL 4.50-5.30 GLUCOSE (test code = 5777818409) 155 mg/dL 70-110 H LACTIC ACID (test code = 8486201905) 1.78 mmol/L 0.50-2.20 Lab Interpretation (test code = 29538-5) Abnormal [facility] [id number] 06:04:07* Test Item Value Reference Range Interpretation Comments TROPONIN I (test code = 0962444338) 0.162 ng/mL See_Comment H [Automated message] The [...] of biotin. Lab Interpretation (test code = 63451-1) [facility] [id number] 23:40:33* Test Item Value Reference Range Interpretation Comments TROPONIN I (test code = 9388964720) 0.258 ng/mL See_Comment H [Automated message] The [...] of biotin. Lab Interpretation (test code = 88202-9) [facility]normal [facility] [id number] 23:27:50* Test Item Value Reference Range Interpretation [...] result as normal/abnormal. MPV (test code = 25422-5) 10.2 fL 9.8-13.0 RDW-CV (test code = 788-0) 18.6 % 12.1-15.4 H RDW-SD (test code = 91439-2) 52.1 fL 38.5-51.6 H NRBC x10^3 (test code = 9661370456) <0.01 See_Comment [Automated [employer] ge] The system which generated this result transmitted reference range: 10*3/?L. The reference range was not used to interpret this result as normal/abnormal. NRBC/100 WBC (test code = 4561106250) See_Comment [Automated [employer] ge] The system which generated this result transmitted reference range: 0.0 - 10.0 /100 WBCs. The reference range was not used to interpret this result as normal/abnormal. IPF % (test code = 3028823375) Lab Interpretation (test code = 41886-2) Abnormal [facility] [id number] 18:28:38* Test Item Value Reference Range Interpretation Comments TROPONIN I (test code = 2474516055) 0.251 ng/mL See_Comment H [Automated message] The [...] of biotin. Lab Interpretation (test code = 31213-6) [facility]normal [facility] Hospital[facility]comycin Random Pbbjf8433-62-65 18:19:57* Test Item Value Reference Range Interpretation Comme nts VANCO RANDOM (test code = 5392144565) 7.6 ug/mL [facility] [id number] 16:55:38* Test Item Value Reference Range Interpretation [...] result as normal/abnormal. MPV (test code = 17067-8) 9.9 fL 9.8-13.0 RDW-CV (test code = 788-0) 18.9 % 12.1-15.4 H RDW-SD (test code = 42863-4) 53.5 fL 38.5-51.6 H NRBC x10^3 (test code = 0241329585) <0.01 See_Comment [Automated messa ge] The system which generated this result transmitted reference range: 10*3/?L. The reference range was not used to interpret this result as normal/abnormal. NRBC/100 WBC (test code = 8498210396) See_Comment [Automated messa ge] The system which generated this result transmitted reference range: 0.0 - 10.0 /100 WBCs. The reference range was not used to interpret this result as normal/abnormal. IPF % (test code = 0574255384) Lab Interpretation (test code = 38206-6) [facility] + Lactic [id number] 15:11:13* Test Item Value Reference Range Interpretation Comme nts PH (test code = 2) 7.35-7.45 PCO2 (test code = 9411213814) See_Comment [Automated messa ge] The system which generated this result transmitted reference range: 35 - 45 mmHg. The reference range was not used to interpret this result as normal/abnormal. PO2 (test code = 9871333124) See_Comment L [Automated messa ge] The system which generated this result transmitted reference range: 80 - 100 mmHg. The reference range was not used to interpret this result as normal/abnormal. HCO3 (test code = 4012042648) See_Comment [Automated messa ge] The system which generated this result transmitted reference range: 22 - 26 mEq/L. The reference range was not used to interpret this result as normal/abnormal. BE (test code = 6555405884) See_Comment [Automated messa ge] The system which generated this result transmitted reference range: -3.0 - 3.0 mEq/L. The reference range was not used to interpret this result as normal/abnormal. THB (test code = 9988243775) 12.2 g/dL 13.5-18.0 L %O2HB (test code = 8826456180) 91.4 % 94.0-99.0 L %COHB ART (test code = 6705138652) 0.8 % 0.0-1.5 %METHB ART (test code = 2156182996) 0.0 % 0.4-1.5 L VOL%O2 ART (test code = 7401797093) 15.7 % 15.0-23.0 NA (test code = 1241508234) 140 mmol/L 135-145 K+ (test code = 5029457635) 4.1 mmol/L 3.5-5.0 AC CA IONZ (test code = 6727384855) 4.40 mg/dL 4.50-5.30 L GLUCOSE (test code = 6406301954) 130 mg/dL 70-110 H LACTIC ACID (test code = 9478038262) 2.21 mmol/L 0.50-2.20 H Lab Interpretation (test code = 46030-7) [facility]normal [facility] [id number] 12:38:20* Test Item Value Reference Range Interpretation Comments TROPONIN I (test code = 5955733040) 0.128 ng/mL See_Comment H [Automated message] The [...] of biotin. Lab Interpretation (test code = 83308-5) [facility] [id number] 12:08:41* Test Item Value Reference Range Interpretation [...] result as normal/abnormal. MPV (test code = 39883-1) 10.7 fL 9.8-13.0 RDW-CV (test code = 788-0) 19.3 % 12.1-15.4 H RDW-SD (test code = 96198-2) 54.9 fL 38.5-51.6 H NRBC x10^3 (test code = 3999334857) <0.01 See_Comment [Automated [employer] ge] The system which generated this result transmitted reference range: 10*3/?L. The reference range was not used to interpret this result as normal/abnormal. NRBC/100 WBC (test code = 3800107094) See_Comment [Automated [employer] ge] The system which generated this result transmitted reference range: 0.0 - 10.0 /100 WBCs. The reference range was not used to interpret this result as normal/abnormal. IPF % (test code = 4468471058) Lab Interpretation (test code = 90605-6) [facility]normal [facility] [id number] 07:08:43* Test Item Value Reference Range Interpretation Comments TROPONIN I (test code = 9727646420) 0.061 ng/mL See_Comment H [Automated message] The [...] of biotin. Lab Interpretation (test code = 26522-5) Abnormal [facility] WITHOUT TSUV2298-92-19 06:34:57* Test Item Value Reference Range Interpretation [...] result as normal/abnormal. MPV (test code = 33522-7) 10.0 fL 9.8-13.0 RDW-CV (test code = 788-0) 19.2 % 12.1-15.4 H RDW-SD (test code = 40681-7) 54.9 fL 38.5-51.6 H NRBC x10^3 (test code = 8207682019) <0.01 See_Comment [Automated messa ge] The system which generated this result transmitted reference range: 10*3/?L. The reference range was not used to interpret this result as normal/abnormal. NRBC/100 WBC (test code = 2462380766) See_Comment [Automated messa ge] The system which generated this result transmitted reference range: 0.0 - 10.0 /100 WBCs. The reference range was not used to interpret this result as normal/abnormal. IPF % (test code = 6381647351) Lab Interpretation (test code = 15317-7) [facility]normal [facility] 20 + Lactic Sbap2562-99-33 06:31:36* Test Item Value Reference Range Interpretation Comme nts PH (test code = 2) 7.35-7.45 L PCO2 (test code = 2710128261) See_Comment [Automated messa ge] The system which generated this result transmitted reference range: 35 - 45 mmHg. The reference range was not used to interpret this result as normal/abnormal. PO2 (test code = 5267755520) See_Comment [Automated messa ge] The system which generated this result transmitted reference range: 80 - 100 mmHg. The reference range was not used to interpret this result as normal/abnormal. HCO3 (test code = 3089498129) See_Comment [Automated messa ge] The system which generated this result transmitted reference range: 22 - 26 mEq/L. The reference range was not used to interpret this result as normal/abnormal. BE (test code = 9324629849) See_Comment [Automated messa ge] The system which generated this result transmitted reference range: -3.0 - 3.0 mEq/L. The reference range was not used to interpret this result as normal/abnormal. THB (test code = 8165563449) 12.8 g/dL 13.5-18.0 L %O2HB (test code = 7966326441) 95.6 % 94.0-99.0 %COHB ART (test code = 9631379158) 0.7 % 0.0-1.5 %METHB ART (test code = 5386787996) 0.1 % 0.4-1.5 L VOL%O2 ART (test code = 8706026243) 17.3 % 15.0-23.0 NA (test code = 9564533169) 141 mmol/L 135-145 K+ (test code = 9564015750) 4.3 mmol/L 3.5-5.0 AC CA IONZ (test code = 6711724531) 4.40 mg/dL 4.50-5.30 L GLUCOSE (test code = 7984194385) 139 mg/dL 70-110 H LACTIC ACID (test code = 2877209941) 2.54 mmol/L 0.50-2.20 H Lab Interpretation (test code = 34691-6) Abnormal [facility] HospitalETHANOL2022-[facility] 04:16:53* Test Item Value Reference Range Interpretation Comme nts ALCOHOL (test code = 2720983102) <10 mg/dL JENNIFER (test code = JENNIFER) Toxic Greater than or equal to 80 mg/dL. NOTE: Whole blood values are approximately 10% to 15% lower than serum and plasma. [facility] 20 + Lactic Azsm0127-31-37 02:32:20* Test Item Value Reference Range Interpretation Comme nts PH (test code = 2) 7.35-7.45 L PCO2 (test code = 8347219743) See_Comment [Automated messa ge] The system which generated this result transmitted reference range: 35 - 45 mmHg. The reference range was not used to interpret this result as normal/abnormal. PO2 (test code = 7475736621) See_Comment H [Automated messa ge] The system which generated this result transmitted reference range: 80 - 100 mmHg. The reference range was not used to interpret this result as normal/abnormal. HCO3 (test code = 6212831273) See_Comment L [Automated messa ge] The system which generated this result transmitted reference range: 22 - 26 mEq/L. The reference range was not used to interpret this result as normal/abnormal. BE (test code = 7881273911) See_Comment L [Automated messa ge] The system which generated this result transmitted reference range: -3.0 - 3.0 mEq/L. The reference range was not used to interpret this result as normal/abnormal. THB (test code = 3143945714) 12.7 g/dL 13.5-18.0 L %O2HB (test code = 1441014830) 98.2 % 94.0-99.0 %COHB ART (test code = 6933824507) 0.4 % 0.0-1.5 %METHB ART (test code = 3883882747) 0.1 % 0.4-1.5 L VOL%O2 ART (test code = 4522612740) 17.8 % 15.0-23.0 NA (test code = 9045178915) 139 mmol/L 135-145 K+ (test code = 8367947278) 4.0 mmol/L 3.5-5.0 AC CA IONZ (test code = 6010550114) 4.40 mg/dL 4.50-5.30 L GLUCOSE (test code = 5442884019) 121 mg/dL 70-110 H LACTIC ACID (test code = 0797641052) 2.29 mmol/L 0.50-2.20 H Lab Interpretation (test code = 57533-0) Abnormal [facility] HospitalaPTT2022-07-[facility] 01:16:16* Test Item Value Reference Range Interpretation Comme nts APTT Patient (test code = 3173-2) See_Comment [Automated [employer] ge] The system which generated this result transmitted reference range: 26 - 36 Seconds. The reference range was not used to interpret this result as normal/abnormal. Lab Interpretation (test code = 16518-7) Normal [facility] HospitalFibrinogen Uqsai6081-79-81 01:16:16* Test Item Value Reference Range Interpretation Comme nts Fibrinogen (test code = 7480136772) 391 mg/dL 167-453 Lab Interpretation (test cod e = 02904-9) Normal [facility] HospitalCREATINE CVPCGP0142-16-99 01:13:01* Test Item Value Reference Range Interpretation Comme nts CK (test code = 8127356616) 443 U/L 33-194 H Lab Interpretation (test cod e = 08866-7) Abnormal [facility] HospitalLIPASE2022-07-03 01:13:01* Test Item Value Reference Range Interpretation Comme nts LIPASE (test code = 1448201248) 21 U/L 0-220 Lab Interpretation (test cod e = 14195-9) Normal [facility] HospitalProfile / Sgdtuonl7958-31-43 01:05:20* Test Item Value Reference Range Interpretation [...] result as normal/abnormal. MPV (test code = 96295-6) 10.0 fL 9.8-13.0 RDW-CV (test code = 788-0) 19.4 % 12.1-15.4 H RDW-SD (test code = 30278-1) 54.6 fL 38.5-51.6 H NRBC x10^3 (test code = 0725288498) <0.01 See_Comment [Automated messa ge] The system which generated this result transmitted reference range: 10*3/?L. The reference range was not used to interpret this result as normal/abnormal. NRBC/100 WBC (test code = 3433999086) See_Comment [Automated messa ge] The system which generated this result transmitted reference range: 0.0 - 10.0 /100 WBCs. The reference range was not used to interpret this result as normal/abnormal. IPF % (test code = 8652783169) Lab Interpretation (test code = 17293-8) Abnormal [facility] with Bcjcwcfycivc3718-86-69 00:56:25* Test Item Value Reference Range Interpretation [...] 32.0 g/dL 31.2-35.0 RDW-SD (test code = 82036-3) 55.3 fL 38.5-51.6 H RDW-CV (test code = 788-0) 19.5 % 12.1-15.4 H PLT (test code = 777-3) See_Comment [Automated message] The system which generated this result transmitted reference range: 150 - 328 10*3/?L. The reference range was not used to interpret this result as normal/abnormal. MPV (test code = 03180-1) 9.8 fL 9.8-13.0 NRBC/100 WBC (test code = 4588506761) See_Comment [Automated message] The system which generated this result transmitted reference range: 0.0 - 10.0 /100 WBCs. The reference range was not used to interpret this result as normal/abnormal. NRBC x10^3 (test code = 2638410203) <0.01 See_Comment [Automated message] The system which generated this result transmitted reference range: 10*3/?L. The reference range was not used to interpret this result as normal/abnormal. GRAN MAT (NEUT) % (test code = 770-8) 86.5 % IMM GRAN % (test code = 4653683068) 0.60 % LYMPH % (test code = 736-9) 6.7 % MONO % (test code = 5905-5) 5.6 % EOS % (test code = 713-8) 0.0 % BASO % (test code = 706-2) 0.6 % GRAN MAT x10^3(ANC) (test code = 2099397029) 3.10 10*3/uL 1.99-6.95 IMM GRAN x10^3 (test code = 4156740468) <0.03 0.00-0.06 LYMPH x10^3 (test code = 731-0) 0.24 10*3/uL 1.09-3.23 L MONO x10^3 (test code = 742-7) 0.20 10*3/uL 0.36-1.02 L EOS x10^3 (test code = 711-2) <0.03 0.06-0.53 L BASO x10^3 (test code = 704-7) <0.03 0.01-0.09 BANDS (test code = 3490818344) MARKED INCREASED A Lab Interpretation (test code = 50309-8) Abnormal [facility] O1213-85-51 00:44:19* Test Item Value Reference Range Interpretation Comments TROPONIN I (test code = 3470756868) 0.037 ng/mL See_Comment H [Automated message] The [...] of biotin. Lab Interpretation (test code = 17103-9) Abnormal [facility] HospitalProthrombin Time / BRV7878-78-39 00:35:38* Test Item Value Reference Range Interpretation Comme nts PROTIME PATIENT (test code = 5964-2) See_Comment [Automated [employer] ge] The system which generated this result transmitted reference range: 10.1 - 12.6 Seconds. The reference range was not used to interpret this result as normal/abnormal. INR (test code = 6301-6) Normal INR <1.1; Warfarin Therapeutic range 2.0 to 3.0 or 2.5 to 3.5, depending upon the indications. Lab Interpretation (test code = 16486-1) Normal [facility] HospitalBasi Metabolic Panel (NA, K, CL, CO2, Glucose, BUN, Creatinine, CA)2021-10-22 00:28:57* Test Item Value Reference Range Interpretation Comme nts NA (test code = 7448874580) 142 mmol/L 135-145 K (test code = 2743788615) 4.5 mmol/L 3.5-5.0 CL (test code = 3064880631) 110 mmol/L 98-108 H CO2 TOTAL (test code = 8114966555) 21 mmol/L 23-31 L AGAP (test code = 3434310907) 2-16 BUN (test code = 3654567255) 46 mg/dL 7-23 H GLUCOSE (test code = 0220252957) 144 mg/dL 70-110 H CREATININE (test code = 2852876320) 3.90 mg/dL 0.60-1.25 H CALCIUM (test code = 0123123722) 8.0 mg/dL 8.6-10.6 L eGFR (test code = 7212882243) mL/min/1.73m2 JENNIFER (test code = JENNIFER) Association [...] imaging tests). Lab Interpretation (test code = 69917-6) Abnormal [facility] HospitalMagnesium Erurv0822-58-31 00:28:57* Test Item Value Reference Range Interpretation Comme nts MAGNESIUM (test code = 3817678040) 1.9 mg/dL 1.7-2.4 Lab Interpretation (test cod e = 60617-4) Normal [facility] HospitalHepatic Function Panel (ALB, T.PRO, BILI T, BU/BC, ALT, AST, ALK, PHOS)2021-10-22 00:28:57* Test Item Value Reference Range Interpretation Comme nts TOTAL BILI (test code = 0930126738) 0.4 mg/dL 0.1-1.1 BILI UNCON (test code = 3704961372) 0.3 mg/dL 0.1-1.1 BILI CONJ (test code = 9009151047) 0.0 mg/dL 0.0-0.3 T PROTEIN (test code = 2399461016) 6.6 g/dL 6.3-8.2 ALBUMIN (test code = 5966541791) 3.7 g/dL 3.5-5.0 ALK PHOS (test code = 8713305049) 49 U/L 34-122 ALTv (test code = 1742-6) 22 U/L 5-50 AST(SGOT) (test code = 1227636409) 32 U/L 13-40 Lab Interpretation (test cod e = 00439-4) Normal [facility] HospitalABG+COOX+NA+K+GLU+CA2+2021-10-22 00:01:49* Test Item Value Reference Range Interpretation Comme nts PH (test code = 2) 7.35-7.45 LL PCO2 (test code = 2645743842) See_Comment H [Automated messa ge] The system which generated this result transmitted reference range: 35 - 45 mmHg. The reference range was not used to interpret this result as normal/abnormal. PO2 (test code = 6445886499) See_Comment L [Automated messa ge] The system which generated this result transmitted reference range: 80 - 100 mmHg. The reference range was not used to interpret this result as normal/abnormal. HCO3 (test code = 5872207489) See_Comment [Automated messa ge] The system which generated this result transmitted reference range: 22 - 26 mEq/L. The reference range was not used to interpret this result as normal/abnormal. BE (test code = 6266593831) See_Comment L [Automated messa ge] The system which generated this result transmitted reference range: -3.0 - 3.0 mEq/L. The reference range was not used to interpret this result as normal/abnormal. THB (test code = 0922003156) 15.2 g/dL 13.5-18.0 %O2HB (test code = 0590691367) 84.9 % 94.0-99.0 L %COHB ART (test code = 9727734923) 1.4 % 0.0-1.5 %METHB ART (test code = 1279411603) 0.2 % 0.4-1.5 L VOL%O2 ART (test code = 7757582051) 18.1 % 15.0-23.0 NA (test code = 6121558124) 141 mmol/L 135-145 K+ (test code = 8122190126) 4.7 mmol/L 3.5-5.0 AC CA IONZ (test code = 9590423291) 4.80 mg/dL 4.50-5.30 GLUCOSE (test code = 1226756463) 151 mg/dL 70-110 H Lab Interpretation (test code = 10829-2) Abnormal [facility] Notes Date/Time Note Provider Source 2023-06-25 22:58:00 [id number]+79gBQC CTF67QiYxIOT8w6usGt/zz4kNoF2968-59-09N04:58:00 [facility] ([facility])EMERGENCY PROVIDER REPORTREPORT#:[id number] REPORT STATUS: SignedDATE:06/25/23 TIME: 2257 PATIENT: DARBY HUGHES UNIT #: [id number]#: [id number] ROOM/BED:AGE: 43 SEX: M PCP PHYS: No [...] Ox 98 06/24 2202 B/P 105/66 06/24 2202 B/P Mean 79 06/24 2202 Pulse 88 06/24 2202 Resp 18 06/24 2209 O2 Delivery Nasal cannula 06/24 2318 O2 Flow Rate 2 06/24 2318 Last Documented: Result Date Time Pulse Ox 94 06/25 717 B/P 104/74 06/25 717 B/P Mean 84 06/25 0618 Resp 12 06/25 717 Pulse 84 06/25 714 O2 Delivery Room air 06/25 0400 O2 [...] symmetrically Interpretation Diagnostics Lab Results InterpretationResultsLaboratory Tests 06/25/232214:[Embedded Image Not Available] 06/25/23 221:[Embedded Image Not Available]Laboratory Tests: 06/25 06/24 06/24 0741 9177 2215 Chemistry Sodium (134.0 - 147.0 mmol/l) [...] - 0.00 gm/dL) 0.24 H 0.41 *H 03/05 2215 Chemistry Total Bilirubin (0.0 - 1.0 mg/dl) 0.3 Direct Bilirubin (0.0 - 0.3 mg/dl) 0.1 AST (15 - 37 Units/L) 26 ALT (12.0 - 78.0 Units/L) 54 Total Alk Phosphatase (50.0 - 136.0 Units/L) 83 Total Protein (6.4 - 8.2 gm/dL) 8.2 Albumin (3.2 - 4.7 gm/dl) 4.5 Coagulation INR (0.89 - 1.14) 1.0 PTT (Roger) (25.86 - 36.07 SECONDS) 33.30 PT Patient/Control [...] % (Auto) (23.0 - 38.0 %) 36.0 Starr % (Auto) (1.0 - 10.0 %) 5.3 Eos % (Auto) (1.0 - 5.0 %) 2.3 Baso % (Auto) (0.0 - 1.0 %) 0.7 Neut # (Auto) (2.4 - 6.3 K/mm3) 10.0 H Lymph # (Auto) (1.2 - 4.0 K/mm3) 6.6 H Starr # (Auto) (0.0 - 0.6 K/mm3) 1.0 [...] BONES. Dictation/location code: H-100Impression By: [place] Clarke[place] [facility] [place]/O CONT 06/24 2305 Report Impression - Status: SIGNED Entered: 06/25/20232346 IMPRESSION: NO ACUTE BONY ABNORMALITY OF THE CERVICAL SPINE. NO ACUTE BONY ABNORMALITY OF THE FACIAL BONES. Dictation/location code: H-100Impression By: [email or web address] - Jack Clarke[place] [facility] [place] HEAD/BRAIN W/O CONT 06/24 2305 Report Impression - Status: SIGNED Entered: 06/25/20232346 IMPRESSION: No acute intracranial abnormality. Dictation/location code: H-100Impression By: [email or web address] - Jack Clarke[place] [facility] [place] ABD PELVIS W/CONT 06/24 2308 Report Impression - Status: SIGNED Entered: 06/25/20232344 IMPRESSION: No acute findings.Impression By: Jose Tian,[facility] [place] CHEST W/CONTRAST 06/24 2308 [...] 50 MG X1ED STA 06/25 0149 DC 06/25 IV 06/25 0150 0246 Diphenhydramine HCl 50 MG X1ED STA 06/24 2240 DC 03/05 IV 06/24 2241 2245 Central Nervous System Agents Sig/Amriza Start time Last Medication Dose Route Stop Time Status Admin Lorazepam 2 MG X1ED STA 06/25 0149 DC / IV / 0150 0246 Lorazepam 4 MG X1ED STA 06/24 2239 DC 03/05 IV / 2240 2244 Midazolam HCl 4 MG X1ED STA 06/24 2227 DC 03/ IV 06/24 2228 2234 Midazolam HCl 4 MG X1ED STA 06/24 2208 DC 03/05 IV / 2209 2215 Diagnostic Agents Sig/Mariza Start time Last Medication Dose Route Stop Time Status Admin Iopamidol 0 .STK-MED ONE 06/24 2246 DC 03/ IV 2322 Electrolytic, Caloric, And Frank Sig/Mariza Start time Last Medication Dose Route Stop Time Status Admin Sodium Chloride 1,000 ML ONCE ONE 06/25 0200 DC / IV 06/25 0201 0246 Sodium Chloride 1,000 ML X1ED STA 06/24 220 DC / IV 06/24 2304 2216 Patient Discharge Departure Vital Signs/ConditionVital SignsFirst Documented: Result Date Time Pulse Ox 98 06/24 2203 B/P 105/66 06/24 2203 B/P Mean 79 / 2203 Pulse 88 / 2203 Resp 18 / 2210 O2 Delivery Nasal cannula 06/24 2319 O2 Flow Rate 2 06/24 2319 Last Documented: Result Date Time Pulse Ox 94 / 0718 B/P 104/74 / 0718 B/P Mean 84 / 0718 Resp 12 06/25 0718 Pulse 84 [...] given resources for outpatient follow-up at 2234RPT #:[id number] OF [facility]PORTB[facility] department qgzmqz6037-91-59Q79:58:00E.[id number] alable for patient dfdsNRJRWMOMCCPOCP8861-85-02B48:02:30 HCAMN"
[2023-10-05 21:20] LABS: Absolute Basophils 0.1 K/uL (0-0.5); Absolute Eosinophils 0.3 K/uL (0-0.5); Absolute Lymphocytes (CBC) 3.9 K/uL (0.7-4.9); Absolute Monocytes 0.8 K/uL (0.1-1.3); Absolute Neutrophil 8.1 K/uL (1.8-8.0); Basophils % 0.9 % (0-1.3); Eosinophils % 2.6 % (0-4.4); Hematocrit 45.7 % (39.6-49.0); Lymphocytes % 29.6 % (15.3-44.8); MCH 30.1 pg (27.0-35.0); MCHC 32.9 g/dL (32.0-36.0); MCV 91.4 fL (80-100); MPV 8.1 fL (7.6-11.3); Neutrophils % 60.9 % (41.7-73.7); Platelets 277 thou/uL (152-406); Red Cell Distribution Width 16.6 % (12.1-15.2)
[2023-10-05 21:30] LABS: PT Prothrombin Time 10.3 SECONDS (9.5-12.5); PTT, Activated Partial Thromb 32.9 SECONDS (24.3-36.9); Protime INR 0.93
[2023-10-05 21:31] LABS: Specific Gravity < 1.005 (1.005-1.030); Sqamous Epithelial None Seen /HPF (None Seen); Urine Bacteria None Seen /HPF (<20); Urine Bilirubin NEGATIVE (Negative); Urine Blood Negative (Negative); Urine Clarity Clear (Clear); Urine Color Colorless (Yellow); Urine Culture Reflex Order NOT NEEDED; Urine Glucose NEGATIVE (Negative); Urine Ketones NEGATIVE (Negative); Urine Microscopic Reflex YN ORDER UMIC; Urine Nitrite NEGATIVE (Negative); Urine Protein NEGATIVE (Negative); Urine RBC <5 /HPF (None Seen); Urine Urobilinogen Normal (Normal); Urine WBC None Seen /HPF (<5)
[2023-10-05 21:32] LABS: Barbiturates NEGATIVE (NEGATIVE); Benzodiazepines POSITIVE (NEGATIVE); Cocaine NEGATIVE (NEGATIVE); METHAMPHETAM NEGATIVE (NEGATIVE); Methadone NEGATIVE (NEGATIVE); Opiates NEGATIVE (NEGATIVE); Phencyclidine NEGATIVE (NEGATIVE); THC Cannibis NEGATIVE (NEGATIVE)
[2023-10-05] MEDS ORDERED: THIAMINE 200 MG/2 ML INJ ONE (21:39)
[2023-10-05] MEDS ORDERED: FOLIC ACID 5 MG/ML VIAL ONE (21:39)
[2023-10-05] MEDS ORDERED: BACI/NEOMYCIN/POLY OINT 15GM TOP ONE (21:39)
[2023-10-05] MEDS ORDERED: MULTIVITAMINS 10 ML VIAL (INJ) IV ONE (21:39)
[2023-10-05 21:40] LABS: ALT/SGPT 41 U/L (16-61); AST/SGOT 17 U/L (15-37); Albumin/Globulin Ratio 1.1 (1.1-1.8); Alkaline Phosphatase 74 U/L (45-117); BUN Blood Urea Nitrogen 10 mg/dL (7-18); Bicarbonate 26 mEq/L (21-32); Bilirubin Direct 0.2 mg/dL (0-0.2); Bilirubin Indirect, Calculated 0.2 mg/dL (0.2-0.8); Bilirubin Total 0.4 mg/dL (0.2-1.0); Globulin 3.5 g/dL (2.3-3.5); Glomerular Filtration Rate 103 ml/min (=/>90); Glucose Level 97 mg/dL (74-106); Protein, Total 7.5 g/dL (6.4-8.2); Sodium Level 148 mEq/L (136-145)
[2023-10-05] MEDS ORDERED: NA CHLORIDE 0.9% 1,000 ML ONE (21:40)
--- NOTE | 2023-10-05 21:58 | RAD REPORT ---
EXAM DESCRIPTION: CT - Head C Spine Cap Wo Con - 10/05/2023 9:26 pm CLINICAL HISTORY: Head and neck injury with chest and abdominal pain status post fall TECHNIQUE: Computed axial tomography of head, neck, chest, abdomen and pelvis obtained. IV and oral contrast not requested. Coronal and sagittal reconstruction performed. All CT scans are performed using dose optimization technique as appropriate and may include automated exposure control or mA/KV adjustment according to patient size. COMPARISON: 2021 and August 2023 FINDINGS: An intracranial bleed is not seen. The ventricles are normal in caliber. An extra-axial fluid collection is not noted. Fluid within the sinuses/mastoids is not seen. A cervical fracture is not seen. No dislocation is noted. The evaluation of mediastinum, lily, vessels, solid organs and bowel are limited secondary to the lac k of contrast administration. A mediastinal hematoma is not noted. A pleural effusion is not seen. A lung contusion is not present. The liver,spleen, pancreas, adrenals,kidneys and bladder do not demonstrate an acute traumatic injury Right renal cyst IMPRESSION: No acute intracranial abnormality is seen. A cervical fracture is not visualized. If the patient continues to have symptoms to suggest intracran ial/spinal cord pathology MRI be recommended No acute traumatic abnormality involving the chest, abdomen or pelvis
[2023-10-05] MEDS ORDERED: POTASSIUM 25 MEQ EFFERV TAB ONE (22:34)
[2023-10-05] MEDS ORDERED: NS KCL 20MEQ 1,000 ML IV ONE (22:34)
--- NOTE | 2023-10-06 00:15 | EDPHYS ---
Physician Documentation [facility] Name: Noe Hartman Age: 43 yrs Sex: Male : 1980 Arrival Date: 10/05/2023 Time: 20:31 Bed 2 Private MD: ED Physician Ty Espino HPI: 10/04 20:53 This 43 yrs old Male presents to ER via Unassigned with complaints of Head natalya Injury-Adult. 20:53 The patient or guardian reports injury, a laceration, pain. The complaints affect the natalya left side of the back of head, left occipital area, right side of the back of head and right occipital area. Context of injury: The problem was sustained at home, resulted from a fall. Onset: The symptoms/episode began/occurred just prior to arrival. Associated signs and symptoms: Loss of consciousness: This patient did not experience any loss of consciousness. Pertinent positives: patient admits to or smells of alcohol consumption. Severity of symptoms: At their worst the symptoms were mild, moderate, in the emergency department the symptoms are unchanged. It is unknown whether or not the patient has had similar symptoms in the past. Historical: - Allergies: 20:53 No Known Allergies; tm6 - PMHx: 20:53 Hypertension; kidney disease; Myocardial infarction; Anxiety; Depressive disorder; tm6 - PSHx: 20:53 Appendectomy; tm6 - Immunization history:: Adult Immunizations up to date. - Infectious Disease History:: Denies. - Social history:: Smoking status: Patient reports the use of cigarette tobacco products, smokes two packs cigarettes per day. Patient uses alcohol, only on a social basis. ROS: 20:57 Constitutional: Negative for fever, chills, and weight loss, Eyes: Negative for injury, natalya pain, redness, and discharge, ENT: Negative for injury, pain, and discharge, Neck: Negative for injury, pain, and swelling, Cardiovascular: Negative for chest pain, palpitations, and edema, Respiratory: Negative for shortness of breath, cough, wheezing, and pleuritic chest pain, Abdomen/GI: Negative for abdominal pain, nausea, vomiting, diarrhea, and constipation, Back: Negative for injury and pain, : Negative for injury, bleeding, discharge, and swelling, MS/Extremity: Negative for injury and deformity, Psych: Negative for depression, anxiety, suicide ideation, homicidal ideation, and hallucinations, Allergy/Immunology: Negative for hives, rash, and allergies, Endocrine: Negative for neck swelling, polydipsia, polyuria, polyphagia, and marked weight changes, Hematologic/Lymphatic: Negative for swollen nodes, abnormal bleeding, and unusual bruising, 20:57 Skin: Positive for laceration(s), swelling, of the scalp, Exam: 20:57 Constitutional: This is a well developed, well nourished patient who is awake, alert, natalya and in no acute distress. Eyes: Pupils equal round and reactive to light, extra-ocular motions intact. Lids and lashes normal. Conjunctiva and sclera are non-icteric and not injected. Cornea within normal limits. Periorbital areas with no swelling, redness, or edema. ENT: Nares patent. No nasal discharge, no septal abnormalities noted. Tympanic membranes are normal and external auditory canals are clear. Oropharynx with no redness, swelling, or masses, exudates, or evidence of obstruction, uvula midline. Mucous membranes moist. Neck: Trachea midline, no thyromegaly or masses palpated, and no cervical lymphadenopathy. Supple, full range of motion without nuchal rigidity, or vertebral point tenderness. No Meningismus. Chest/axilla: Normal chest wall appearance and motion. Nontender with no deformity. No lesions are appreciated. Cardiovascular: Regular rate and rhythm with a normal S1 and S2. No gallops, murmurs, or rubs. Normal PMI, no JVD. No pulse deficits. Respiratory: Lungs have equal breath sounds bilaterally, clear to auscultation and percussion. No rales, rhonchi or wheezes noted. No increased work of breathing, no retractions or nasal flaring. Abdomen/GI: Soft, non-tender, with normal bowel sounds. No distension or tympany. No guarding or rebound. No evidence of tenderness throughout. Back: No spinal tenderness. No costovertebral tenderness. Full range of motion. Skin: Warm, dry with normal turgor. Normal color with no rashes, no lesions, and no evidence of cellulitis. MS/ Extremity: Pulses equal, no cyanosis. Neurovascular intact. Full, normal range of motion. Neuro: Awake and alert, GCS 15, oriented to person, place, time, and situation. Cranial nerves II-XII grossly intact. Motor strength 5/5 in all extremities. Sensory grossly intact. Cerebellar exam normal. Normal gait. Psych: Awake, alert, with orientation to person, place and time. Behavior, mood, and affect are within normal limits. 20:57 Head/face: Noted is contusion, erythema, a laceration(s), swelling, that is mild, of the left side of the back of head and right side of the back of head, 21:23 ECG was reviewed by the Attending Physician. [facility] Vital Signs: 20:50 BP 127 / 88; Pulse 67; Resp 17; Temp 97.1(TE); Pulse Ox 98% on R/A; Weight 75.75 kg tm6 (R); Height 5 ft. 10 in. (R); Pain 0/10; 21:54 BP 116 / 87; Pulse 80; Pulse Ox 97% on R/A; Pain 0/10; tm6 23:04 BP 139 / 97; Pulse 80; Pulse Ox 97% on R/A; Pain 0/10; tm6 20:50 Body Mass Index 23.96 (75.75 kg, 177.8 cm) tm6 20:50 Pain Scale: Adult tm6 21:54 Pain Scale: Adult tm6 23:04 Pain Scale: Adult tm6 Maxwell Coma Score: 20:50 Eye Response: spontaneous(4). Motor Response: obeys commands(6). Verbal Response: tm6 oriented(5). Total: 15. 20:53 Eye Response: spontaneous(4). Motor Response: obeys commands(6). Verbal Response: natalya confused(4). Total: 14. 21:01 Eye Response: spontaneous(4). Motor Response: obeys commands(6). Verbal Response: natalya confused(4). Total: 14. MDM: 20:35 Patient medically screened. natalya 21:01 Differential diagnosis: Contusion of Hematoma on Laceration of Intracranial bleed- natalya Concussion without LOC. cerebral contusion. Differential Diagnosis: electrolyte abnormality, alcohol intoxication, hypoglycemia, intracranial bleed, overdose, pneumonia, UTI, volume depletion. Data reviewed: vital signs, nurses notes, lab test result(s), EKG, radiologic studies, CT scan. Consideration of Admission/Observation Escalation of care including admission/observation considered. I considered the following discharge prescriptions or medication management in the emergency department Medications were administered in the Emergency Department. See NEHEMIAH. Independent interpretation of the following test(s) in the Emergency Department EKG: See my EKG interpretation above. Test considered but Not performed: MRI: no mri brain. 10/04 20:51 Order name: Acetaminophen; Complete Time: 21:50 [facility] 10/04 20:51 Order name: Basic Metabolic Panel; Complete Time: 21:50 [facility] 10/04 20:51 Order name: CBC with Diff; Complete Time: 21:38 10/04 20:51 Order name: ETOH Level; Complete Time: 22:15 natalya 10/04 20:51 Order name: Hepatic Function; Complete Time: 21:50 natalya 10/04 20:51 Order name: PT-INR; Complete Time: 21:39 10/04 20:51 Order name: Ptt, Activated; Complete Time: 21:39 natalya 10/04 20:51 Order name: Salicylate; Complete Time: 21:59 [facility] 10/04 20:51 Order name: Urinalysis w/ reflexes; Complete Time: 21:39 10/04 20:51 Order name: Urine Drug Screen; Complete Time: 21:39 10/04 21:01 Order name: CT Traumagram (Head C Spine CAP wo con); Complete Time: 21:59 10/04 20:51 Order name: EKG; Complete Time: 20:52 10/04 20:51 Order name: EKG - Nurse/Tech; Complete Time: 21:35 10/04 20:51 Order name: IV Saline Lock; Complete Time: 21:35 10/04 20:51 Order name: Labs collected and sent; Complete Time: 21:35 10/04 20:51 Order name: Suicide Screening (Grannis); Complete Time: 21:35 10/04 20:51 Order name: Wound Care; Complete Time: 21:35 10/04 20:53 Order name: Misc. Order: fall percaution; Complete Time: 21:33 10/04 23:59 Order name: PO challenge: juice; Complete Time: 00:07 [facility] EC:23 Rate is 66 beats/min. Rhythm is regular. QRS [place] is Normal. [place] interval is normal. QRS natalya interval is normal. QT interval is normal. No Q waves. T waves are Normal. No ST changes noted. Clinical impression: Normal ECG and No evidence of ischemia. Interpreted by me. Reviewed by me. Administered Medications: 21:03 CANCELLED (Duplicate Order): ns 0.9% 1000 ml IV at 1 bolus Per protocol; 1000 mL bolus natalya 21:56 Drug: Thiamine IV 100 mg IV at bolus once Route: IV; Rate: bolus; Site: right bm8 antecubital; 23:30 Follow up: Response: No adverse reaction; IV Status: Completed infusion; IV Intake: bm8 1000ml 21:57 Drug: Banana Bag - (Multivitamin IV 1 amp, NS 0.9% IV 1000 ml, Thiamine IV 100 mg, bm8 foLIC Acid IVPB 1 mg) IV at 500 ml/hr once Route: IV; Rate: 500 ml/hr; Site: right antecubital; 23:30 Follow up: Response: No adverse reaction; IV Status: Completed infusion; IV Intake: bm8 1000ml 21:57 Drug: Ozytpraa-Nrcchaunwx-Anzvudxbd Topical Ointment 1 application Topical once Route: bm8 Topical; Site: affected area; 23:30 Follow up: Response: No adverse reaction bm8 23:05 Not Given (Patient Refused): ns 0.9% with kcl20 meq/l 1000 ml IV at 500 ml/hr continuoustm6 23:05 Drug: Potassium PO Effervescent Tablet 50 mEq PO once; dissolve in 4 ounces of water or tm6 juice Route: PO; 23:29 Follow up: Response: No adverse reaction bm8 23:30 Not Given (Patient Objection): tetanus toxoid,adsorbed0.5 ml IM once; Provide Vaccine bm8 Information Statement (VIS). Disposition Summary: 10/06/23 00:15 Discharge Ordered Notes: Location: Home natalya Problem: new natalya Symptoms: have improved natalya Condition: Fair natalya Diagnosis - Fall on same level, unspecified natalya - Alcohol abuse with intoxication natalya - Laceration without foreign body of unspecified part of head natalya - Hypokalemia natalya - Elevated white blood cell count natalya Followup: natalya - With: Private Physician - When: 2 - 3 days - Reason: Recheck today's complaints, Continuance of care, Re-evaluation by your physician Followup: natalya - With: Ute Becerril MD - When: 2 - 3 days - Reason: Recheck today's complaints, Re-evaluation by your physician Followup: natalya - With: Damien Hensley MD - When: 2 - 3 days - Reason: Recheck today's complaints, Re-evaluation by your physician Discharge Instructions: - Discharge Summary Sheet natalya - Alcohol Intoxication natalya - Alcohol Use Disorder natalya - Potassium Content of Foods natalya - Head Injury, Adult natalya - Fall Prevention in the Home, Adult natalya - Alcohol Intoxication, [id number]-cw-Rqxb natalya - Alcohol Abuse and Nutrition natalya - Head Injury, Adult, Whxa-tw-Uwvv natalya - Hypokalemia natalya - Alcohol Abuse and Dependence Information, Adult [facility] Forms: - Medication Reconciliation Form natalya - Antibiotic Education natalya - Prescription Opioid Use natalya - Patient Portal Instructions [facility] - Leadership Thank You Letter [facility] Prescriptions: - Potassium Chloride 20 meq Oral Packet - take 1 packet ORAL route once daily 1 packet in 6 (six) ounces of water or natalya juice; Take after meal; 10 packet; Refills: 0, Product Selection Permitted Signatures: Dispatcher [employer] EDMS Ty Espino MD MD cha Masterson, Tawney, RN RN tm6 Teddy Sanford, RN RN bm8 Corrections: (The following items were deleted from the chart) 20:52 20:52 ACETAMINOPHEN+C.LAB.BRZ ordered. EDMS EDMS 20:52 20:52 BASIC METABOLIC PANEL+C.LAB.BRZ ordered. EDMS EDMS 20:52 20:52 CBC+H.LAB.BRZ ordered. EDMS EDMS 20:52 20:52 ETHANOL+C.LAB.BRZ ordered. EDMS EDMS 20:52 20:52 HEPATIC FUNCTION+C.LAB.BRZ ordered. EDMS EDMS 20:52 20:52 PROTIME (+INR)+COAG.LAB.BRZ ordered. EDMS EDMS 20:52 20:52 PTT, ACTIVATED+COAG.LAB.BRZ ordered. EDMS EDMS 20:52 20:52 SALICYLATE+C.LAB.BRZ ordered. EDMS EDMS 20:52 20:52 Urinalysis+U.LAB.BRZ ordered. EDMS EDMS 20:52 20:52 URINE DRUG SCREEN+UC.LAB.BRZ ordered. EDMS EDMS 21:03 20:51 NS 0.9% IV 1000 ml IV at 1 bolus Per protocol; 1000 mL bolus ordered. [facility] 21:05 20:52 Head C Spine MPR Wo Con+CT.RAD.BRZ ordered. EDMS EDMS
--- NOTE | 2023-10-06 00:15 | ER ---
Nurse's Notes [facility] Name: Noe Hartman Age: 43 yrs Sex: Male : 1980 Arrival Date: 10/05/2023 Time: 20:31 Bed 2 Private MD: Diagnosis: Fall on same level, unspecified;Alcohol abuse with intoxication;Laceration without foreign body of unspecified part of head;Hypokalemia;Elevated white blood cell count Presentation: 10/04 20:50 Chief complaint: EMS states: patient intoxicated, had been drinking with the neighbors, tm6 fell backwards and hit his head. Two small lacs on back of head, no longer bleeding. Coronavirus screen: Vaccine status: Patient reports being unvaccinated. Ebola Screen: Patient negative for fever greater than or equal to 101.5 degrees Fahrenheit, and additional compatible Ebola Virus Disease symptoms Patient denies exposure to infectious person. Patient denies travel to an Ebola-affected area in the 21 days before illness onset. No symptoms or risks identified at this time. Mechanism of Injury: resulted from a fall, from a standing position. Initial Sepsis Screen: Does the patient meet any 2 criteria? No. Patient's initial sepsis screen is negative. Does the patient have a suspected source of infection? No. Patient's initial sepsis screen is negative. Risk Assessment: Do you want to hurt yourself or someone else? Patient reports no desire to harm self or others. Onset of symptoms was October 05, 2023. 20:50 Method Of Arrival: EMS: [facility] 20:50 Acuity: JOHNSON 3 tm6 Triage Assessment: 20:53 General: Appears in no apparent distress. Behavior is cooperative, Smells of alcohol. tm6 Pain: Denies pain. EENT: No signs and/or symptoms were reported regarding the EENT system. Neuro: Level of Consciousness is awake, alert, obeys commands, Oriented to person, place, Reports none. Cardiovascular: Patient's skin is warm and dry. Respiratory: Airway is patent Respiratory effort is even, unlabored, Respiratory pattern is regular, symmetrical. GI: No signs and/or symptoms were reported involving the gastrointestinal system. Abdomen is flat, non-distended. : No signs and/or symptoms were reported regarding the genitourinary system. Derm: No signs and/or symptoms reported regarding the dermatologic system. Musculoskeletal: No signs and/or symptoms reported regarding the musculoskeletal system. Historical: - Allergies: 20:53 No Known Allergies; tm6 - PMHx: 20:53 Hypertension; kidney disease; Myocardial infarction; Anxiety; Depressive disorder; tm6 - PSHx: 20:53 Appendectomy; tm6 - Immunization history:: Adult Immunizations up to date. - Infectious Disease History:: Denies. - Social history:: Smoking status: Patient reports the use of cigarette tobacco products, smokes two packs cigarettes per day. Patient uses alcohol, only on a social basis. Screenin:57 [facility] ED Fall Risk Assessment (Adult) History of falling in the last 3 months, tm6 including since admission Yes- single mechanical fall (1 pt) Confusion or Disorientation Yes (5 pts) Intoxicated or Sedated Yes (3 pts) Impaired Gait Yes (1 pt) Mobility Assist Device Used No (0 pt) Altered Elimination No (0 pt) Score/Fall Risk Level 0 - 2 = Low Risk Oriented to surroundings, Maintained a safe environment, Educated pt \T\ family on fall prevention, incl call for assistance when getting out of bed. Abuse screen: Denies threats or abuse. Denies injuries from another. Nutritional screening: No deficits noted. Tuberculosis screening: No symptoms or risk factors identified. Assessment: 20:56 Reassessment: see triage assessment. tm6 21:54 Reassessment: Patient appears in no apparent distress at this time. Patient and/or tm6 family updated on plan of care and expected duration. Pain level reassessed. Patient is alert, oriented x 3, equal unlabored respirations, skin warm/dry/pink. 23:05 Reassessment: Patient appears in no apparent distress at this time. tm6 23:10 Reassessment: called listed [facility] for pt \T\[id number], spoke with Hayde and she bm8 stated that she would call around to family to get him a ride home. 23:18 Reassessment: pt refuses to have a seat in either chair or on the bed after multiple bm8 repeated request to sit due to pt's intoxication level. 10/05 00:22 Reassessment: pt refused last vital signs. General: Appears in no apparent distress. bm8 comfortable, Behavior is calm, cooperative, appropriate for age. Pain: Denies pain. Neuro: No deficits noted. Level of Consciousness is awake, alert, obeys commands, Oriented to person, place, time, situation, Appropriate for age Reports. Cardiovascular: No deficits noted. Capillary refill < 3 seconds Patient's skin is warm and dry. Respiratory: No deficits noted. Airway is patent Trachea midline Respiratory effort is even, unlabored, Respiratory pattern is regular, symmetrical. GI: No deficits noted. No signs and/or symptoms were reported involving the gastrointestinal system. : No deficits noted. No signs and/or symptoms were reported regarding the genitourinary system. EENT: No deficits noted. No signs and/or symptoms were reported regarding the EENT system. Derm: No deficits noted. No signs and/or symptoms reported regarding the dermatologic system. Musculoskeletal: No deficits noted. No signs and/or symptoms reported regarding the musculoskeletal system. Vital Signs: 10/04 20:50 BP 127 / 88; Pulse 67; Resp 17; Temp 97.1(TE); Pulse Ox 98% on R/A; Weight 75.75 kg tm6 (R); Height 5 ft. 10 in. (R); Pain 0/10; 21:54 BP 116 / 87; Pulse 80; Pulse Ox 97% on R/A; Pain 0/10; tm6 23:04 BP 139 / 97; Pulse 80; Pulse Ox 97% on R/A; Pain 0/10; tm6 20:50 Body Mass Index 23.96 (75.75 kg, 177.8 cm) tm6 20:50 Pain Scale: Adult tm6 21:54 Pain Scale: Adult tm6 23:04 Pain Scale: Adult tm6 Kyra Coma Score: 20:50 Eye Response: spontaneous(4). Motor Response: obeys commands(6). Verbal Response: tm6 oriented(5). Total: 15. 20:53 Eye Response: spontaneous(4). Motor Response: obeys commands(6). Verbal Response: natalya confused(4). Total: 14. 21:01 Eye Response: spontaneous(4). Motor Response: obeys commands(6). Verbal Response: natalya confused(4). Total: 14. ED Course: 20:34 Patient arrived in ED. jj6 20:35 Ty Espino MD is Attending Physician. natalya 20:50 Kylah, Tawney, RN is Primary Nurse. tm6 20:53 Triage completed. tm6 20:53 Arm band placed on right wrist. tm6 21:28 CT Traumagram (Head C Spine CAP wo con) In Process Unspecified. EDMS 21:57 Patient has correct armband on for positive identification. Bed in low position. Call tm6 light in reach. Side rails up X2. Provided Education on: use of call belle. Client placed on continuous cardiac and pulse oximetry monitoring. NIBP monitoring applied. Pulse ox on. NIBP on. Door closed. Noise minimized. Warm blanket given. Pillow given. 21:57 No provider procedures requiring assistance completed. Inserted saline lock: 20 gauge tm6 in right antecubital area, using aseptic technique. 10/05 00:14 Ute Becerril MD is Referral Physician. natalya 00:15 Referral Physician role handed off by Ute Becerril MD natalya 00:15 Ute Becerril MD is Referral Physician. natalya 00:15 Referral Physician role handed off by Ute Becerril MD natalya 00:15 Damien Hensley MD is Referral Physician. natalya 00:22 IV discontinued, intact, bleeding controlled, No redness/swelling at site. Pressure bm8 dressing applied. Administered Medications: 10/04 21:03 CANCELLED (Duplicate Order): ns 0.9% 1000 ml IV at 1 bolus Per protocol; 1000 mL bolus [facility] 21:56 Drug: Thiamine IV 100 mg IV at bolus once Route: IV; Rate: bolus; Site: right bm8 antecubital; 23:30 Follow up: Response: No adverse reaction; IV Status: Completed infusion; IV Intake: bm8 1000ml 21:57 Drug: Banana Bag - (Multivitamin IV 1 amp, NS 0.9% IV 1000 ml, Thiamine IV 100 mg, bm8 foLIC Acid IVPB 1 mg) IV at 500 ml/hr once Route: IV; Rate: 500 ml/hr; Site: right antecubital; 23:30 Follow up: Response: No adverse reaction; IV Status: Completed infusion; IV Intake: bm8 1000ml 21:57 Drug: Kupknhdx-Ugjhazkefw-Vbbpalxvg Topical Ointment 1 application Topical once Route: bm8 Topical; Site: affected area; 23:30 Follow up: Response: No adverse reaction bm8 23:05 Not Given (Patient Refused): ns 0.9% with kcl20 meq/l 1000 ml IV at 500 ml/hr continuoustm6 23:05 Drug: Potassium PO Effervescent Tablet 50 mEq PO once; dissolve in 4 ounces of water or tm6 juice Route: PO; 23:29 Follow up: Response: No adverse reaction bm8 23:30 Not Given (Patient Objection): tetanus toxoid,adsorbed0.5 ml IM once; Provide Vaccine bm8 Information Statement (VIS). Medication: 10/05 00:22 VIS not applicable for this client. bm8 Intake: 10/04 23:30 IV: 1000ml; Total: 1000ml. bm8 23:30 IV: 1000ml; Total: 2000ml. bm8 Outcome: 10/05 00:15 Discharge ordered by . natalya 00:22 Discharged to home ambulatory, bm8 00:22 Condition: stable 00:22 Discharge instructions given to patient, Instructed on discharge instructions, follow up and referral plans. Demonstrated understanding of instructions, follow-up care, medications, Prescriptions given X 1, 00:30 Patient left the ED. bm8 Signatures: Dispatcher [employer] EDTy Morales MD MD cha Jeffries, Jennifer jj6 Masterson, Tawney RN RN tm6 Teddy Sanford, RN RN bm8
[2023-10-06 00:40] VITALS: TEMP 97.1
[2023-10-06 01:08] VITALS: BP 139/97; O2SAT 97
--- NOTE | 2023-10-07 14:57 | EKG ---
Test Date: 2023-10-05 Test Time: 21:08:15 Vending Service Technician: DAPHNEY MEASUREMENT RESULTS: Intervals: Rate: 66 CT: 140 QRSD: 88 QT: 452 QTc: 473 [place]: P: 53 CT: 140 QRS: 24 T: 40 INTERPRETIVE STATEMENTS: Normal sinus rhythm Normal ECG Compared to ECG 09/02/2023 08:12:35 Sinus arrhythmia no longer present Prolonged QT interval no longer present Electronically Signed On 10-07-23 14:51:50 CDT by Puma Pedroza
== END 2023-10-06 00:30 | disposition home or self-care (01) ==
LOC: ER 20:31
DX: S01.81XA Laceration without foreign body of other part of head, initial encounter (principal); W18.30XA Fall on same level, unspecified, initial encounter; F10.129 Alcohol abuse with intoxication, unspecified; E87.6 Hypokalemia; D72.829 Elevated white blood cell count, unspecified
CPT/HCPCS: 36415; 70450; 71250; 72125; 80048; 80076; 80143; 80179; 80307; 81001; 82077; 85025; 85610; 85730; 93005; 96365; 99284; J3411; J3480; J7030

== ENCOUNTER 2024-03-21 17:26 | Emergency (ER) | payer SELFPAY ==
--- OUTSIDE RECORDS SUMMARY | 2024-03-21 17:31 | XMS REPORT | Continuity of Care Document ---
Author Name Unknown Address [address] [facility] [address] [place] [address] [facility] thconnect Address [address] [facility] [place] [address] Care Team Providers Care Board Certified Arts Therapist Name Role Phone Casper Martinez Primary Care Physician [phone] Vikas De La Vega Attending Clinician UnavailYu Moreira DO Attending Clinician [phone] Bruna Quezada LVN Attending Clinician [phone] ROMA BRIONES Attending Clinician Unavailable Roma Briones MD Attending Clinician [phone] Jessi Sanchez RN Attending Clinician [phone] Doctor Unassigned, [place] Attending Clinician Castillo Turner MD, Mike Sahu Attending Clinician LUKAS HENAO Attending Clinician Unavailshona Phelan MD, Jim Michaud Attending Clinician [phone] Artur Valencia MD Attending Clinician [phone] Dilcia Campbell MD Attending Clinician +- [phone] Lukas Henao MD Attending Clinician + [phone] Edson Kyle DO Attending Clinician [phone] Physician, No Primary or Family Admitting Clinic larissa Unavailable ROMA BRIONES Admitting Clinician Unavailable Roma Briones MD Admitting Clinician [phone] ARTUR VALENCIA Admitting Clinician Unavailable Artur Valencia MD Admitting Clinician [phone] Payers Payer Name Policy Type Policy Number Effective Date Expirati on Date Source Problems Condition Name Condition Details Condition Category Status Onset Date Resolution Date Last Treatment Date Treating Clinician Comments Source Unstable angina Unstable angina Disease Active 2022-04 0 00:00: 00 [facility] Chest pain, unspecifie d type Chest pain, unspecifie d type Disease Active 2022-04 0 00:00: 00 [facility] Altered mental status, unspecifie d altered mental status type Altered mental status, unspecifie d altered mental status type Disease Active 10-21 00:00: 00 [facility] Allergies, Adverse Reactions, Alerts Allergy Name Allergy Type Status Severity Reaction(s) Onset Date Inactive Date Treating Clinician Comments Source No Allergy Informat ion Availabl e DA Active U 3-05 00:00: 00 JULEE morillo [facility] LORAZEPA M DRUG INGREDI Active High Anxiety 2022-04 0-08 00:00: 00 [facility] Lorazepa m Drug Intolera nce Active Anxiety 2022-04 008 00:00: 00 [facility] NO KNOWN ALLERGIE S Drug Class Active [facility] Social History Social Habit Start Date Stop Date Quantity Comments [facility] of [facility] use Passive smoker [facility] History of Social function 2023-01-28 00:00:00 2023-01-28 00:00:00 [facility] Tobacco use and exposure 2023-01-26 00:00:00 2023-01-26 00:00:00 Smokeless tobacco non-user [facility] Exposure to SARS-CoV-2 (event) 2021-10-16 00:00:00 2021-10-26 18:18:00 Not sure [facility] Sex Assigned At 1980 00:00:00 1980 00:00:00 [facility] Smoking Status Start Date Stop Date Source Smokes tobacco daily 2023-01-26 00:00:00 [facility] Never smoked tobacco [facility] Medications Ordered Medication Name Filled Medication Name Start Date Stop Date Current Medication? Ordering Clinician Indication Dosage Frequency Signature (SIG) Comments Components Source metoprolol succinate XL 25 mg 24 hr tablet 2022-04 00:00: 00 Yes [id number] 25mg Take 1 tablet by mouth in the morning. [facility] dicyclomine 20 mg tablet 2022-04 19:57: 49 Yes 20mg Take 1 tablet by mouth 4 (four) times daily. [facility] melatonin 3 mg tablet 2022-04 19:57: 49 Yes 3mg Take 1 tablet by mouth at bedtime. [facility] Pantoprazol e 40 mg delayed-rel ease suspension 2022-04 19:57: 49 Yes 40mg Take 40 mg by mouth in the morning. [facility] losartan-hy drochloroth iazide 100-25 mg per tablet 2022-04 19:57: 49 Yes 1{tbl} Take 1 tablet by mouth in the morning. [facility] ALPRAZolam 1 mg tablet 2022-04 19:57: 49 Yes 1mg Take 1 tablet by mouth at bedtime as needed (sleep). [facility] traZODone 50 mg tablet 2022-04 19:57: 49 Yes 50mg Take 1 tablet by mouth at bedtime as needed for Insomnia. [facility] metoprolol succinate XL 25 mg 24 hr tablet 2022-04 19:57: 46 01-28 00:00 :00 No 25mg Take 1 tablet by mouth in the morning. [facility] lisinopriL 5 mg tablet 2022-04 19:57: 46 01-28 00:00 :00 No 5mg Take 1 tablet by mouth in the morning. [facility] hydroCHLORO thiazide 25 mg tablet 2022-04 19:57: 46 01-28 00:00 :00 No 25mg Take 1 tablet by mouth in the morning. [facility] metoprolol tartrate 25 mg tablet 2022-04 19:57: 46 01-26 00:00 :00 No 25mg Take 1 tablet by mouth in the morning and 1 tablet in the evening. [facility] magnesium sulfate in water 2 gram/50 mL (4 %) infusion 2 g 2022-04 12:00: 00 01-28 13:47 :00 No 2g 2 g, IV Piggyback, Administer over 60 Minutes, ONCE, 1 dose, On Sat01/28/23 at 0700, Routine [facility] KCL (KLOR-CON M20) tablet 80 mEq 2022-04 12:00: 00 01-28 12:53 :00 No 80meq 80 mEq, Oral, ONCE, 1 dose, On Sat01/28/23 at 0700, Routine [facility] hydrOXYzine (ATARAX) tablet 25 mg 2022-04 01:00: 00 Yes 25mg 25 mg, Oral, BID, First dose (after last modificati on) on 01/27/23 at 2000, Until Discontinu ed, Routine [facility] atorvastati n 40 mg tablet 2022-04 00:00: 00 Yes [id number] 40mg Take 1 tablet by mouth every evening. [facility] sulfur hexafluorid e microsphr (LUMASON) injection 5 mL 2022-04 15:00: 00 01-27 15:00 :00 No [id number] 5mL 5 mL, Intravenou s, ONCE, 1 dose, On Sat01/27/23 at 1000, Routine
member of congress approving Restricted medication : ROMA BRIONES [facility] lisinopriL (PRINIVIL,Z ESTRIL) tablet 5 mg 2022-04 14:00: 00 Yes 5mg 5 mg, Oral, DAILY, First dose on 01/27/23 at 0900, Until Discontinu ed, Routine [facility] metoprolol succinate XL (TOPROL XL) tablet 25 mg 2022-04 14:00: 00 Yes 25mg 25 mg, Oral, DAILY, First dose on 01/27/23 at 0900, Until Discontinu ed, Routine [facility] foLIC acid (FOLATE) tablet 1 mg 2022-04 14:00: 00 Yes 1mg 1 mg, Oral, DAILY, First dose on 01/27/23 at 0900, Until Discontinu ed, [facility] 100 mg 2022-04 14:00: 00 Yes 100mg 100 mg, Oral, DAILY, First dose on 01/27/23 at 0900, Until Discontinu ed, Routine [facility] KCL (KLOR-CON M20) tablet 40 mEq 2022-04 08:15: 00 01-27 07:39 :00 No 40meq 40 mEq, Oral, ONCE, 1 dose, On 01/27/23 at 0315, Routine [facility] melatonin (MELATIN) tablet 3 mg 2022-04 02:00: 00 Yes 3mg 3 mg, Oral, QHS, First dose on 01/26/23 at 2100, Until Discontinu ed, Routine [facility] hydrOXYzine (ATARAX) tablet 10 mg 2022-04 20:49: 00 01-27 13:06 :40 No 10mg 10 mg, Oral, Q6HPRN, Starting on 01/26/23 at 1549, Until 01/27/23 at 0806, Routine, Anxiety [facility] furosemide (LASIX) injection 40 mg 2022-04 15:00: 00 01-26 13:48 :24 No 40mg 40 mg, Slow IV Push, DAILY, First dose on 01/26/23 at 1000, Until Discontinu ed, Routine [facility] oxazepam (SERAX) capsule 15 mg 2022-04 14:13: 35 Yes 15mg 15 mg, Oral, Q4HPRN, Starting on 01/26/23 at 0913, Until Discontinu ed, Routine, Only while awake for DBP equal to or greater than 100, HR equal to or greater than 100. [facility] pantoprazol e (PROTONIX) EC tablet 40 mg 2022-04 14:00: 00 Yes 40mg 40 mg, Oral, DAILY, First dose on 01/26/23 at 0900, Until Discontinu ed, Routine [facility] aspirin chewable tablet 81 mg 2022-04 14:00: 00 Yes 81mg 81 mg, Oral, DAILY, First dose on 01/26/23 at 0900, Until Discontinu ed, Routine [facility] metoprolol tartrate (LOPRESSOR) tablet 25 mg 2022-04 14:00: 00 01-26 17:41 :11 No 25mg 25 mg, Oral, BID, First dose on 01/26/23 at 0900, Until Discontinu ed, Routine [facility] heparin 25,000 Units/250 mL (Premixed Bag) [...] ADJUST INITIAL BOLUS OR INITIAL INFUSION RATE.
[facility] atorvastati n (LIPITOR) tablet 80 mg 2022-04 12:30: 00 Yes 80mg 80 mg, Oral, QPM, First dose on 01/26/23 at 0730, Until Discontinu ed, Routine
member of congress approving Restricted medication : MCAWHITE [facility] nitroglycer in (NITROSTAT) sublingual tablet 0.4 mg 2022-04 12:23: 12 Yes .4mg 0.4 mg, Sublingual , Q5MIN PRN, Starting on 01/26/23 at 0723, Until Discontinu ed, Routine, Chest pain [facility] heparin (1,000 unit/mL, 10 mL vial) for Rebolusing 2022-04 12:23: 12 Yes 3000U FOR REBOLUSING , Starting on 01/26/23 at 0723, Until Discontinu ed, Routine
Dosing based on aPTT testing parameters (refer to continuous heparin drip order).
[facility] acetaminoph en (TYLENOL) tablet 650 mg 2022-04 12:23: 12 Yes 650mg 650 mg, Oral, Q6HPRN, Starting on 01/26/23 at 0723, Until Discontinu ed, Routine, Pain (scale 1-3) [facility] lisinopriL 5 mg tablet 10-29 00:00: 00 01-28 04:59 :00 No [id number] 5mg Take 1 tablet by mouth daily for 90 days. [facility] metoprolol succinate XL 25 mg 24 hr tablet 10-29 00:00: 00 01-28 04:59 :00 No [id number] 25mg Take 1 tablet by mouth daily for 90 days. [facility] ALPRAZOLAM (XANAX ORAL) 10-28 15:59: 04 10-28 00:00 :00 No .5mg Take 0.5 mg by mouth as needed. [facility] lidocaine (LIDODERM) 5 % (700 mg/patch) patch 1 Patch 10-28 02:15: 00 10-28 14:05 :00 No 1{patch } 1 Patch, Topical, Administer over 12 Hours, ONCE, 1 dose, On Sat10/27/21 at 2115, Routine [facility] hydroCHLORO thiazide 25 mg tablet 10-28 00:00: 00 01-27 04:59 :00 No [id number] 25mg Take 1 tablet by mouth daily for 90 days. [facility] pantoprazol e 40 mg EC tablet 10-28 00:00: 00 01-27 04:59 :00 No [id number] 40mg Take 1 tablet by mouth daily for 90 days. [facility] melatonin 3 mg tablet 10-28 00:00: 00 11-28 04:59 :00 No [id number] 3mg Take 1 tablet by mouth at bedtime for 30 days. [facility] dicyclomine 20 mg tablet 10-28 00:00: 00 11-28 04:59 :00 No [id number] 20mg Take 1 tablet by mouth 4 (four) times daily for 30 days. [facility] lidocaine 5 % (700 mg/patch) patch 10-28 00:00: 00 10-29 04:59 :00 No [id number] 1{patch } Apply 1 Patch to area(s) once now for 1 dose. [facility] metoprolol succinate XL (TOPROL XL) tablet 25 mg 10-27 14:00: 00 Yes 25mg 25 mg, Oral, DAILY, First dose (after last modificati on) on Sat10/27/21 at 0900, Until Discontinu ed, Routine [facility] KCL (KLOR-CON M20) tablet 40 mEq 10-27 11:45: 00 10-27 11:11 :00 No 40meq 40 mEq, Oral, ONCE, 1 dose, On Sat10/27/21 at 0645, Routine [facility] lidocaine (LIDODERM) 5 % (700 mg/patch) patch 1 Patch 10-27 06:15: 00 10-27 17:28 :00 No 1{patch } 1 Patch, Topical, Administer over 12 Hours, ONCE, 1 dose, On Sat10/27/21 at 0115, Routine [facility] ampicillin- sulbactam (UNASYN) 3 g in [...] y
Durat ion of Therapy: 7 days [facility] lidocaine (LIDODERM) 5 % (700 mg/patch) patch 1 Patch 10-26 19:30: 00 10-27 05:06 :18 No 1{patch } 1 Patch, Topical, Administer over 12 Hours, ONCE, 1 dose, On Sat10/26/21 at 1430, Routine [facility] KCL (KLOR-CON M20) tablet 40 mEq 10-26 15:45: 00 10-26 15:04 :00 No 40meq 40 mEq, Oral, ONCE, 1 dose, On Sat10/26/21 at 1045, Routine [facility] lisinopriL (PRINIVIL,Z ESTRIL) tablet 5 mg 10-26 15:15: 00 Yes 5mg 5 mg, Oral, DAILY, First dose on Sat10/26/21 at 1015, Until Discontinu ed, Routine [facility] potassium chloride 20 mEq/100 mL (KCL) 20 mEq/100 mL RTU IVPB 20 mEq 10-26 13:30: 00 10-26 14:33 :09 No 20meq 20 mEq, IV Piggyback, Q2H ES, 2 doses, First dose on Sat10/26/21 at 0830, Last dose on Sat10/26/21 at 1030, 100 mL [facility] lidocaine (LIDODERM) 5 % (700 mg/patch) patch 1 Patch 10-26 10:30: 00 10-26 22:01 :00 No 1{patch } 1 Patch, Topical, Administer over 12 Hours, ONCE, 1 dose, On Sat10/26/21 at 0530, Routine [facility] simethicone (GAS RELIEF (SIMETHICON E)) 40 mg/0.6 mL drops 80 mg 10-26 06:00: 00 Yes 80mg 80 mg, Oral, PC+HS, First dose on Sat10/26/21 at 0100, Until Discontinu ed, Routine [facility] melatonin (MELATIN) tablet 3 mg 10-26 04:00: 00 Yes 3mg 3 mg, Oral, QHS, First dose on Sat10/25/21 at 2300, Until Discontinu ed, Routine [facility] dicyclomine (BENTYL) tablet 20 mg 10-26 04:00: 00 Yes 20mg 20 mg, Oral, QID, First dose on Sat10/25/21 at 2300, Until Discontinu ed, Routine [facility] ALPRAZolam (XANAX) tablet 0.5 mg 10-26 01:19: 00 10-26 02:05 :00 No .5mg 0.5 mg, Oral, ONCE, 1 dose, On Sat10/25/21 at 2030, Routine [facility] acetaminoph en (TYLENOL) tablet 650 mg 10-25 20:41: 15 Yes 650mg 650 mg, Oral, Q6HPRN, Starting on Sat10/25/21 at 1541, Until Discontinu ed, Routine, Temp > 38.5 C [facility] KCL (KLOR-CON M20) tablet 40 mEq 10-25 20:15: 00 10-25 19:45 :00 No 40meq 40 mEq, Oral, ONCE, 1 dose, On Sat10/25/21 at 1515, Routine [facility] potassium chloride in water (KCL) 40 mEq/100 mL 40 mEq piggyback 10-25 06:45: 00 10-25 13:10 :00 No 40meq 40 mEq, IV Piggyback, ONCE, 1 dose, On Sat10/25/21 at 0145 [facility] KCL (KLOR-CON M20) tablet 40 mEq 10-25 06:45: 00 10-25 09:10 :00 No 40meq 40 mEq, Oral, ONCE, 1 dose, On Sat10/25/21 at 0145, Routine [facility] acetaminoph en ADULT (OFIRMEV) injection 1,000 mg 10-25 03:30: 00 10-25 03:08 :00 No 1000mg 1,000 mg, IV Infusion, at 400 mL/hr Administer over 15 Minutes, ONCE, 1 dose, On Sat10/24/21 at 2230, Routine
Indicatio n: Non-periop erative Patient
Approved by: Per Policy (NPO Status) [facility] LORazepam (ATIVAN) injection 0.5 mg 10-25 03:30: 00 10-25 02:53 :00 No .5mg 0.5 mg, Slow IV Push, ONCE, 1 dose, On Sat10/24/21 at 2230, Routine
Is the medication being used for status epilepticu s? No [facility] proMETHazin e (PHENERGAN) 12.5 mg in NS 50 mL IV piggyback (CNR) 10-25 02:45: 00 10-25 02:25 :00 No 12.5mg 12.5 mg, IV Piggyback, at 200 mL/hr Administer over 15 Minutes, ONCE NOW, 1 dose, On Sat10/24/21 at 2145, Routine [facility] pantoprazol e (PROTONIX) EC tablet 40 mg 10-25 01:00: 00 Yes 40mg 40 mg, Oral, BID, First dose on Sat10/24/21 at 2000, Until Discontinu ed, Routine [facility] metoprolol succinate XL (TOPROL XL) tablet 12.5 mg 10-24 22:15: 00 10-26 15:13 :00 No 12.5mg 12.5 mg, Oral, DAILY, First dose on Sat10/24/21 at 1715, Until Discontinu ed, Routine [facility] ALPRAZolam (XANAX) tablet 0.5 mg 10-24 21:25: 17 Yes .5mg 0.5 mg, Oral, TIDPRN, Starting on Sat10/24/21 at 1625, Until Discontinu ed, agitation [facility] potassium chloride in water (KCL) 40 mEq/100 mL 40 mEq piggyback 10-24 11:45: 00 10-24 14:57 :00 No 40meq 40 mEq, IV Piggyback, ONCE, 1 dose, On Sat10/24/21 at 0645 [facility] sodium chloride 7% (HYPER-VANESSA) nebulizer solution 4 mL 10-24 05:00: 00 10-24 23:31 :00 No 4mL 4 mL, Inhalation , BID, First dose on Sat10/24/21 at 0000, Until Discontinu ed, Routine [facility] FENTanyl PF (SUBLIMAZE (PF)) injection 50 mcg 10-24 03:30: 00 10-24 02:46 :00 No 50ug 50 mcg, Slow IV Push, ONCE, 1 dose, On Sat10/23/21 at 2230, Routine [facility] midazolam (VERSED) injection 1 mg 10-24 02:40: 30 10-24 08:34 :00 No 1mg 1 mg, IV Push, PRN - SEE INSTRUCTIO NS, 2 doses, Starting on Sat10/23/21 at 2140, Until Discontinu ed, Routine, Anxiety, Agitation [facility] acetaminoph en ADULT (OFIRMEV) injection 1,000 mg 10-24 02:16: 26 10-24 23:31 :00 No 1000mg 1,000 mg, IV Infusion, at 400 mL/hr Administer over 15 Minutes, BIDPRN, Starting on Sat10/23/21 at 2116, Until Sat10/24/21 at 1831, Routine, Needed for fever
I ndication: Non-periop erative Patient
Approved by: Per Policy (NPO Status) [facility] HYDROcodone -acetaminop hen (HYCET) 7.5-325 mg/15 mL solution 2.5 mg 10-23 23:30: 00 10-23 23:42 :00 No 2.5mg 2.5 mg, Enteral, ONCE, 1 dose, On Sat10/23/21 at 1830, Routine [facility] sulfur hexafluorid e microsphr (LUMASON) injection 5 mL 10-23 16:45: 00 10-23 16:45 :00 No [id number] 5mL 5 mL, Intravenou s, ONCE, 1 dose, On Sat10/23/21 at 1145, Routine
member of congress approving Restricted medication : BENEDICT BRANCH [facility] meropenem (MERREM) 1,000 mg in NaCl [...] Blood
D uration of therapy: 7 days [facility] lactated ringers IV infusion 1,000 mL 10-23 00:45: 00 10-22 23:44 :00 No 1000mL at 999 mL/hr, 1,000 mL, Intravenou s, ONCE, 1 dose, On Sat10/22/21 at 1945, Routine [facility] vancomycin 1,250 mg in NaCl 0.9% [...] Blood
D uration of therapy: 7 days [facility] meropenem (MERREM) 1,000 mg in NaCl [...] Blood
D uration of therapy: 7 days [facility] acetaminoph en ADULT (OFIRMEV) injection 1,000 mg 10-22 19:59: 14 10-23 19:58 :14 No 1000mg 1,000 mg, IV Infusion, at 400 mL/hr Administer over 15 Minutes, BIDPRN, Starting on Sat10/22/21 at 1459, Until Sat10/23/21 at 1458, Routine, Needed for fever
I ndication: Non-periop erative Patient
Approved by: Per Policy (NPO Status) [facility] ipratropium -albuteroL (DUONEB) 0.5 mg-3 mg(2.5 mg base)/3 mL nebulizer solution 3 mL 10-22 19:00: 00 10-24 23:41 :43 No 3mL 3 mL, Inhalation , TID, First dose on Sat10/22/21 at 1400, Until Discontinu ed, Routine [facility] lactated ringers IV infusion 1,000 mL 10-22 15:15: 00 10-22 15:06 :00 No 1000mL at 999 mL/hr, 1,000 mL, IV Infusion, ONCE, 1 dose, On Sat10/22/21 at 1015, Routine [facility] azithromyci n (ZITHROMAX) 500 mg in NaCl [...] y
Durat ion of Therapy: 7 days [facility] cefTRIAXone (ROCEPHIN) 1,000 mg in NaCl [...] y
Durat ion of Therapy: 7 days [facility] magnesium sulfate in water 2 gram/50 mL (4 %) infusion 2 g 10-22 15:00: 00 10-22 17:50 :00 No 2g 2 g, IV Piggyback, Administer over 60 Minutes, Q1H, 2 doses, First dose on Sat10/22/21 at 1000, Last dose on Sat10/22/21 at 1100, Routine [facility] artificial tears(hypro mellose) (ISOPTO-TEA RS) 0.5 % ophthalmic drops 2 Drop 10-22 14:11: 27 Yes 2[drp] 2 Drop, Both Eyes, PRN, Starting on Sat10/22/21 at 0911, Until Discontinu ed, Routine, Dry eyes [facility] lactated ringers IV infusion 1,000 mL 10-22 13:45: 00 10-22 14:06 :25 No 1000mL at 125 mL/hr, 1,000 mL, IV Infusion, CONTINUOUS , Starting on Sat10/22/21 at 0845, Until Sat10/22/21 at 0906, Routine [facility] ampicillin- sulbactam (UNASYN) 1.5 g in NaCl 0.9% (NS) 50 mL MINI-BAG 10-22 13:30: 00 10-22 14:17 :28 No 1.5g 1.5 g, IV Piggyback, Q6H ABX, First dose on Sat10/22/21 at 0830, Until Discontinu ed, Administer over 30 Minutes, 50 mL
Reas on for Anti-Infec tive: Documented Infection< br>Documen julio cesar Infection Site: Respirator y
Durat ion of Therapy: 7 days [facility] lactated ringers IV infusion 1,000 mL 10-22 04:15: 00 10-22 05:00 :00 No 1000mL at 999 mL/hr, 1,000 mL, Intravenou s, ONCE, 1 dose, On 10/21/21 at 2315, Routine [facility] lactated ringers IV infusion 1,000 mL 10-22 02:45: 00 10-22 03:38 :00 No 1000mL at 999 mL/hr, 1,000 mL, IV Infusion, ONCE, 1 dose, On 10/21/21 at 2145, Routine [facility] NORepinephr ine 16 mg in NS 250 [...] at maximum allowed dose, contact prescriber .
[facility] lactated ringers IV infusion 1,000 mL 10-22 02:30: 00 10-22 01:38 :51 No 1000mL at 999 mL/hr, 1,000 mL, IV Infusion, CONTINUOUS , Starting on 10/21/21 at 2130, Until 10/21/21 at 2037, Routine [facility] acetaminoph en ADULT (OFIRMEV) injection 1,000 mg 10-22 02:00: 00 10-22 01:19 :00 No 1000mg 1,000 mg, IV Infusion, at 400 mL/hr Administer over 15 Minutes, ONCE, 1 dose, On 10/21/21 at 2100, Routine
Indicatio n: Non-periop erative Patient
Approved by: Per Policy (NPO Status) [facility] sodium chloride 7% (HYPER-VANESSA) nebulizer solution 4 mL 10-22 01:45: 00 10-22 14:12 :29 No 4mL 4 mL, Inhalation , BID, First dose on 10/21/21 at 2044, Until Discontinu ed, Routine [facility] fentaNYL PF (SUBLIMAZE) STD 2,500 mcg [...] at maximum allowed dose, contact prescriber .
[facility] midazolam (VERSED) STD 50mg in NaCl [...] at maximum allowed dose, contact prescriber .
[facility] meropenem (MERREM) 1,000 mg in NaCl [...] Blood
D uration of therapy: 7 days [facility] vancomycin (VANCOCIN) 1,000 mg in NaCl 0.9% (NS) 250 mL VIAL-MATE IV piggyback 10-22 01:00: 00 10-22 03:09 :00 No 1000mg 1,000 mg, IV Piggyback, ONCE, 1 dose, On 10/21/21 at 1999, Administer over 60 Minutes, 250 mL
Reas on for Anti-Infec tive: Documented Infection< br>Documen julio cesar Infection Site: Abdominal< br>Duratio n of Therapy: [address] [facility] lactated ringers IV infusion 1,000 mL 10-22 00:45: 00 10-22 01:04 :00 No 1000mL at 999 mL/hr, 1,000 mL, Intravenou s, ONCE, 1 dose, On 10/21/21 at 1945, Routine [facility] dexMEDEtomi dine 200 mcg in 0.9 [...] at maximum allowed dose, contact prescriber .
[facility] midazolam (VERSED) injection 2 mg 10-22 00:18: 33 10-23 16:25 :38 No 2mg 2 mg, Slow IV Push, Q1HPRN, Starting on 10/21/21 at 1918, Until 10/23/21 at 1125, Routine, Agitation [facility] acetaminoph en-codeine 300-30 mg tablet 2018-04 00:00: 00 10-28 00:00 :00 No [id number] 1{tbl} Take 1 tablet by mouth every 6 (six) hours as needed for Pain (scale 4-6) for up to 30 doses. [facility] ibuprofen 800 mg tablet 2018-04 00:00: 00 10-28 00:00 :00 No [id number] 800mg Take 1 tablet by mouth every 6 (six) hours as needed for Pain (scale 4-6) for up to 30 doses. [facility] ondansetron 4 mg disintegrat ing tablet 2016-04 00:00: 00 10-28 00:00 :00 No 4mg Take 1 tablet by mouth every 8 (eight) hours as needed for Nausea and Vomiting (N/V). [facility] acetaminoph en-codeine 300-30 mg tablet 2016-04 00:00: 00 10-28 00:00 :00 No 1{tbl} Take 1 tablet by mouth every 4 (four) hours as needed for Pain (scale 7-10). [facility] naproxen sodium (ANAPROX DS) 550 mg tablet 2016-04 00:00: 00 10-28 00:00 :00 No 550mg Take 1 tablet by mouth 2 (two) times daily with meals. [facility] Immunizations Ordered Immunization Name Filled Immunization Name Date Status Comments Source TDAP (ADACEL) VACCINE 2019-01-25 00:00:00 Completed [facility] TDAP (ADACEL) VACCINE 2019-01-25 00:00:00 Completed [facility] TDAP (ADACEL) VACCINE 2019-01-25 00:00:00 Completed [facility] TDAP (ADACEL) VACCINE 2019-01-25 00:00:00 Completed [facility] TDAP (ADACEL) VACCINE 2019-01-25 00:00:00 Completed [facility] TDAP (ADACEL) VACCINE 2019-01-25 00:00:00 Completed [facility] TDAP (ADACEL) VACCINE 2019-01-25 00:00:00 Completed [facility] TDAP (ADACEL) VACCINE Unknown Completed [facility] TDAP (ADACEL) VACCINE Unknown Completed [facility] TDAP (ADACEL) VACCINE Unknown Completed [facility] TDAP (ADACEL) VACCINE Unknown Completed [facility] Vital Signs Vital Name Observation Time Observation Value Comments S ource Systolic blood pressure 2023-01-28 19:58:00 127 mm[Hg] [facility] Diastolic blood pressure 2023-01-28 19:58:00 87 mm[Hg] [facility] Respiratory rate 2023-01-28 19:58:00 10 /min [facility] Oxygen saturation in Arterial blood by Pulse oximetry 2023-01-28 19:58:00 99 /min [facility] Heart rate 2023-01-28 18:51:46 58 /min [facility] Body temperature 2023-01-28 16:21:00 35.83 [facility] Body weight 2023-01-28 08:07:00 82.373 kg actual wt on the regular scale [facility] BMI 2023-01-28 08:07:00 26.06 kg/m2 [facility] Body height 2023-01-27 02:37:00 177.8 cm [facility] Systolic blood pressure 2021-10-28 16:26:00 151 mm[Hg] [facility] Diastolic blood pressure 2021-10-28 16:26:00 88 mm[Hg] [facility] Heart rate 2021-10-28 16:26:00 93 /min [facility] Body temperature 2021-10-28 16:26:00 37.39 [place]y [facility] Respiratory rate 2021-10-28 16:26:00 18 /min [facility] Oxygen saturation in Arterial blood by Pulse oximetry 2021-10-28 16:26:00 94 /min [facility] Body height 2021-10-26 15:35:00 177.8 cm [facility] Body weight 2021-10-26 15:35:00 79.833 kg [facility] BMI 2021-10-26 15:35:00 25.25 kg/m2 [facility] Procedures Procedure Date / Time Performed Performing Clinician Source ACTIVATED PARTIAL THRMPLAS POORNIMA 2023-01-28 21:28:00 Luna Alba [facility] CATH PROCEDURE LOG 2023-01-28 18:55:48 Roma Briones [facility] MAGNESIUM 2023-01-28 16:42:00 Luna Alba Isela [facility] BASIC METABOLIC PANEL (NA, K, CL, CO2, GLUCOSE, BUN, CREATININE, CA) 2023-01-28 16:42:00 Luna Alba [facility] MAGNESIUM 2023-01-28 09:47:00 Luna Alba Isela [facility] BASIC METABOLIC PANEL (NA, K, CL, CO2, GLUCOSE, BUN, CREATININE, CA) 2023-01-28 09:47:00 Luna Alba Isela [facility] CBC WITH DIFF 2023-01-28 09:47:00 Luna Alba [facility] URINALYSIS 2023-01-27 21:34:00 Yu Wells [facility] CBC WITHOUT DIFF 2023-01-27 21:15:00 Luna Alba [facility] BLOOD CULTURE SCREEN 2023-01-27 15:09:00 Rafaela Wells [facility] TROPONIN I 2023-01-27 15:09:00 Yu Wells [facility] EBV-MONONUCLEOSIS SCREEN 2023-01-27 15:09:00 Baudilio nagel Yu [facility] GALV ONLY - INFLUENZA A B RSV PCR 2023-01-27 15:09:00 Yu Wells [facility] PROCALCITONIN 2023-01-27 15:09:00 Russell [facility] COVID-19 (ID NOW RAPID TESTING) 2023-01-27 15:09:00 Russell [facility] LAB ONLY COVID INTERPRETATION 2023-01-27 15:09:00 Russell [facility] TRANSTHORACIC ECHO (TTE) COMPLETE W/ CONTRAST 2023-01-27 14:54:42 Russell [facility] MAGNESIUM 2023-01-27 06:23:00 Yu Wells [facility] TROPONIN I 2023-01-27 06:23:00 Russell Yu [facility] BASIC METABOLIC PANEL (NA, K, CL, CO2, GLUCOSE, BUN, CREATININE, CA) 2023-01-27 06:23:00 Russell [facility] SEDIMENTATION RATE 2023-01-27 06:23:00 Ihsan Wells [facility] CBC WITH DIFF 2023-01-27 06:23:00 Russell [facility] URINE DRUG (IMMUNOASSAY) - COMPREHENSIVE DRUG SCREEN 2023-01-27 01:25:00 Russell [facility] TROPONIN I 2023-01-26 22:40:00 Yu Wells [facility] XR CHEST 1 VW 2023-01-26 19:22:00 Russell [facility] HB ECG ROUTINE & RHYTHM STRIP 2023-01-26 12:58:32 Russell [facility] TROPONIN I 2023-01-26 12:50:00 Yu Wells [facility] THYROID STIMULATING HORMONE 2023-01-26 12:50:00 Russell [facility] HEPATIC FUNCTION PANEL (45182) (ALB,T.PRO,BILI T,BU/BC,ALT,AST,ALK PHOS) 2023-01-26 12:50:00 Russell [facility] BASIC METABOLIC PANEL (NA, K, CL, CO2, GLUCOSE, BUN, CREATININE, CA) 2023-01-26 12:50:00 Russell Yu [facility] LIPID PANEL (66082)(TOTAL CHOLESTEROL, TRIGLYCERIDES, HDL) 2023-01-26 12:50:00 Yu Wells [facility] ETHANOL 2023-01-26 12:50:00 Yu Wells [facility] CBC WITH DIFF 2023-01-26 12:50:00 Russell [facility] GLYCOSYLATED HEMOGLOBIN (A1C) 2023-01-26 12:50:00 Russell [facility] PROTHROMBIN TIME / INR 2023-01-26 12:50:00 Russell [facility] ACTIVATED PARTIAL THRMPLAS POORNIMA 2023-01-26 12:50:00 Russell [facility] N-TERMINAL PRO-BNP 2023-01-26 12:50:00 Ihsan Wells [facility] LOW-DENSITY LIPOPROTEIN, DIRECT 2023-01-26 12:50:00 Russell [facility] EXTERNAL PROVIDER RECORDS 2021-11-09 05:01:00 Do ctor Unassigned, [place] [facility] BASIC METABOLIC PANEL (NA, K, CL, CO2, GLUCOSE, BUN, CREATININE, CA) 2021-10-28 09:41:00 [facility] CBC WITHOUT DIFF 2021-10-28 09:41:00 Daniel Turner [facility] PROTEIN CREAT RATIO URINE RANDOM 2021-10-27 16:45:00 [facility] 2021-10-27 16:45:00 Lara Fry [facility] FECAL PATHOGENS BY PCR 2021-10-27 13:23:00 Hernando Eric [facility] BASIC METABOLIC PANEL (NA, K, CL, CO2, GLUCOSE, BUN, CREATININE, CA) 2021-10-27 10:51:00 Lara Fry [facility] MAGNESIUM 2021-10-26 10:31:00 Rick Eric [facility] BASIC METABOLIC PANEL (NA, K, CL, CO2, GLUCOSE, BUN, CREATININE, CA) 2021-10-26 10:31:00 Rick Eric [facility] CBC WITHOUT DIFF 2021-10-26 10:31:00 Rick Eric [facility] FECES CULTURE 2021-10-26 02:32:00 Agus [facility] MAGNESIUM 2021-10-25 16:47:00 Agus [facility] BASIC METABOLIC PANEL (NA, K, CL, CO2, GLUCOSE, BUN, CREATININE, CA) 2021-10-25 16:47:00 Agus [facility] CLOSTRIDIUM DIFFICILE TOXIN 2021-10-25 11:35:00 Vel [facility] CBC WITH DIFF 2021-10-25 10:35:00 Agus [facility] MAGNESIUM 2021-10-25 04:44:00 Vel [facility] BASIC METABOLIC PANEL (NA, K, CL, CO2, GLUCOSE, BUN, CREATININE, CA) 2021-10-25 04:44:00 Vel [facility] AC PANEL 20 + LACTIC ACID 2021-10-25 04:44:00 [facility] 2021-10-25 04:14:00 Vel [facility] XR KUB 2021-10-25 04:14:00 [address] [facility] CERVICAL SPINE WO CONTRAST 2021-10-24 16:24:24 Agus [facility] CT HEAD WO CONTRAST 2021-10-24 16:03:35 Rich Goldsmith [facility] MAGNESIUM 2021-10-24 09:22:00 Rick Eric [facility] BASIC METABOLIC PANEL (NA, K, CL, CO2, GLUCOSE, BUN, CREATININE, CA) 2021-10-24 09:22:00 Rick Eric [facility] CBC WITHOUT DIFF 2021-10-24 09:22:00 Rick Eric [facility] SPUTUM CULTURE 2021-10-23 22:44:00 Rick Eric [facility] CBC WITHOUT DIFF 2021-10-23 20:33:00 Rick Eric [facility] TRANSTHORACIC ECHO (TTE) COMPLETE W/ CONTRAST 2021-10-23 16:30:53 Meera Ayers [facility] MAGNESIUM 2021-10-23 08:46:00 Rick Eric [facility] BASIC METABOLIC PANEL (NA, K, CL, CO2, GLUCOSE, BUN, CREATININE, CA) 2021-10-23 08:46:00 Rick Eric [facility] CBC WITHOUT DIFF 2021-10-23 08:46:00 Rick Eric [facility] AC PANEL 20 + LACTIC ACID 2021-10-23 08:45:00 Charlee [facility] TROPONIN I 2021-10-23 05:22:00 Rick Eric [facility] TROPONIN I 2021-10-22 23:07:00 Rick Eric [facility] CBC WITHOUT DIFF 2021-10-22 23:07:00 Eric Reid [facility] TROPONIN I 2021-10-22 16:48:00 Rick Eric [facility] VANCOMYCIN RANDOM LEVEL 2021-10-22 16:48:00 Arabella Eric [facility] CBC WITHOUT DIFF 2021-10-22 16:48:00 Eric Reid [facility] AC PANEL 20 + LACTIC ACID 2021-10-22 15:02:00 Azeb Deshpande [facility] HB ECG ROUTINE & RHYTHM STRIP 2021-10-22 13:43:44 Rick Eric [facility] PHOSPHORUS 2021-10-22 12:15:00 [facility] 2021-10-22 12:15:00 Eric Reid [facility] BASIC METABOLIC PANEL (NA, K, CL, CO2, GLUCOSE, BUN, CREATININE, CA) 2021-10-22 12:15:00 Eric Reid [facility] URINE DRUG (IMMUNOASSAY) - COMPREHENSIVE DRUG SCREEN 2021-10-22 10:59:00 Eric Reid [facility] TROPONIN I 2021-10-22 10:53:00 Meera Ayers [facility] CBC WITHOUT DIFF 2021-10-22 10:53:00 [facility] AC PANEL 20 + LACTIC ACID 2021-10-22 06:28:00 Azeb Deshpande [facility] TROPONIN I 2021-10-22 06:19:00 Meera Ayers [facility] CBC WITHOUT DIFF 2021-10-22 06:19:00 Eric Reid [facility] RESPIRATORY PANEL BY PCR 2021-10-22 04:50:00 Lanny Reid [facility] URINE CULTURE 2021-10-22 02:56:00 Meera Ayers [facility] AC PANEL 20 + LACTIC ACID 2021-10-22 02:29:00 Meera Ayers [facility] CREATINE KINASE 2021-10-22 00:50:00 [facility] 2021-10-22 00:50:00 Meera Ayers [facility] ETHANOL 2021-10-22 00:50:00 Rich Goldsmith [facility] CBC WITHOUT DIFF 2021-10-22 00:50:00 [facility] ACTIVATED PARTIAL THRMPLAS POORNIMA 2021-10-22 00:50:00 Meera Ayers [facility] FIBRINOGEN 2021-10-22 00:50:00 Meera Ayers [facility] URINE DRUG (IMMUNOASSAY) - COMPREHENSIVE DRUG SCREEN 2021-10-22 00:43:00 Agus [facility] URINALYSIS 2021-10-22 00:43:00 Meera Ayers [facility] CREATININE, URINE RANDOM 2021-10-22 00:43:00 Miriam Ayers [facility] UREA NITROGEN, URINE RANDOM 2021-10-22 00:43:00 Meera Ayers [facility] SODIUM, URINE RANDOM 2021-10-22 00:43:00 Myah Ayers [facility] URINE DRUG (LCMSMS) - SYNTHETIC OPIATES PANEL 2021-10-22 00:43:00 [facility] URINE DRUG (LCMSMS) - BENZODIAZEPINES PANEL 2021-10-22 00:43:00 [facility] COVID-19 (MOLECULAR TESTING NUCLEIC ACID AMPLIFICATION) 2021-10-22 00:42:[address] [facility] LAB ONLY COVID INTERPRETATION 2021-10-22 00:42:[address] [facility] COVID-19 (ID NOW RAPID TESTING) 2021-10-22 00:41:00 Franklin Eric [facility] LAB ONLY COVID INTERPRETATION 2021-10-22 00:41:00 Franklin Eric [facility] MRSA / MSSA SCREEN BY ASH SIMONS 2021-10-22 00:38:00 [facility] 2021-10-22 00:29:00 Myah Ayers [facility] XR ABDOMEN 1 VW 2021-10-22 00:10:00 Rick Eric [facility] XR CHEST 1 VW 2021-10-22 00:10:00 Andria [facility] MAGNESIUM 2021-10-22 00:07:00 [facility] TROPONIN I 2021-10-22 00:07:00 [facility] HEPATIC FUNCTION PANEL (36240) (ALB,T.PRO,BILI T,BU/BC,ALT,AST,ALK PHOS) 2021-10-22 00:07:00 Andria [facility] BASIC METABOLIC PANEL (NA, K, CL, CO2, GLUCOSE, BUN, CREATININE, CA) 2021-10-22 00:07:00 Andria [facility] CBC WITH DIFF 2021-10-22 00:07:[address] [facility] PROTHROMBIN TIME / INR 2021-10-22 00:07:00 Chichi Ayers [facility] ABG+COOX+NA+K+GLU+CA2+ 2021-10-21 23:52:00 Jim Nelson [facility] Encounters Start Date/Time End Date/Time Encounter Type Admission Type Attending [facility] Care Department Encounter ID Source 2023-06-25 22:02:00 2023-06-26 22:42:00 Emergency [facility] [id number] 28 [facility] 2023-02-11 00:00:00 2023-02-11 00:00:00 Yu Boothe [facility] [id number] 350.1.13.10 4.2.7.2.686 [id number] [facility] 2023-01-29 00:00:00 2023-01-29 00:00:00 Transition of Care Jesus Quezadaoinette ARMANDO TRAORE [id number] 350.1.13.10 4.2.7.2.686 [id number] [facility] 2023-01-26 07:11:00 2023-01-28 19:57:00 Inpatient U ROMA BRIONES [facility] [id number] [facility] 2023-01-26 07:11:00 2023-01-28 19:57:00 [facility] 1.2.840.114 350.1.13.10 4.2.7.2.686 [id number] [facility] 2021-12-11 00:00:00 2021-12-11 00:00:00 Patient Outreach Jessi Sanchez 1.2.840.114 350.1.13.10 4.2.7.2.686 [id number] [facility] 2021-11-12 00:00:00 2021-11-12 00:00:00 Patient Secure Msg Doctor Unassigned, [place] [facility] 1.2.840.114 350.1.13.10 4.2.7.2.686 [id number] [facility] 2021-11-09 00:00:00 2021-11-09 00:00:00 Orders Only Doctor Unassigned, [place] [facility] 1.2.840.114 350.1.13.10 4.2.7.2.686 [id number] [facility] 2021-11-07 00:00:00 2021-11-07 00:00:00 Mike Leonard [facility] 1.2.840.114 350.1.13.10 4.2.7.2.686 [id number] [facility] 2021-11-06 00:00:00 2021-11-06 00:00:00 Transition of Care QuezadaJesus patelBruna JOSEDominique TRAORE 1.2.840.114 350.1.13.10 4.2.7.2.686 [id number] [facility] 2021-11-03 00:00:00 2021-11-03 00:00:00 Patient Outreach Jessi Sanchez ARMANDO TRAORE 1.2.840.114 350.1.13.10 4.2.7.2.686 [id number] [facility] 2021-10-31 00:00:00 2021-10-31 00:00:00 Transition of Care Bruna Quezada [facility] 1.2.840.114 350.1.13.10 4.2.7.2.686 [id number] [facility] 2021-10-21 18:30:00 2021-10-28 16:39:00 Inpatient U [facility] [id number] [facility] 2021-10-21 18:30:00 2021-10-28 16:39:00 Hospital Encounter Betina Phelanangelique Valencia, Artur Campbell, Dilcia Henao, Lukas Kyle, Edson GAMINO [facility] 1.2.840.114 350.1.13.10 4.2.7.2.686 [id number] [facility] Results Test Description Test Time Test Comments Results Result Co mments Source [id number] 07:57:00* Test Item Value Reference Range Interpretation Comme nts ALCOHOL (test code = ALC) 0.24 gm/dL 0.00-0.00 H ETHYL ALCOHOL VA LUES - INTERPRETATION: 0.050 GM/DL - NOT INTOXICATED 0.100 GM/DL - INTOXICATED 0.350-0.450 GM/DL - SEVERELY INTOXICATED 0.550 GM/DL- FATAL INTOXICATION HEPATIC FUNCTION PANEL [id number] 07:47:00* Test Item Value Reference Range Interpretation [...] code = ALKP) 83 Units/L 50.0-136.0 N [id number] 07:41:00* Test Item Value Reference Range Interpretation Comme nts ACETAMINOPHEN (test code = ACET) <2.0 mcg/ml 10.0-30.0 L Result is in Microgram per milliliter. [id number] 07:41:00* Test Item Value Reference Range Interpretation Comme nts SALICYLATE (test code = VANESSA) 13.4 mg/dl 2.8-20.0 N CBC W/AUTO [id number] 02:52:00* Test Item Value Reference Range Interpretation [...] = PLTEST) ADQ DRUGS OF ABUSE SCREEN [id number] 00:10:00* Test Item Value Reference Range Interpretation [...] 300 ng/mL WHAT DRUGS HAVE BEEN TAKEN? [id number] 10:28:00* Test Item Value Reference Range Interpretation Comme nts MAGNESIUM (test code = 6799613104) 1.8 mg/dL 1.7-2.4 Lab Interpretation (test cod e = 69150-1) [facility] (NA, K, CL, CO2, GLUCOSE, BUN, CREATININE, CA)2023-01-28 10:27:59* Test Item Value Reference Range Interpretation Comme nts NA (test code = 7469039753) 142 mmol/L 135-145 K (test code = 7494421515) 3.2 mmol/L 3.5-5.0 L CL (test code = 1356499926) 112 mmol/L 98-108 H CO2 TOTAL (test code = 1723043456) 26 mmol/L 23-31 AGAP (test code = 4102490815) 4 2-16 BUN (test code = 1604667897) 24 mg/dL 7-23 H GLUCOSE (test code = 6480091824) 89 mg/dL 70-110 CREATININE (test code = 9910647151) 0.93 mg/dL 0.60-1.25 CALCIUM (test code = 2779686846) 8.3 mg/dL 8.6-10.6 L eGFR (test code = 8785128833) 88.3 mL/min/1.73m2 JENNIFER (test code = JENNIFER) [...] imaging tests). Lab Interpretation (test code = 04922-9) Abnormal [facility] WITH [id number] 10:11:15* Test Item Value Reference Range Interpretation [...] 31.9 g/dL 31.2-35.0 RDW-SD (test code = 09358-2) 57.8 fL 38.5-51.6 H RDW-CV (test code = 788-0) 16.5 % 12.1-15.4 H PLT (test code = 777-3) 204 See_Comment [Automated messa ge] The system which generated this result transmitted reference range: 150 - 328 10*3/?L. The reference range was not used to interpret this result as normal/abnormal. MPV (test code = 06290-4) 10.1 fL 9.8-13.0 NRBC/100 WBC (test code = 7787705562) 0.0 See_Comment [Automated Informed Trades ssage] The system which generated this result transmitted reference range: 0.0 - 10.0 /100 WBCs. The reference range was not used to interpret this result as normal/abnormal. NRBC x10^3 (test code = 3210892651) See_Comment [Automated messa ge] The system which generated this result transmitted reference range: 10*3/?L. The reference range was not used to interpret this result as normal/abnormal. GRAN MAT (NEUT) % (test code = 770-8) 63.2 % IMM GRAN % (test code = 1568781948) 0.40 % LYMPH % (test code = 736-9) 27.1 % MONO % (test code = 5905-5) 6.9 % EOS % (test code = 713-8) 1.7 % BASO % (test code = 706-2) 0.7 % GRAN MAT x10^3(ANC) (test code = 7994489500) 6.34 10*3/uL 1.99-6.95 IMM GRAN x10^3 (test code = 2210656176) 0.04 10*3/uL 0.00-0.06 LYMPH x10^3 (test code = 731-0) 2.72 10*3/uL 1.09-3.23 MONO x10^3 (test code = 742-7) 0.69 10*3/uL 0.36-1.02 EOS x10^3 (test code = 711-2) 0.17 10*3/uL 0.06-0.53 BASO x10^3 (test code = 704-7) 0.07 10*3/uL 0.01-0.09 Lab Interpretation (test code = 30167-3) [facility]normal [facility]2023-01-27 19:45:52* Test Item Value Reference Range Interpretation Comme nts Height (test code = 7584197844) 70 in Weight (test code = 9411037231) 175 lbs Systolic BP (test code = 6977536109) 124 mmHg Diastolic BP (test code = 2894228115) 84 mmHg Heart Rate (test code = 2559122071) 67 bpm BSA (test code = 1199726331) 1.97 m2 LVIDD (test code = 4305905112) 5.10 cm Left Ventricular End Diastolic Volume by Teichholz Method (test code = 7110418) 121.1 mL IVS (test code = 4342005605) 0.77 cm Interventricular Septum Diastolic Thickness by 2D (test code = 0022742) 0.77 cm LVPWD (test code = 6918469730) 0.77 cm PW (test code = 1236623654) 0.77 cm 0.6-1.1 EF(Teich) (test code = 9046306571) 46.40 % LVIDS (test code = 0753426229) 3.90 cm Left Ventricular End Systolic Volume by Teichholz Method (test code = 0190731) 65.0 mL FS (test code = 1647687260) 23 % EF - 2D (test code = 13702610) 46.40 % LVOT diameter (test code = 4442565032) 1.82 cm LVOT area (test code = 9826684134) 2.60 cm2 Ao root diam (test code = 6734268903) 3.10 cm Aortic root (test code = 6723696126) 3.1 cm Ao root annulus (test code = 7748644174) 3.1 cm LA size (test code = 9228639910) 2.6 cm ACS (test code = 1957331455) 1.92 cm PV REGURGITATION PEAK GRADIENT (test code = 2380677994) 10.6 mmHg MV Peak E Otis (test code = 8520861780) 69.0 cm/s MV Peak A Otis (test code = 9946909850) 67.3 cm/s E/A ratio (test code = 5064644330) 1.03 ratio E wave decelartion time (test code = 6630404205) 0.17 s MV E/e' septal (test code = 7637720066) 9.5 cm/s LVOT stroke volume (test code = 5534953058) 53.00 cm3 LVOT peak otis (test code = 4132444095) 90.4 cm/s LVOT mn grad (test code = 7551389376) 1.6 mmHg AV LVOT peak gradient (test code = 3905415589) 3.3 mmHg LVOT peak VTI (test code = 3099938664) 20.3 cm LV V1 mean (test code = 6851319858) 57.70 cm/s Aortic valve mean velocity (test code = 5582853553) 71.7 cm/s Ao peak otis (test code = 7772534100) 108.6 cm/s Ao VTI (test code = 6540376688) 21.0 cm AV area by cont VTI (test code = 7903576415) 2.5 cm2 AV area peak otis (test code = 6210217360) 2.2 cm2 Ao max PG (test code = 2042554009) 4.70 mm[Hg] AV peak gradient (test code = 5847804314) 4.7 mmHg AV valve area (test code = 2316030693) 2.50 cm2 AV mean gradient (test code = 4121763940) 2.35 mmHg Tapse (test code = 0394877094) 2.26 cm LAV(MOD-sp4) (test code = 7960944582) 53.50 mL LA Volume Index (BP) (test code = 6192167617) 28.7 mL/m2 LA volume (BP) (test code = 9895010091) 56.7 mL LAV(MOD-sp2) (test code = 1743519170) 47.40 mL IVC Diam Exp(MM) (test code = 9861063029) 1.31 cm IVC Diam Ins(MM) (test code = 1719546382) 0.49 cm Radiology Study observation (narrative) (test code = 48093-3) JENNIFER (test code = JENNIFER) ?Left?Ventricle: Left [...] mL of Lumason ultrasound enhancing agent used. [facility] METABOLIC PANEL (NA, K, CL, CO2, GLUCOSE, BUN, CREATININE, CA)2021-10-28 10:23:41* Test Item Value Reference Range Interpretation Comme nts NA (test code = 9519236934) 144 mmol/L 135-145 K (test code = 3630682946) 3.3 mmol/L 3.5-5.0 L CL (test code = 0491002879) 113 mmol/L 98-108 H CO2 TOTAL (test code = 7919443748) 23 mmol/L 23-31 AGAP (test code = 6226680457) 2-16 BUN (test code = 9036209052) 16 mg/dL 7-23 GLUCOSE (test code = 9348093156) 94 mg/dL 70-110 CREATININE (test code = 1650530856) 1.11 mg/dL 0.60-1.25 CALCIUM (test code = 6808800356) 8.9 mg/dL 8.6-10.6 eGFR (test code = 8064756321) mL/min/1.73m2 JENNIFER (test code = JENNIFER) Association [...] imaging tests). Lab Interpretation (test code = 94051-6) Abnormal [facility] WITHOUT [id number] 10:16:39* Test Item Value Reference Range Interpretation [...] result as normal/abnormal. MPV (test code = 30796-4) 11.5 fL 9.8-13.0 RDW-CV (test code = 788-0) 19.2 % 12.1-15.4 H RDW-SD (test code = 72415-4) 51.7 fL 38.5-51.6 H NRBC x10^3 (test code = 0561111023) <0.01 See_Comment [Automated messa ge] The system which generated this result transmitted reference range: 10*3/?L. The reference range was not used to interpret this result as normal/abnormal. NRBC/100 WBC (test code = 6588136831) See_Comment [Automated Sonian] The system which generated this result transmitted reference range: 0.0 - 10.0 /100 WBCs. The reference range was not used to interpret this result as normal/abnormal. IPF % (test code = 6869010272) Lab Interpretation (test code = 39120-3) Abnormal [facility] METABOLIC PANEL (NA, K, CL, CO2, GLUCOSE, BUN, CREATININE, CA)2021-10-27 12:14:18* Test Item Value Reference Range Interpretation Comme nts NA (test code = 9073707204) 141 mmol/L 135-145 K (test code = 1018021781) 4.4 mmol/L 3.5-5.0 Slight hemolysis CL (test code = 2112837954) 115 mmol/L 98-108 H CO2 TOTAL (test code = 3778383933) 13 mmol/L 23-31 L AGAP (test code = 8638694107) 2-16 BUN (test code = 9479753805) 18 mg/dL 7-23 Slight hemolysis GLUCOSE (test code = 9162928976) 84 mg/dL 70-110 CREATININE (test code = 6050998792) 1.12 mg/dL 0.60-1.25 CALCIUM (test code = 5354330644) 9.2 mg/dL 8.6-10.6 eGFR (test code = 9442041296) mL/min/1.73m2 JENNIFER (test code = JENNIFER) Association [...] imaging tests). Lab Interpretation (test code = 42662-0) [facility] # 02:01:33* Test Item Value Reference Range Interpretation Comme [facility] Blood Culture-Aerobic (test code = 98093-4) No organisms isolated No growth Previous preliminary [...] 2101 CDT Blood Culture-Anaerobic (test code = 16593-0) No organisms isolated No growth Previous preliminary [...] 2101 CDT Lab Interpretation (test code = 23673-5) [facility] [id number] 02:01:32* Test Item Value Reference Range Interpretation Comme [facility] Blood Culture-Aerobic (test code = 62675-9) No organisms isolated No growth Previous preliminary [...] 2101 CDT Blood Culture-Anaerobic (test code = 94526-4) No organisms isolated No growth Previous preliminary [...] 2101 CDT Lab Interpretation (test code = 50664-8) [facility] 11:12:08* Test Item Value Reference Range Interpretation Comme nts MAGNESIUM (test code = 5389205853) 2.0 mg/dL 1.7-2.4 Lab Interpretation (test cod e = 10280-3) [facility] (NA, K, CL, CO2, GLUCOSE, BUN, CREATININE, CA)2021-10-26 11:12:07* Test Item Value Reference Range Interpretation Comme nts NA (test code = 4854460302) 146 mmol/L 135-145 H K (test code = 0434888800) 3.3 mmol/L 3.5-5.0 L CL (test code = 0525778969) 117 mmol/L 98-108 H CO2 TOTAL (test code = 2970490263) 25 mmol/L 23-31 AGAP (test code = 9649398277) 2-16 BUN (test code = 9387855316) 19 mg/dL 7-23 GLUCOSE (test code = 4245522643) 96 mg/dL 70-110 CREATININE (test code = 6597359623) 1.25 mg/dL 0.60-1.25 CALCIUM (test code = 8384916055) 9.3 mg/dL 8.6-10.6 eGFR (test code = 5610433699) mL/min/1.73m2 JENNIFER (test code = JENNIFER) Association [...] imaging tests). Lab Interpretation (test code = 09643-4) Abnormal [facility] WITHOUT [id number] 10:51:05* Test Item Value Reference Range Interpretation [...] result as normal/abnormal. MPV (test code = 81406-2) 10.9 fL 9.8-13.0 RDW-CV (test code = 788-0) 18.9 % 12.1-15.4 H RDW-SD (test code = 15269-3) 51.5 fL 38.5-51.6 NRBC x10^3 (test code = 4723856838) See_Comment [Automated f-star [employer] ge] The system which generated this result transmitted reference range: 10*3/?L. The reference range was not used to interpret this result as normal/abnormal. NRBC/100 WBC (test code = 1756888510) See_Comment [Automated f-star [employer] ge] The system which generated this result transmitted reference range: 0.0 - 10.0 /100 WBCs. The reference range was not used to interpret this result as normal/abnormal. IPF % (test code = 5263304510) Lab Interpretation (test code = 37011-1) Abnormal [facility] METABOLIC PANEL (NA, K, CL, CO2, GLUCOSE, BUN, CREATININE, CA)2021-10-25 18:19:54* Test Item Value Reference Range Interpretation Comme nts NA (test code = 7297612917) 148 mmol/L 135-145 H K (test code = 8348844313) 3.5 mmol/L 3.5-5.0 Slight hemolysis CL (test code = 3273263481) 118 mmol/L 98-108 H CO2 TOTAL (test code = 5029553668) 25 mmol/L 23-31 AGAP (test code = 4796814926) 2-16 BUN (test code = 3707166153) 24 mg/dL 7-23 H Slight hemolysis GLUCOSE (test code = 8233008698) 107 mg/dL 70-110 CREATININE (test code = 0177796988) 1.32 mg/dL 0.60-1.25 H CALCIUM (test code = 7854080299) 9.3 mg/dL 8.6-10.6 eGFR (test code = 0959326385) mL/min/1.73m2 JENNIFER (test code = JENNIFER) Association [...] imaging tests). Lab Interpretation (test code = 63673-9) [facility]* Test Item Value Reference Range Interpretation Comme nts MAGNESIUM (test code = 3312488259) 2.3 mg/dL 1.7-2.4 Slight hemolysis Lab Interpretation (test code = 87248-2) Normal [facility] WITH [id number] 11:26:06* Test Item Value Reference Range Interpretation [...] 33.6 g/dL 31.2-35.0 RDW-SD (test code = 45333-8) 51.6 fL 38.5-51.6 RDW-CV (test code = 788-0) 19.3 % 12.1-15.4 H PLT (test code = 777-3) See_Comment [Automated message] The system which generated this result transmitted reference range: 150 - 328 10*3/?L. The reference range was not used to interpret this result as normal/abnormal. MPV (test code = 79537-5) 11.7 fL 9.8-13.0 NRBC/100 WBC (test code = 5493946948) See_Comment [Automated message] The system which generated this result transmitted reference range: 0.0 - 10.0 /100 WBCs. The reference range was not used to interpret this result as normal/abnormal. NRBC x10^3 (test code = 1411552993) <0.01 See_Comment [Automated message] The system which generated this result transmitted reference range: 10*3/?L. The reference range was not used to interpret this result as normal/abnormal. GRAN MAT (NEUT) % (test code = 770-8) 86.4 % IMM GRAN % (test code = 9914723693) 0.50 % LYMPH % (test code = 736-9) 7.2 % MONO % (test code = 5905-5) 4.8 % EOS % (test code = 713-8) 0.8 % BASO % (test code = 706-2) 0.3 % GRAN MAT x10^3(ANC) (test code = 4900490755) 15.13 10*3/uL 1.99-6.95 H IMM GRAN x10^3 (test code = 4735417723) 0.09 10*3/uL 0.00-0.06 H LYMPH x10^3 (test code = 731-0) 1.27 10*3/uL 1.09-3.23 MONO x10^3 (test code = 742-7) 0.85 10*3/uL 0.36-1.02 EOS x10^3 (test code = 711-2) 0.14 10*3/uL 0.06-0.53 BASO x10^3 (test code = 704-7) 0.05 10*3/uL 0.01-0.09 TARGET CELLS (test code = 05163-6) 2+ See_Comment A [Automated message] The system which generated this result transmitted reference range: (none). The reference range was not used to interpret this result as normal/abnormal. DOHLE BODIES (test code = 7792-5) Present A Lab Interpretation (test code = 93075-0) Abnormal [facility] METABOLIC PANEL (NA, K, CL, CO2, GLUCOSE, BUN, CREATININE, CA)2021-10-25 05:26:46* Test Item Value Reference Range Interpretation Comme nts NA (test code = 0448167608) 148 mmol/L 135-145 H K (test code = 6655319974) 3.0 mmol/L 3.5-5.0 L CL (test code = 7070517424) 118 mmol/L 98-108 H CO2 TOTAL (test code = 1301802924) 25 mmol/L 23-31 AGAP (test code = 8961320569) 2-16 BUN (test code = 3085677847) 28 mg/dL 7-23 H GLUCOSE (test code = 0118784445) 103 mg/dL 70-110 CREATININE (test code = 9275994197) 1.50 mg/dL 0.60-1.25 H CALCIUM (test code = 3008905891) 9.2 mg/dL 8.6-10.6 eGFR (test code = 3993970461) mL/min/1.73m2 JENNIFER (test code = JENNIFER) Association [...] imaging tests). Lab Interpretation (test code = 29666-4) [facility]:26:46* Test Item Value Reference Range Interpretation Comme nts MAGNESIUM (test code = 2357604552) 2.5 mg/dL 1.7-2.4 H Lab Interpretation (test cod e = 34570-4) [facility] Lactic [id number] 04:56:07* Test Item Value Reference Range Interpretation Comme nts PH (test code = 2) 7.35-7.45 H PCO2 (test code = 6972847841) See_Comment L [Automated messa ge] The system which generated this result transmitted reference range: 35 - 45 mmHg. The reference range was not used to interpret this result as normal/abnormal. PO2 (test code = 5943452906) See_Comment L [Automated messa ge] The system which generated this result transmitted reference range: 80 - 100 mmHg. The reference range was not used to interpret this result as normal/abnormal. HCO3 (test code = 6831157368) See_Comment [Automated messa ge] The system which generated this result transmitted reference range: 22 - 26 mEq/L. The reference range was not used to interpret this result as normal/abnormal. BE (test code = 1832329600) See_Comment [Automated messa ge] The system which generated this result transmitted reference range: -3.0 - 3.0 mEq/L. The reference range was not used to interpret this result as normal/abnormal. THB (test code = 1470156511) 11.3 g/dL 13.5-18.0 L %O2HB (test code = 1985484577) 92.8 % 94.0-99.0 L %COHB ART (test code = 5081924254) 0.8 % 0.0-1.5 %METHB ART (test code = 5834866301) 0.3 % 0.4-1.5 L VOL%O2 ART (test code = 1783702699) 14.8 % 15.0-23.0 L NA (test code = 7375452720) 148 mmol/L 135-145 H K+ (test code = 1376113144) 3.1 mmol/L 3.5-5.0 L AC CA IONZ (test code = 7765251684) 5.20 mg/dL 4.50-5.30 GLUCOSE (test code = 5342061083) 99 mg/dL 70-110 LACTIC ACID (test code = 4412033147) 1.41 mmol/L 0.50-2.20 Lab Interpretation (test code = 25943-0) Abnormal [facility] METABOLIC PANEL (NA, K, CL, CO2, GLUCOSE, BUN, CREATININE, CA)2021-10-24 10:27:09* Test Item Value Reference Range Interpretation Comme nts NA (test code = 0656633145) 149 mmol/L 135-145 H K (test code = 7586784267) 3.2 mmol/L 3.5-5.0 L CL (test code = 2387740951) 118 mmol/L 98-108 H CO2 TOTAL (test code = 4277344165) 23 mmol/L 23-31 AGAP (test code = 3388066103) 2-16 BUN (test code = 4420762842) 29 mg/dL 7-23 H GLUCOSE (test code = 2576679891) 125 mg/dL 70-110 H CREATININE (test code = 6731693032) 1.57 mg/dL 0.60-1.25 H CALCIUM (test code = 2030434752) 8.3 mg/dL 8.6-10.6 L eGFR (test code = 5110630973) mL/min/1.73m2 JENNIFER (test code = JENNIFER) Association [...] imaging tests). Lab Interpretation (test code = 72919-5) [facility] 10:27:09* Test Item Value Reference Range Interpretation Comme nts MAGNESIUM (test code = 6293483218) 2.6 mg/dL 1.7-2.4 H Lab Interpretation (test cod e = 41996-4) [facility] [id number] 09:52:04* Test Item Value Reference Range Interpretation [...] result as normal/abnormal. MPV (test code = 25830-8) 10.9 fL 9.8-13.0 RDW-CV (test code = 788-0) 18.7 % 12.1-15.4 H RDW-SD (test code = 93599-2) 53.1 fL 38.5-51.6 H NRBC x10^3 (test code = 7450478432) <0.01 See_Comment [Automated messa ge] The system which generated this result transmitted reference range: 10*3/?L. The reference range was not used to interpret this result as normal/abnormal. NRBC/100 WBC (test code = 6331585076) See_Comment [Automated messa ge] The system which generated this result transmitted reference range: 0.0 - 10.0 /100 WBCs. The reference range was not used to interpret this result as normal/abnormal. IPF % (test code = 5375128438) Lab Interpretation (test code = 26564-7) Abnormal [facility] WITHOUT [id number] 20:47:29* Test Item Value Reference Range Interpretation [...] result as normal/abnormal. MPV (test code = 26553-3) 10.2 fL 9.8-13.0 RDW-CV (test code = 788-0) 18.8 % 12.1-15.4 H RDW-SD (test code = 55949-2) 53.3 fL 38.5-51.6 H NRBC x10^3 (test code = 3707797595) <0.01 See_Comment [Automated Sonian] The system which generated this result transmitted reference range: 10*3/?L. The reference range was not used to interpret this result as normal/abnormal. NRBC/100 WBC (test code = 5891152266) See_Comment [Automated Sonian] The system which generated this result transmitted reference range: 0.0 - 10.0 /100 WBCs. The reference range was not used to interpret this result as normal/abnormal. IPF % (test code = 2233299190) Lab Interpretation (test code = 64595-0) [facility] 19:51:27* Test Item Value Reference Range Interpretation Comme nts Height (test code = 7243149559) in Weight (test code = 8161150918) lbs Systolic BP (test code = 9602051384) mmHg Diastolic BP (test code = 7605989613) mmHg Heart Rate (test code = 3658736226) bpm LVOT stroke volume (test code = 4664603396) 36.50 cm3 EF(Teich) (test code = 6274839493) 36.50 % LVIDD (test code = 9858626916) 4.90 cm LVIDS (test code = 8621823817) 4.10 cm IVS (test code = 7168532809) 0.84 cm LVPWD (test code = 1753969240) 0.85 cm LVOT diameter (test code = 4687426787) 2.05 cm FS (test code = 3081892629) 18 % MV Peak E Otis (test code = 3546800734) 59.6 cm/s MV Peak A Otis (test code = 6903361884) 58.6 cm/s E/A ratio (test code = 1141473630) ratio E wave decelartion time (test code = 4816219300) 0.13 s MV E/e' septal (test code = 9227060895) 7.2 cm/s LA Volume Index (BP) (test code = 5895611237) 19.2 mL/m2 LA volume (BP) (test code = 5217765846) 38.0 mL LVOT peak otis (test code = 9172663045) 61.0 cm/s LVOT mn grad (test code = 4717684109) mmHg BSA (test code = 7636942948) 1.98 m2 LA size (test code = 6632459676) 3.4 cm LAV(MOD-sp2) (test code = 7591564924) 28.30 mL LAV(MOD-sp4) (test code = 2018065613) 43.40 mL TASV (test code = 4990166466) 11.5 cm/s Tapse (test code = 0980695438) 1.66 cm AV LVOT peak gradient (test code = 1938469094) mmHg LVOT peak VTI (test code = 9911735549) 11.0 cm LV V1 mean (test code = 7011718718) 39.60 cm/s TR Peak Otis (test code = 8474241733) 191.8 cm/s Triscuspid Valve Regurgitation Peak Gradient (test code = 2162771626) mmHg Ao root annulus (test code = 1744013388) 3.3 cm Ao root diam (test code = 2829967545) 3.30 cm Aortic root (test code = 7899623146) 3.3 cm PW (test code = 4139524840) 0.85 cm 0.6-1.1 EF - 2D (test code = 93602446) 36.50 % Interventricular Septum Diastolic Thickness by 2D (test code = 3310068) 0.84 cm Aortic valve mean velocity (test code = 7007028830) 60.7 cm/s Ao peak otis (test code = 4847420436) 97.7 cm/s Ao VTI (test code = 7691010314) 16.9 cm AV area by cont VTI (test code = 0698553706) 2.2 cm2 AV area peak otis (test code = 1366722846) 2.1 cm2 Ao max PG (test code = 9032192078) 3.80 mm[Hg] AV peak gradient (test code = 0778412404) mmHg AV valve area (test code = 6481760307) 2.16 cm2 AV mean gradient (test code = 7482367539) mmHg LV Diastolic Volume (BP) (test code = 6774734203) 143.4 mL EF(MOD-bp) (test code = 3439204249) 40.30 % LV Systolic Volume (BP) (test code = 7201983609) 85.6 mL SV(MOD-bp) (test code = 1371857078) 57.70 mL EF (test code = 2614828986) 40 % Left Ventricular Stroke Volume by 2-D Biplane-MOD (test code = 3012658) 57.7 mL Radiology Study observation (narrative) (test code = 00038-0) JENNIFER (test code = JENNIFER) ?Left?Ventricle: Left [...] in size. ?Pericardium: Trivial pericardial effusion present. [facility] METABOLIC PANEL (NA, K, CL, CO2, GLUCOSE, BUN, CREATININE, CA)2021-10-23 09:19:36* Test Item Value Reference Range Interpretation Comme nts NA (test code = 3135426623) 144 mmol/L 135-145 K (test code = 0533730696) 3.7 mmol/L 3.5-5.0 CL (test code = 9840135214) 114 mmol/L 98-108 H CO2 TOTAL (test code = 2293341314) 23 mmol/L 23-31 AGAP (test code = 8429102573) 2-16 BUN (test code = 3676249270) 38 mg/dL 7-23 H GLUCOSE (test code = 0056562547) 154 mg/dL 70-110 H CREATININE (test code = 3281838503) 2.05 mg/dL 0.60-1.25 H CALCIUM (test code = 9231612022) 7.8 mg/dL 8.6-10.6 L eGFR (test code = 9965729233) mL/min/1.73m2 JENNIFER (test code = JENNIFER) Association [...] imaging tests). Lab Interpretation (test code = 01600-1) [facility] 09:19:36* Test Item Value Reference Range Interpretation Comme nts MAGNESIUM (test code = 2283035507) 2.9 mg/dL 1.7-2.4 H Lab Interpretation (test cod e = 83061-7) [facility] [id number] 08:52:54* Test Item Value Reference Range Interpretation [...] result as normal/abnormal. MPV (test code = 41828-4) 10.2 fL 9.8-13.0 RDW-CV (test code = 788-0) 19.2 % 12.1-15.4 H RDW-SD (test code = 38458-4) 55.0 fL 38.5-51.6 H NRBC x10^3 (test code = 4198817081) <0.01 See_Comment [Automated messa ge] The system which generated this result transmitted reference range: 10*3/?L. The reference range was not used to interpret this result as normal/abnormal. NRBC/100 WBC (test code = 0047260300) See_Comment [Automated messa ge] The system which generated this result transmitted reference range: 0.0 - 10.0 /100 WBCs. The reference range was not used to interpret this result as normal/abnormal. IPF % (test code = 4695988751) Lab Interpretation (test code = 30276-6) [facility] + Lactic [id number] 08:51:54* Test Item Value Reference Range Interpretation Comme nts PH (test code = 2) 7.35-7.45 PCO2 (test code = 0195619680) See_Comment [Automated messa ge] The system which generated this result transmitted reference range: 35 - 45 mmHg. The reference range was not used to interpret this result as normal/abnormal. PO2 (test code = 7227906773) See_Comment [Automated messa ge] The system which generated this result transmitted reference range: 80 - 100 mmHg. The reference range was not used to interpret this result as normal/abnormal. HCO3 (test code = 6482401515) See_Comment L [Automated messa ge] The system which generated this result transmitted reference range: 22 - 26 mEq/L. The reference range was not used to interpret this result as normal/abnormal. BE (test code = 8008009481) See_Comment L [Automated f[employer]star [employer] ge] The system which generated this result transmitted reference range: -3.0 - 3.0 mEq/L. The reference range was not used to interpret this result as normal/abnormal. THB (test code = 6205654218) 12.1 g/dL 13.5-18.0 L %O2HB (test code = 1256096145) 96.2 % 94.0-99.0 %COHB ART (test code = 0031080496) 0.4 % 0.0-1.5 %METHB ART (test code = 7135888863) 0.3 % 0.4-1.5 L VOL%O2 ART (test code = 0938757418) 16.5 % 15.0-23.0 NA (test code = 4565163151) 142 mmol/L 135-145 K+ (test code = 6547423502) 3.7 mmol/L 3.5-5.0 AC CA IONZ (test code = 2838184554) 4.60 mg/dL 4.50-5.30 GLUCOSE (test code = 8196870203) 155 mg/dL 70-110 H LACTIC ACID (test code = 9381987380) 1.78 mmol/L 0.50-2.20 Lab Interpretation (test code = 72211-4) Abnormal [facility] [id number] 06:04:07* Test Item Value Reference Range Interpretation Comments TROPONIN I (test code = 7533865123) 0.162 ng/mL See_Comment H [Automated message] The [...] of biotin. Lab Interpretation (test code = 06808-6) [facility] [id number] 23:40:33* Test Item Value Reference Range Interpretation Comments TROPONIN I (test code = 9517551628) 0.258 ng/mL See_Comment H [Automated message] The [...] of biotin. Lab Interpretation (test code = 14099-0) [facility] [id number] 23:27:50* Test Item Value Reference Range Interpretation [...] result as normal/abnormal. MPV (test code = 34017-1) 10.2 fL 9.8-13.0 RDW-CV (test code = 788-0) 18.6 % 12.1-15.4 H RDW-SD (test code = 77912-3) 52.1 fL 38.5-51.6 H NRBC x10^3 (test code = 2220580891) <0.01 See_Comment [Automated f-star [employer]] The system which generated this result transmitted reference range: 10*3/?L. The reference range was not used to interpret this result as normal/abnormal. NRBC/100 WBC (test code = 0056837166) See_Comment [Automated f[employer]star [employer]] The system which generated this result transmitted reference range: 0.0 - 10.0 /100 WBCs. The reference range was not used to interpret this result as normal/abnormal. IPF % (test code = 8390559789) Lab Interpretation (test code = 97373-8) Abnormal [facility] [id number] 18:28:38* Test Item Value Reference Range Interpretation Comments TROPONIN I (test code = 7276808893) 0.251 ng/mL See_Comment H [Automated message] The [...] of biotin. Lab Interpretation (test code = 54346-1) [facility]normal [facility] [id number] 18:19:57* Test Item Value Reference Range Interpretation Comme nts VANCO RANDOM (test code = 3075587594) 7.6 ug/mL [facility] [id number] 16:55:38* Test Item Value Reference Range Interpretation [...] result as normal/abnormal. MPV (test code = 71010-9) 9.9 fL 9.8-13.0 RDW-CV (test code = 788-0) 18.9 % 12.1-15.4 H RDW-SD (test code = 10305-3) 53.5 fL 38.5-51.6 H NRBC x10^3 (test code = 2504574201) <0.01 See_Comment [Automated messa ge] The system which generated this result transmitted reference range: 10*3/?L. The reference range was not used to interpret this result as normal/abnormal. NRBC/100 WBC (test code = 0283608012) See_Comment [Automated messa ge] The system which generated this result transmitted reference range: 0.0 - 10.0 /100 WBCs. The reference range was not used to interpret this result as normal/abnormal. IPF % (test code = 2506704504) Lab Interpretation (test code = 98256-9) [facility] + Lactic [id number] 15:11:13* Test Item Value Reference Range Interpretation Comme nts PH (test code = 2) 7.35-7.45 PCO2 (test code = 4443366821) See_Comment [Automated messa ge] The system which generated this result transmitted reference range: 35 - 45 mmHg. The reference range was not used to interpret this result as normal/abnormal. PO2 (test code = 8181999635) See_Comment L [Automated messa ge] The system which generated this result transmitted reference range: 80 - 100 mmHg. The reference range was not used to interpret this result as normal/abnormal. HCO3 (test code = 8767531021) See_Comment [Automated messa ge] The system which generated this result transmitted reference range: 22 - 26 mEq/L. The reference range was not used to interpret this result as normal/abnormal. BE (test code = 2656253267) See_Comment [Automated messa ge] The system which generated this result transmitted reference range: -3.0 - 3.0 mEq/L. The reference range was not used to interpret this result as normal/abnormal. THB (test code = 9900548888) 12.2 g/dL 13.5-18.0 L %O2HB (test code = 1774886284) 91.4 % 94.0-99.0 L %COHB ART (test code = 6732042998) 0.8 % 0.0-1.5 %METHB ART (test code = 2051410187) 0.0 % 0.4-1.5 L VOL%O2 ART (test code = 3302083865) 15.7 % 15.0-23.0 NA (test code = 6677327535) 140 mmol/L 135-145 K+ (test code = 7197858678) 4.1 mmol/L 3.5-5.0 AC CA IONZ (test code = 7339542965) 4.40 mg/dL 4.50-5.30 L GLUCOSE (test code = 3011374180) 130 mg/dL 70-110 H LACTIC ACID (test code = 8435704091) 2.21 mmol/L 0.50-2.20 H Lab Interpretation (test code = 09184-7) [facility] [id number] 12:38:20* Test Item Value Reference Range Interpretation Comments TROPONIN I (test code = 4763827502) 0.128 ng/mL See_Comment H [Automated message] The [...] of biotin. Lab Interpretation (test code = 45159-4) [facility] [id number] 12:08:41* Test Item Value Reference Range Interpretation [...] result as normal/abnormal. MPV (test code = 68828-0) 10.7 fL 9.8-13.0 RDW-CV (test code = 788-0) 19.3 % 12.1-15.4 H RDW-SD (test code = 06911-4) 54.9 fL 38.5-51.6 H NRBC x10^3 (test code = 7664813540) <0.01 See_Comment [Automated f-star [employer] ge] The system which generated this result transmitted reference range: 10*3/?L. The reference range was not used to interpret this result as normal/abnormal. NRBC/100 WBC (test code = 4145704825) See_Comment [Automated f-star [employer] ge] The system which generated this result transmitted reference range: 0.0 - 10.0 /100 WBCs. The reference range was not used to interpret this result as normal/abnormal. IPF % (test code = 2098287668) Lab Interpretation (test code = 17916-4) Abnormal [facility] [id number] 07:08:43* Test Item Value Reference Range Interpretation Comments TROPONIN I (test code = 4955554094) 0.061 ng/mL See_Comment H [Automated message] The [...] of biotin. Lab Interpretation (test code = 52254-9) Abnormal [facility] WITHOUT [id number] 06:34:57* Test Item Value Reference Range Interpretation [...] result as normal/abnormal. MPV (test code = 96450-3) 10.0 fL 9.8-13.0 RDW-CV (test code = 788-0) 19.2 % 12.1-15.4 H RDW-SD (test code = 70296-9) 54.9 fL 38.5-51.6 H NRBC x10^3 (test code = 5406842174) <0.01 See_Comment [Automated messa ge] The system which generated this result transmitted reference range: 10*3/?L. The reference range was not used to interpret this result as normal/abnormal. NRBC/100 WBC (test code = 2353939715) See_Comment [Automated messa ge] The system which generated this result transmitted reference range: 0.0 - 10.0 /100 WBCs. The reference range was not used to interpret this result as normal/abnormal. IPF % (test code = 1128298374) Lab Interpretation (test code = 23867-6) [facility] + Lactic [id number] 06:31:36* Test Item Value Reference Range Interpretation Comme nts PH (test code = 2) 7.35-7.45 L PCO2 (test code = 2689440654) See_Comment [Automated messa ge] The system which generated this result transmitted reference range: 35 - 45 mmHg. The reference range was not used to interpret this result as normal/abnormal. PO2 (test code = 9181964287) See_Comment [Automated messa ge] The system which generated this result transmitted reference range: 80 - 100 mmHg. The reference range was not used to interpret this result as normal/abnormal. HCO3 (test code = 2051677255) See_Comment [Automated messa ge] The system which generated this result transmitted reference range: 22 - 26 mEq/L. The reference range was not used to interpret this result as normal/abnormal. BE (test code = 8583930798) See_Comment [Automated messa ge] The system which generated this result transmitted reference range: -3.0 - 3.0 mEq/L. The reference range was not used to interpret this result as normal/abnormal. THB (test code = 5021556520) 12.8 g/dL 13.5-18.0 L %O2HB (test code = 5543787433) 95.6 % 94.0-99.0 %COHB ART (test code = 1154422272) 0.7 % 0.0-1.5 %METHB ART (test code = 7217273519) 0.1 % 0.4-1.5 L VOL%O2 ART (test code = 5423426550) 17.3 % 15.0-23.0 NA (test code = 3165546591) 141 mmol/L 135-145 K+ (test code = 3958795544) 4.3 mmol/L 3.5-5.0 AC CA IONZ (test code = 4494131868) 4.40 mg/dL 4.50-5.30 L GLUCOSE (test code = 2430446336) 139 mg/dL 70-110 H LACTIC ACID (test code = 3149095839) 2.54 mmol/L 0.50-2.20 H Lab Interpretation (test code = 16393-6) [facility] 04:16:53* Test Item Value Reference Range Interpretation Comme nts ALCOHOL (test code = 2320818971) <10 mg/dL JENNIFER (test code = JENNIFER) Toxic Greater than or equal to 80 mg/dL. NOTE: Whole blood values are approximately 10% to 15% lower than serum and plasma. [facility] + Lactic Egmd8792-18-55 02:32:20* Test Item Value Reference Range Interpretation Comme nts PH (test code = 2) 7.35-7.45 L PCO2 (test code = 8263329073) See_Comment [Automated messa ge] The system which generated this result transmitted reference range: 35 - 45 mmHg. The reference range was not used to interpret this result as normal/abnormal. PO2 (test code = 9165394784) See_Comment H [Automated messa ge] The system which generated this result transmitted reference range: 80 - 100 mmHg. The reference range was not used to interpret this result as normal/abnormal. HCO3 (test code = 7217686385) See_Comment L [Automated messa ge] The system which generated this result transmitted reference range: 22 - 26 mEq/L. The reference range was not used to interpret this result as normal/abnormal. BE (test code = 5552818499) See_Comment L [Automated messa ge] The system which generated this result transmitted reference range: -3.0 - 3.0 mEq/L. The reference range was not used to interpret this result as normal/abnormal. THB (test code = 3216313214) 12.7 g/dL 13.5-18.0 L %O2HB (test code = 8821230518) 98.2 % 94.0-99.0 %COHB ART (test code = 3808066257) 0.4 % 0.0-1.5 %METHB ART (test code = 0402060888) 0.1 % 0.4-1.5 L VOL%O2 ART (test code = 9058304260) 17.8 % 15.0-23.0 NA (test code = 7841971029) 139 mmol/L 135-145 K+ (test code = 6185143623) 4.0 mmol/L 3.5-5.0 AC CA IONZ (test code = 8061757689) 4.40 mg/dL 4.50-5.30 L GLUCOSE (test code = 0240282268) 121 mg/dL 70-110 H LACTIC ACID (test code = 0376469061) 2.29 mmol/L 0.50-2.20 H Lab Interpretation (test code = 55652-2) [facility]* Test Item Value Reference Range Interpretation Comme nts APTT Patient (test code = 3173-2) See_Comment [Automated f-star [employer] ge] The system which generated this result transmitted reference range: 26 - 36 Seconds. The reference range was not used to interpret this result as normal/abnormal. Lab Interpretation (test code = 09759-5) [facility] Kfppm1816-02-90 01:16:16* Test Item Value Reference Range Interpretation Comme nts Fibrinogen (test code = 5733040496) 391 mg/dL 167-453 Lab Interpretation (test cod e = 10167-9) [facility] QETDJW1347-56-26 01:13:01* Test Item Value Reference Range Interpretation Comme nts CK (test code = 9159503872) 443 U/L 33-194 H Lab Interpretation (test cod e = 43238-5) [facility] 01:13:01* Test Item Value Reference Range Interpretation Comme nts LIPASE (test code = 6195878499) 21 U/L 0-220 Lab Interpretation (test cod e = 25256-6) [facility] / Iihhesnp6834-41-74 01:05:20* Test Item Value Reference Range Interpretation [...] result as normal/abnormal. MPV (test code = 32183-2) 10.0 fL 9.8-13.0 RDW-CV (test code = 788-0) 19.4 % 12.1-15.4 H RDW-SD (test code = 17146-6) 54.6 fL 38.5-51.6 H NRBC x10^3 (test code = 5504669757) <0.01 See_Comment [Automated messa ge] The system which generated this result transmitted reference range: 10*3/?L. The reference range was not used to interpret this result as normal/abnormal. NRBC/100 WBC (test code = 1985698987) See_Comment [Automated [employer] ge] The system which generated this result transmitted reference range: 0.0 - 10.0 /100 WBCs. The reference range was not used to interpret this result as normal/abnormal. IPF % (test code = 6043365504) Lab Interpretation (test code = 94401-7) Abnormal [facility] with Nauusmtyjswn0542-44-93 00:56:25* Test Item Value Reference Range Interpretation [...] 32.0 g/dL 31.2-35.0 RDW-SD (test code = 83072-3) 55.3 fL 38.5-51.6 H RDW-CV (test code = 788-0) 19.5 % 12.1-15.4 H PLT (test code = 777-3) See_Comment [Automated message] The system which generated this result transmitted reference range: 150 - 328 10*3/?L. The reference range was not used to interpret this result as normal/abnormal. MPV (test code = 75430-5) 9.8 fL 9.8-13.0 NRBC/100 WBC (test code = 7328596965) See_Comment [Automated message] The system which generated this result transmitted reference range: 0.0 - 10.0 /100 WBCs. The reference range was not used to interpret this result as normal/abnormal. NRBC x10^3 (test code = 2857180312) <0.01 See_Comment [Automated message] The system which generated this result transmitted reference range: 10*3/?L. The reference range was not used to interpret this result as normal/abnormal. GRAN MAT (NEUT) % (test code = 770-8) 86.5 % IMM GRAN % (test code = 8586165586) 0.60 % LYMPH % (test code = 736-9) 6.7 % MONO % (test code = 5905-5) 5.6 % EOS % (test code = 713-8) 0.0 % BASO % (test code = 706-2) 0.6 % GRAN MAT x10^3(ANC) (test code = 0734485029) 3.10 10*3/uL 1.99-6.95 IMM GRAN x10^3 (test code = 9664086561) <0.03 0.00-0.06 LYMPH x10^3 (test code = 731-0) 0.24 10*3/uL 1.09-3.23 L MONO x10^3 (test code = 742-7) 0.20 10*3/uL 0.36-1.02 L EOS x10^3 (test code = 711-2) <0.03 0.06-0.53 L BASO x10^3 (test code = 704-7) <0.03 0.01-0.09 BANDS (test code = 0655871862) MARKED INCREASED A Lab Interpretation (test code = 76463-1) Abnormal [facility] [id number] 00:44:19* Test Item Value Reference Range Interpretation Comments TROPONIN I (test code = 3354484910) 0.037 ng/mL See_Comment H [Automated message] The [...] of biotin. Lab Interpretation (test code = 83500-3) [facility]normal [facility]th[facility] Time / [id number] 00:35:38* Test Item Value Reference Range Interpretation Comme nts NIKITA PATIENT (test code = 5964-2) See_Comment [Automated f-star [employer] ge] The system which generated this result transmitted reference range: 10.1 - 12.6 Seconds. The reference range was not used to interpret this result as normal/abnormal. INR (test code = 6301-6) Normal INR <1.1; Warfarin Therapeutic range 2.0 to 3.0 or 2.5 to 3.5, depending upon the indications. Lab Interpretation (test code = 67590-2) Normal [facility] (NA, K, CL, CO2, Glucose, BUN, Creatinine, CA)2021-10-22 00:28:57* Test Item Value Reference Range Interpretation Comme [facility] NA (test code = 5924394755) 142 mmol/L 135-145 K (test code = 2921765423) 4.5 mmol/L 3.5-5.0 CL (test code = 2024241938) 110 mmol/L 98-108 H CO2 TOTAL (test code = 0204520499) 21 mmol/L 23-31 L AGAP (test code = 8112730944) 2-16 BUN (test code = 1396592616) 46 mg/dL 7-23 H GLUCOSE (test code = 0898259218) 144 mg/dL 70-110 H CREATININE (test code = 3828620397) 3.90 mg/dL 0.60-1.25 H CALCIUM (test code = 4308428730) 8.0 mg/dL 8.6-10.6 L eGFR (test code = 1404942764) mL/min/1.73m2 JENNIFER (test code = JENNIFER) Association [...] imaging tests). Lab Interpretation (test code = 33836-3) [facility]normal [facility] HospitalMagnesium Njyck2502-68-45 00:28:57* Test Item Value Reference Range Interpretation Comme nts MAGNESIUM (test code = 2390473817) 1.9 mg/dL 1.7-2.4 Lab Interpretation (test cod e = 78862-6) Normal [facility] (ALB, T.PRO, BILI T, BU/BC, ALT, AST, ALK, PHOS)2021-10-22 00:28:57* Test Item Value Reference Range Interpretation Comme nts TOTAL BILI (test code = 9724723368) 0.4 mg/dL 0.1-1.1 BILI UNCON (test code = 8889738963) 0.3 mg/dL 0.1-1.1 BILI CONJ (test code = 3833305054) 0.0 mg/dL 0.0-0.3 T PROTEIN (test code = 4150820469) 6.6 g/dL 6.3-8.2 ALBUMIN (test code = 2667022347) 3.7 g/dL 3.5-5.0 ALK PHOS (test code = 7600256231) 49 U/L 34-122 ALTv (test code = 1742-6) 22 U/L 5-50 AST(SGOT) (test code = 1103442766) 32 U/L 13-40 Lab Interpretation (test cod e = 42527-3) Normal [facility]ABG+COOX+NA+K+GLU+CA2+2021-10-22 00:01:49* Test Item Value Reference Range Interpretation Comme nts PH (test code = 2) 7.35-7.45 LL PCO2 (test code = 5421599839) See_Comment H [Automated messa ge] The system which generated this result transmitted reference range: 35 - 45 mmHg. The reference range was not used to interpret this result as normal/abnormal. PO2 (test code = 1016945244) See_Comment L [Automated messa ge] The system which generated this result transmitted reference range: 80 - 100 mmHg. The reference range was not used to interpret this result as normal/abnormal. HCO3 (test code = 5074750115) See_Comment [Automated messa ge] The system which generated this result transmitted reference range: 22 - 26 mEq/L. The reference range was not used to interpret this result as normal/abnormal. BE (test code = 5486262418) See_Comment L [Automated messa ge] The system which generated this result transmitted reference range: -3.0 - 3.0 mEq/L. The reference range was not used to interpret this result as normal/abnormal. THB (test code = 1905997332) 15.2 g/dL 13.5-18.0 %O2HB (test code = 2602477850) 84.9 % 94.0-99.0 L %COHB ART (test code = 6370271144) 1.4 % 0.0-1.5 %METHB ART (test code = 5838120839) 0.2 % 0.4-1.5 L VOL%O2 ART (test code = 0937257423) 18.1 % 15.0-23.0 NA (test code = 6131014441) 141 mmol/L 135-145 K+ (test code = 1259162057) 4.7 mmol/L 3.5-5.0 AC CA IONZ (test code = 1995941890) 4.80 mg/dL 4.50-5.30 GLUCOSE (test code = 5050472080) 151 mg/dL 70-110 H Lab Interpretation (test code = 50804-6) [facility] Notes Date/Time Note Provider Source 2023-06-25 22:58:00 [facility] ([facility]) EMERGENCY PROVIDER REPORT REPORT#:[id number] REPORT STATUS: Signed DATE:06/25/23 TIME: 2257 PATIENT: DARBY HUGHES UNIT #: [id number] ROOM/BED: AGE: 43 SEX: M PCP PHYS: No Primary or Family Physician SERVICE AUTHOR: Peyton Richter DO * ALL edits or amendments must be made on the electronic/computer document * See Addendum HPI-Trauma Multiple Free Text HPI Notes Free Text HPI Notes 43 years old male with past medical history of hypertension and dyslipidemia brought in by EMS and police officers intoxicated and agitated, as per EMS patient was walking unsteady and fell and hit the ground with his face left side with abrasions left side face. On arrival to the emergency room patient is agitated, combative, trying to punch and kick everyone around not allowing care. Trauma alert called, patient needed medication to allow sedation and allow exam and care. General Initial Greet Date/Time 06/25/232201 Presentation Chief Complaint alcohol intoxication, fall, head trauma Review of Systems ROS Statements All systems rev neg except as marked. Free Text ROS Notes Free Text ROS Notes Unable to obtain review of system at this time secondary to current mental status and intoxication Past Medical History - Adult Stated Complaint ETOH Allergies Coded Allergies: No Allergy Information Available (06/25/23) Physical Exam Vital Signs Vital Signs First Documented: Result Date Time Pulse Ox 98 06/243 B/P 105/66 06/24 2203 B/P Mean 79 06/24 220 Pulse 88 06/24 2203 Resp 18 06/24 2210 O2 Delivery Nasal cannula 06/24 2319 O2 Flow Rate 2 06/24 2319 Last Documented: Result Date Time Pulse Ox 94 06/25 0618 B/P 104/74 06/25 0718 B/P Mean 84 06/25 0718 Resp 12 06/25 0718 Pulse 84 06/25 0715 O2 Delivery Room air 06/25 0400 O2 Flow Rate 2 06/25 0029 Review of Vital Signs Reviewed Free Text PE Notes Free Text PE Notes Gen/Const: wake, alert, agitated, intoxicated, combative and aggressive MS Head: normocephalic, superficial abrasion left side face, no laceration, no crepitus Neck: no midline ttp Eyes: PERRL b/l; EOM intact Ears/Nose/Throat: normal posterior oropharynx, TMs clear b/l Resp/Chest: lungs CTAB; no wheezes, rales, rhonchi, retractions Cardiovascular: rrr; no murmurs, gallops, or rubs; capillary refill less than 2 seconds; no chest ttp Abdomen/GI: soft, nontender, nondistended, bowel sounds equal and reactive MS Upper Extremity: Atraumatic, no abnormalities noted MS Lower Extremity: Atraumatic; no clubbing, cyanosis, or edema MS Back: No midline tenderness palpation; no step-offs or deformities Skin: Normal color; no rash present; no petechiae or purpura Neurologic: Awake, alert, confused, moving 4 extremities symmetrically Interpretation Diagnostics Lab Results Interpretation Results Laboratory Tests 06/25/23 2215: [Embedded Image Not Available] 06/25/23 2215: [Embedded Image Not Available] Laboratory Tests: 06/25 06/24 06/24 0741 2349 2215 [...] Coagulation INR (0.89 - 1.14) 1.0 PTT (Orger) (25.86 - 36.07 SECONDS) 33.30 PT Patient/Control [...] % (Auto) (23.0 - 38.0 %) 36.0 Mineral % (Auto) (1.0 - 10.0 %) 5.3 Eos % (Auto) (1.0 - 5.0 %) 2.3 Baso % (Auto) (0.0 - 1.0 %) 0.7 Neut # (Auto) (2.4 - 6.3 K/mm3) 10.0 H Lymph # (Auto) (1.2 - 4.0 K/mm3) 6.6 H Mineral # (Auto) (0.0 - 0.6 K/mm3) 1.0 [...] (10.0 - 30.0 mcg/ml) <2.0 L Recent Impressions: RADIOLOGY - XR CHEST 1 V 06/24 2226 Report Impression - Status: SIGNED Entered: 06/25/20232235 IMPRESSION: No acute disease. Impression By: Vaishali Gomes M.D. CAT SCAN - CT MAXIFAC W/O CONTRAST 06/24 2305 Report Impression - Status: SIGNED Entered: 06/25/20232346 IMPRESSION: NO ACUTE BONY ABNORMALITY OF THE CERVICAL SPINE. NO ACUTE BONY ABNORMALITY OF THE FACIAL BONES. Dictation/location code: H-100 Impression By: Kenneth Clarke Md CAT SCAN - CT C-SPINE W/O CONT 06/24 2305 Report Impression - Status: SIGNED Entered: 06/25/20232346 IMPRESSION: NO ACUTE BONY ABNORMALITY OF THE CERVICAL SPINE. NO ACUTE BONY ABNORMALITY OF THE FACIAL BONES. Dictation/location code: H-100 Impression By: Kenneth Clarke Md CAT SCAN - CT HEAD/BRAIN W/O CONT 06/24 2305 Report Impression - Status: SIGNED Entered: 06/25/20232346 IMPRESSION: No acute intracranial abnormality. Dictation/location code: H-100 Impression By: Kenneth Clarke Md CAT SCAN - CT ABD PELVIS W/CONT 06/24 2308 Report Impression - Status: SIGNED Entered: 06/25/20232344 IMPRESSION: No acute findings. Impression By: tWILL Tian MD CAT SCAN - CT CHEST W/CONTRAST 06/24 2308 Report Impression - Status: SIGNED Entered: 06/25/20232344 IMPRESSION: No acute findings. Impression By: Jose Tian MD ECG #1 Interpretation Text/Dict Note Sinus rhythm 84 bpm, normal axis, no segment elevation, QTc 472 Re-Evaluation MDM Free Text MDM Notes Free Text MDM Notes 43 years old male with history of hypertension and dyslipidemia brought in by EMS and police officers intoxicated, agitated, combative with signs of head trauma status post fall to the ground Trauma alert called Trauma labs, trauma luna CT scan Versed, Ativan, Benadryl, IV fluid, cardiac monitoring and respiratory support Sobriety and reevaluation Re-Evaluation/Progress #1 Text/Dict Note Labs remarkable for alcohol level 0.41, drug screen positive for benzodiazepines , white blood cells 18,000, chest x-ray with [...] De La Vega at shift change ED Course Medication(s) Ordered Medication(s) Ordered: Antihistamine Drugs Sig/Mariza Start time Last Medication Dose Route Stop Time Status Admin Diphenhydramine HCl 50 MG X1ED STA 06/25 0149 DC 06/25 IV 06/25 0150 0246 Diphenhydramine HCl 50 MG X1ED STA 06/24 2240 DC / IV 06/24 2241 2245 Central Nervous System Agents Sig/Mariza Start time Last Medication Dose Route Stop Time Status Admin Lorazepam 2 MG X1ED STA 06/25 0149 DC / IV 06/25 0150 0246 Lorazepam 4 MG X1ED STA 06/24 2238 DC 03/ IV 06/24 224 2244 Midazolam HCl 4 MG X1ED STA 06/24 2226 DC / IV 06/25 2227 223 Midazolam HCl 4 MG X1ED STA 06/25 2207 DC / IV 06/24 2208 2215 Diagnostic Agents Sig/Mariza Start time Last Medication Dose Route Stop Time Status Admin Iopamidol 0 .STK-MED ONE 06/24 2246 DC 06/24 IV 2322 Electrolytic, Caloric, And Frank Sig/Mariza Start time Last Medication Dose Route Stop Time Status Admin Sodium Chloride 1,000 ML ONCE ONE 06/25 0200 DC / IV 06/25 0201 0246 Sodium Chloride 1,000 ML X1ED STA 06/24 2204 DC / IV 06/24 2304 2216 Patient Discharge Departure Vital Signs/Condition Vital Signs First Documented: Result Date Time Pulse Ox 98 06/24 2202 B/P 105/66 06/24 2203 B/P Mean 79 06/24 220 Pulse 88 06/24 2203 Resp 18 06/24 2210 O2 Delivery Nasal cannula 06/24 2319 O2 Flow Rate 2 06/24 2319 Last Documented: Result Date Time Pulse Ox 94 / 0718 B/P 104/74 06/25 0718 B/P Mean 84 06/25 0718 Resp 12 06/25 0718 Pulse 84 / 0715 O2 Delivery Room air 06/25 0400 O2 Flow Rate 2 06/25 0029 All vital signs available at the time of this entry have been reviewed. Condition Stable Clinical Impression Clinical Impression Primary Impression: Alcohol intoxication Secondary Impressions: Suicidal ideation Pt/Provider Handoff Shift Change Note This patient's care has been transferred to the incoming physician. We discussed : the patient's chief complaint; labs and imaging [...] by Vikas De La Vega MD Patient Addendum Addendum Patient is cleared for HCAT at 1556 Addendum 2: 06/26/23 2234 by Peyton Richter DO Suicide Risk Detail Assessment Suicide Risk Detail Assessment Suicide risk score: The data set between the solid lines has been imported from nursing documentation. Any exceptions have been noted below under Provider comments. ____ Calculated suicide risk level: Low risk ____ Provider comments on imported nursing data: [] Overall risk level-suicide: low risk Comments: Patient was evaluated by [facility] CAT, as per psych evaluation patient with no to low risk for suicidal ideation, patient with chronic alcohol use and chronic psychosis but no suicidal risk and patient can be safely discharged for outpatient follow-up, patient will be given resources for outpatient follow-up at 2234 RPT #:[id number] END OF REPORT [facility]"
[2024-03-21] MEDS ORDERED: NA CHLORIDE 0.9% 2,000 ML ONE (17:48)
[2024-03-21] MEDS ORDERED: FAMOTIDINE 20 MG/2 ML VIAL IV ONE (17:48)
[2024-03-21] MEDS ORDERED: METOCLOPRAMIDE 10 MG/2mL INJ ONE (17:48)
[2024-03-21] MEDS ORDERED: MULTIVITAMINS 10 ML VIAL (INJ) IV ONE (18:17)
[2024-03-21 18:28] LABS: Absolute Eosinophils 0.3 K/uL (0-0.5); Absolute Lymphocytes (CBC) 2.7 K/uL (0.7-4.9); Absolute Monocytes 0.7 K/uL (0.1-1.3); Absolute Neutrophil 8.6 K/uL (1.8-8.0); Basophils % 0.4 % (0-1.3); Eosinophils % 2.3 % (0-4.4); Hematocrit 51.4 % (39.6-49.0); Hemoglobin 16.8 g/dL (13.6-17.9); Lymphocytes % 21.8 % (15.3-44.8); MCH 29.4 pg (27.0-35.0); MCHC 32.7 g/dL (32.0-36.0); MCV 89.7 fL (80-100); MPV 8.5 fL (7.6-11.3); Monocytes % 5.4 % (3.3-12.3); Neutrophils % 70.1 % (41.7-73.7); Platelets 363 thou/uL (152-406); RBC Red Blood Cell Count 5.73 M/uL (4.33-5.43); Red Cell Distribution Width 17.3 % (12.1-15.2)
[2024-03-21 18:41] LABS: PT Prothrombin Time 10.6 SECONDS (9.4-12.5); PTT, Activated Partial Thromb 35.2 SECONDS (24.3-36.9); Protime INR 0.94
[2024-03-21 18:48] LABS: ALT/SGPT 49 U/L (16-61); AST/SGOT 35 U/L (15-37); Albumin 4.1 g/dL (3.4-5.0); Alkaline Phosphatase 99 U/L (45-117); Anion Gap 11.1 mEq/L (5.0-15.0); BUN Blood Urea Nitrogen 15 mg/dL (7-18); Bicarbonate 26 mEq/L (21-32); Bilirubin Total 0.3 mg/dL (0.2-1.0); Glomerular Filtration Rate 75 ml/min (=/>90); Glucose Level 104 mg/dL (74-106); Potassium 3.1 mEq/L (3.5-5.1); Protein, Total 8.1 g/dL (6.4-8.2); Sodium Level 144 mEq/L (136-145); Troponin High Sensitivity 5.8 pg/mL (<58.9)
[2024-03-21 18:49] LABS: Bilirubin Direct < 0.2 mg/dL (0-0.2); Bilirubin Indirect, Calculated 0.1 mg/dL (0.2-0.8)
[2024-03-21] MEDS ORDERED: POTASSIUM 25 MEQ EFFERV TAB ONE (20:15)
[2024-03-21 20:57] LABS: Specific Gravity 1.012 (1.005-1.030); Sqamous Epithelial None Seen /HPF (None Seen); Urine Bacteria None Seen /HPF (<20); Urine Bilirubin NEGATIVE (Negative); Urine Blood Trace (Negative); Urine Clarity Clear (Clear); Urine Color Colorless (Yellow); Urine Culture Reflex Order NOT NEEDED; Urine Glucose NEGATIVE (Negative); Urine Ketones NEGATIVE (Negative); Urine Microscopic Reflex YN ORDER UMIC; Urine Mucus Slight /HPF (None Seen); Urine Nitrite NEGATIVE (Negative); Urine Protein TRACE (Negative); Urine RBC <5 /HPF (None Seen); Urine Urobilinogen Normal (Normal); Urine WBC <5 /HPF (<5); Urine pH 6.5 (5.0-7.0)
[2024-03-21] MEDS ORDERED: NICOTINE 21 MG/PAT TD ONE (21:00)
[2024-03-21 21:08] LABS: Barbiturates NEGATIVE (NEGATIVE); Benzodiazepines POSITIVE (NEGATIVE); Cocaine NEGATIVE (NEGATIVE); METHAMPHETAM NEGATIVE (NEGATIVE); Methadone NEGATIVE (NEGATIVE); Opiates NEGATIVE (NEGATIVE); Phencyclidine NEGATIVE (NEGATIVE); THC Cannibis NEGATIVE (NEGATIVE)
[2024-03-21] MEDS ORDERED: WATER FOR INJ,STERILE 10 ML ONE (21:49)
[2024-03-21] MEDS ORDERED: ZIPRASIDONE MESYLA 20 MG/VIAL IM ONE (21:49)
[2024-03-21] MEDS ORDERED: NA CHLORIDE 0.9% 1,000 ML ONE (23:41)
[2024-03-22] MEDS ORDERED: NOREPINEPHRINE BITARTRATE/D5W 4 MG/250 ML KIT IV ONE ×2 (00:25→04:42)
[2024-03-22] MEDS ORDERED: DOPAMINE HCL IN DEXTROSE 5 % 400 MG/250 ML KIT IV ONE (03:58)
--- NOTE | 2024-03-22 04:02 | EDPHYS ---
Physician Documentation [facility] Name: Noe Hartman Age: 43 yrs Sex: Male : 1980 Arrival Date: 03/21/2024 Time: 17:26 Bed 3 Private MD: ED Physician Delvis Thomas HPI: 03/21 17:35 This 43 yrs old Male presents to ER via EMS with complaints of ETOH Abuse. cp 17:35 The patient presents to the emergency department after a known overdose, EMS reports cp patient took unknown quantity of Xanax and Amlodipine and Atorvastatin. 17:35 Associated signs and symptoms: Pertinent positives: vomiting, altered mental status and cp patient reports drinking alcohol today. 17:35 Severity of symptoms: in the emergency department the symptoms are unchanged despite cp EMS interventions. Historical: - Allergies: 17:40 No Known Allergies; ko1 - Home Meds: 17:40 Unable to obtain [Active]; ko1 - PMHx: 17:40 Anxiety; depressive disorder; Hypertension; kidney disease; Myocardial infarction; ko1 - PSHx: 17:40 Appendectomy; ko1 - Immunization history:: Adult Immunizations unknown. - Infectious Disease History:: Denies. - Social history:: Smoking status: Patient reports the use of cigarette tobacco products, unknown amount. ROS: 17:40 Constitutional: Negative for body aches, chills, fever, poor PO intake, cp 17:40 Cardiovascular: Negative for chest pain, edema, palpitations, cp 17:40 Constitutional: Positive for intoxication cp 17:40 Abdomen/GI: Positive for vomiting, Negative for abdominal pain, diarrhea, constipation, cp 17:40 Neuro: Positive for altered mental status, speech changes, Negative for seizure activity, 17:40 Unable to obtain ROS due to altered mental status, Exam: 17:50 Head/Face: Normocephalic, atraumatic. cp 17:50 Constitutional: The patient appears in no acute distress, alert, awake, non-diaphoretic, non-toxic, well developed, well nourished, 17:50 Eyes: Periorbital structures: appear normal, Pupils: pinpoint, bilaterally, Extraocular movements: intact throughout, Conjunctiva: normal, no exudate, no injection, Sclera: no appreciated abnormality, Lids and lashes: appear normal, bilaterally, 17:50 ENT: External ear(s): are unremarkable, Nose: is normal, Mouth: Lips: moist, Oral mucosa: pink and intact, moist, Posterior pharynx: Airway: no evidence of obstruction, patent, 17:50 Neck: ROM/movement: is normal, is supple, without pain, no range of motions limitations, 17:50 Chest/axilla: Inspection: normal, Palpation: is normal, no crepitus, no tenderness, cp 17:50 Cardiovascular: Rate: normal, Rhythm: regular, Edema: is not appreciated, JVD: is not cp appreciated, 17:50 Respiratory: the patient does not display signs of respiratory distress, Respirations: normal, no use of accessory muscles, no retractions, labored breathing, is not present, Breath sounds: are clear throughout, no decreased breath sounds, no stridor, no wheezing, 17:50 Abdomen/GI: Inspection: abdomen appears normal, Palpation: abdomen is soft and non-tender, in all quadrants, 17:50 Musculoskeletal/extremity: Extremities: all appear grossly normal, with no appreciated pain with palpation, 17:50 Skin: cellulitis, is not appreciated, no rash present. 17:50 Neuro: Orientation: to person, situation, Mentation: able to follow commands, slow to respond, Motor: moves all fours, no focal deficits, Sensation: no obvious gross deficits, speech slurred, 18:13 ECG was reviewed by the Attending Physician. 03/22 01:08 ECG was reviewed by the Attending Physician. cp Vital Signs: 03/21 17:20 BP 121 / 60; Pulse 76; Resp 15; Temp 97; Pulse Ox 92% on R/A; ko1 17:43 BP 130 / 64; Pulse 71; Resp 15; Pulse Ox 96% on 2 lpm NC; ko1 19:00 BP 115 / 72; Pulse 73; Resp 17; Temp 97.9; Pulse Ox 96% on NC; FiO2 2 %; vk 22:10 Weight 77.56 kg; vc1 22:12 BP 105 / 75; Pulse 73; Resp 18; Pulse Ox 99% ; vc1 23:24 BP 78 / 53; Pulse 62; Resp 14; Pulse Ox 93% on R/A; vc1 23:30 BP 73 / 54; Pulse 63; Resp 15; Pulse Ox 97% ; vc1 12/01 00:45 BP 87 / 55; Pulse 61; vc1 00:51 BP 85 / 58; Pulse 60; Resp 18; Pulse Ox 99% on 4 lpm NC; vc1 01:00 BP 80 / 53; Pulse 61; vc1 01:06 BP 80 / 53; Pulse 60; Resp 19; Pulse Ox 96% on 4 lpm NC; vc1 01:36 BP 73 / 50; Pulse 60; Resp 18; Pulse Ox 96% on 4 lpm NC; vc1 01:50 BP 73 / 50; Pulse 60; Resp 18; Pulse Ox 96% on 4 lpm NC; vc1 02:00 BP 85 / 63; Pulse 60; Resp 19; Pulse Ox 93% on 4 lpm NC; vc1 02:30 BP 85 / 56; Pulse 60; Resp 23; Pulse Ox 97% on 4 lpm NC; vc1 02:55 BP 84 / 52; Pulse 60; vc1 03:01 BP 82 / 57; Pulse 63; Resp 18; Pulse Ox 95% on 4 lpm NC; vc1 04:00 BP 94 / 60; Pulse 66; Resp 17; Pulse Ox 100% on 4 lpm NC; vc1 05:00 BP 96 / 54; Pulse 62; Resp 23; Pulse Ox 90% on 4 lpm NC; vc1 05:27 BP 86 / 52; Pulse 62; Resp 25; Pulse Ox 90% ; vc1 Procedures: 00:30 Central Line: the site was prepped with Betadine, in sterile fashion, a triple lumen cp catheter was inserted, in the right femoral vein, in 1 attempts. placement was verified, by blood return, the site was dressed with using sterile technique, the patient tolerated the procedure, well. MDM: 03/21 17:31 Medical Screening Exam initiated cp 19:00 Differential diagnosis: over medication, hypoglycemia, closed head injury, intracranial cp hemorrhage, drug overdose, suicidal gesture. 03/22 03:58 Differential Diagnosis altered mental status, sepsis, flu. Data reviewed: vital signs, sp4 nurses notes, radiologic studies, CT scan, plain films. Consideration of Admission/Observation Escalation of care including admission/observation considered. Management of patient was discussed with the following: Machine Heddle Cleaner: ICU Attending [facility]. 03/21 17:41 Order name: Acetaminophen; Complete Time: 19:18 cp 03/21 17:41 Order name: Basic Metabolic Panel; Complete Time: 19:18 cp 03/21 19:18 Interpretation: Normal except: K 3.1; CL 110; GFR 75; CA 10.2. 03/21 17:41 Order name: CBC with Diff; Complete Time: 19:18 03/21 17:41 Order name: ETOH Level; Complete Time: 19:18 03/21 19:19 Interpretation: Abnormal: ETOH 242. 03/21 17:41 Order name: Hepatic Function; Complete Time: 19:18 03/21 17:41 Order name: PT-INR; Complete Time: 19:18 03/21 17:41 Order name: Ptt, Activated; Complete Time: 19:18 03/21 17:41 Order name: Salicylate; Complete Time: 19:18 03/21 17:41 Order name: Urinalysis w/ reflexes; Complete Time: 20:58 03/21 17:41 Order name: Urine Drug Screen; Complete Time: 21:26 03/21 21:26 Interpretation: Normal except: BZO POSITIVE. 03/21 17:41 Order name: Troponin HS; Complete Time: 19:18 03/21 18:00 Order name: CK; Complete Time: 19:18 03/21 20:16 Order name: Magnesium; Complete Time: 20:58 03/22 00:40 Order name: ABG 03/22 03:43 Order name: Lactate w/ 2H reflex if indic. [facility] 03/22 03:51 Order name: BNP [facility] 03/22 01:33 Order name: CT Head Brain wo Cont 03/22 03:47 Order name: Chest Single View XRAY [facility] 03/21 17:41 Order name: EKG; Complete Time: 17:42 03/22 03:50 Order name: EKG; Complete Time: 03:50 [facility] 03/21 17:41 Order name: IV; Complete Time: 18:15 03/21 17:41 Order name: EKG - Nurse/Tech; Complete Time: 18:13 03/21 17:41 Order name: IV Saline Lock; Complete Time: 18:15 03/21 17:41 Order name: Labs collected and sent; Complete Time: 18:15 03/21 17:41 Order name: Suicide Precautions; Complete Time: 18:21 03/21 17:41 Order name: Suicide Screening ([place]); Complete Time: 18:19 cp 03/22 03:50 Order name: EKG - Nurse/Tech; Complete Time: 05:26 sp4 EC/30 18:13 Rate is 74 beats/min. Rhythm is regular. AR interval is normal. QRS interval is normal. cp QT interval is normal. T waves are Inverted in lead aVR. Interpreted by me. Reviewed by me. 03/22 01:08 Rate is 61 beats/min. Rhythm is regular. AR interval is normal. QRS interval is normal. cp QT interval is normal. T waves are Inverted in lead aVR. Interpreted by me. Reviewed by me. Administered Medications: 03/21 18:00 Not Given (Physician Discretion): ns 0.9% 1000 ml IV at 1000 ml once; to be given as a cp bolus over 60 minutes 18:14 Drug: NS 0.9% IV 1000 ml IV at 1000 ml once; to be given as a bolus over 60 minutes ko1 Route: IV; Rate: 1000 ml; Site: right antecubital; 19:14 Follow up: IV Status: Completed infusion; IV Intake: 1000ml vc1 18:14 Drug: metoCLOPramide IVP 10 mg IVP once; over 1 to 2 minutes Route: IVP; Site: right ko1 antecubital; 18:14 Drug: Famotidine IVP 20 mg IVP once; dilute with 10 mL 0.9% NaCl; give over 2 minutes ko1 Route: IVP; Site: right antecubital; 20:20 Drug: Potassium PO Effervescent Tablet 50 mEq PO once; dissolve in 4 ounces of water or vc1 juice Route: PO; 20:40 Follow up: Response: No adverse reaction vc1 21:02 Drug: Nicoderm CQ Transdermal Patch 21 mg/24 hr 1 patches Transdermal once {Note: right vc1 deltoid.} Route: Transdermal; Site: affected area; 21:04 Drug: Banana Bag - (Multivitamin IV 1 amp, NS 0.9% IV 1000 ml, Thiamine IV 100 mg, vc1 foLIC Acid IVPB 1 mg) IV at 200 ml/hr once {Note: started by Mariposa Melvin RN.} Route: IV; Rate: 200 ml/hr; Site: right antecubital; 03/22 02:00 Follow up: IV Status: Completed infusion; IV Intake: 1000ml vc1 03/21 22:10 Drug: Geodon IM 10 mg IM once Route: IM; Site: left deltoid; vc1 22:30 Follow up: Response: No adverse reaction; Marked relief of symptoms vc1 03/22 00:32 Drug: NS 0.9% IV 1000 ml IV at 1000 ml once; to be given as a bolus over 60 minutes vc1 Route: IV; Rate: 1000 ml; Site: right femoral; 01:30 Follow up: IV Status: Completed infusion; IV Intake: 1000ml vc1 00:38 Drug: Norepinephrine IV 0.1 mcg/kg/min IV at calculated rate Per protocol; (Standard vc1 concentration 4 mg / 250 mL D5W); Recommended max rate 3 mcg/kg/min; Titrate 0.05 mcg/kg/min as often as every 5 minutes to achieve goal (see titration policy); Goal parameter MAP greater than 65 mmHg. Route: IV; Rate: calculated rate; Site: right femoral; 00:45 Follow up: BP 87 / 55; Pulse 61 bpm; Rate change 7 mcg/min; IV Status: Infusion vc1 continued 01:00 Follow up: BP 80 / 53; Pulse 61 bpm; Rate change 10 mcg/min; IV Status: Infusion vc1 continued 01:50 Follow up: BP 73 / 50; Pulse 60 bpm; Resp 18 bpm; Pulse Ox 96% 4 lpm Nasal Cannula; vc1 Rate change 15 mcg/min; IV Status: Completed infusion 02:55 Follow up: BP 84 / 52; Pulse 60 bpm; Rate change 20 mcg/min; IV Status: Infusion vc1 continued 05:27 Follow up: BP 86 / 52; Pulse 62 bpm; Resp 25 bpm; Pulse Ox 90% ; Rate change 30 vc1 mcg/min; IV Status: Infusion continued; increased to 30/mcg/min per MD. 00:40 CANCELLED (Physician Discretion): atropine0.5 mg IVP once cp 04:00 Drug: DOPamine IV (400mg/250mL Premix) 5 mcg/kg/min IV at calculated rate See vc1 Administration Instructions; Recommended max rate 20 mcg/kg/min; Titrate 2.5 mcg/kg/min as often as every 5 minutes to achieve goal (see titration policy); Goal parameter MAP greater than 65 mmHg. [*Low doses 1 to 4 mcg/kg/min may result in hypotension, decreased SVR*] Route: IV; Rate: calculated rate; Site: right femoral; 05:26 Follow up: Rate change 7.5 mcg/kg/min; IV Status: Infusion continued upon transfer vc1 Disposition: 03:39 Co-signature as Attending Physician, Delvis Thomas MD I agree with the assessment sp4 and plan of care. I reviewed the patient's care provided by Advanced Practice Provider \T\ agree w/ the diagnosis \T\ care plan. I personally saw the pt \T\ performed a substantive portion of the visit, incldng all aspects of the (History/Exam/Medical Decision Making). 04:01 Chart complete. sp4 Disposition Summary: 03/22/24 04:01 Transfer Ordered Notes: Transfer Location: [facility] sp4 Reason: Higher level of care sp4 Condition: Stable sp4 Problem: new sp4 Symptoms: have improved sp4 Accepting Physician: Dr. Ricardo Avila(03/22/24 05:32) vc1 Diagnosis - Cardiogenic shock sp4 - Polysubstance abuse, amlodipine overdose, benzodiazepine overdose, alcohol sp4 intoxication, acute cardiogenic shock secondary overdose, Forms: - Medication Reconciliation Form sp4 - SBAR form sp4 Critical care time excluding procedures: 04:01 Critical care time: Bedside Care: 36 minutes, Consultation: 12 minutes, Family sp4 Intervention: 12 minutes. Total time: 60 minutes Signatures: Dispatcher [employer] EDMS Ty Millan PA PA cp Calcote, Vanessa, RN RN vc1 Mariposa Melvin RN RN ko1 Delvis Thomas MD MD sp4 Neo Lnez ty Corrections: (The following items were deleted from the chart) 03/21 17:42 17:42 ACETAMINOPHEN+C.LAB.BRZ ordered. EDMS EDMS 17:42 17:42 BASIC METABOLIC PANEL+C.LAB.BRZ ordered. EDMS EDMS 17:42 17:42 CBC+H.LAB.BRZ ordered. EDMS EDMS 17:42 17:42 ETHANOL+C.LAB.BRZ ordered. EDMS EDMS 17:42 17:42 HEPATIC FUNCTION+C.LAB.BRZ ordered. EDMS EDMS 17:42 17:42 PROTIME (+INR)+COAG.LAB.BRZ ordered. EDMS EDMS 17:42 17:42 PTT, ACTIVATED+COAG.LAB.BRZ ordered. EDMS EDMS 17:42 17:42 SALICYLATE+C.LAB.BRZ ordered. EDMS EDMS 17:42 17:42 Urinalysis+U.LAB.BRZ ordered. EDMS EDMS 17:42 17:42 URINE DRUG SCREEN+UC.LAB.BRZ ordered. EDMS EDMS 17:42 17:42 Troponin High Sensitivity+C.LAB.BRZ ordered. EDMS EDMS 21:04 17:41 Phillip ordered. cp vc1 12 00:40 00:38 Atropine IVP 0.5 mg IVP once ordered. cp cp 03:43 03:43 LACTATE+C.LAB.BRZ ordered. EDMS EDMS 03:51 03:51 PROBNP+C.LAB.BRZ ordered. EDMS EDMS 04:09 04:01 ICU Attending sp4 ty 05:32 04:09 Dr. Ricardo Avila ty vc1 12 00:52 12 04:01 Constitutional: Positive for intoxication sp4 cp
--- NOTE | 2024-03-22 04:02 | ER ---
Nurse's Notes [facility] Name: Noe Hartman Age: 43 yrs Sex: Male : 1980 Arrival Date: 03/21/2024 Time: 17:26 Bed 3 Private MD: Diagnosis: Cardiogenic shock;Polysubstance abuse, amlodipine overdose, benzodiazepine overdose, alcohol intoxication, acute cardiogenic shock secondary overdose, Presentation: 03/21 17:20 Initial Sepsis Screen: Does the patient meet any 2 criteria? No. Patient's initial ko1 sepsis screen is negative. Does the patient have a suspected source of infection? No. Patient's initial sepsis screen is negative. Risk Assessment: Do you want to hurt yourself or someone else? Unable to obtain. Onset of symptoms was March 21, 2024. Care prior to arrival: Glucose check: 122. 17:20 Acuity: JOHNSON 3 ko1 17:34 Chief complaint: EMS states: patient drank an unknown amount of alcohol today and took ko1 unknown amt of xanax, amlodipine, atorvastatin, vomited an undertermined amt up prior to ems arrival. Coronavirus screen: At this time, the client does not indicate any symptoms associated with coronavirus-19. Ebola Screen: No symptoms or risks identified at this time. 17:34 Method Of Arrival: EMS: [facility] ko1 18:29 Activity prior to arrival: combative, vomiting. ko1 Triage Assessment: 17:40 General: Appears intoxicated. Behavior is combative. Pain: Denies pain. EENT: No ko1 deficits noted. Neuro: [place] Agitation-Sedation Scale (RASS): +2 Agitated. Cardiovascular: No deficits noted. Respiratory: No deficits noted. GI: No deficits noted. : No deficits noted. Derm: No deficits noted. Musculoskeletal: No deficits noted. Historical: - Allergies: 17:40 No Known Allergies; ko1 - Home Meds: 17:40 Unable to obtain [Active]; ko1 - PMHx: 17:40 Anxiety; depressive disorder; Hypertension; kidney disease; Myocardial infarction; ko1 - PSHx: 17:40 Appendectomy; ko1 - Immunization history:: Adult Immunizations unknown. - Infectious Disease History:: Denies. - Social history:: Smoking status: Patient reports the use of cigarette tobacco products, unknown amount. Screenin:43 [facility] ED Fall Risk Assessment (Adult) History of falling in the last 3 months, ko1 including since admission Yes- single mechanical fall (1 pt) Confusion or Disorientation Yes (5 pts) Intoxicated or Sedated Yes (3 pts) Impaired Gait No (0 pts) Mobility Assist Device Used No (0 pt) Altered Elimination No (0 pt) Score/Fall Risk Level 3 or more points = High Risk Oriented to surroundings, Maintained a safe environment, Educated pt \\T\\ family on fall prevention, incl call for assistance when getting out of bed, Assessed \\T\\ reinforced patient's understanding of fall precautions, Provided non-skid footwear, Hourly rounding (assess needs \\T\\ fall precautionary measures) done, Used ambulatory aids as needed (educated on \\T\\ assisted with), Used gait belt as appropriate Implemented a Fall Risk Plan of Care, Apply high fall risk patient identification: yellow non skid footwear/ fall signage, Activated bed/chair alarm, Remained w/in arm's length of patient and in sight while toileting, Offered frequent toileting (1:1 observation), Remained with patient while ambulating, Utilized family, sitter, or virtual dry cure worker as indicated. Abuse screen: Denies threats or abuse. Denies injuries from another. Nutritional screening: No deficits noted. Tuberculosis screening: No symptoms or risk factors identified. Assessment: 17:43 Reassessment: see triage note. ko1 18:21 Reassessment: POISON CONTROL CASE #[id number], recommendations given to ER provider. ko1 19:00 General: Appears in no apparent distress. comfortable, Behavior is pt laying in bed vc1 with eyes closed, resting. Pain: Denies pain. Neuro: Level of Consciousness is laying in bed with eyes closed resting comfortably. Cardiovascular: Heart tones S1 S2 present Capillary refill < 3 seconds Patient's skin is warm and dry. Respiratory: Airway is patent Respiratory effort is even, unlabored, Respiratory pattern is regular, symmetrical, Breath sounds are clear bilaterally. GI: Abdomen is flat, non-distended, Bowel sounds present X 4 quads. Abd is soft and non tender. : No deficits noted. No signs and/or symptoms were reported regarding the genitourinary system. EENT: No deficits noted. No signs and/or symptoms were reported regarding the EENT system. Derm: Skin is intact, is healthy with good turgor, Skin is dry, Skin is normal, Skin temperature is warm. Musculoskeletal: No deficits noted. No signs and/or symptoms reported regarding the musculoskeletal system. 20:07 Reassessment: CONTACTED POISON CONTROL OBSERVE FOR 6 HOURS FROM TIME OF INGESTION vc1 BEFORE MEDICALLY CLEARING. 20:50 Reassessment: Pt standing at side of bed with assistance of nurse and tech using the vc1 urinal. 21:00 General: pt requests snack, sandwich given. Pt consumed half of the sandwich. vc1 22:00 General: pt agitated up out of bed asking for a xanax, provider notified, new orders vc1 placed by provider. . 23:24 General: Appears distressed, uncomfortable, Behavior is responsive to verbal stimuli. vc1 Neuro: Level of Consciousness is obtunded. 03/22 03:05 Reassessment: No changes from previously documented assessment. Patient and/or family vc1 updated on plan of care and expected duration. Pain level reassessed. Psych: 03/21 18:29 [place] Suicide Severity Screening: In the past month, have you wished you were ko1 or wished you could go to sleep and not wake up? Patient responds "No." "In the past month, have you actually had any thoughts of killing yourself?" Patient responds "no." "In your lifetime, have you ever done anything, started to do anything, or prepared to do anything to end your life?" Patient responds "yes." Patient reports suicidal intent occurred greater than 3 months prior. as teenager per sister. Subjective: Subjective: Patient's mood is irritable, Delusions are denied, Hallucinations are denied Having thoughts of denies SI/HI. Objective: Patient is irritable, Speech is slurred, Affect is flat, Patient has mutilated themselves by NA. Interventions: Removed personal items and placed in bag. Patient placed in hospital gown. Searched person for dangerous items. Belonging list filled out. Patient reassessed during use of restraints. Patient is physically safe. Patient's cardiac status is stable. Patient's respirations are even and unlabored. Patient has good circulation in all extremities as indicated by capillary refill < 3 seconds. Patient's ROM assessed and is intact. Patient nutrition and hydration needs will continue to be monitored and addressed. Patient hygiene and elimination needs met. Patient assessed for signs of distress. Patient remains reasonably comfortable at this time. Assisted patient in de-escalation of behavior by removing stimuli causing behavior where possible. Safety Checks: will be moving to a different room with items removed, patients sister at bedside currently Door is open. Visitors are present. Patient uses unknown of beer, of liquor, binge drinker according to sister Last use was 2 hours ago. Patient does not have a history of DTs. Commitment: unknown. Vital Signs: 17:20 BP 121 / 60; Pulse 76; Resp 15; Temp 97; Pulse Ox 92% on R/A; ko1 17:43 BP 130 / 64; Pulse 71; Resp 15; Pulse Ox 96% on 2 lpm NC; ko1 19:00 BP 115 / 72; Pulse 73; Resp 17; Temp 97.9; Pulse Ox 96% on NC; FiO2 2 %; vk 22:10 Weight 77.56 kg; vc1 22:12 BP 105 / 75; Pulse 73; Resp 18; Pulse Ox 99% ; vc1 23:24 BP 78 / 53; Pulse 62; Resp 14; Pulse Ox 93% on R/A; vc1 23:30 BP 73 / 54; Pulse 63; Resp 15; Pulse Ox 97% ; vc1 12/01 00:45 BP 87 / 55; Pulse 61; vc1 00:51 BP 85 / 58; Pulse 60; Resp 18; Pulse Ox 99% on 4 lpm NC; vc1 01:00 BP 80 / 53; Pulse 61; vc1 01:06 BP 80 / 53; Pulse 60; Resp 19; Pulse Ox 96% on 4 lpm NC; vc1 01:36 BP 73 / 50; Pulse 60; Resp 18; Pulse Ox 96% on 4 lpm NC; vc1 01:50 BP 73 / 50; Pulse 60; Resp 18; Pulse Ox 96% on 4 lpm NC; vc1 02:00 BP 85 / 63; Pulse 60; Resp 19; Pulse Ox 93% on 4 lpm NC; vc1 02:30 BP 85 / 56; Pulse 60; Resp 23; Pulse Ox 97% on 4 lpm NC; vc1 02:55 BP 84 / 52; Pulse 60; vc1 03:01 BP 82 / 57; Pulse 63; Resp 18; Pulse Ox 95% on 4 lpm NC; vc1 04:00 BP 94 / 60; Pulse 66; Resp 17; Pulse Ox 100% on 4 lpm NC; vc1 05:00 BP 96 / 54; Pulse 62; Resp 23; Pulse Ox 90% on 4 lpm NC; vc1 05:27 BP 86 / 52; Pulse 62; Resp 25; Pulse Ox 90% ; vc1 ED Course: 03/21 17:30 Patient arrived in ED. ko1 17:31 Mariposa Melvin, CECIL is Primary Nurse. ko1 17:31 Ty Millan PA is PHCP. cp 17:31 Ty Espino MD is Attending Physician. cp 17:40 Triage completed. ko1 17:40 Arm band placed on right wrist. Patient placed in an exam room, on a stretcher, on ko1 oxygen, on desolderer, on pulse oximetry, Patient notified of wait time. 17:43 Patient has correct armband on for positive identification. Fall risk band placed. Bed ko1 in low position. Call light in reach. Side rails up X2. Provided Education on: fall prevention. Client placed on continuous cardiac and pulse oximetry monitoring. NIBP monitoring applied. cmm operator on. Door closed. Noise minimized. Lights dimmed. Warm blanket given. Pillow given. 17:43 Oxygen administration via nasal cannula \\T\\ 2L/min Response to oxygen therapy: symptoms ko1 improved. 18:10 Initial lab(s) drawn, by me, sent to lab. Inserted saline lock: 20 gauge in right ko1 antecubital area, using aseptic technique. Blood collected. Flushed with 10 mL NS. 18:13 EKG done, by ED staff, reviewed by Ty BOUCHER. em1 18:15 CK Sent. ko1 18:15 Troponin HS Sent. ko1 18:15 Acetaminophen Sent. ko1 18:15 Basic Metabolic Panel Sent. ko1 18:15 CBC with Diff Sent. ko1 18:15 ETOH Level Sent. ko1 18:15 Hepatic Function Sent. ko1 18:15 PT-INR Sent. ko1 18:15 Ptt, Activated Sent. ko1 18:15 Salicylate Sent. ko1 23:25 One-on-one care X 60 minutes. vc1 03/22 00:35 Assisted provider with central line placement. Set up central line tray. Triple lumen vc1 line placed in right femoral. Line placed by Ty BOUCHER Placement verified by blood return, Dressed with Tegaderm, Patient tolerated well. Before procedure, did Practitioner(s) obtain informed consent? Yes. Patient \\T\\ family education about procedure, CLABSI prevention and S/S of infection? Yes. Time-out/Briefing performed prior to start of procedure? Yes. Was handwashing/sanitizing done immediately prior to procedure? Yes. Was patient positioned to in a way to prevent air embolism? Yes. Was procedure site sterilized? Yes, with betadine. Was the site allowed to dry? Yes. Was local anesthetic and/or sedation utilized? Yes. During the procedure, did the Practitioner(s) maintain a sterile field? Yes. Were unused ports clamped during insertion? Yes. Was a 2nd qualified MD obtained after 3 unsuccessful insertion attempts? No. Was blood aspirated from each lumen? Yes. After the procedure, did the Practitioner(s) clean the site and apply a sterile dressing? Yes. 03:00 [facility] contacted to initiate transfer, spoke with. ty 03:28 Attending Physician role handed off by Ty Espino MD sp4 03:28 Delvis Thomas MD is Attending Physician. sp4 04:09 FS faxed. ty 04:23 CT Head Brain wo Cont In Process Unspecified. EDMS 04:27 Chest Single View XRAY In Process Unspecified. EDMS 05:32 Patient transferred, IV remains in place. vc1 Administered Medications: 03/21 18:00 Not Given (Physician Discretion): ns 0.9% 1000 ml IV at 1000 ml once; to be given as a cp bolus over 60 minutes 18:14 Drug: NS 0.9% IV 1000 ml IV at 1000 ml once; to be given as a bolus over 60 minutes ko1 Route: IV; Rate: 1000 ml; Site: right antecubital; 19:14 Follow up: IV Status: Completed infusion; IV Intake: 1000ml vc1 18:14 Drug: metoCLOPramide IVP 10 mg IVP once; over 1 to 2 minutes Route: IVP; Site: right ko1 antecubital; 18:14 Drug: Famotidine IVP 20 mg IVP once; dilute with 10 mL 0.9% NaCl; give over 2 minutes ko1 Route: IVP; Site: right antecubital; 20:20 Drug: Potassium PO Effervescent Tablet 50 mEq PO once; dissolve in 4 ounces of water or vc1 juice Route: PO; 20:40 Follow up: Response: No adverse reaction vc1 21:02 Drug: Nicoderm CQ Transdermal Patch 21 mg/24 hr 1 patches Transdermal once {Note: right vc1 deltoid.} Route: Transdermal; Site: affected area; 21:04 Drug: Banana Bag - (Multivitamin IV 1 amp, NS 0.9% IV 1000 ml, Thiamine IV 100 mg, vc1 foLIC Acid IVPB 1 mg) IV at 200 ml/hr once {Note: started by Mariposa Melvin RN.} Route: IV; Rate: 200 ml/hr; Site: right antecubital; 03/22 02:00 Follow up: IV Status: Completed infusion; IV Intake: 1000ml vc1 03/21 22:10 Drug: Geodon IM 10 mg IM once Route: IM; Site: left deltoid; vc1 22:30 Follow up: Response: No adverse reaction; Marked relief of symptoms vc1 03/22 00:32 Drug: NS 0.9% IV 1000 ml IV at 1000 ml once; to be given as a bolus over 60 minutes vc1 Route: IV; Rate: 1000 ml; Site: right femoral; 01:30 Follow up: IV Status: Completed infusion; IV Intake: 1000ml vc1 00:38 Drug: Norepinephrine IV 0.1 mcg/kg/min IV at calculated rate Per protocol; (Standard vc1 concentration 4 mg / 250 mL D5W); Recommended max rate 3 mcg/kg/min; Titrate 0.05 mcg/kg/min as often as every 5 minutes to achieve goal (see titration policy); Goal parameter MAP greater than 65 mmHg. Route: IV; Rate: calculated rate; Site: right femoral; 00:45 Follow up: BP 87 / 55; Pulse 61 bpm; Rate change 7 mcg/min; IV Status: Infusion vc1 continued 01:00 Follow up: BP 80 / 53; Pulse 61 bpm; Rate change 10 mcg/min; IV Status: Infusion vc1 continued 01:50 Follow up: BP 73 / 50; Pulse 60 bpm; Resp 18 bpm; Pulse Ox 96% 4 lpm Nasal Cannula; vc1 Rate change 15 mcg/min; IV Status: Completed infusion 02:55 Follow up: BP 84 / 52; Pulse 60 bpm; Rate change 20 mcg/min; IV Status: Infusion vc1 continued 05:27 Follow up: BP 86 / 52; Pulse 62 bpm; Resp 25 bpm; Pulse Ox 90% ; Rate change 30 vc1 mcg/min; IV Status: Infusion continued; increased to 30/mcg/min per MD. 00:40 CANCELLED (Physician Discretion): atropine0.5 mg IVP once cp 04:00 Drug: DOPamine IV (400mg/250mL Premix) 5 mcg/kg/min IV at calculated rate See vc1 Administration Instructions; Recommended max rate 20 mcg/kg/min; Titrate 2.5 mcg/kg/min as often as every 5 minutes to achieve goal (see titration policy); Goal parameter MAP greater than 65 mmHg. [*Low doses 1 to 4 mcg/kg/min may result in hypotension, decreased SVR*] Route: IV; Rate: calculated rate; Site: right femoral; 05:26 Follow up: Rate change 7.5 mcg/kg/min; IV Status: Infusion continued upon transfer vc1 Medication: 03/21 17:43 VIS not applicable for this client. ko1 Intake: 19:14 IV: 1000ml; Total: 1000ml. vc1 12 01:30 IV: 1000ml; Total: 2000ml. vc1 02:00 IV: 1000ml; Total: 3000ml. vc1 Outcome: 04:01 ER care complete, transfer ordered by MD. [place] 05:31 Transferred by ground EMS to [facility], Transfer form completed. vc1 X-rays sent w/ patient. 05:31 Condition: stable 05:31 Instructed on the need for transfer, 05:32 Patient left the ED. vc1 Signatures: Dispatcher [employer] Karan Angela em1 Ty Millan PA PA cp Calcote, Vanessa RN RN vc1 Mariposa Melvin, CECIL RN ko1 Delvis Thomas MD MD sp4 Paola Barajas Tylor ty Corrections: (The following items were deleted from the chart) 00:56 00:52 General: pt agitated up out of bed asking for a xanax, provider notified, new vc1 orders placed by provider. . vc1 03:05 00:59 General: pt requests snack, sandwich given. Pt consumed half of the sandwich. vc1 vc1
--- NOTE | 2024-03-22 06:42 | RAD REPORT ---
EXAM: XR Chest, 1 View CLINICAL HISTORY: The patient is 43 years old and is Male; CHEST PAIN TECHNIQUE: Single view of the chest. COMPARISON: January 26, 2023. FINDINGS: Lungs: Linear atelectasis right midlung. Pleural space: Unremarkable. No pneumothorax. Heart: Unremarkable. No cardiomegaly. Mediastinum: Unremarkable. Bones/joints: No acute fracture. Upper abdomen: No free air in the visualized upper abdomen. IMPRESSION: Linear atelectasis right midlung. Electronically signed by: Hayde Eaton MD 03/22/2024 05:37 AM [facility] Due to temporary technical issues with the PACS/[employer] reporting system, reports are being riaz d by the in-house radiologist without review as a courtesy to ensure prompt reporting the interpreting radiologist is fully responsible for the content of the report. Transcribed Date/Time: 03/22/2024 6:42 AM
--- NOTE | 2024-03-22 06:43 | RAD REPORT ---
PROCEDURE: CT Head Without Intravenous Contrast CLINICAL INDICATION: The patient is 43 years old and is Male; Mental status change. TECHNIQUE: Axial computed tomography images of the head/brain without intravenous contrast. Sagittal and coron al reformatted images were created and reviewed. This CT exam was performed using one or more of the following dose reduction techniques: automated exposure control, adjustment of the mA and/or kV according to patient size, and/or use of iterative reconstruction technique. COMPARISON: CT Head 10/05/2023. FINDINGS: BRAIN: No extra-axial fluid collection. No intracranial hemorrhage. No transtentorial herniation. N o focal almanza-white matter differentiation abnormality. MIDLINE SHIFT: None. VENTRICLES: Unremarkable No ventriculomegaly. BONES/JOINTS: No fracture of the calvarium or visualized facial bones. SOFT TISSUES: Unremarkable SINUSES: No masses, bony erosion or evidence of acute sinusitis. MASTOID AIR CELLS: Unremarkable as visualized. No mastoid effusion. IMPRESSION: No acute intracranial abnormality. Electronically signed by: Ankur Castellanos MD 03/22/2024 05:50 AM [facility] Due to temporary technical issues with the PACS/[employer] reporting system, reports are being riaz d by the in-house radiologist without review as a courtesy to ensure prompt reporting the interpreting radiologist is fully responsible for the content of the report. Transcribed Date/Time: 03/22/2024 6:43 AM
[2024-03-22 08:15] VITALS: TEMP 97.9
[2024-03-22 08:42] VITALS: O2SAT 90
[2024-03-22 08:44] VITALS: BP 86/52
--- NOTE | 2024-03-23 10:19 | EKG ---
Test Date: 2024-03-21 Test Time: 18:07:00 Admin Assistant: KENY MEASUREMENT RESULTS: Intervals: Rate: 74 AK: 136 QRSD: 86 QT: 408 QTc: 452 [place]: P: 73 AK: 136 QRS: 55 T: 4 INTERPRETIVE STATEMENTS: Poor data quality, interpretation may be adversely affected Normal sinus rhythm Nonspecific ST abnormality Abnormal ECG Compared to ECG 10/05/2023 21:08:15 ST (T wave) deviation now present Electronically Signed On 03-23-24 10:17:57 SHOTWELD OPERATOR by Kumar Gallo
--- NOTE | 2024-03-23 10:19 | EKG ---
Test Date: 2024-03-22 Test Time: 04:32:47 Curb Hop: CLINT MEASUREMENT RESULTS: Intervals: Rate: 62 TN: 128 QRSD: 84 QT: 426 QTc: 432 [place]: P: 58 TN: 128 QRS: 50 T: 26 INTERPRETIVE STATEMENTS: Normal sinus rhythm Normal ECG Compared to ECG 03/21/2024 18:07:00 ST (T wave) deviation no longer present Electronically Signed On 03-23-24 10:17:48 FISHER by Kumar Gallo
--- NOTE | 2024-03-23 10:19 | EKG ---
Test Date: 2024-03-22 Test Time: 01:01:12 Joint Cleaning Machine Operator: CLINT MEASUREMENT RESULTS: Intervals: Rate: 61 CT: 130 QRSD: 94 QT: 452 QTc: 455 [place]: P: 66 CT: 130 QRS: 58 T: 21 INTERPRETIVE STATEMENTS: Normal sinus rhythm Normal ECG Compared to ECG 03/21/2024 18:07:00 ST (T wave) deviation no longer present Electronically Signed On 03-23-24 10:17:53 CEO & BOARD DIRECTOR by Kumar Gallo
== END 2024-03-22 05:32 | disposition short-term general hospital (02) ==
LOC: ER 17:26
DX: R57.0 Cardiogenic shock (principal); T46.1X1A Poisoning by calcium-channel blockers, accidental (unintentional), initial encounter; T42.4X1A Poisoning by benzodiazepines, accidental (unintentional), initial encounter; F10.129 Alcohol abuse with intoxication, unspecified
CPT/HCPCS: 36415; 36556; 36600; 70450; 71045; 80048; 80076; 80143; 80179; 80307; 81001; 82077; 82550; 83605; 83735; 83880; 84484; 85025; 85610; 85730; 93005; 96372; 99291; 99292; J2765; J3486; J7030